=== PATIENT | female | born 1950 | race Caucasian/White ===

== ENCOUNTER 2018-02-02 16:10 | Inpatient (IN) ==
--- NOTE | 2018-02-02 19:43 | ED ---
HPI General Chief complaint: Abdominal Pain Stated complaint: dr saxena/ jenna pain Time Seen by Provider: 02/02/18 19:33 History of Present Illness HPI narrative: This is a 67-year-old female who sent by Dr. Bowen for admission. She has a history of right lower extremity DVT, on Xarelto. For the past 2 weeks she has been experiencing pain in her left lower quadrant which is sharp, constant, notes some vaginal bleeding and clots as well. Today she has an appointment with Dr. Harris and was sent here for further evaluation. 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 She is denying any fevers, chills, dysuria, nausea, vomiting,, constipation, chest pain, shortness of breath. Primary care physician is Dr. Hendricks. No other complaints. Related Data Home Medications Medication Instructions Recorded Confirmed atenolol 50 mg PO DAILY 01/15/18 02/02/18 citalopram 40 mg PO DAILY 01/15/18 02/02/18 furosemide 40 mg PO DAILY 01/15/18 02/02/18 rivaroxaban [Xarelto] 20 mg PO DAILY 01/15/18 02/02/18 calcium carbonate-vitamin D3 1 tab PO BID 02/02/18 02/02/18 [Calcium 500 + D] Allergies Allergy/AdvReac Type Severity Reaction Status Date / Time No Known Allergies Allergy Verified 02/02/18 16:29 Review of Systems ROS: all other systems reviewed are negative PMFSH Social History Social History Substance History: No History of Abuse Second Hand Smoke Exposure: No Smoking Status: Never smoker How Often Do You Have a Drink Containing Alcohol: Never Recent Travel in [facility] within the Last 8 Weeks: No Recent Out of Country Travel within the Last 8 Weeks: No Immunization History Tetanus Immunization: Unsure Exam Narrative Exam Narrative: GENERAL: Well-developed well-nourished female no acute distress SKIN: Warm and dry. HEAD: Atraumatic. Normocephalic. EYES: Pupils equal and round. No scleral icterus. No injection or drainage. ENT: No nasal bleeding or discharge. Mucous membranes pink and moist. NECK: Trachea midline. No JVD. CARDIOVASCULAR: Regular rate and rhythm. No murmur appreciated. RESPIRATORY: No accessory muscle use. Clear to auscultation. Breath sounds equal bilaterally. GASTROINTESTINAL: Abdomen soft, non-tender, nondistended. Hepatic and splenic margins not palpable. MUSCULOSKELETAL: No obvious deformities. Right lower extremity nonpitting edema , generalized tenderness to palpation to the right calf and thigh. Distal pulses intact. NEUROLOGICAL: Awake and alert. No obvious cranial nerve deficits. Motor grossly within normal limits. Normal speech. PSYCHIATRIC: Appropriate mood and affect; insight and judgment normal. Course Initial Documented Vital Signs Temperature 99.6 F 02/02/18 16:20 Pulse Rate 75 02/02/18 16:20 Blood Pressure 121/56 L 02/02/18 16:20 Pulse Oximetry 96 02/02/18 16:20 Last Documented Vital Signs Temperature 99.6 F 02/02/18 16:20 Pulse Rate 74 02/02/18 19:30 Respiratory Rate 18 02/02/18 19:30 Blood Pressure 159/106 H 02/02/18 19:30 Pulse Oximetry 96 02/02/18 19:30 Medical Decision Making JENNIFER Attestation JENNIFRE supervised visit: Yes Attestation: I was present with the advanced practitioner during the management of this patient. I discussed the case with the advanced practitioner and agree with the findings and plan as documented in their note except as noted below. 67yF sent in by oncologist for copious vaginal bleeding. 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 Harris's office for vaginal bleeding. I spoke with Dr. Harris prior to the patient's arrival; he says that the tumor has been growing aggressively and sent her in for evaluation by HEALTH CENTER ASSISTANT-onc and emergent initiation of chemotherapy. The patient's only complaint presently is feeling "weak". Will obtain labs and discuss case with hospitalist. [facility] Narrative Medical decision making narrative: This is a 67-year-old female who was sent by oncologist Dr. Harris for admission. She had a PET/CT performed at [place] on January 27 which reveals "extremely hypermetabolic greater than 12 cm right pelvic mass which demonstrates some central necrosis and encases the distal right ureter. Right periaortic and right pelvic adenopathy and markedly enlarged right inguinal masses extending into the proximal thigh all extremely hypermetabolic. There is evidence of direct compression upon the right femoral vein with associated marketed soft tissue swelling of the right thigh. There is one metabolic focus in the chest. Discussed with Dr. Harris who would like to be consulted during the patient's hospital stay and he also plans on consulting gynecology oncology. Patient is stable. Medical Screen Exam Complete: Yes Emergency Medical Condition: Yes Differential Diagnosis Differential Diagnosis: Malignancy, vaginal bleeding, hydronephrosis Lab Data Result diagrams: 02/02/18 20:00 02/02/18 20:00 Lab Results 02/02/18 02/02/18 02/02/18 Range/Units 20:00 20:00 20:00 WBC 8.4 (4.0-11.0) th/mm3 RBC 3.80 L (4.00-5.30) mil/mm3 Hgb 11.1 L (11.6-15.3) gm/dL Hct 34.3 L (35.0-46.0) % MCV 90.1 (80.0-100.0) fL MCH 29.3 (27.0-34.0) pg MCHC 32.5 (32.0-36.0) % RDW 13.5 (11.6-17.2) % Plt Count 318 (150-450) th/mm3 MPV 7.6 (7.0-11.0) fL Neut % (Auto) 68.1 (16.0-70.0) % Lymph % (Auto) 19.5 (9.0-44.0) % Mellette % (Auto) 10.2 H (0.0-8.0) % Eos % (Auto) 1.2 (0.0-4.0) % Baso % (Auto) 1.0 (0.0-2.0) % Neut # (Auto) 5.7 (1.8-7.7) th/mm3 Lymph # (Auto) 1.6 (1.0-4.8) th/mm3 Mellette # (Auto) 0.9 (0.0-0.9) th/mm3 Eos # (Auto) 0.1 (0.0-0.4) th/mm3 Baso # (Auto) 0.1 (0.0-0.2) th/mm3 WBC Differential . Differential Comment Auto diff final PT 10.9 (9.8-11.6) sec INR 1.1 Ratio APTT 26.8 (23.4-31.7) sec Sodium 140 (136-145) meq/L Potassium 3.4 L (3.5-5.1) meq/L Chloride 101 (98-107) meq/L Carbon Dioxide 28.4 (21.0-32.0) meq/L Anion Gap 11 (5-15) meq/L BUN 14 (7-18) mg/dL Creatinine 0.76 (0.50-1.00) mg/dL Estimated GFR 76 L (>89) mL/min Random Glucose 111 H (74-106) mg/dL Calcium 8.8 (8.5-10.1) mg/dL Magnesium 1.7 (1.5-2.5) mg/dL Total Bilirubin 0.3 (0.2-1.0) mg/dL AST 86 H (15-37) U/L ALT 36 (10-53) U/L Alkaline Phosphatase 63 (45-117) U/L Total Protein 8.8 H (6.4-8.2) g/dL Albumin 3.4 (3.4-5.0) g/dL Lipase 160 (73-393) U/L Blood Type Antibody Screen 02/02/18 Range/Units 20:00 WBC (4.0-11.0) th/mm3 RBC (4.00-5.30) mil/mm3 Hgb (11.6-15.3) gm/dL Hct (35.0-46.0) % MCV (80.0-100.0) fL MCH (27.0-34.0) pg MCHC (32.0-36.0) % RDW (11.6-17.2) % Plt Count (150-450) th/mm3 MPV (7.0-11.0) fL Neut % (Auto) (16.0-70.0) % Lymph % (Auto) (9.0-44.0) % Mellette % (Auto) (0.0-8.0) % Eos % (Auto) (0.0-4.0) % Baso % (Auto) (0.0-2.0) % Neut # (Auto) (1.8-7.7) th/mm3 Lymph # (Auto) (1.0-4.8) th/mm3 Mellette # (Auto) (0.0-0.9) th/mm3 Eos # (Auto) (0.0-0.4) th/mm3 Baso # (Auto) (0.0-0.2) th/mm3 WBC Differential Differential Comment PT (9.8-11.6) sec INR Ratio APTT (23.4-31.7) sec Sodium (136-145) meq/L Potassium (3.5-5.1) meq/L Chloride (98-107) meq/L Carbon Dioxide (21.0-32.0) meq/L Anion Gap (5-15) meq/L BUN (7-18) mg/dL Creatinine (0.50-1.00) mg/dL Estimated GFR (>89) mL/min Random Glucose (74-106) mg/dL Calcium (8.5-10.1) mg/dL Magnesium (1.5-2.5) mg/dL Total Bilirubin (0.2-1.0) mg/dL AST (15-37) U/L ALT (10-53) U/L Alkaline Phosphatase (45-117) U/L Total Protein (6.4-8.2) g/dL Albumin (3.4-5.0) g/dL Lipase (73-393) U/L Blood Type O Positive Antibody Screen Negative Discharge Plan Discharge Disposition Patient Disposition: 30 Still Patient Discharge Condition Condition: Stable Discharge Details Diagnosis: Pelvic mass in female Physicians Team ED Provider: Nasima Mckeon ED Midlevel Provider: Nicolas Camejo Primary Care Provider: Dave Hendricks V Rxs /Orders / Referrals /Forms Prescriptions: No Action furosemide 40 mg Tablet 40 mg PO DAILY RF: 0 citalopram 40 mg Tablet 40 mg PO DAILY RF: 0 atenolol 50 mg Tablet 50 mg PO DAILY RF: 0 rivaroxaban [Xarelto] 20 mg Tablet 20 mg PO DAILY RF: 0 calcium carbonate-vitamin D3 [Calcium 500 + D] 500 mg(1,250mg) -200 unit Tablet 1 tab PO BID RF: 0 Status ED Status: Admitted Patient
[2018-02-02 20:54] LABS: Baso # (Auto) 0.1 th/mm3 (0.0-0.2); Eos # (Auto) 0.1 th/mm3 (0.0-0.4); Eos % (Auto) 1.2 % (0.0-4.0); Hematocrit 34.3 % (35.0-46.0); Hemoglobin 11.1 gm/dL (11.6-15.3); Lymph # (Auto) 1.6 th/mm3 (1.0-4.8); Lymph % (Auto) 19.5 % (9.0-44.0); Mean Corpuscular HGB Conc 32.5 % (32.0-36.0); Mean Corpuscular Hemoglobin 29.3 pg (27.0-34.0); Mean Corpuscular Volume 90.1 fL (80.0-100.0); Mean Platelet Volume 7.6 fL (7.0-11.0); Mono # (Auto) 0.9 th/mm3 (0.0-0.9); Mono % (Auto) 10.2 % (0.0-8.0); Neut # (Auto) 5.7 th/mm3 (1.8-7.7); Neut % (Auto) 68.1 % (16.0-70.0); Platelet Count 318 th/mm3 (150-450); Red Cell Distribution Width 13.5 % (11.6-17.2); White Blood Count 8.4 th/mm3 (4.0-11.0)
[2018-02-02 21:02] LABS: Activated Partial Thrombo Time 26.8 sec (23.4-31.7); INR 1.1 Ratio; Prothrombin Time 10.9 sec (9.8-11.6)
[2018-02-02 21:14] LABS: Albumin 3.4 g/dL (3.4-5.0); Anion Gap 11 meq/L (5-15); Blood Urea Nitrogen 14 mg/dL (7-18); Calcium 8.8 mg/dL (8.5-10.1); Carbon Dioxide 28.4 meq/L (21.0-32.0); Chloride 101 meq/L (98-107); Glomerular Filtration Rate 76 mL/min (>89); Glucose,Random 111 mg/dL (74-106); Lipase 160 U/L (73-393); Magnesium 1.7 mg/dL (1.5-2.5); Potassium 3.4 meq/L (3.5-5.1); Sodium 140 meq/L (136-145)
[2018-02-02 21:15] LABS: Alanine Aminotransferase 36 U/L (10-53); Aspartate Aminotransferase 86 U/L (15-37)
[2018-02-02 21:18] LABS: Alkaline Phosphatase 63 U/L (45-117); Total Protein 8.8 g/dL (6.4-8.2)
[2018-02-02] MEDS ORDERED: Bisacodyl 10 MG Supp RECTAL PRN (21:42)
[2018-02-03] MEDS: Sod Chloride 0.9% Inj 1,000 ML IV.CONT SCH ×2 (00:10→20:15)
[2018-02-03] MEDS: Morphine Sulfate Inj 2 MG/ML Vial IV.PUSH PRN ×3 (00:30→20:35)
--- NOTE | 2018-02-03 04:37 | P.HPIM ---
History of Present Illness Service: [facility] Primary Care Physician: Dave Hendricks MD Chief Complaint: pelvic mass History of Present Illness: 67 y/o female with a history of a high grade neuroendocrine tumor recently diagnosed in December, HTN, and arthritis was sent to the ED for evaluation of a pelvic mass. Patient completed a pet scan outpatient that showed a pelvic mass and for the last 2 weeks she has been having vaginal bleeding and lower abdominal/pelvic pain. Dr. Harris recommended she come to the ER to see a SWIMMING COACH OR INSTRUCTOR so he can start chemo as soon as possible. She denies any chest pain, sob, fever or chills. Patient has a very optimistic attitude and has a good support system of her and sister at home. Inpatient Certification Inpatient Certification: I certify that the inpatient services were ordered in accordance with Medicare regulations governing the order. This includes certification that hospital inpatient services are reasonable and necessary and in the case of services not specified as inpatient-only under 42 CFR 419.22(n), that they are appropriately provided as inpatient services in accordance to with the 2-midnight benchmark under 43 CFR 412.3(e) Estimated Total Length of Stay (Days): 2 Plans for Post Hospital Care: Not yet determined Review of Systems ROS: all other systems reviewed are negative [facility] Medical History Medical History Arthritis (Acute) Neuroendocrine cancer (Acute) Osteoarthritis (Acute) Depression (Acute) Hypertension (Acute) Surgical History Surgical History H/O: hysterectomy (Acute) History of knee replacement (Acute) History of loop recorder (Acute) Family History Family History Mother Dementia Father CVA (cerebral vascular accident) Social History Social History Substance History: No History of Abuse Second Hand Smoke Exposure: No Smoking Status: Never smoker How Often Do You Have a Drink Containing Alcohol: Never Recent Travel in [facility] [[email or web address]] within the Last 8 Weeks: No Recent Out of Country Travel within the Last 8 Weeks: No Immunization History Tetanus Immunization: Unsure Medications and Allergies Allergies Allergy/AdvReac Type Severity Reaction Status Date / Time No Known Allergies Allergy Verified 02/02/18 16:29 Home Medications Medication Instructions Recorded Confirmed Type atenolol 50 mg PO DAILY 01/15/18 02/02/18 History citalopram 40 mg PO DAILY 01/15/18 02/02/18 History furosemide 40 mg PO DAILY 01/15/18 02/02/18 History rivaroxaban [Xarelto] 20 mg PO DAILY 01/15/18 02/02/18 History calcium carbonate-vitamin D3 1 tab PO BID 02/02/18 02/02/18 History [Calcium 500 + D] Active Medications: Active Medications Al Hydroxide/Mg Hydroxide (Milk Of Magnesia Liq) 30 ml PO Q12H PRN PRN Reason: Mild Constipation Atenolol (Tenormin) 50 mg PO DAILY BEATA Bisacodyl (Dulcolax Supp) 10 mg RECTAL DAILY PRN PRN Reason: SEVERE CONSITIPATION Citalopram Hydrobromide (Celexa) 40 mg PO DAILY BEATA Sodium Chloride (Ns Inj) 1,000 mls @ 45 mls/hr IV.CONT .[id number] BEATA Last Admin: 02/03/18 00:10 Dose: 45 mls/hr Lactulose (Lactulose Liq) 30 ml PO DAILY PRN PRN Reason: SEVERE CONSITIPATION Morphine Sulfate (Morphine Inj) 2 mg IV.PUSH Q3H PRN PRN Reason: pain 1 to 10 Last Admin: 02/03/18 00:30 Dose: 2 mg Ondansetron HCl (Zofran Inj) 4 mg IV.PUSH Q6H PRN PRN Reason: NAUSEA Last Admin: 02/03/18 00:30 Dose: 4 mg Sennosides (Senokot) 17.2 mg PO Q12H PRN PRN Reason: Moderate Constipation Sodium Chloride (Ns Flush) 2 ml IV.FLUSH PRN PRN PRN Reason: FLUSH AFTER USING IV ACCESS Physical Exam Vital signs: Last Vital Signs Temp 98.4 F 02/03/18 00:00 Pulse 76 02/03/18 00:00 Resp 18 02/03/18 00:00 BP 114/58 L 02/03/18 00:00 Pulse Ox 97 02/03/18 00:00 Intake & Output 01/31/18 02/01/18 02/02/18 02/03/18 06:59 06:59 06:59 06:59 Weight 111.13 kg Narrative: GENERAL: well nourished patient, in no acute distress SKIN: Warm and dry. HEAD: Atraumatic. Normocephalic. EYES: Pupils equal and round. No scleral icterus. No injection or drainage. ENT: No nasal bleeding or discharge. Mucous membranes pink and moist. NECK: Trachea midline. No JVD. CARDIOVASCULAR: Regular rate and rhythm. RESPIRATORY: No accessory muscle use. Clear to auscultation. Breath sounds equal bilaterally. GASTROINTESTINAL: Abdomen soft,transverse pelvic pain , nondistended. Hepatic and splenic margins not palpable. MUSCULOSKELETAL: Extremities without clubbing, cyanosis, or edema. No obvious deformities. NEUROLOGICAL: Awake and alert. No obvious cranial nerve deficits. Motor grossly within normal limits. Normal speech. Assessment and Plan Plan 67 y/o female with a history of a 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 Pelvic mass, likely metastatic, patient with neuroendocrine tumor Outpatient PET/CT performed at [place] on January 27 which reveals " extremely hypermetabolic greater than 12 cm right pelvic mass which demonstrates some central necrosis and encases the distal right ureter. -Consult to Oncology Dr. Harris -Pain management with IV morphine -NPO, IVF Hypertension, chronic -Resume home medications, monitor vitals DVT prophylaxis: SCDs H&P: Quality VTE Deep Vein Thrombosis/Pulmonary Embolism Present on Admission: No
[2018-02-03 05:05] LABS: Baso # (Auto) 0.1 th/mm3 (0.0-0.2); Baso % (Auto) 0.7 % (0.0-2.0); Eos % (Auto) 0.1 % (0.0-4.0); Hematocrit 31.3 % (35.0-46.0); Hemoglobin 10.5 gm/dL (11.6-15.3); Lymph # (Auto) 1.6 th/mm3 (1.0-4.8); Lymph % (Auto) 15.2 % (9.0-44.0); Mean Corpuscular HGB Conc 33.5 % (32.0-36.0); Mean Corpuscular Volume 89.7 fL (80.0-100.0); Mean Platelet Volume 7.6 fL (7.0-11.0); Mono # (Auto) 0.8 th/mm3 (0.0-0.9); Mono % (Auto) 7.8 % (0.0-8.0); Neut % (Auto) 76.2 % (16.0-70.0); Platelet Count 338 th/mm3 (150-450); Red Blood Count 3.49 mil/mm3 (4.00-5.30); Red Cell Distribution Width 13.6 % (11.6-17.2); White Blood Count 10.6 th/mm3 (4.0-11.0)
[2018-02-03 05:31] LABS: Albumin 3.3 g/dL (3.4-5.0); Anion Gap 12 meq/L (5-15); Aspartate Aminotransferase 77 U/L (15-37); Blood Urea Nitrogen 18 mg/dL (7-18); Calcium 8.7 mg/dL (8.5-10.1); Carbon Dioxide 26.6 meq/L (21.0-32.0); Chloride 104 meq/L (98-107); Glomerular Filtration Rate 61 mL/min (>89); Glucose,Random 176 mg/dL (74-106); Potassium 3.7 meq/L (3.5-5.1); Sodium 143 meq/L (136-145)
[2018-02-03 05:32] LABS: Alanine Aminotransferase 33 U/L (10-53)
[2018-02-03 05:35] LABS: Alkaline Phosphatase 56 U/L (45-117); Total Protein 8.4 g/dL (6.4-8.2)
--- NOTE | 2018-02-03 08:00 | P.CON ---
History of Present Illness Service: Hematology/oncology. Consult date: 02/03/18 Requesting Physician: Jose Jj Reason for Consult: High-grade neuroendocrine tumor, right lower extremity DVT Primary Care Provider: Dave Hendricks MD Chief Complaint: Vaginal bleeding, right leg swelling, pelvic pain. History of Present Illness: Ms. Soto is a very pleasant 67-year-old female whom I initially met in my outpatient clinic on 01/23/2018. She was referred to me for further workup and management of a high-grade neuroendocrine tumor. She initially presented to her primary care physician with a 2-month history of swelling in her right upper thigh and right lower extremity swelling. She was found to have a large right lower extremity deep venous thrombosis which was occlusive and multiple pathologically enlarged right inguinal lymph nodes when she underwent ultrasound Doppler studies. 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 After initial visit with me she underwent PET/CT imaging, PET/CT imaging was performed last week. She was found to have an extensive hypermetabolic involving the lower pelvis in the area of the uterus/cervix. She was found to have pathologically enlarged lymph nodes which were hypermetabolic in the right inguinal area as well as mediastinal hypermetabolic lymph nodes. The patient was seen by myself in my clinic on 02/02/2018 (yesterday), she reported symptoms of heavy vaginal bleeding, extensive pelvic pain, right leg swelling and progressive weakness. 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 Review of Systems Constitutional: Reports chills, Reports lack of energy, Reports weakness Eyes: Denies change in vision Ears, Nose, Mouth, and Throat: Denies change in voice, Denies headache(s), Denies nasal congestion Cardiovascular: Reports shortness of breath, Denies chest pain Respiratory: Denies cough, Denies coughing up blood Gastrointestinal: Reports abdominal pain, Denies black, tarry stools, Denies coffee ground vomit, Denies constipation, Denies cramping, Denies vomiting blood Genitourinary: Reports abnormal vaginal bleeding (Heavy menstrual bleeding.) Musculoskeletal: Reports back pain, Reports body aches, Denies abnormal walking Skin/Breast: Denies sores Neurologic: Denies abnormal hearing Psychiatric: Reports abnormal sleep pattern, Reports anxiety Endocrine: Denies cold intolerance Hematologic/Lymphatic: Reports easy bleeding Allergic/Immunologic: Denies GI upset with certain foods PMFSH - History History Provided By: Patient - Medical History Medical History: Medical History (Last Updated 02/03/18 @ 07:59 by Sim Harris MD) Arthritis History of needle biopsy Morbid obesity Neuroendocrine cancer Osteoarthritis Pelvic mass Right leg DVT Depression Hypertension - Surgical History Surgical History: Surgical History (Last Updated 02/03/18 @ 04:33 by HECTOR Haley) H/O: hysterectomy History of knee replacement History of loop recorder - Family History Family History: Family History (Last Reviewed 02/03/18 @ 07:59 by Sim Harris MD) Mother Dementia Father CVA (cerebral vascular accident) - Social History I have reviewed the patient's Social History: Yes - Tobacco History Second Hand Smoke Exposure: No Smoking Status: Never smoker - Alcohol History How Often Do You Have a Drink Containing Alcohol: Never - Substance Use History Substance History: No History of Abuse - Travel History Recent Travel in the [place] Within the Last 8 Weeks: No Recent Travel Out of the Country Within the Last 8 Weeks: No - Immunization History Tetanus Immunization: Unsure Medications and Allergies Active Medications: Active Medications Al Hydroxide/Mg Hydroxide (Milk Of Magnesia Liq) 30 ml PO Q12H PRN PRN Reason: Mild Constipation Atenolol (Tenormin) 50 mg PO DAILY BEATA Bisacodyl (Dulcolax Supp) 10 mg RECTAL DAILY PRN PRN Reason: SEVERE CONSITIPATION Citalopram Hydrobromide (Celexa) 40 mg PO DAILY BEATA Furosemide (Lasix) 40 mg PO DAILY BEATA Sodium Chloride (Ns Inj) 1,000 mls @ 45 mls/hr IV.CONT .[id number] BEATA Last Admin: 02/03/18 00:10 Dose: 45 mls/hr Lactulose (Lactulose Liq) 30 ml PO DAILY PRN PRN Reason: SEVERE CONSITIPATION Morphine Sulfate (Morphine Inj) 2 mg IV.PUSH Q3H PRN PRN Reason: pain 1 to 10 Last Admin: 02/03/18 00:30 Dose: 2 mg Ondansetron HCl (Zofran Inj) 4 mg IV.PUSH Q6H PRN PRN Reason: NAUSEA Last Admin: 02/03/18 00:30 Dose: 4 mg Sennosides (Senokot) 17.2 mg PO Q12H PRN PRN Reason: Moderate Constipation Sodium Chloride (Ns Flush) 2 ml IV.FLUSH PRN PRN PRN Reason: FLUSH AFTER USING IV ACCESS Allergies Allergy/AdvReac Type Severity Reaction Status Date / Time No Known Allergies Allergy Verified 02/02/18 16:29 Home Medications Medication Instructions Recorded Confirmed Type atenolol 50 mg PO DAILY 01/15/18 02/02/18 History citalopram 40 mg PO DAILY 01/15/18 02/02/18 History furosemide 40 mg PO DAILY 01/15/18 02/02/18 History rivaroxaban [Xarelto] 20 mg PO DAILY 01/15/18 02/02/18 History calcium carbonate-vitamin D3 1 tab PO BID 02/02/18 02/02/18 History [Calcium 500 + D] Physical Exam Vital signs: Vital Signs 02/02/18 16:20 02/02/18 19:30 02/02/18 21:42 Temperature 99.6 F Pulse Rate 75 74 71 Respiratory Rate 18 16 Blood Pressure 121/56 L 159/106 H 99/49 L Pulse Oximetry 96 96 95 02/02/18 22:00 02/02/18 22:27 02/02/18 23:22 Temperature Pulse Rate 69 68 66 Respiratory Rate 18 18 18 Blood Pressure 97/50 L 106/52 L 123/56 L Pulse Oximetry 98 98 99 02/02/18 23:23 02/03/18 00:00 02/03/18 04:00 Temperature 98.4 F 98.0 F Pulse Rate 76 83 Respiratory Rate 16 18 18 Blood Pressure 114/58 L 128/68 Pulse Oximetry 97 93 L Intake & Output 02/02/18 02/03/18 02/03/18 18:59 06:59 18:59 Weight 111.13 kg 111.3 kg Other: # Voids 2 Date of Last Bowel Movement 02/02/18 Weight On Admission 111.3 kg Narrative: Middle-aged/elderly lady, laying in bed, appears to be no acute distress, she has a pleasant disposition. She is of medium height and is morbidly obese. HEENT: Head atraumatic normocephalic, conjunctivae not pale sclera anicteric, EOMI, PERRLA. Oral exam: No pharyngeal erythema, no ulceration or thrush. Neck exam: No palpable pathologically enlarged cervical or supraclavicular adenopathy. Respiratory exam: Good air movement bilaterally not breath sounds. No rhonchi, rales or wheezes. Cardiovascular: Regular rate and rhythm, S1-S2 no obvious murmurs or gallops. Abdominal exam: Obese belly, soft, nontender, positive bowel sounds. Pathologically enlarged bulky right inguinal/right upper thigh lymphadenopathy. Extremities: Right lower extremity significantly larger in circumference when compared to the left lower extremity. This starts at the level of the upper thigh and goes all the way down to the ankles. There is no obvious tenderness. POST DOC FELLOWSHIP: No focal sensorimotor deficits. Skin exam: Nonfocal. Psychiatric: Alert and oriented x3, her mood is appropriate and her level of understanding is excellent. Assessment and Plan - Plan Ms. Soto is a 67-year-old lady who was initially referred to [facility] 2 weeks ago for evaluation of pathologically enlarged right inguinal lymph nodes associated with a large occlusive deep venous thrombus involving the right lower extremity. 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 PET/CT scan performed in the interim revealed hypermetabolic mass involving the pelvis with metastatic hypermetabolic lymph nodes in the right inguinal area as well as in the mediastinum. She had no evidence of parenchymal lung mass to suggest a lung primary. She has been a lifelong non-smoker but does have some secondhand tobacco smoke exposure. Additional problems include therapeutic anticoagulation for management of her extensive right lower extremity DVT and increasingly heavy vaginal bleeding. It should be noted that the patient underwent a hysterectomy and removal of one ovary in the . Constellation of findings are concerning for high-grade neuroendocrine tumor ( bordering on small cell carcinoma) the primary site is not clearly apparent but I suspect the primary site involves the pelvis, whether this is related to her remaining ovary or some other intrapelvic structure is not clear. What is clear based on her PET/CT scan is that she does have hypermetabolic metastatic disease to the right inguinal lymph nodes as well as to the mediastinal lymph nodes. She also has a significant right-sided hydro-nephrosis and hydroureter secondary to the pathologically enlarged lymph nodes within the pelvis and the pelvic mass itself. She has been hospitalized for additional inpatient workup and initiation of systemic therapy given the high proliferative index of her underlying high- grade neuroendocrine tumor. Recommendations: 1. I would like to establish central venous access with either PICC line or an infusion port. This will allow us to deliver inpatient systemic chemotherapy. Given her diagnosis of high-grade neuroendocrine tumor the most appropriate treatment at this time would be a combination of carboplatin and etoposide. 2. Transfer patient to the oncology unit. 3. Right lower extremity DVT: Hold off on anticoagulation at this time until she has central venous access; I would prefer a PICC at this time. She may resume anticoagulation once the PICC line has been placed. 4. Right-sided hydroureter: Her renal function at this time is within normal limits. Hopefully urgent inpatient systemic therapy will help relieve the hydroureter. If not she may require urology evaluation. 5. Vaginal bleeding: Secondary to the large pelvic mass and anticoagulation. She does have resultant anemia. I will initiate her on oral iron replacement therapy. She may require ultrasound of the pelvis or an MRI of the pelvis to further evaluate. She may also require a pelvic examination by our gynecologic service to further characterize the source of the bleeding. Continue ongoing care. Appreciate our hospitalist service assistance in management of this complicated patient.
[2018-02-03] MEDS: Atenolol 50 MG Tablet PO SCH (08:10)
[2018-02-03] MEDS: Furosemide 40 MG Tablet PO SCH (08:10)
--- NOTE | 2018-02-03 09:31 | P.PN ---
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 Harris asked her to come to ER. PLOW SHAKER consulted, recommended to start Chemotherapy as soon as possible, she has Depression. 02/03: seen in her bedroom, no complaint, no nausea, vomit or diarrhea, as per wood flooring specialist she has pathologically enlarged Right inguinal lymph nodes associated with a large occlusive deep venous thrombus involving the right lower extremity biopsy indicated high-grade neuroendocrine tumor which on immunohistochemical staining studies was concerning for [place] cell carcinoma. PET/CT scan performed in the interim revealed hypermetabolic mass involving the pelvis with metastatic hypermetabolic lymph nodes in the right inguinal area as well as in the mediastinum. Recommended PICC line placement or infusion Port, for inpatient Chemotherapy, Carboplatin and etoposide, transfer to oncology unit. hold anticoagulation for procedure, Physical Exam Vital signs: Vital Signs 02/02/18 16:20 02/02/18 19:30 02/02/18 21:42 Temperature 99.6 F Pulse Rate 75 74 71 Respiratory Rate 18 16 Blood Pressure 121/56 L 159/106 H 99/49 L Pulse Oximetry 96 96 95 02/02/18 22:00 02/02/18 22:27 02/02/18 23:22 Temperature Pulse Rate 69 68 66 Respiratory Rate 18 18 18 Blood Pressure 97/50 L 106/52 L 123/56 L Pulse Oximetry 98 98 99 02/02/18 23:23 02/03/18 00:00 02/03/18 04:00 Temperature 98.4 F 98.0 F Pulse Rate 76 83 Respiratory Rate 16 18 18 Blood Pressure 114/58 L 128/68 Pulse Oximetry 97 93 L 02/03/18 08:00 02/03/18 09:11 Temperature 98.2 F Pulse Rate 76 Respiratory Rate 16 16 Blood Pressure 127/74 Pulse Oximetry 98 Intake & Output 02/02/18 02/03/18 02/03/18 18:59 06:59 18:59 Weight 111.13 kg 111.3 kg Other: # Voids 2 Date of Last Bowel Movement 02/02/18 Weight On Admission 111.3 kg Narrative: GENERAL: Obese, in no acute distress SKIN: Warm and dry. HEAD: Atraumatic. Normocephalic. EYES: Pupils equal and round. No scleral icterus. No injection or drainage. ENT: No nasal bleeding or discharge. Mucous membranes pink and moist. NECK: Trachea midline. No JVD. CARDIOVASCULAR: Regular rate and rhythm. RESPIRATORY: No accessory muscle use. Clear to auscultation. GASTROINTESTINAL: Abdomen soft,transverse pelvic pain , nondistended. MUSCULOSKELETAL: Extremities without clubbing, cyanosis, or edema. NEUROLOGICAL: Awake and alert. No obvious cranial nerve deficits. Results - Labs CBC & Chem 7: 02/03/18 04:11 02/03/18 04:11 Laboratory Results - last 24 hr 02/02/18 02/02/18 02/02/18 20:00 20:00 20:00 WBC 8.4 RBC 3.80 L Hgb 11.1 L Hct 34.3 L MCV 90.1 MCH 29.3 MCHC 32.5 RDW 13.5 Plt Count 318 MPV 7.6 Neut % (Auto) 68.1 Lymph % (Auto) 19.5 Parke % (Auto) 10.2 H Eos % (Auto) 1.2 Baso % (Auto) 1.0 Neut # (Auto) 5.7 Lymph # (Auto) 1.6 [place]ke # (Auto) 0.9 Eos # (Auto) 0.1 Baso # (Auto) 0.1 WBC Differential . Differential Comment Auto diff final PT 10.9 INR 1.1 APTT 26.8 Sodium 140 Potassium 3.4 L Chloride 101 Carbon Dioxide 28.4 Anion Gap 11 BUN 14 Creatinine 0.76 Estimated GFR 76 L Random Glucose 111 H Calcium 8.8 Magnesium 1.7 Total Bilirubin 0.3 AST 86 H ALT 36 Alkaline Phosphatase 63 Total Protein 8.8 H Albumin 3.4 Lipase 160 Ur Collection Type Urine Color Urine Clarity Urine pH Ur Specific [place] Urine Protein Urine Glucose (UA) Urine Ketones Urine Occult Blood Urine Nitrate Urine Bilirubin Urine Ictotest Urine Urobilinogen Ur Leukocyte Esterase Urine RBC Urine WBC Urine WBC Clumps Ur Squamous Epith Cells Ur Transition Epith Cell Ur Renal Epithelial Cell Calcium Carbonate Cryst Calcium Oxalate Crystal Leucine Crystals Cystine Crystals Uric Acid Crystals Triple Phos Crystals Cholesterol Crystals Tyrosine Crystals Amorphous Sediment Urine Bacteria Hyaline Casts Granular Casts Fine Granular Casts Coarse Granular Casts Waxy Casts RBC Casts WBC Casts Urine Mucus Urine Trichomonas Urine Yeast Ur Yeast w Hyphae Urine Sperm Ur Oval Fat Bodies Micro UA Comment Ur Microscopic Review Urine Culture Comments Urine Collection Time Urine Comment Blood Type Antibody Screen 02/02/18 02/02/18 02/03/18 20:00 20:00 04:11 WBC 10.6 RBC 3.49 L Hgb 10.5 L Hct 31.3 L MCV 89.7 MCH 30.0 MCHC 33.5 RDW 13.6 Plt Count 338 MPV 7.6 Neut % (Auto) 76.2 H Lymph % (Auto) 15.2 [place] % (Auto) 7.8 Eos % (Auto) 0.1 Baso % (Auto) 0.7 Neut # (Auto) 8.0 H Lymph # (Auto) 1.6 [place] # (Auto) 0.8 Eos # (Auto) 0.0 Baso # (Auto) 0.1 WBC Differential . Differential Comment Auto diff final PT INR APTT Sodium Potassium Chloride Carbon Dioxide Anion Gap BUN Creatinine Estimated GFR Random Glucose Calcium Magnesium Total Bilirubin AST ALT Alkaline Phosphatase Total Protein Albumin Lipase Ur Collection Type Cancelled Urine Color Cancelled Urine Clarity Cancelled Urine pH Cancelled Ur Specific [place] Cancelled Urine Protein Cancelled Urine Glucose (UA) Cancelled Urine Ketones Cancelled Urine Occult Blood Cancelled Urine Nitrate Cancelled Urine Bilirubin Cancelled Urine Ictotest Cancelled Urine Urobilinogen Cancelled Ur Leukocyte Esterase Cancelled Urine RBC Cancelled Urine WBC Cancelled Urine WBC Clumps Cancelled Ur Squamous Epith Cells Cancelled Ur Transition Epith Cell Cancelled Ur Renal Epithelial Cell Cancelled Calcium Carbonate Cryst Cancelled Calcium Oxalate Crystal Cancelled Leucine Crystals Cancelled Cystine Crystals Cancelled Uric Acid Crystals Cancelled Triple Phos Crystals Cancelled Cholesterol Crystals Cancelled Tyrosine Crystals Cancelled Amorphous Sediment Cancelled Urine Bacteria Cancelled Hyaline Casts Cancelled Granular Casts Cancelled Fine Granular Casts Cancelled Coarse Granular Casts Cancelled Waxy Casts Cancelled RBC Casts Cancelled WBC Casts Cancelled Urine Mucus Cancelled Urine Trichomonas Cancelled Urine Yeast Cancelled Ur Yeast w Hyphae Cancelled Urine Sperm Cancelled Ur Oval Fat Bodies Cancelled Micro UA Comment Cancelled Ur Microscopic Review Cancelled Urine Culture Comments Cancelled Urine Collection Time Cancelled Urine Comment Cancelled Blood Type O Positive Antibody Screen Negative 02/03/18 04:11 WBC RBC Hgb Hct MCV MCH MCHC RDW Plt Count MPV Neut % (Auto) Lymph % (Auto) [place] % (Auto) Eos % (Auto) Baso % (Auto) Neut # (Auto) Lymph # (Auto) [place] # (Auto) Eos # (Auto) Baso # (Auto) WBC Differential Differential Comment PT INR APTT Sodium 143 Potassium 3.7 Chloride 104 Carbon Dioxide 26.6 Anion Gap 12 BUN 18 Creatinine 0.92 Estimated GFR 61 L Random Glucose 176 H Calcium 8.7 Magnesium Total Bilirubin 0.4 AST 77 H ALT 33 Alkaline Phosphatase 56 Total Protein 8.4 H Albumin 3.3 L Lipase Ur Collection Type Urine Color Urine Clarity Urine pH Ur Specific [place] Urine Protein Urine Glucose (UA) Urine Ketones Urine Occult Blood Urine Nitrate Urine Bilirubin Urine Ictotest Urine Urobilinogen Ur Leukocyte Esterase Urine RBC Urine WBC Urine WBC Clumps Ur Squamous Epith Cells Ur Transition Epith Cell Ur Renal Epithelial Cell Calcium Carbonate Cryst Calcium Oxalate Crystal Leucine Crystals Cystine Crystals Uric Acid Crystals Triple Phos Crystals Cholesterol Crystals Tyrosine Crystals Amorphous Sediment Urine Bacteria Hyaline Casts Granular Casts Fine Granular Casts Coarse Granular Casts Waxy Casts RBC Casts WBC Casts Urine Mucus Urine Trichomonas Urine Yeast Ur Yeast w [place]phae Urine Sperm Ur Oval Fat Bodies Micro UA Comment Ur Microscopic Review Urine Culture Comments Urine Collection Time Urine Comment Blood Type Antibody Screen - Procedures None Assessment and Plan - Plan 67 y/o female with a history of a 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 1. wood flooring specialist Notes: she has pathologically enlarged Right inguinal lymph nodes associated with a large occlusive deep venous thrombus involving the right lower extremity biopsy indicated high-grade neuroendocrine tumor which on immunohistochemical staining studies was concerning for [place] cell carcinoma. PET/CT scan performed in the interim revealed hypermetabolic mass involving the pelvis with metastatic hypermetabolic lymph nodes in the right inguinal area as well as in the mediastinum. Recommended PICC line placement or infusion Port for inpatient Chemotherapy with Carboplatin and etoposide transfer to oncology unit hold anticoagulation for procedure 2. Right-sided hydroureter Hopefully urgent inpatient systemic therapy will help relieve the hydroureter. If not she may require urology evaluation. 3. Vaginal bleeding: Secondary to the large pelvic mass and anticoagulation. She does have resultant anemia. 4. Hypertension, chronic -Resume home medications, monitor vitals 5. Obesity strongly recommended diet and exercise as outpatient. DVT prophylaxis: SCDs awaiting for probable procedure. Code Status: Full code. Discussed Condition With: Discussed with Patient and Nurse. Discharge Planning: once cleared by wood flooring specialist.
[2018-02-03] MEDS: Ferrous Sulfate 325 MG Tablet PO SCH ×2 (11:09→20:11)
--- NOTE | 2018-02-03 16:56 | P.CONOB ---
History of Present Illness Primary Care Physician: Dave Hendricks MD Chief Complaint: Vaginal bleeding, right leg swelling, pelvic pain. 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 ERECTING CRANE OPERATOR consult requested for 2 weeks of vaginal bleeding and lower abdominal/ pelvic pain. Patient states that she has been passing small clots since November, but noticed an increase in vaginal bleeding for the past 2 weeks. She states that the vaginal bleeding started after she was started on Xeralto. She also notes worsening pelvic pain with bleeding. Patient also complains of continued right lower extremity swelling and pain along the groin and upper thigh, which was the initial reason she why she sough medical evaluation in November and was diagnosed with NET. Patient states that she was sent to the ED by Dr. Harris for initiation of chemotherapy. PMHx: Neuroendocrine tumor, RLE DVT, HTN, arthtritis, uterine fibroids s/p hysterectomy OBYGYN hx: , miscarriage Surgical Hx: hysterectomy w/ unilateral oophorectomy on the for uterine fibroids Total bilateral knee replacements in 1998 & 2010 Loop recorder placement Bladder control device Review of Systems Constitutional: Denies chills, Denies fever(s) Cardiovascular: Denies chest pain Comments: RLE swelling and pain Respiratory: Denies shortness of breath Gastrointestinal: Reports abdominal pain, Reports cramping Genitourinary: Reports abnormal vaginal bleeding, Reports pelvic pain PMFSH - History History Provided By: Patient - Medical History Medical History: Medical History (Last Reviewed 02/03/18 @ 16:46 by Mel Burciaga DO, R1) Arthritis History of needle biopsy Morbid obesity Neuroendocrine cancer Osteoarthritis Pelvic mass Right leg DVT Depression Hypertension - Surgical History Surgical History: Surgical History (Last Reviewed 02/03/18 @ 16:46 by Mel Burciaga DO, R1) H/O: hysterectomy History of knee replacement History of loop recorder - Family History Family History: Family History (Last Reviewed 02/03/18 @ 16:46 by Mel Burciaga DO, R1) Mother Dementia Father CVA (cerebral vascular accident) - Tobacco History Second Hand Smoke Exposure: No Smoking Status: Never smoker - Alcohol History How Often Do You Have a Drink Containing Alcohol: Never - Substance Use History Substance History: No History of Abuse - Travel History Recent Travel in the [place] Within the Last 8 Weeks: No Recent Travel Out of the Country Within the Last 8 Weeks: No - Immunization History Tetanus Immunization: Unsure Medications and Allergies Allergies Allergy/AdvReac Type Severity Reaction Status Date / Time No Known Allergies Allergy Verified 02/02/18 16:29 Home Medications Medication Instructions Recorded Confirmed Type atenolol 50 mg PO DAILY 01/15/18 02/02/18 History citalopram 40 mg PO DAILY 01/15/18 02/02/18 History furosemide 40 mg PO DAILY 01/15/18 02/02/18 History rivaroxaban [Xarelto] 20 mg PO DAILY 01/15/18 02/02/18 History calcium carbonate-vitamin D3 1 tab PO BID 02/02/18 02/02/18 History [Calcium 500 + D] Active Medications: Active Medications Al Hydroxide/Mg Hydroxide (Milk Of Magnesia Liq) 30 ml PO Q12H PRN PRN Reason: Mild Constipation Atenolol (Tenormin) 50 mg PO DAILY [facility] Last Admin: 02/03/18 08:10 Dose: 50 mg Bisacodyl (Dulcolax Supp) 10 mg RECTAL DAILY PRN PRN Reason: SEVERE CONSITIPATION Citalopram Hydrobromide (Celexa) 40 mg PO DAILY [facility] Last Admin: 02/03/18 08:10 Dose: 40 mg Ferrous Sulfate (Ferosul) 325 mg PO BID [facility] Last Admin: 02/03/18 11:09 Dose: 325 mg Furosemide (Lasix) 40 mg PO DAILY [facility] Last Admin: 02/03/18 08:10 Dose: 40 mg Heparin Sodium (Porcine) (Heparin Central Flush) 0 unit IV.FLUSH PRN PRN PRN Reason: Flush PICC Line Heparin Sodium (Porcine) (Heparin Central Flush) 0 unit IV.FLUSH DAILY [facility] Sodium Chloride (Ns Inj) 1,000 mls @ 45 mls/hr IV.CONT .[id number] [facility] Last Admin: 02/03/18 00:10 Dose: 45 mls/hr Lactulose (Lactulose Liq) 30 ml PO DAILY PRN PRN Reason: SEVERE CONSITIPATION Morphine Sulfate (Morphine Inj) 2 mg IV.PUSH Q3H PRN PRN Reason: pain 1 to 10 Last Admin: 02/03/18 08:10 Dose: 2 mg Ondansetron HCl (Zofran Inj) 4 mg IV.PUSH Q6H PRN PRN Reason: NAUSEA Last Admin: 02/03/18 00:30 Dose: 4 mg Sennosides (Senokot) 17.2 mg PO Q12H PRN PRN Reason: Moderate Constipation Sodium Chloride (Ns Flush) 2 ml IV.FLUSH PRN PRN PRN Reason: FLUSH AFTER USING IV ACCESS Sodium Chloride (Ns Flush) 0 ml IV.FLUSH PRN PRN PRN Reason: Flush After Blood Draws Sodium Chloride (Ns Flush) 0 ml IV.FLUSH PRN PRN PRN Reason: FLUSH AFTER USING IV ACCESS Sodium Chloride (Ns Flush) 0 ml IV.FLUSH DAILY [facility] Exam Vital signs: Vital Signs 02/02/18 19:30 02/02/18 21:42 02/02/18 22:00 Temperature Pulse Rate 74 71 69 Respiratory Rate 18 16 18 Blood Pressure 159/106 H 99/49 L 97/50 L Pulse Oximetry 96 95 98 02/02/18 22:27 02/02/18 23:22 02/02/18 23:23 Temperature Pulse Rate 68 66 Respiratory Rate 18 18 16 Blood Pressure 106/52 L 123/56 L Pulse Oximetry 98 99 02/03/18 00:00 02/03/18 04:00 02/03/18 08:00 Temperature 98.4 F 98.0 F 98.2 F Pulse Rate 76 83 76 Respiratory Rate 18 18 16 Blood Pressure 114/58 L 128/68 127/74 Pulse Oximetry 97 93 L 98 02/03/18 09:11 02/03/18 12:00 Temperature 98.6 F Pulse Rate 69 Respiratory Rate 16 18 Blood Pressure 108/62 Pulse Oximetry 96 Intake & Output 02/02/18 02/03/18 02/03/18 18:59 06:59 18:59 Weight 111.13 kg 111.3 kg Other: # Voids 2 Date of Last Bowel Movement 02/02/18 02/02/18 Weight On Admission 111.3 kg Narrative: Pelvic Exam: Pelvic mass palpated at the edge of vaginal cuff Speculum exam: Normal external genitalia, without lesions. Normal vaginal mucosa consistent with post-menopausal female. Vaginal cuff fully visualized. Small amount of fluid coming out from vaginal cuff. Moderate amount of blood in the vaginal vault. No obvious mass noted within vaginal canal Results - Labs CBC & Chem 7: 02/03/18 04:11 02/03/18 04:11 Labs: Laboratory Results - last 24 hr 02/02/18 02/02/18 02/02/18 20:00 20:00 20:00 WBC 8.4 RBC 3.80 L Hgb 11.1 L Hct 34.3 L MCV 90.1 MCH 29.3 MCHC 32.5 RDW 13.5 Plt Count 318 MPV 7.6 Neut % (Auto) 68.1 Lymph % (Auto) 19.5 Ness % (Auto) 10.2 H Eos % (Auto) 1.2 Baso % (Auto) 1.0 Neut # (Auto) 5.7 Lymph # (Auto) 1.6 Ness # (Auto) 0.9 Eos # (Auto) 0.1 Baso # (Auto) 0.1 WBC Differential . Differential Comment Auto diff final PT 10.9 INR 1.1 APTT 26.8 Sodium 140 Potassium 3.4 L Chloride 101 Carbon Dioxide 28.4 Anion Gap 11 BUN 14 Creatinine 0.76 Estimated GFR 76 L Random Glucose 111 H Calcium 8.8 Magnesium 1.7 Total Bilirubin 0.3 AST 86 H ALT 36 Alkaline Phosphatase 63 Total Protein 8.8 H Albumin 3.4 Lipase 160 Ur Collection Type Urine Color Urine Clarity Urine pH Ur Specific [place] Urine Protein Urine Glucose (UA) Urine Ketones Urine Occult Blood Urine Nitrate Urine Bilirubin Urine Ictotest Urine Urobilinogen Ur Leukocyte Esterase Urine RBC Urine WBC Urine WBC Clumps Ur Squamous Epith Cells Ur Transition Epith Cell Ur Renal Epithelial Cell Calcium Carbonate Cryst Calcium Oxalate Crystal Leucine Crystals Cystine Crystals Uric Acid Crystals Triple Phos Crystals Cholesterol Crystals Tyrosine Crystals Amorphous Sediment Urine Bacteria Hyaline Casts Granular Casts Fine Granular Casts Coarse Granular Casts Waxy Casts RBC Casts WBC Casts Urine Mucus Urine Trichomonas Urine Yeast Ur Yeast w Hyphae Urine Sperm Ur Oval Fat Bodies Micro UA Comment Ur Microscopic Review Urine Culture Comments Urine Collection Time Urine Comment Blood Type Antibody Screen 02/02/18 02/02/18 02/03/18 20:00 20:00 04:11 WBC 10.6 RBC 3.49 L Hgb 10.5 L Hct 31.3 L MCV 89.7 MCH 30.0 MCHC 33.5 RDW 13.6 Plt Count 338 MPV 7.6 Neut % (Auto) 76.2 H Lymph % (Auto) 15.2 Ness % (Auto) 7.8 Eos % (Auto) 0.1 Baso % (Auto) 0.7 Neut # (Auto) 8.0 H Lymph # (Auto) 1.6 Ness # (Auto) 0.8 Eos # (Auto) 0.0 Baso # (Auto) 0.1 WBC Differential . Differential Comment Auto diff final PT INR APTT Sodium Potassium Chloride Carbon Dioxide Anion Gap BUN Creatinine Estimated GFR Random Glucose Calcium Magnesium Total Bilirubin AST ALT Alkaline Phosphatase Total Protein Albumin Lipase Ur Collection Type Cancelled Urine Color Cancelled Urine Clarity Cancelled Urine pH Cancelled Ur Specific [place] Cancelled Urine Protein Cancelled Urine Glucose (UA) Cancelled Urine Ketones Cancelled Urine Occult Blood Cancelled Urine Nitrate Cancelled Urine Bilirubin Cancelled Urine Ictotest Cancelled Urine Urobilinogen Cancelled Ur Leukocyte Esterase Cancelled Urine RBC Cancelled Urine WBC Cancelled Urine WBC Clumps Cancelled Ur Squamous Epith Cells Cancelled Ur Transition Epith Cell Cancelled Ur Renal Epithelial Cell Cancelled Calcium Carbonate Cryst Cancelled Calcium Oxalate Crystal Cancelled Leucine Crystals Cancelled Cystine Crystals Cancelled Uric Acid Crystals Cancelled Triple Phos Crystals Cancelled Cholesterol Crystals Cancelled Tyrosine Crystals Cancelled Amorphous Sediment Cancelled Urine Bacteria Cancelled Hyaline Casts Cancelled Granular Casts Cancelled Fine Granular Casts Cancelled Coarse Granular Casts Cancelled Waxy Casts Cancelled RBC Casts Cancelled WBC Casts Cancelled Urine Mucus Cancelled Urine Trichomonas Cancelled Urine Yeast Cancelled Ur Yeast w Hyphae Cancelled Urine Sperm Cancelled Ur Oval Fat Bodies Cancelled Micro UA Comment Cancelled Ur Microscopic Review Cancelled Urine Culture Comments Cancelled Urine Collection Time Cancelled Urine Comment Cancelled Blood Type O Positive Antibody Screen Negative 02/03/18 04:11 WBC RBC Hgb Hct MCV MCH MCHC RDW Plt Count MPV Neut % (Auto) Lymph % (Auto) Ness % (Auto) Eos % (Auto) Baso % (Auto) Neut # (Auto) Lymph # (Auto) Ness # (Auto) Eos # (Auto) Baso # (Auto) WBC Differential Differential Comment PT INR APTT Sodium 143 Potassium 3.7 Chloride 104 Carbon Dioxide 26.6 Anion Gap 12 BUN 18 Creatinine 0.92 Estimated GFR 61 L Random Glucose 176 H Calcium 8.7 Magnesium Total Bilirubin 0.4 AST 77 H ALT 33 Alkaline Phosphatase 56 Total Protein 8.4 H Albumin 3.3 L Lipase Ur Collection Type Urine Color Urine Clarity Urine pH Ur Specific [place] Urine Protein Urine Glucose (UA) Urine Ketones Urine Occult Blood Urine Nitrate Urine Bilirubin Urine Ictotest Urine Urobilinogen Ur Leukocyte Esterase Urine RBC Urine WBC Urine WBC Clumps Ur Squamous Epith Cells Ur Transition Epith Cell Ur Renal Epithelial Cell Calcium Carbonate Cryst Calcium Oxalate Crystal Leucine Crystals Cystine Crystals Uric Acid Crystals Triple Phos Crystals Cholesterol Crystals Tyrosine Crystals Amorphous Sediment Urine Bacteria Hyaline Casts Granular Casts Fine Granular Casts Coarse Granular Casts Waxy Casts RBC Casts WBC Casts Urine Mucus Urine Trichomonas Urine Yeast Ur Yeast w [place]phae Urine Sperm Ur Oval Fat Bodies Micro UA Comment Ur Microscopic Review Urine Culture Comments Urine Collection Time Urine Comment Blood Type Antibody Screen Assessment and Plan - Diagnosis (1) Vaginal bleeding Code(s): N93.9 - Abnormal uterine and vaginal bleeding, unspecified Status: Acute (2) Pelvic mass in female Code(s): R19.00 - Intra-abdominal and pelvic swelling, mass and lump, unspecified site Status: Acute - Plan 67 y/o F with recently diagnosed neuroedocrine tumor, evaluated for pelvic mass and abnormal vaginal bleeding, increasing over the past 2 weeks. -Cervical and pelvic exam performed at bedside -Agree with plan for chemotherapy for neuroendocrine tumor -No further gynecologic intervention required at this time -Follow up if additional input is needed - Attending Attestation The exam, history, and the medical decision-making described in the above note were completed with the assistance of the resident physician. I reviewed and agree with the findings presented. I attest that I had a [id number] encounter with the patient on the same day, and personally performed and documented my assessment and findings in the medical record.
[2018-02-03] MEDS: Allopurinol 300 MG Tablet PO SCH (20:11)
[2018-02-04 05:18] LABS: Uric Acid 7.4 mg/dl (2.6-6.0)
[2018-02-04] MEDS: Sod Chloride 0.9% Inj 1,000 ML IV.CONT SCH ×2 (09:39→20:17)
[2018-02-04] MEDS: Allopurinol 300 MG Tablet PO SCH (09:41)
[2018-02-04] MEDS: Atenolol 50 MG Tablet PO SCH (09:41)
[2018-02-04] MEDS: Furosemide 40 MG Tablet PO SCH (09:41)
[2018-02-04] MEDS: Ferrous Sulfate 325 MG Tablet PO SCH ×2 (09:41→20:16)
[2018-02-04] MEDS: Morphine Sulfate Inj 2 MG/ML Vial IV.PUSH PRN ×2 (09:42→17:32)
[2018-02-04] MEDS: Heparin Central Flush 100 UNIT/ML 5 ML Vial IV.FLUSH SCH (09:42)
--- NOTE | 2018-02-04 10:00 | P.PNONC ---
Subjective Interval history: Afebrile. Patient sitting on bedside commode, she the vaginal bleeding. She reports dizziness if she stands up too fast. She is pending chemo today. Objective Vital Signs/Intake & Output: Vital Signs 02/03/18 12:00 02/03/18 16:00 02/03/18 20:00 Temperature 98.6 F 98.5 F 98.3 F Pulse Rate 69 66 81 Respiratory Rate 18 16 14 Blood Pressure 108/62 111/56 L 124/63 Pulse Oximetry 96 95 94 L 02/04/18 00:00 02/04/18 04:00 Temperature 98.4 F 98.2 F Pulse Rate 76 80 Respiratory Rate 16 16 Blood Pressure 141/86 H 130/70 Pulse Oximetry 93 L 94 L Intake & Output 02/03/18 02/04/18 02/04/18 18:59 06:59 18:59 Intake Total 1220 / 1220 1000 / 1000 Output Total 480 / 480 Balance 740 / 740 1000 / 1000 Weight 112 kg Intake: IV 1000 / 1000 1000 / 1000 NS Inj 1,000 ML @ 45 mls/hr IV. 1000 / 1000 1000 / 1000 CONT .[id number] [facility] Rx#:[id number] Oral 220 / 220 Output: Urine 480 / 480 Other: Date of Last Bowel Movement 02/02/18 02/02/18 Result Diagrams: 02/03/18 04:11 02/03/18 04:11 Laboratory Results: Laboratory Results - last 24 hr 02/04/18 04:05 Uric Acid 7.4 H Lactate Dehydrogenase 797 H Medications: Active Medications Generic Name Dose Route Start Last Admin Trade Name Horaceq PRN Reason Stop Dose Admin Allopurinol 300 mg 02/03/18 18:30 02/04/18 09:41 Zyloprim PO 300 mg DAILY [facility] Administration Atenolol 50 mg 02/03/18 09:00 02/04/18 09:41 Tenormin PO 50 mg DAILY [facility] Administration Citalopram Hydrobromide 40 mg 02/03/18 09:00 02/04/18 09:41 Celexa PO 40 mg DAILY [facility] Administration Ferrous Sulfate 325 mg 02/03/18 09:00 02/04/18 09:41 Ferosul PO 325 mg BID [facility] Administration Furosemide 40 mg 02/03/18 09:00 02/04/18 09:41 Lasix PO 40 mg DAILY [facility] Administration Heparin Sodium (Porcine) 0 unit 02/04/18 09:00 02/04/18 09:42 Heparin Central Flush IV.FLUSH 200 unit DAILY [facility] Administration Sodium Chloride 1,000 mls @ 100 mls/hr 02/02/18 21:45 02/04/18 09:39 Ns Inj IV.CONT 100 mls/hr .Q10H [facility] Administration Morphine Sulfate 2 mg 02/03/18 00:02 02/04/18 09:42 Morphine Inj IV.PUSH 2 mg Q3H PRN Administration pain 1 to 10 Ondansetron HCl 4 mg 02/03/18 00:00 02/03/18 00:30 Zofran Inj IV.PUSH 4 mg Q6H PRN Administration NAUSEA Sodium Chloride 0 ml 02/04/18 09:00 02/04/18 09:43 Ns Flush IV.FLUSH 5 ml DAILY [facility] Administration Objective Remarks: GENERAL: Obese elderly female patient, in no acute distress. SKIN: Warm and dry. HEAD: Normocephalic. EYES: No scleral icterus. No injection or drainage. NECK: Supple, trachea midline. CARDIOVASCULAR: Regular rate and rhythm without murmurs. RESPIRATORY: Posterior breath sounds clear, equal bilaterally. No accessory muscle use. GASTROINTESTINAL: Abdomen large, soft, non-tender, nondistended. EXTREMITIES: No cyanosis, or edema. MUSCULOSKELETAL: Adequate muscle tone. NEUROLOGICAL: No obvious focal deficit. Awake, alert, and oriented x3. PSYCHIATRIC: Appropriate mood and affect; insight and judgment normal. Assessment/Plan - Plan Patient is a 67-year-old female recently diagnosed with high-grade neuroendocrine tumor and right lower extremity DVT. Patient was seen in the clinic on 02/02/2018 and reported symptoms of heavy vaginal bleeding, extensive pelvic pain right leg swelling and progressive weakness. She was referred to the emergency department. Recommendations: 1. High-grade neuroendocrine tumor. Patient to receive carboplatin and etoposide chemotherapy today. We will pre-hydrate with normal saline at 100 mL/ h. 2. Right lower extremity DVT, patient received PICC line yesterday, we will therefore resume her anticoagulant, Xarelto 20 mg daily. 3. Vaginal bleeding, gynecology consulted and did not recommend any procedures at this time. Patient denies heavy bleeding today, continue to monitor. - Attending Statement The exam, history, and the medical decision-making described in the above note were completed with the assistance of the mid-level provider. I reviewed and agree with the findings presented. I attest that I had a [id number] encounter with the patient on the same day, and personally performed and documented my assessment and findings in the medical record. Patient is complaining of vaginal bleeding but states that it is not that heavy today Complaining of shortness of breath on exertion She had a PICC line yesterday Palliative chemotherapy carboplatin I will and etoposide will start today Chemotherapy will be given for 3 days Xarelto will be resumed and we will monitor her vaginal bleeding. If the bleeding get worse then we will cut back or hold it Discussed with the patient regarding the above plan and she acknowledged it
[2018-02-04] MEDS ORDERED: Rivaroxaban 20 MG Tablet PO SCH (10:15)
--- NOTE | 2018-02-04 12:00 | P.PN ---
Subjective Interval history: Nursing denies any acute changes overnight except with the patient still bleeding vaginally. Otherwise patient vocalizes no new complaints. Physical Exam Vital signs: Vital Signs 02/03/18 16:00 02/03/18 20:00 02/04/18 00:00 Temperature 98.5 F 98.3 F 98.4 F Pulse Rate 66 81 76 Respiratory Rate 16 14 16 Blood Pressure 111/56 L 124/63 141/86 H Pulse Oximetry 95 94 L 93 L 02/04/18 04:00 02/04/18 08:30 02/04/18 11:46 Temperature 98.2 F 98.2 F 98.9 F Pulse Rate 80 85 83 Respiratory Rate 16 16 16 Blood Pressure 130/70 136/75 143/90 H Pulse Oximetry 94 L 95 96 Intake & Output 02/03/18 02/04/18 02/04/18 18:59 06:59 18:59 Intake Total 1220 / 1220 1000 / 1000 Output Total 480 / 480 Balance 740 / 740 1000 / 1000 Weight 112 kg Intake: IV 1000 / 1000 1000 / 1000 NS Inj 1,000 ML @ 45 mls/hr IV. 1000 / 1000 1000 / 1000 CONT .[id number] [facility] Rx#:[id number] Oral 220 / 220 Output: Urine 480 / 480 Other: Date of Last Bowel Movement 02/02/18 02/02/18 Narrative: Right leg is edematous and mildly red compared to the left Heart sounds regular rate and rhythm, no murmurs Clear lungs bilaterally Sitting up in bed, very faint paleness Results - Labs CBC & Chem 7: 02/05/18 04:15 02/05/18 04:15 Laboratory Results - last 24 hr 02/04/18 04:05 Uric Acid 7.4 H Lactate Dehydrogenase 797 H - Procedures None Assessment and Plan - Plan 67 y/o female with a history of a 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 If not she may require urology evaluation. Vaginal bleeding -Secondary to the large pelvic mass and anticoagulation. She does have resultant anemia. Gynecology has signed off recommending no additional inpatient workup. monitor h/h, transfuse as needed Hypertension, chronic - home medications -Obesity strongly recommended diet and exercise as outpatient. DVT prophylaxis: SCDs awaiting for probable procedure.
[2018-02-04] MEDS ORDERED: Granisetron 1 MG/ML Vial IV.PUSH ONE (15:30)
[2018-02-04] MEDS ORDERED: Dexamethasone Inj 20 MG in Sodium Chlor 0.9% Inj 50 ML IV.SIG ONE (15:30)
[2018-02-04] MEDS ORDERED: CARBOPLATIN IV.SIG ONE (16:00)
[2018-02-04] MEDS ORDERED: SODIUM CHLOR 0.9% IV.SIG ONE (16:00)
[2018-02-04] MEDS ORDERED: Etoposide Inj 200 MG in Sodium Chlor 0.9% Inj 500 ML IV.SIG SCH (16:30)
[2018-02-05] MEDS: Heparin Central Flush 100 UNIT/ML 5 ML Vial IV.FLUSH PRN (04:14)
[2018-02-05 05:19] LABS: Baso % (Auto) 0.3 % (0.0-2.0); Hematocrit 22.2 % (35.0-46.0); Hemoglobin 7.4 gm/dL (11.6-15.3); Lymph # (Auto) 0.7 th/mm3 (1.0-4.8); Lymph % (Auto) 5.7 % (9.0-44.0); Mean Corpuscular HGB Conc 33.5 % (32.0-36.0); Mean Corpuscular Hemoglobin 30.2 pg (27.0-34.0); Mean Corpuscular Volume 90.2 fL (80.0-100.0); Mean Platelet Volume 7.4 fL (7.0-11.0); Mono # (Auto) 0.9 th/mm3 (0.0-0.9); Neut # (Auto) 9.9 th/mm3 (1.8-7.7); Platelet Count 266 th/mm3 (150-450); Red Blood Count 2.46 mil/mm3 (4.00-5.30); Red Cell Distribution Width 13.9 % (11.6-17.2); White Blood Count 11.5 th/mm3 (4.0-11.0)
[2018-02-05 05:54] LABS: Alanine Aminotransferase 23 U/L (10-53); Albumin 2.9 g/dL (3.4-5.0); Alkaline Phosphatase 48 U/L (45-117); Anion Gap 12 meq/L (5-15); Aspartate Aminotransferase 57 U/L (15-37); Blood Urea Nitrogen 31 mg/dL (7-18); Calcium 7.6 mg/dL (8.5-10.1); Carbon Dioxide 22.7 meq/L (21.0-32.0); Chloride 106 meq/L (98-107); Glomerular Filtration Rate 54 mL/min (>89); Glucose,Random 195 mg/dL (74-106); Potassium 3.9 meq/L (3.5-5.1); Sodium 141 meq/L (136-145); Total Protein 7.3 g/dL (6.4-8.2)
[2018-02-05] MEDS: Sod Chloride 0.9% Inj 1,000 ML IV.CONT SCH ×2 (06:46→22:37)
--- NOTE | 2018-02-05 09:27 | P.PNONC ---
Subjective Interval history: Patient reports heavy vaginal bleeding, described as bright red with clots. She saturated 4-5 depends overnight and had to change her gown and sheets. She denies chest pain, shortness of breath or fatigue. Status post chemotherapy last night, tolerated well. Objective Vital Signs/Intake & Output: Vital Signs 02/04/18 11:46 02/04/18 17:27 02/04/18 20:12 Temperature 98.9 F 99 F 98.8 F Pulse Rate 83 82 80 Respiratory Rate 16 18 20 Blood Pressure 143/90 H 123/69 125/70 Pulse Oximetry 96 97 94 L 02/04/18 23:33 02/05/18 04:08 Temperature 98.7 F 98.4 F Pulse Rate 83 84 Respiratory Rate 17 18 Blood Pressure 145/80 H 151/76 H Pulse Oximetry 94 L 96 Intake & Output 02/04/18 02/05/18 02/05/18 18:59 06:59 18:59 Intake Total 2099 / 2100 4225 / 4225 Output Total 80 / 80 Balance 2099 / 2099 4145 / 4145 Weight 114 kg Intake: IV 1000 / 1000 2885 / 2885 NS Inj 1,000 ML @ 100 mls/hr IV 1000 / 1000 1999 / 1999 .CONT .Q10H [facility] Rx#:[id number] Paraplatin Inj 700 MG In NS Inj 320 / 320 250 ML @ 640 mls/hr IV.SIG ONCE ONE Rx#:[id number] Decadron Inj 20 MG In NS Inj 50 55 / 55 ML @ 220 mls/hr IV.SIG ONCE ONE Rx#:[id number] Vepesid Inj 200 MG In NS Inj 510 / 510 500 ML @ 510 mls/hr IV.SIG Q24H [facility] Rx#:[id number] Oral 1100 / 1100 1340 / 1340 Output: Urine 80 / 80 Other: # Voids 5 5 # Urine Diapers 2 Date of Last Bowel Movement 02/03/18 # Bowel Movements 0 0 Result Diagrams: 02/05/18 04:15 02/05/18 04:15 Laboratory Results: Laboratory Results - last 24 hr 02/05/18 02/05/18 04:15 04:15 WBC 11.5 H RBC 2.46 L Hgb 7.4 L Hct 22.2 L MCV 90.2 MCH 30.2 MCHC 33.5 RDW 13.9 Plt Count 266 MPV 7.4 Neut % (Auto) 86.0 H Lymph % (Auto) 5.7 L [place] % (Auto) 8.0 Eos % (Auto) 0.0 Baso % (Auto) 0.3 Neut # (Auto) 9.9 H Lymph # (Auto) 0.7 L [place] # (Auto) 0.9 Eos # (Auto) 0.0 Baso # (Auto) 0.0 WBC Differential . Differential Comment Auto diff final Sodium 141 Potassium 3.9 Chloride 106 Carbon Dioxide 22.7 Anion Gap 12 BUN 31 H Creatinine 1.03 H Estimated GFR 54 L Random Glucose 195 H Calcium 7.6 L Total Bilirubin 0.3 AST 57 H ALT 23 Alkaline Phosphatase 48 Total Protein 7.3 D Albumin 2.9 L Medications: Active Medications Generic Name Dose Route Start Last Admin Trade Name Freq PRN Reason Stop Dose Admin Allopurinol 300 mg 02/03/18 18:30 02/04/18 09:41 Zyloprim PO 300 mg DAILY [facility] Administration Atenolol 50 mg 02/03/18 09:00 02/04/18 09:41 Tenormin PO 50 mg DAILY [facility] Administration Citalopram Hydrobromide 40 mg 02/03/18 09:00 02/04/18 09:41 Celexa PO 40 mg DAILY [facility] Administration Ferrous Sulfate 325 mg 02/03/18 09:00 02/04/18 20:16 Ferosul PO 325 mg BID [facility] Administration Furosemide 40 mg 02/03/18 09:00 02/04/18 09:41 Lasix PO 40 mg DAILY [facility] Administration Heparin Sodium (Porcine) 0 unit 02/03/18 14:06 02/05/18 04:14 Heparin Central Flush IV.FLUSH 200 unit PRN PRN Administration Flush PICC Line Heparin Sodium (Porcine) 0 unit 02/04/18 09:00 02/04/18 09:42 Heparin Central Flush IV.FLUSH 200 unit DAILY [facility] Administration Sodium Chloride 1,000 mls @ 100 mls/hr 02/02/18 21:45 02/05/18 06:46 Ns Inj IV.CONT 100 mls/hr .Q10H [facility] Administration Morphine Sulfate 2 mg 02/03/18 00:02 02/04/18 17:32 Morphine Inj IV.PUSH 2 mg Q3H PRN Administration pain 1 to 10 Ondansetron HCl 4 mg 02/03/18 00:00 02/04/18 17:36 Zofran Inj IV.PUSH 4 mg Q6H PRN Administration NAUSEA Rivaroxaban 20 mg 02/04/18 10:15 02/04/18 17:32 Xarelto PO Not Given DAILY [facility]ATA Sodium Chloride 0 ml 02/04/18 09:00 02/04/18 09:43 Ns Flush IV.FLUSH 5 ml DAILY [facility] Administration Objective Remarks: GENERAL: Obese elderly female patient, in no acute distress. SKIN: Pale, warm and dry. HEAD: Normocephalic. EYES: No scleral icterus. No injection or drainage. NECK: Supple, trachea midline. CARDIOVASCULAR: Regular rate and rhythm without murmurs. RESPIRATORY: Posterior breath sounds clear, equal bilaterally. No accessory muscle use. GASTROINTESTINAL: Abdomen large, soft, non-tender, nondistended. EXTREMITIES: No cyanosis, or edema. MUSCULOSKELETAL: Adequate muscle tone. NEUROLOGICAL: No obvious focal deficit. Awake, alert, and oriented x3. PSYCHIATRIC: Appropriate mood and affect; insight and judgment normal. Assessment/Plan - Plan Patient is a 67-year-old female recently diagnosed with high-grade neuroendocrine tumor and right lower extremity DVT. Patient was seen in the clinic on 02/02/2018 and reported symptoms of heavy vaginal bleeding, extensive pelvic pain right leg swelling and progressive weakness. She was referred to the emergency department. Recommendations: 1. High-grade neuroendocrine tumor. Received carboplatin and etoposide chemotherapy last night, day 1 of 3, patient tolerated well. 2. Right lower extremity DVT, patient received PICC line yesterday, Xarelto currently on hold secondary to heavy vaginal bleeding. 3. Vaginal bleeding, continues, patient reports saturating 4-5 depends overnight. Hemoglobin dropped from 11.1-7.4, will transfuse 2 units PRBCs today. Continue to monitor bleeding, continue to hold anticoagulants. - Attending Statement The exam, history, and the medical decision-making described in the above note were completed with the assistance of the mid-level provider. I reviewed and agree with the findings presented. I attest that I had a [id number] encounter with the patient on the same day, and personally performed and documented my assessment and findings in the medical record. Patient is complaining of heavy vaginal bleeding. She already had hysterectomy several years ago. Vaginal bleeding is most likely from the tumor Hemoglobin dropped significantly Transfused 2 units of packed RBCs Patient tolerated the first dose of chemotherapy last night extremely well She will have second day of etoposide chemotherapy today Consider Amicar tomorrow if continues to have heavy bleeding Dr. Harris will follow in the morning
[2018-02-05] MEDS: Heparin Central Flush 100 UNIT/ML 5 ML Vial IV.FLUSH SCH (09:57)
[2018-02-05] MEDS ORDERED: Sodium Chlor 0.9% Inj 250 ML IV.SIG SCH (10:00)
--- NOTE | 2018-02-05 10:15 | P.PN ---
Subjective Interval history: Nursing denies any acute changes overnight. Patient herself still reports having vaginal bleeding. Says she had vaginal bleeding for about a week and a half per her , prior to this she did not have vaginal bleeding over the last few months. Physical Exam Vital signs: Vital Signs 02/04/18 11:46 02/04/18 17:27 02/04/18 20:12 Temperature 98.9 F 99 F 98.8 F Pulse Rate 83 82 80 Respiratory Rate 16 18 20 Blood Pressure 143/90 H 123/69 125/70 Pulse Oximetry 96 97 94 L 02/04/18 23:33 02/05/18 04:08 Temperature 98.7 F 98.4 F Pulse Rate 83 84 Respiratory Rate 17 18 Blood Pressure 145/80 H 151/76 H Pulse Oximetry 94 L 96 Intake & Output 02/04/18 02/05/18 02/05/18 18:59 06:59 18:59 Intake Total 2100 / 2100 4225 / 4225 Output Total 80 / 80 Balance 2100 / 2100 4145 / 4145 Weight 114 kg Intake: IV 1000 / 1000 2885 / 2885 NS Inj 1,000 ML @ 100 mls/hr IV 1000 / 1000 1999 / 1999 .CONT .Q10H [facility] Rx#:[id number] Paraplatin Inj 700 MG In NS Inj 320 / 320 250 ML @ 640 mls/hr IV.SIG ONCE ONE Rx#:[id number] Decadron Inj 20 MG In NS Inj 50 55 / 55 ML @ 220 mls/hr IV.SIG ONCE ONE Rx#:[id number] Vepesid Inj 200 MG In NS Inj 510 / 510 500 ML @ 510 mls/hr IV.SIG Q24H [facility] Rx#:[id number] Oral 1100 / 1100 1340 / 1340 Output: Urine 80 / 80 Other: # Voids 5 5 # Urine Diapers 2 Date of Last Bowel Movement 02/03/18 # Bowel Movements 0 0 Narrative: Heart sounds regular rate rhythm 4/6 ejection murmur Clear lungs bilaterally, unlabored breathing Right lower extremity still edematous and tender in comparison to the left - Urinary Catheter Management Indwelling Urethral Catheter Cath placed during this visit: yes Reason for continuing: Gross Hematuria Insertion date: 02/06/18 Insertion time: 22:38 Results - Labs CBC & Chem 7: 02/14/18 04:00 02/14/18 04:00 Laboratory Results - last 24 hr 02/05/18 02/05/18 04:15 04:15 WBC 11.5 H RBC 2.46 L Hgb 7.4 L Hct 22.2 L MCV 90.2 MCH 30.2 MCHC 33.5 RDW 13.9 Plt Count 266 MPV 7.4 Neut % (Auto) 86.0 H Lymph % (Auto) 5.7 L [place] % (Auto) 8.0 Eos % (Auto) 0.0 Baso % (Auto) 0.3 Neut # (Auto) 9.9 H Lymph # (Auto) 0.7 L [place] # (Auto) 0.9 Eos # (Auto) 0.0 Baso # (Auto) 0.0 WBC Differential . Differential Comment Auto diff final Sodium 141 Potassium 3.9 Chloride 106 Carbon Dioxide 22.7 Anion Gap 12 BUN 31 H Creatinine 1.03 H Estimated GFR 54 L Random Glucose 195 H Calcium 7.6 L Total Bilirubin 0.3 AST 57 H ALT 23 Alkaline Phosphatase 48 Total Protein 7.3 D Albumin 2.9 L - Procedures None Assessment and Plan - Plan 67 y/o female with a history of a 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 -Hematology following, transfusing -Undergoing transfusion per oncology, Right-sided hydroureter -Hopefully urgent inpatient systemic therapy will help relieve the hydroureter. If not she may require urology evaluation. Hypertension, chronic - home medications -Obesity strongly recommended diet and exercise as outpatient. anticoagulation per hematology
[2018-02-05] MEDS: Ferrous Sulfate 325 MG Tablet PO SCH ×2 (10:37→21:50)
[2018-02-05] MEDS: Allopurinol 300 MG Tablet PO SCH (10:37)
[2018-02-05] MEDS: Atenolol 50 MG Tablet PO SCH (10:37)
[2018-02-05] MEDS: Furosemide 40 MG Tablet PO SCH (10:37)
[2018-02-05] MEDS: Acetaminophen 325 MG Tablet PO PRN ×2 (14:36→20:13)
[2018-02-05] MEDS ORDERED: Dexamethasone Inj 10 MG in Sodium Chlor 0.9% Inj 50 ML IV.SIG SCH (16:00)
[2018-02-05] MEDS: Sodium Chlor 0.9% Inj 250 ML IV.SIG SCH (16:48)
[2018-02-05] MEDS ORDERED: Etoposide Inj 200 MG in Sodium Chlor 0.9% Inj 500 ML IV.SIG SCH (21:30)
[2018-02-05] MEDS: Dexamethasone Inj 10 MG in Sodium Chlor 0.9% Inj 50 ML IV.SIG SCH (22:29)
[2018-02-06] MEDS: Sod Chloride 0.9% Inj 1,000 ML IV.CONT SCH ×3 (00:50→21:15)
[2018-02-06 04:19] LABS: Hematocrit 22.8 % (35.0-46.0)
--- NOTE | 2018-02-06 07:44 | P.PNONC ---
Subjective Interval history: Patient seen and examined, vital signs, labs and medications reviewed. Events of the past 48 hours were also reviewed. Since I last saw the patient on 02/03/2018, she has received day 1 and day 2 of cycle 1 carboplatin and etoposide. Day 3 etoposide will be delivered later tonight. Patient reports tolerating systemic chemotherapy without difficulty, she does report some decrease in pelvic pressure and pain and pressure in her right upper thigh. She continues to have vaginal bleeding, she describes the bleeding as a moderately heavy menstrual period. The patient was also evaluated by the [employer] service who performed a speculum examination as well as pelvic exam. There was no mass noted within the vaginal canal though mass was palpable through the vaginal cuff. Objective Vital Signs/Intake & Output: Vital Signs 02/05/18 09:57 02/05/18 14:25 02/05/18 15:51 Temperature 98.4 F 98.4 F 97.9 F Pulse Rate 86 80 78 Respiratory Rate 16 16 16 Blood Pressure 131/80 125/68 107/62 Pulse Oximetry 99 96 96 02/05/18 16:11 02/05/18 19:37 02/05/18 20:21 Temperature 98.0 F 98.2 F 98.8 F Pulse Rate 86 85 81 Respiratory Rate 20 16 16 Blood Pressure 101/55 L 132/79 131/68 Pulse Oximetry 96 96 97 02/05/18 22:25 02/05/18 23:44 02/06/18 00:02 Temperature 98.4 F 98.6 F Pulse Rate 74 81 73 Respiratory Rate 16 16 Blood Pressure 122/65 120/71 Pulse Oximetry 96 94 L 02/06/18 00:50 02/06/18 03:52 02/06/18 04:37 Temperature 98.3 F Pulse Rate 76 74 Respiratory Rate 16 Blood Pressure 126/66 125/72 Pulse Oximetry 97 Intake & Output 02/05/18 02/06/18 02/06/18 18:59 06:59 18:59 Intake Total 1222 / 1222 1163 / 1163 Output Total 650 / 650 Balance 1222 / 1222 513 / 513 Weight 115.5 kg Intake: IV 1000 / 1000 713 / 713 NS Inj 1,000 ML @ 100 mls/hr IV 1000 / 1000 .CONT .Q10H [facility] Rx#:[id number] Decadron Inj 10 MG In NS Inj 50 53 / 53 ML @ 210 mls/hr IV.SIG Q24H [facility] Rx#:[id number] Vepesid Inj 200 MG In NS Inj 510 / 510 500 ML @ 510 mls/hr IV.SIG Q24H [facility] Rx#:[id number] NS Inj 250 ML @ KVO IV.SIG ONCE 150 / 150 [facility] Rx#:[id number] Oral 222 / 222 Other 50 / 50 Rbc As-3 Leukoreduced Unit 25 / 25 [id number] Rbc As-3 Leukoreduced Unit 25 / 25 [id number] Intake (Blood Product) Amt 0 / 0 400 / 400 Rbc As-3 Leukoreduced Unit 0 / 0 400 / 400 [id number] Rbc As-3 Leukoreduced Unit 0 / 0 [id number] Output: Urine 650 / 650 Other: # Voids 5 Date of Last Bowel Movement 02/03/18 02/03/18 Result Diagrams: 02/06/18 04:00 02/05/18 04:15 Laboratory Results: Laboratory Results - last 24 hr 02/05/18 02/06/18 10:43 04:00 Hgb 8.0 L Hct 22.8 L Blood Type O Positive Antibody Screen Negative MTS Gel Crossmatch See Detail Medications: Active Medications Generic Name Dose Route Start Last Admin Trade Name Freq PRN Reason Stop Dose Admin Al Hydroxide/Mg Hydroxide 30 ml 02/02/18 21:42 02/06/18 05:57 Milk Of Magnesia Liq PO 30 ml Q12H PRN Administration Mild Constipation Allopurinol 300 mg 02/03/18 18:30 02/05/18 10:37 Zyloprim PO 300 mg DAILY [facility] Administration Atenolol 50 mg 02/03/18 09:00 02/05/18 10:37 Tenormin PO 50 mg DAILY [facility] Administration Citalopram Hydrobromide 40 mg 02/03/18 09:00 02/05/18 10:37 Celexa PO 40 mg DAILY [facility] Administration Ferrous Sulfate 325 mg 02/03/18 09:00 02/05/18 21:50 Ferosul PO 325 mg BID [facility] Administration Furosemide 40 mg 02/03/18 09:00 02/05/18 10:37 Lasix PO 40 mg DAILY [facility] Administration Heparin Sodium (Porcine) 0 unit 02/03/18 14:06 02/05/18 04:14 Heparin Central Flush IV.FLUSH 200 unit PRN PRN Administration Flush PICC Line Heparin Sodium (Porcine) 0 unit 02/04/18 09:00 02/05/18 09:57 Heparin Central Flush IV.FLUSH Not Given DAILY [facility] Sodium Chloride 1,000 mls @ 100 mls/hr 02/02/18 21:45 02/06/18 00:50 Ns Inj IV.CONT Not Given .Q10H [facility] Sodium Chloride 250 mls @ 0 mls/hr 02/04/18 14:00 02/06/18 00:51 Ns Inj IV.SIG Infused ONCE [facility] Infusion KVO Dexamethasone Sodium Phosphate 52.5 mls @ 210 mls/hr 02/05/18 21:00 02/05/18 22:55 10 mg/ Sodium Chloride IV.SIG 02/06/18 21:14 Infused Q24H [facility] Infusion Morphine Sulfate 2 mg 02/03/18 00:02 02/04/18 17:32 Morphine Inj IV.PUSH 2 mg Q3H PRN Administration pain 1 to 10 Ondansetron HCl 4 mg 02/03/18 00:00 02/05/18 16:47 Zofran Inj IV.PUSH 4 mg Q6H PRN Administration NAUSEA Rivaroxaban 20 mg 02/04/18 10:15 02/04/18 17:32 Xarelto PO Not Given DAILY [facility] Sodium Chloride 0 ml 02/04/18 09:00 02/05/18 16:47 Ns Flush IV.FLUSH 2 ml DAILY [facility] Administration Objective Remarks: Middle-aged/elderly lady, laying in bed, appears to be no acute distress, she has a pleasant disposition. She is of medium height and is morbidly obese. HEENT: Head atraumatic normocephalic, conjunctivae not pale sclera anicteric, EOMI, PERRLA. Oral exam: No pharyngeal erythema, no ulceration or thrush. Neck exam: No palpable pathologically enlarged cervical or supraclavicular adenopathy. Respiratory exam: Good air movement bilaterally not breath sounds. No rhonchi, rales or wheezes. Cardiovascular: Regular rate and rhythm, S1-S2 no obvious murmurs or gallops. Abdominal exam: Obese belly, soft, nontender, positive bowel sounds. Pathologically enlarged bulky right inguinal/right upper thigh lymphadenopathy. Extremities: Right lower extremity significantly larger in circumference when compared to the left lower extremity. This starts at the level of the upper thigh and goes all the way down to the ankles. There is no obvious tenderness. ACADEMIC DEAN: No focal sensorimotor deficits. Skin exam: Nonfocal. Psychiatric: Alert and oriented x3, her mood is appropriate and her level of understanding is excellent. 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 Patient was seen in the clinic on 02/02/2018 and reported symptoms of heavy vaginal bleeding, extensive pelvic pain right leg swelling and progressive weakness. She has been initiated on palliative systemic therapy with carboplatin and etoposide (with dose modification). Recommendations: 1. High-grade neuroendocrine tumor. Cycle 1 day 1 was on 02/04/2018. Today is day 3. She is tolerating treatment without significant difficulties. 2. Right lower extremity DVT, patient received PICC line yesterday, Xarelto currently on hold secondary to heavy vaginal bleeding. 3. Anemia: Secondary to heavy vaginal bleeding: Now on ferrous sulfate 325 mg twice daily, status post 2 unit packed red blood cell transfusion earlier on 01/2018. Continue ongoing care. Repeat CMP today.
[2018-02-06] MEDS: Allopurinol 300 MG Tablet PO SCH (09:38)
[2018-02-06] MEDS: Atenolol 50 MG Tablet PO SCH (09:38)
[2018-02-06] MEDS: Furosemide 40 MG Tablet PO SCH (09:38)
[2018-02-06] MEDS: Ferrous Sulfate 325 MG Tablet PO SCH ×2 (09:38→21:15)
[2018-02-06] MEDS: Heparin Central Flush 100 UNIT/ML 5 ML Vial IV.FLUSH SCH (11:17)
[2018-02-06] MEDS: Morphine Sulfate Inj 2 MG/ML Vial IV.PUSH PRN (11:18)
--- NOTE | 2018-02-06 14:29 | P.PNIM ---
Subjective Interval history: The patient was complaining of some nausea. She said that she received nausea medication. She has not thrown up. No other acute concerns at this time. Family at the bedside. Physical Exam Vital signs: Vital Signs 02/05/18 15:51 02/05/18 16:11 02/05/18 19:37 Temperature 97.9 F 98.0 F 98.2 F Pulse Rate 78 86 85 Respiratory Rate 16 20 16 Blood Pressure 107/62 101/55 L 132/79 Pulse Oximetry 96 96 96 02/05/18 20:21 02/05/18 22:25 02/05/18 23:44 Temperature 98.8 F 98.4 F 98.6 F Pulse Rate 81 74 81 Respiratory Rate 16 16 16 Blood Pressure 131/68 122/65 120/71 Pulse Oximetry 97 96 94 L 02/06/18 00:02 02/06/18 00:50 02/06/18 03:52 Temperature 98.3 F Pulse Rate 73 76 Respiratory Rate 16 Blood Pressure 126/66 125/72 Pulse Oximetry 97 02/06/18 04:37 02/06/18 08:00 Temperature 98.2 F Pulse Rate 74 84 Respiratory Rate 20 Blood Pressure 109/58 L Pulse Oximetry 98 Intake & Output 02/05/18 02/06/18 02/06/18 18:59 06:59 18:59 Intake Total 1222 / 1222 1163 / 1163 1000 / 1000 Output Total 650 / 650 Balance 1222 / 1222 513 / 513 1000 / 1000 Weight 115.5 kg Intake: IV 1000 / 1000 713 / 713 1000 / 1000 NS Inj 1,000 ML @ 100 mls/hr IV 1000 / 1000 1000 / 1000 .CONT .Q10H [facility] Rx#:[id number] Decadron Inj 10 MG In NS Inj 50 53 / 53 ML @ 210 mls/hr IV.SIG Q24H [facility] Rx#:[id number] Vepesid Inj 200 MG In NS Inj 510 / 510 500 ML @ 510 mls/hr IV.SIG Q24H [facility] Rx#:[id number] NS Inj 250 ML @ KVO IV.SIG ONCE 150 / 150 [facility] Rx#:[id number] Oral 222 / 222 Other 50 / 50 Rbc As-3 Leukoreduced Unit / [id number] Rbc As-3 Leukoreduced Unit [id number] Intake (Blood Product) Amt 0 / 0 400 / 400 Rbc As-3 Leukoreduced Unit 0 / 0 400 / 400 [id number] Rbc As-3 Leukoreduced Unit 0 / 0 [id number] Output: Urine 650 / 650 Other: # Voids 5 Date of Last Bowel Movement 02/03/18 02/03/18 02/02/18 Narrative: GENERAL: In no acute distress. SKIN: Pale, warm and dry. HEAD: Normocephalic. EYES: No scleral icterus. No injection or drainage. NECK: Supple, trachea midline. CARDIOVASCULAR: Regular rate and rhythm without murmurs. RESPIRATORY: Posterior breath sounds clear. GASTROINTESTINAL: Abdomen large, soft, minimally tender, nondistended. EXTREMITIES: No cyanosis, or edema. MUSCULOSKELETAL: Adequate muscle tone. NEUROLOGICAL: No obvious focal deficit. Awake, alert, and oriented x3. PSYCHIATRIC: Appropriate mood and affect; insight and judgment normal. 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 -Hematology following, transfusing as needed. Right-sided hydroureter -Hopefully inpatient systemic therapy will help relieve the hydroureter. If not she may require urology evaluation. Hypertension Chronic. - home medications. Nausea S/t chemo. -antiemetics as needed. -ADAT. PPx: per hematology
[2018-02-06 20:30] LABS: Albumin 2.8 g/dL (3.4-5.0); Calcium 7.2 mg/dL (8.5-10.1); Carbon Dioxide 19.5 meq/L (21.0-32.0); Potassium 4.6 meq/L (3.5-5.1); Total Protein 6.7 g/dL (6.4-8.2)
[2018-02-06] MEDS ORDERED: Etoposide Inj 200 MG in Sodium Chlor 0.9% Inj 500 ML IV.SIG ONE (21:30)
[2018-02-06] MEDS ORDERED: Sod Chloride 0.9% Inj 1,000 ML IV.SIG ONE (21:42)
[2018-02-06] MEDS: Dexamethasone Inj 10 MG in Sodium Chlor 0.9% Inj 50 ML IV.SIG SCH (21:53)
[2018-02-06] MEDS ORDERED: Calcium Gluconate Inj 1 GM in Dextrose 5% in Water Inj 100 ML IV.SIG ONE ×2 (22:30)
[2018-02-07 00:32] LABS: Baso % (Auto) 0.3 % (0.0-2.0); Lymph # (Auto) 0.6 th/mm3 (1.0-4.8); Lymph % (Auto) 6.1 % (9.0-44.0); Mean Corpuscular HGB Conc 33.8 % (32.0-36.0); Mean Corpuscular Hemoglobin 30.4 pg (27.0-34.0); Mean Corpuscular Volume 90.1 fL (80.0-100.0); Mean Platelet Volume 7.4 fL (7.0-11.0); Mono # (Auto) 0.5 th/mm3 (0.0-0.9); Mono % (Auto) 5.2 % (0.0-8.0); Neut # (Auto) 9.4 th/mm3 (1.8-7.7); Neut % (Auto) 88.4 % (16.0-70.0); Platelet Count 216 th/mm3 (150-450); Red Blood Count 2.25 mil/mm3 (4.00-5.30); Red Cell Distribution Width 14.3 % (11.6-17.2); Reticulocyte Percent 3.2 % (0.4-3.0); White Blood Count 10.6 th/mm3 (4.0-11.0)
[2018-02-07 00:34] LABS: Hematocrit 20.3 % (35.0-46.0); Hemoglobin 6.8 gm/dL (11.6-15.3)
[2018-02-07 01:01] LABS: Activated Partial Thrombo Time 22.4 sec (23.4-31.7); INR 1.1 Ratio; Prothrombin Time 11.6 sec (9.8-11.6)
[2018-02-07 01:09] LABS: Platelet Estimate Normal (Normal); Platelet Morphology Normal (Normal)
[2018-02-07 01:10] LABS: Ovalocytes 1+
[2018-02-07] MEDS ORDERED: Acetaminophen 325 MG Tablet PO ONE ×2 (02:00→07:06)
--- NOTE | 2018-02-07 02:42 | CT ---
EXAM DATE: 02/07/2018 1:12 AM EST AGE/SEX: 67 years / Female INDICATIONS: Hydronephrosis with hematuria. History of right-sided pelvic and inguinal adenopathy. H igh-grade neuroendocrine carcinoma. CLINICAL DATA: This is the patient's initial encounter. Patient reports that signs and symptoms have been present for 1 day and indicates a pain score of 6/10. MEDICAL/SURGICAL HISTORY: Hypertension. Deep venous thrombosis. Hysterectomy. RADIATION DOSE: 23.43 CTDI (mGy) COMPARISON: [facility], PET/CT TUMOR, 01/27/2018. . TECHNIQUE: Multiple contiguous axial images were obtained through the abdomen. Images were obtained using multiple row detector helical technique. Using automated exposure control and adjustment of the mA and/or kV according to patient size, radiation dose was kept as low as reasonably achievable to o btain optimal diagnostic quality images. DICOM format image data is available electronically for rev iew and comparison. FINDINGS: Lower Lungs: The visualized lower lungs are clear. Liver: The liver has a homogeneous density without space-occupying lesion. There is no dilation of th e biliary tree. The gallbladder remains unremarkable. Spleen: Homogeneous density without enlargement. Pancreas: Unremarkable without mass or calcification. Kidneys: Normal in size and shape. There is new bilateral hydronephrosis right greater than left. Th ere is a stable small calcification in the central left kidney. There is mild dilatation of the right ureter down to the pelvic mass. Adrenal Glands: Unremarkable. Aorta: The aorta and proximal iliac vessels are grossly unremarkable without aneurysmal dilation. Bowel/Mesentery: No oral contrast was given limiting the sensitivity of the exam. The bowel loops are grossly unremarkable but are displaced by the large right-sided pelvic mass. The cecum and sigmoid c olon have a normal configuration. Abdominal Wall: Intact. Retroperitoneum: Extensive right pelvic adenopathy is again identified. This does not appear signifi cantly changed in size from the recent PET/CT. This extends along the right side of the bladder with loss of the fat plane between the bladder and the adenopathy. There is ill-defined subtle high densit y in this region which could represent invasion into the bladder wall. Mild right-sided retroperitone al adenopathy is noted beginning at the level of the kidneys. This is also not significantly changed. Bladder: A Nguyen catheter is now present in the lower portion of the bladder. The bladder is fairly well distended and contains a large area of hypodensity material in the lower and posterior portions measuring up to approximately 10.3 x 8 cm. Reproductive Organs: No abnormal masses or calcifications seen. Inguinal: Extensive right inguinal adenopathy is again noted with multiple large brittaney masses. These also do not appear significant changed. The largest of these measures up to at least 6.3 cm. There m ultiple dilated blood vessels in the subcutaneous fat along the anterior pelvis. Bony Structures: Unremarkable. CONCLUSION: 1. The bladder is fairly well distended with large area of higher seen most consistent with hemorrha ge. The large right-sided pelvic brittaney mass extends along the right side of the bladder with loss of the fat plane and ill-defined high density which is of concern for direct invasion into the bladder. 2. New bilateral hydronephrosis right greater than left. 3. Extensive right inguinal and right sided pelvic adenopathy without significant change from the re cent PET/CT. Electronically signed by: Noah Swan MD 02/07/2018 2:41 AM EST
[2018-02-07 06:03] LABS: Baso % (Auto) 0.1 % (0.0-2.0); Hematocrit 21.4 % (35.0-46.0); Hemoglobin 7.2 gm/dL (11.6-15.3); Lymph # (Auto) 0.6 th/mm3 (1.0-4.8); Lymph % (Auto) 6.2 % (9.0-44.0); Mean Corpuscular HGB Conc 33.8 % (32.0-36.0); Mean Corpuscular Hemoglobin 29.6 pg (27.0-34.0); Mean Corpuscular Volume 87.4 fL (80.0-100.0); Mean Platelet Volume 7.2 fL (7.0-11.0); Mono # (Auto) 0.3 th/mm3 (0.0-0.9); Mono % (Auto) 3.3 % (0.0-8.0); Neut # (Auto) 8.5 th/mm3 (1.8-7.7); Neut % (Auto) 90.4 % (16.0-70.0); Platelet Count 174 th/mm3 (150-450); Red Blood Count 2.45 mil/mm3 (4.00-5.30); Red Cell Distribution Width 15.1 % (11.6-17.2); White Blood Count 9.5 th/mm3 (4.0-11.0)
[2018-02-07] MEDS: Sod Chloride 0.9% Inj 1,000 ML IV.CONT SCH ×2 (06:22→09:34)
[2018-02-07 06:37] LABS: Calcium 6.9 mg/dL (8.5-10.1); Carbon Dioxide 19.9 meq/L (21.0-32.0); Magnesium 2.2 mg/dL (1.5-2.5); Potassium 4.2 meq/L (3.5-5.1); Uric Acid 7.4 mg/dl (2.6-6.0)
[2018-02-07 07:03] LABS: Total Protein 6.2 g/dL (6.4-8.2)
--- NOTE | 2018-02-07 07:11 | P.PNONC ---
Subjective Interval history: PT seen and examined, Nguyen catheter placed last night, gross hematuria noted. Patient's hemoglobin hematocrit also declined significantly yesterday down to 6.8 g/dL. She was transfused 1 unit packed red blood cells last night. She denies difficulty breathing, denies significant abdominal pain, she denies fevers or chills. She reports having some nausea but denies vomiting. She received her last dose of etoposide overnight. Urology consultation obtained, CT scan of abdomen pelvis without IV contrast performed last night. Significant abnormalities and blood work indicate worsening renal function with creatinine of over 2.6, BUN over 60. LDH over 1100 and uric acid at 7.4. Objective Vital Signs/Intake & Output: Vital Signs 02/06/18 08:00 02/06/18 12:00 02/06/18 15:35 Temperature 98.2 F 98.3 F Pulse Rate 67 78 Respiratory Rate 20 18 Blood Pressure 109/58 L 111/59 L Pulse Oximetry 98 98 02/06/18 16:00 02/06/18 18:15 02/06/18 20:16 Temperature 98.2 F Pulse Rate 76 78 73 Respiratory Rate 18 Blood Pressure 123/71 Pulse Oximetry 96 02/06/18 20:55 02/06/18 23:55 02/07/18 00:02 Temperature 98.2 F 98.1 F Pulse Rate 79 77 75 Respiratory Rate 18 Blood Pressure 123/76 140/60 Pulse Oximetry 96 96 02/07/18 01:30 02/07/18 02:07 02/07/18 04:23 Temperature 98.5 F 98.1 F Pulse Rate 80 72 69 Respiratory Rate 18 18 Blood Pressure 136/76 105/58 L Pulse Oximetry 96 94 L 02/07/18 04:39 Temperature 97.7 F Pulse Rate 72 Respiratory Rate 20 Blood Pressure 124/68 Pulse Oximetry 97 Intake & Output 02/06/18 02/07/18 02/07/18 18:59 06:59 18:59 Intake Total 1000 / 1000 2275 / 2275 Output Total 850 / 850 Balance 1000 / 1000 1425 / 1425 Weight 119.5 kg Intake: IV 1000 / 1000 1510 / 1510 NS Inj 1,000 ML @ 100 mls/hr IV 1000 / 1000 1000 / 1000 .CONT .Q10H [facility] Rx#:[id number] Calcium Gluconate Inj 1 GM In 110 / 110 D5W Inj 100 ML @ 110 mls/hr IV. SIG ONCE ONE Rx#:[id number] NS Inj 1,000 ML @ 250 mls/hr IV 400 / 400 .SIG BOLUS ONE Rx#:[id number] Oral 740 / 740 Other Rbc As-3 Leukoreduced Unit [id number] Intake (Blood Product) Amt 0 / 0 Rbc As-3 Leukoreduced Unit 0 / 0 [id number] Output: Urine Amount (Catheter) 850 / 850 Indwelling Urethral Catheter 850 / 850 Other: # Incontinent Voids 1 # Urine Diapers 5 Date of Last Bowel Movement 02/02/18 02/02/18 Result Diagrams: 02/07/18 05:30 02/07/18 05:30 Laboratory Results: Laboratory Results - last 24 hr 02/05/18 02/06/18 02/06/18 10:43 18:00 18:00 WBC RBC Hgb Hct MCV MCH MCHC RDW Plt Count MPV Prelim Diff (Auto) Neut % (Auto) Lymph % (Auto) [place] % (Auto) Eos % (Auto) Baso % (Auto) Neut # (Auto) Lymph # (Auto) [place] # (Auto) Eos # (Auto) Baso # (Auto) WBC Differential Diff Scan Differential Comment Platelet Estimate Platelet Morphology Ovalocytes Retic Count Absolute Retic Haptoglobin PT INR APTT Fibrinogen Sodium 137 Potassium 4.6 Chloride 105 Carbon Dioxide 19.5 L Anion Gap 13 BUN 61 H Creatinine 2.69 H Estimated GFR 18 L Random Glucose 139 H Uric Acid Calcium 7.2 L* Prot Corrected Calcium 7.4 L* Magnesium Total Bilirubin 0.3 AST 100 H ALT 25 Alkaline Phosphatase 44 L Lactate Dehydrogenase 1198 H Total Protein 6.7 D Albumin 2.8 L MTS Gel Crossmatch See Detail Blood Bank Comment 02/06/18 02/07/18 02/07/18 18:00 00:05 00:05 WBC 10.6 RBC 2.25 L Hgb 6.8 L* Hct 20.3 L* MCV 90.1 MCH 30.4 MCHC 33.8 RDW 14.3 Plt Count 216 MPV 7.4 Prelim Diff (Auto) Slide review pending Neut % (Auto) 88.4 H Lymph % (Auto) 6.1 L [place] % (Auto) 5.2 Eos % (Auto) 0.0 Baso % (Auto) 0.3 Neut # (Auto) 9.4 H Lymph # (Auto) 0.6 L [place] # (Auto) 0.5 Eos # (Auto) 0.0 Baso # (Auto) 0.0 WBC Differential . Diff Scan Auto diff confirmed Differential Comment . Platelet Estimate Normal Platelet Morphology Normal Ovalocytes 1+ H Retic Count 3.2 H Absolute Retic 72.4 Haptoglobin 252 H PT INR APTT Fibrinogen Sodium Potassium Chloride Carbon Dioxide Anion Gap BUN Creatinine Estimated GFR Random Glucose Uric Acid Calcium Prot Corrected Calcium Magnesium 2.3 Total Bilirubin AST ALT Alkaline Phosphatase Lactate Dehydrogenase Total Protein Albumin MTS Gel Crossmatch Blood Bank Comment 02/07/18 02/07/18 02/07/18 00:05 00:31 05:30 WBC 9.5 RBC 2.45 L Hgb 7.2 L Hct 21.4 L MCV 87.4 MCH 29.6 MCHC 33.8 RDW 15.1 Plt Count 174 MPV 7.2 Prelim Diff (Auto) Neut % (Auto) 90.4 H Lymph % (Auto) 6.2 L [place] % (Auto) 3.3 Eos % (Auto) 0.0 Baso % (Auto) 0.1 Neut # (Auto) 8.5 H Lymph # (Auto) 0.6 L [place] # (Auto) 0.3 Eos # (Auto) 0.0 Baso # (Auto) 0.0 WBC Differential . Diff Scan Differential Comment Auto diff final Platelet Estimate Platelet Morphology Ovalocytes Retic Count Absolute Retic Haptoglobin PT 11.6 INR 1.1 APTT 22.4 L Fibrinogen 102 L Sodium Potassium Chloride Carbon Dioxide Anion Gap BUN Creatinine Estimated GFR Random Glucose Uric Acid Calcium Prot Corrected Calcium Magnesium Total Bilirubin AST ALT Alkaline Phosphatase Lactate Dehydrogenase Total Protein Albumin MTS Gel Crossmatch See Detail Blood Bank Comment Not Reportable 02/07/18 05:30 WBC RBC Hgb Hct MCV MCH MCHC RDW Plt Count MPV Prelim Diff (Auto) Neut % (Auto) Lymph % (Auto) [place] % (Auto) Eos % (Auto) Baso % (Auto) Neut # (Auto) Lymph # (Auto) [place] # (Auto) Eos # (Auto) Baso # (Auto) WBC Differential Diff Scan Differential Comment Platelet Estimate Platelet Morphology Ovalocytes Retic Count Absolute Retic Haptoglobin PT INR APTT Fibrinogen Sodium 139 Potassium 4.2 Chloride 106 Carbon Dioxide 19.9 L Anion Gap 13 BUN 63 H Creatinine 2.37 H Estimated GFR 21 L Random Glucose 130 H Uric Acid 7.4 H Calcium 6.9 L* Prot Corrected Calcium Magnesium 2.2 Total Bilirubin AST ALT Alkaline Phosphatase Lactate Dehydrogenase Total Protein Albumin MTS Gel Crossmatch Blood Bank Comment Imaging Studies: Impressions Abdomen/Pelvis CT 02/07/18 00:00 CONCLUSION: 1. The bladder is fairly well distended with large area of higher seen most consistent with hemorrhage. The large right-sided pelvic brittaney mass extends along the right side of the bladder with loss of the fat plane and ill-defined high density which is of concern for direct invasion into the bladder. 2. New bilateral hydronephrosis right greater than left. 3. Extensive right inguinal and right sided pelvic adenopathy without significant change from the recent PET/CT. Medications: Active Medications Generic Name Dose Route Start Last Admin Trade Name Freq PRN Reason Stop Dose Admin Al Hydroxide/Mg Hydroxide 30 ml 02/02/18 21:42 02/06/18 05:57 Milk Of Magnesia Liq PO 30 ml Q12H PRN Administration Mild Constipation Allopurinol 300 mg 02/03/18 18:30 02/06/18 09:38 Zyloprim PO 300 mg DAILY [facility] Administration Atenolol 50 mg 02/03/18 09:00 02/06/18 09:38 Tenormin PO 50 mg DAILY [facility] Administration Citalopram Hydrobromide 40 mg 02/03/18 09:00 02/06/18 09:38 Celexa PO 40 mg DAILY [facility] Administration Ferrous Sulfate 325 mg 02/03/18 09:00 02/06/18 21:15 Ferosul PO 325 mg BID [facility] Administration Furosemide 40 mg 02/03/18 09:00 02/06/18 09:38 Lasix PO 40 mg DAILY [facility] Administration Heparin Sodium (Porcine) 0 unit 02/03/18 14:06 02/05/18 04:14 Heparin Central Flush IV.FLUSH 200 unit PRN PRN Administration Flush PICC Line Heparin Sodium (Porcine) 0 unit 02/04/18 09:00 02/06/18 11:17 Heparin Central Flush IV.FLUSH Not Given DAILY [facility] Sodium Chloride 1,000 mls @ 125 mls/hr 02/02/18 21:45 02/07/18 06:22 Ns Inj IV.CONT Not Given .Q8H [facility] Sodium Chloride 250 mls @ 0 mls/hr 02/04/18 14:00 02/06/18 00:51 Ns Inj IV.SIG Infused ONCE [facility] Infusion KVO Morphine Sulfate 2 mg 02/03/18 00:02 02/06/18 11:18 Morphine Inj IV.PUSH 2 mg Q3H PRN Administration pain 1 to 10 Ondansetron HCl 4 mg 02/03/18 00:00 02/06/18 18:11 Zofran Inj IV.PUSH 4 mg Q6H PRN Administration NAUSEA Rivaroxaban 20 mg 02/04/18 10:15 02/04/18 17:32 Xarelto PO Not Given DAILY [facility] Sodium Chloride 0 ml 02/04/18 09:00 02/06/18 11:18 Ns Flush IV.FLUSH 10 ml DAILY [facility] Administration Objective Remarks: Middle-aged/elderly lady, laying in bed, appears to be no acute distress, she has a pleasant disposition. She is of medium height and is morbidly obese. HEENT: Head atraumatic normocephalic, conjunctivae not pale sclera anicteric, EOMI, PERRLA. Oral exam: No pharyngeal erythema, no ulceration or thrush. Neck exam: No palpable pathologically enlarged cervical or supraclavicular adenopathy. Respiratory exam: Good air movement bilaterally not breath sounds. No rhonchi, rales or wheezes. Cardiovascular: Regular rate and rhythm, S1-S2 no obvious murmurs or gallops. Abdominal exam: Obese belly, soft, nontender, positive bowel sounds. Pathologically enlarged bulky right inguinal/right upper thigh lymphadenopathy. Extremities: Right lower extremity significantly larger in circumference when compared to the left lower extremity. This starts at the level of the upper thigh and goes all the way down to the ankles. There is no obvious tenderness. 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 Skin exam: Nonfocal. Psychiatric: Alert and oriented x3, her mood is appropriate and her level of understanding is excellent. 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 Patient was seen in the clinic on 02/02/2018 and reported symptoms of heavy vaginal bleeding, extensive pelvic pain right leg swelling and progressive weakness. She has been initiated on palliative systemic therapy with carboplatin and etoposide (with dose modification). Recommendations: 1. High-grade neuroendocrine tumor. Cycle 1 day 1 was on 02/04/2018. Chemotherapy infusion completed on the night of 02/06/2018. 2. Right lower extremity DVT, patient received PICC line yesterday, Xarelto currently on hold secondary to gross hematuria. 3. Anemia: Secondary to gross hematuria, supportive transfusions have been ordered. She is on ferrous sulfate. 4. Acute renal failure: Likely secondary to combination of tumor lysis syndrome and obstructive uropathy. Urology and nephrology have been asked to see the patient. 5. Patient is on allopurinol. Continue ongoing care.
[2018-02-07] MEDS: Furosemide 40 MG Tablet PO SCH (07:59)
[2018-02-07] MEDS: Ferrous Sulfate 325 MG Tablet PO SCH ×2 (07:59→21:23)
[2018-02-07] MEDS: Allopurinol 300 MG Tablet PO SCH (07:59)
[2018-02-07] MEDS: Morphine Sulfate Inj 2 MG/ML Vial IV.PUSH PRN ×2 (07:59→16:58)
[2018-02-07] MEDS: Atenolol 50 MG Tablet PO SCH (07:59)
[2018-02-07] MEDS: Heparin Central Flush 100 UNIT/ML 5 ML Vial IV.FLUSH SCH (08:00)
[2018-02-07 08:06] LABS: Calcium-Albumin Corrected 7.4 mg/dL (8.5-10.1)
--- NOTE | 2018-02-07 10:57 | P.CONNP ---
<Idalia Rodriguez - Last Filed: 02/07/18 10:32> History of Present Illness Service: Nephrology Consult date: 02/07/18 Requesting Physician: Sim Harris Reason for Consult: SEBASTIAN Primary Care Provider: Dave Hendricks MD Chief Complaint: Vaginal bleeding, right leg swelling, pelvic pain. History of Present Illness: The patient is a 67 yo [place] female who presented to the ED on 02/03 as per her oncologist, Dr. Harris, for evaluation of vaginal bleeding, known pelvic mass, and pain. According to records, she was recently diagnosed with pelvic mass after undergoing evaluation with her PCP for right thigh swelling and pain. She was diagnosed with DVT and further evaluation led to a PET/CT scan revealing a 12 cm right pelvic mass encasing the right ureter. Was referred to Dr. Harris where she met him for the first time on 01/23, but advised to come in for admission on 02/03 given worsening symptoms. On 02/03 she had PICC line placed and on 02/04 was started on Carboplatin and Etoposide x3 days. Received blood transfusion on 02/05 d/t worsening anemia related to ongoing vaginal bleeding. We have been consulted for acute renal failure. Admitting SCr was 0.76 that has worsened to 2.37 at time of consult. No previously known CKD, Had an apparent known right sided hydronephrosis that was detected on outpatient CT scan, but CT Ab/Pelvis done 02/07 shows progression of hydronephrosis now bilateral with dilatation of the right ureter to pelvic mass and concern for mass invasion into bladder wall. Nguyen catheter was placed today. Awaiting urological consultation. Denies any home NSAID use predating admission. Controlled HTN for some time. No urological hx. Was taking Lasix 40mg daily at home since October, started by her PCP. No known cardiac hx including CHF. Review of Systems Gastrointestinal: Reports abdominal pain, Reports nausea, Denies constipation, Denies loose stools, Denies vomiting Genitourinary: Reports abnormal vaginal bleeding, Reports pelvic pain PMFSH - History History Provided By: Patient - Medical History Medical History: Medical History (Last Reviewed 02/06/18 @ 07:48 by Margot Liriano) History of needle biopsy Morbid obesity Pelvic mass Right leg DVT Arthritis Depression Hypertension Neuroendocrine cancer Osteoarthritis - Surgical History Surgical History: Surgical History (Last Reviewed 02/06/18 @ 07:48 by Margot Liriano) H/O: hysterectomy History of knee replacement History of loop recorder - Family History Family History: Family History (Last Reviewed 02/03/18 @ 16:46 by Mel Burciaga DO, R1) Mother Dementia Father CVA (cerebral vascular accident) - Tobacco History Second Hand Smoke Exposure: No Smoking Status: Never smoker - Alcohol History How Often Do You Have a Drink Containing Alcohol: Never - Substance Use History Substance History: No History of Abuse - Travel History Recent Travel in the [place] Within the Last 8 Weeks: No Recent Travel Out of the Country Within the Last 8 Weeks: No - Immunization History Tetanus Immunization: Unsure Medications and Allergies Allergies Allergy/AdvReac Type Severity Reaction Status Date / Time No Known Allergies Allergy Verified 02/02/18 16:29 Home Medications Medication Instructions Recorded Confirmed Type atenolol 50 mg PO DAILY 01/15/18 02/02/18 History citalopram 40 mg PO DAILY 01/15/18 02/02/18 History furosemide 40 mg PO DAILY 01/15/18 02/02/18 History rivaroxaban [Xarelto] 20 mg PO DAILY 01/15/18 02/02/18 History calcium carbonate-vitamin D3 1 tab PO BID 02/02/18 02/02/18 History [Calcium 500 + D] Active Medications: Active Medications Al Hydroxide/Mg Hydroxide (Milk Of [place]) 30 ml PO Q12H PRN PRN Reason: Mild Constipation Last Admin: 02/06/18 05:57 Dose: 30 ml Allopurinol (Zyloprim) 300 mg PO DAILY [facility] Last Admin: 02/07/18 07:59 Dose: 300 mg Atenolol (Tenormin) 50 mg PO DAILY [facility] Last Admin: 02/07/18 07:59 Dose: 50 mg Bisacodyl (Dulcolax Supp) 10 mg RECTAL DAILY PRN PRN Reason: SEVERE CONSITIPATION Citalopram Hydrobromide (Celexa) 40 mg PO DAILY [facility] Last Admin: 02/07/18 07:59 Dose: 40 mg Ferrous Sulfate (Ferosul) 325 mg PO BID [facility] Last Admin: 02/07/18 07:59 Dose: 325 mg Furosemide (Lasix) 40 mg PO DAILY [facility] Last Admin: 02/07/18 07:59 Dose: 40 mg Heparin Sodium (Porcine) (Heparin Central Flush) 0 unit IV.FLUSH PRN PRN PRN Reason: Flush PICC Line Last Admin: 02/05/18 04:14 Dose: 200 unit Heparin Sodium (Porcine) (Heparin Central Flush) 0 unit IV.FLUSH DAILY [facility] Last Admin: 02/07/18 08:00 Dose: 500 unit Sodium Chloride (Ns Inj) 1,000 mls @ 125 mls/hr IV.CONT .Q8H [facility] Last Admin: 02/07/18 09:34 Dose: 125 mls/hr Sodium Chloride (Ns Inj) 250 mls @ 0 mls/hr IV.SIG ONCE [facility] Last Infusion: 02/06/18 00:51 Dose: Infused Lactulose (Lactulose Liq) 30 ml PO DAILY PRN PRN Reason: SEVERE CONSITIPATION Morphine Sulfate (Morphine Inj) 2 mg IV.PUSH Q3H PRN PRN Reason: pain 1 to 10 Last Admin: 02/07/18 07:59 Dose: 2 mg Ondansetron HCl (Zofran Inj) 4 mg IV.PUSH Q6H PRN PRN Reason: NAUSEA Last Admin: 02/07/18 08:00 Dose: 4 mg Rivaroxaban (Xarelto) 20 mg PO DAILY [facility] Last Admin: 02/04/18 17:32 Dose: Not Given Sennosides (Senokot) 17.2 mg PO Q12H PRN PRN Reason: Moderate Constipation Sodium Chloride (Ns Flush) 0 ml IV.FLUSH PRN PRN PRN Reason: FLUSH AFTER USING IV ACCESS Sodium Chloride (Ns Flush) 0 ml IV.FLUSH DAILY [facility] Last Admin: 02/07/18 08:00 Dose: 10 ml Exam Vital signs: Vital Signs 02/06/18 12:00 02/06/18 15:35 02/06/18 16:00 Temperature 98.3 F Pulse Rate 78 76 Respiratory Rate 18 Blood Pressure 111/59 L Pulse Oximetry 98 02/06/18 18:15 02/06/18 20:16 02/06/18 20:55 Temperature 98.2 F 98.2 F Pulse Rate 78 73 79 Respiratory Rate 18 Blood Pressure 123/71 123/76 Pulse Oximetry 96 96 02/06/18 23:55 02/07/18 00:02 02/07/18 01:30 Temperature 98.1 F 98.5 F Pulse Rate 77 75 80 Respiratory Rate 18 18 Blood Pressure 140/60 136/76 Pulse Oximetry 96 96 02/07/18 02:07 02/07/18 04:23 02/07/18 04:39 Temperature 98.1 F 97.7 F Pulse Rate 72 69 72 Respiratory Rate 18 20 Blood Pressure 105/58 L 124/68 Pulse Oximetry 94 L 97 02/07/18 07:40 02/07/18 09:46 Temperature 97.8 F 98.2 F Pulse Rate 76 76 Respiratory Rate 18 18 Blood Pressure 126/73 118/77 Pulse Oximetry 96 97 Intake & Output 02/06/18 02/07/18 02/07/18 18:59 06:59 18:59 Intake Total 1000 / 1000 2275 / 2275 1000 / 1000 Output Total 850 / 850 Balance 1000 / 1000 1425 / 1425 1000 / 1000 Weight 119.5 kg Intake: IV 1000 / 1000 1510 / 1510 1000 / 1000 NS Inj 1,000 ML @ 125 mls/hr IV 1000 / 1000 1000 / 1000 1000 / 1000 .CONT .Q8H [facility] Rx#:[id number] Calcium Gluconate Inj 1 GM In 110 / 110 D5W Inj 100 ML @ 110 mls/hr IV. SIG ONCE ONE Rx#:[id number] NS Inj 1,000 ML @ 250 mls/hr IV 400 / 400 .SIG BOLUS ONE Rx#:[id number] Oral 740 / 740 Other 25 / 25 Rbc As-3 Leukoreduced Unit 25 / 25 [id number] Intake (Blood Product) Amt 0 / 0 0 / 0 Rbc As-3 Leukoreduced Unit 0 / 0 [id number] Rbc As-3 Leukoreduced Unit 0 / 0 [id number] Output: Urine Amount (Catheter) 850 / 850 Indwelling Urethral Catheter 850 / 850 Other: # Incontinent Voids 1 # Urine Diapers 5 Date of Last Bowel Movement 02/02/18 02/02/18 # Bowel Movements 0 - Constitutional no acute distress - Routine HEENT Exam Head: Present: normocephalic, atraumatic - Routine Neck Exam Present: supple - Routine Respiratory Exam Present: CTA bilaterally - Routine Cardiovascular Exam Present: RRR, S1, S2, murmur - Routine Extremities Exam Present: edema (right leg with 1-2+ pitting edema to thigh. Trace edema present in LLE) - Routine Neurological Exam Present: alert, oriented X3 Results - Lab Results 02/07/18 05:30 02/07/18 05:30 Most recent lab results Calcium 6.9 mg/dL (8.5-10.1) L* 02/07/18 05:30 Magnesium 2.2 mg/dL (1.5-2.5) 02/07/18 05:30 Assessment and Plan - Assessment (1) Acute renal failure (ARF) Code(s): N17.9 - Acute kidney failure, unspecified Status: Acute Plan: The patient has several risk factors that may be contributing to renal failure including obstructive uropathy with now bilateral hydronephrosis, potential prerenal azotemia related to poor oral intake, renal injury from carboplatin, as well as the potential for tumor lysis syndrome with initiation of chemotherapy. Potassium is normal. Will check phosphate level. Continue on Allopurinol. Continue on IVF with goal UOP to be 80-100mL/hr Await urology consultation as she bilateral hydro. Nguyen has been placed, but will likely need further intervention. Will check additional serology to rule out other causes of ARF. Medications should be adjusted for the patient's renal decline. Avoid nephrotoxic agents such as iodnated contrast dyes and NSAIDs. (2) Bilateral hydronephrosis Code(s): N13.30 - Unspecified hydronephrosis Status: Acute Plan: Urology has been consulted. (3) Anemia Code(s): D64.9 - Anemia, unspecified Status: Acute Plan: Related to blood loss. Mgmt as per heme/onco (4) Hypertension Code(s): I10 - Essential (primary) hypertension Status: Acute Plan: BP stable. Continue on outpatient regimen. (5) Pelvic mass in female Code(s): R19.00 - Intra-abdominal and pelvic swelling, mass and lump, unspecified site Status: Acute Plan: Mgmt as per oncology. [employer] consult reviewed. Pt not a surgical candidate. (6) Vaginal bleeding Code(s): N93.9 - Abnormal uterine and vaginal bleeding, unspecified Status: Acute - Plan Related to tumor. <Damion Baker - Last Filed: 02/07/18 15:00> History of Present Illness Primary Care Provider: Dave Hendricks MD [facility] - Medical History Medical History: Medical History (Last Reviewed 02/06/18 @ 07:48 by Margot Liriano) History of needle biopsy Morbid obesity Pelvic mass Right leg DVT Arthritis Depression Hypertension Neuroendocrine cancer Osteoarthritis - Surgical History Surgical History: Surgical History (Last Reviewed 02/06/18 @ 07:48 by Margot Liriano) H/O: hysterectomy History of knee replacement History of loop recorder - Family History Family History: Family History (Last Reviewed 02/03/18 @ 16:46 by Mel Burciaga DO, R1) Mother Dementia Father CVA (cerebral vascular accident) Medications and Allergies Active Medications: Active Medications Al Hydroxide/Mg Hydroxide (Milk Of Magnesia Liq) 30 ml PO Q12H PRN PRN Reason: Mild Constipation Last Admin: 02/06/18 05:57 Dose: 30 ml Allopurinol (Zyloprim) 300 mg PO DAILY [facility] Last Admin: 02/07/18 07:59 Dose: 300 mg Atenolol (Tenormin) 50 mg PO DAILY [facility] Last Admin: 02/07/18 07:59 Dose: 50 mg Bisacodyl (Dulcolax Supp) 10 mg RECTAL DAILY PRN PRN Reason: SEVERE CONSITIPATION Citalopram Hydrobromide (Celexa) 40 mg PO DAILY [facility] Last Admin: 02/07/18 07:59 Dose: 40 mg Ferrous Sulfate (Ferosul) 325 mg PO BID [facility] Last Admin: 02/07/18 07:59 Dose: 325 mg Heparin Sodium (Porcine) (Heparin Central Flush) 0 unit IV.FLUSH PRN PRN PRN Reason: Flush PICC Line Last Admin: 02/05/18 04:14 Dose: 200 unit Heparin Sodium (Porcine) (Heparin Central Flush) 0 unit IV.FLUSH DAILY [facility] Last Admin: 02/07/18 08:00 Dose: 500 unit Sodium Chloride (Ns Inj) 250 mls @ 0 mls/hr IV.SIG ONCE [facility] Last Infusion: 02/06/18 00:51 Dose: Infused Sodium Bicarbonate 75 meq/ (Sodium Chloride) 1,000 mls @ 125 mls/hr IV.CONT .Q8H [facility] Last Admin: 02/07/18 14:50 Dose: 125 mls/hr Lactulose (Lactulose Liq) 30 ml PO DAILY PRN PRN Reason: SEVERE CONSITIPATION Morphine Sulfate (Morphine Inj) 2 mg IV.PUSH Q3H PRN PRN Reason: pain 1 to 10 Last Admin: 02/07/18 07:59 Dose: 2 mg Ondansetron HCl (Zofran Inj) 4 mg IV.PUSH Q6H PRN PRN Reason: NAUSEA Last Admin: 02/07/18 08:00 Dose: 4 mg Rivaroxaban (Xarelto) 20 mg PO DAILY [facility] Last Admin: 02/04/18 17:32 Dose: Not Given Sennosides (Senokot) 17.2 mg PO Q12H PRN PRN Reason: Moderate Constipation Sodium Chloride (Ns Flush) 0 ml IV.FLUSH PRN PRN PRN Reason: FLUSH AFTER USING IV ACCESS Sodium Chloride (Ns Flush) 0 ml IV.FLUSH DAILY [facility] Last Admin: 02/07/18 08:00 Dose: 10 ml Exam Vital signs: Vital Signs 02/06/18 15:35 02/06/18 16:00 02/06/18 18:15 Temperature 98.2 F Pulse Rate 76 78 Respiratory Rate 18 18 Blood Pressure 123/71 Pulse Oximetry 96 02/06/18 20:16 02/06/18 20:55 02/06/18 23:55 Temperature 98.2 F 98.1 F Pulse Rate 73 79 77 Respiratory Rate 18 Blood Pressure 123/76 140/60 Pulse Oximetry 96 96 02/07/18 00:02 02/07/18 01:30 02/07/18 02:07 Temperature 98.5 F 98.1 F Pulse Rate 75 80 72 Respiratory Rate 18 18 Blood Pressure 136/76 105/58 L Pulse Oximetry 96 94 L 02/07/18 04:23 02/07/18 04:39 02/07/18 07:40 Temperature 97.7 F 97.8 F Pulse Rate 69 72 76 Respiratory Rate 20 18 Blood Pressure 124/68 126/73 Pulse Oximetry 97 96 02/07/18 08:00 02/07/18 09:46 02/07/18 11:24 Temperature 98.2 F Pulse Rate 68 76 77 Respiratory Rate 18 Blood Pressure 118/77 Pulse Oximetry 97 02/07/18 14:54 Temperature 98.4 F Pulse Rate 100 H Respiratory Rate 18 Blood Pressure 144/83 H Pulse Oximetry 97 Intake & Output 02/06/18 02/07/18 02/07/18 18:59 06:59 18:59 Intake Total 1000 / 1000 2275 / 2275 1375 / 1375 Output Total 850 / 850 Balance 1000 / 1000 1425 / 1425 1375 / 1375 Weight 119.5 kg Intake: IV 1000 / 1000 1510 / 1510 1375 / 1375 NS Inj 1,000 ML @ 125 mls/hr IV 1000 / 1000 1000 / 1000 1375 / 1375 .CONT .Q8H [facility] Rx#:[id number] Calcium Gluconate Inj 1 GM In 110 / 110 D5W Inj 100 ML @ 110 mls/hr IV. SIG ONCE ONE Rx#:[id number] NS Inj 1,000 ML @ 250 mls/hr IV 400 / 400 .SIG BOLUS ONE Rx#:[id number] Oral 740 / 740 Other Rbc As-3 Leukoreduced Unit [id number] Intake (Blood Product) Amt 0 / 0 0 / 0 Rbc As-3 Leukoreduced Unit 0 / 0 [id number] Rbc As-3 Leukoreduced Unit 0 / 0 [id number] Output: Urine Amount (Catheter) 850 / 850 Indwelling Urethral Catheter 850 / 850 Other: # Incontinent Voids 1 # Urine Diapers 5 Date of Last Bowel Movement 02/02/18 02/02/18 02/02/18 # Bowel Movements 0 Results - Lab Results 02/07/18 12:54 02/07/18 05:30 Most recent lab results Calcium 6.9 mg/dL (8.5-10.1) L* 02/07/18 05:30 Phosphorus 7.2 mg/dL (2.5-4.9) H 02/07/18 12:54 Magnesium 2.2 mg/dL (1.5-2.5) 02/07/18 05:30 Assessment and Plan - Assessment (1) Acute renal failure (ARF) Code(s): N17.9 - Acute kidney failure, unspecified Status: Acute (2) Bilateral hydronephrosis Code(s): N13.30 - Unspecified hydronephrosis Status: Acute (3) Anemia Code(s): D64.9 - Anemia, unspecified Status: Acute (4) Hypertension Code(s): I10 - Essential (primary) hypertension Status: Acute (5) Pelvic mass in female Code(s): R19.00 - Intra-abdominal and pelvic swelling, mass and lump, unspecified site Status: Acute (6) Vaginal bleeding Code(s): N93.9 - Abnormal uterine and vaginal bleeding, unspecified Status: Acute - Attending Attestation Currently the primary etiology of the patient's acute renal insufficiency appears to be obstructive uropathy. Await urology consultation and recommendations. Patient may need nephrostomy tubes. The exam, history, and the medical decision-making described in the above note were completed with the assistance of the MARGARITA. I reviewed and agree with the findings presented. I attest that I had a [id number] encounter with the patient on the same day, and personally performed and documented my assessment and findings in the medical record.
--- NOTE | 2018-02-07 11:31 | US ---
EXAM DATE: 02/07/2018 11:18 AM EST AGE/SEX: 67 years / Female INDICATIONS: Double creatinine. CLINICAL DATA: This is the patient's initial encounter. Patient reports that signs and symptoms have been present for 1 day and indicates a pain score of 5/10. MEDICAL/SURGICAL HISTORY: . Hypertension. Deep venous thrombosis. AV block. Lower extremity yo ma. . Hysterectomy. Bilateral knee replacements. Bladder stimulator. Cardiac recorder. COMPARISON: [facility] – [place], CT ABDOMEN & PELVIS W/O CONTRAST, 02/07/2018. . MEASUREMENTS: Right Kidney:__12.6 x 5.8 x 7.7 cm Left Kidney:__12.1 x 5.8 x 7.1 cm FINDINGS: Moderate bilateral hydronephrosis is noted. Echogenic material is noted within the urinary bladder co nsistent with probable blood clot. Right lower quadrant mass is not fully dilated on this ultrasound and is better seen on the recent CT of the pelvis. CONCLUSION: 1. Moderate bilateral hydronephrosis. 2. Extensive echogenic material within the urinary bladder consistent with probable blood clot. 3. Right lower quadrant mass is not fully dilated on this ultrasound and is better seen on the recen t CT of the pelvis. Electronically signed by: Kadeem Min MD 02/07/2018 11:29 AM EST
[2018-02-07 13:42] LABS: Hemoglobin 8.2 gm/dL (11.6-15.3)
[2018-02-07 14:04] LABS: Phosphorus 7.2 mg/dL (2.5-4.9)
[2018-02-07 14:30] LABS: Hepatitits B Surface Antigen Nonreactive (Nonreactive)
[2018-02-07] MEDS: Sodium Bicarbonate 8.4% Inj 75 MEQ in Sodium Chloride 0.45 % Inj 925 ML IV.CONT SCH ×2 (14:50→22:58)
--- NOTE | 2018-02-07 14:50 | P.CONURO ---
History of Present Illness Service: Urology Consult date: 02/07/18 Requesting Physician: Sarah Iniguez Reason for Consult: Hydronephrosis R>L. Hematuria Primary Care Provider: Dave Hendricks MD Chief Complaint: Vaginal bleeding, right leg swelling, pelvic pain. History of Present Illness: Ms. Soto is a very pleasant 67-year-old female who is under care of oncologist Dr Harris due to recently diagnosed high-grade neuroendocrine tumor. She initially presented to her primary care physician with a 2-month history of swelling in her right upper thigh and right lower extremity swelling. She was found to have a large right lower extremity deep venous thrombosis which was occlusive and multiple pathologically enlarged right inguinal lymph nodes when she underwent ultrasound Doppler studies. Furthermore image guided biopsy was performed in She underwent PET/CT imaging and found to have an extensive hypermetabolic involving the lower pelvis in the area of the uterus/cervix. She was found to have pathologically enlarged lymph nodes which were hypermetabolic in the right inguinal area as well as mediastinal hypermetabolic lymph nodes. She was seen by Dr Harris on 02/02/2018 (yesterday), she reported symptoms of heavy vaginal bleeding, extensive pelvic pain, right leg swelling and progressive weakness. 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 Also diagnosed with IRINA with Cr >2. Taylor was placed yesterday and hematuria noted. She also was transfused earlier due to Hg of 6.8. Urology consulted. Her taylor is in place draining dark red urine. Cr is 2.3, Hgb is stable at 8.2. no fever Review of Systems All other systems reviewed negative except as stated in HPI PMFSH - History History Provided By: Patient - Medical History Medical History: Medical History (Last Reviewed 02/06/18 @ 07:48 by Margot Liriano) History of needle biopsy Morbid obesity Pelvic mass Right leg DVT Arthritis Depression Hypertension Neuroendocrine cancer Osteoarthritis - Surgical History Surgical History: Surgical History (Last Reviewed 02/06/18 @ 07:48 by Margot Liriano) H/O: hysterectomy History of knee replacement History of loop recorder - Family History Family History: Family History (Last Reviewed 02/03/18 @ 16:46 by Mel Burciaga DO, R1) Mother Dementia Father CVA (cerebral vascular accident) - Tobacco History Second Hand Smoke Exposure: No Smoking Status: Never smoker - Alcohol History How Often Do You Have a Drink Containing Alcohol: Never - Substance Use History Substance History: No History of Abuse - Travel History Recent Travel in the [place] Within the Last 8 Weeks: No Recent Travel Out of the Country Within the Last 8 Weeks: No - Immunization History Tetanus Immunization: Unsure Medications and Allergies Active Medications: Active Medications Al Hydroxide/Mg Hydroxide (Milk Of Magnesia Liq) 30 ml PO Q12H PRN PRN Reason: Mild Constipation Last Admin: 02/06/18 05:57 Dose: 30 ml Allopurinol (Zyloprim) 300 mg PO DAILY [facility] Last Admin: 02/07/18 07:59 Dose: 300 mg Atenolol (Tenormin) 50 mg PO DAILY [facility] Last Admin: 02/07/18 07:59 Dose: 50 mg Bisacodyl (Dulcolax Supp) 10 mg RECTAL DAILY PRN PRN Reason: SEVERE CONSITIPATION Citalopram Hydrobromide (Celexa) 40 mg PO DAILY [facility] Last Admin: 02/07/18 07:59 Dose: 40 mg Ferrous Sulfate (Ferosul) 325 mg PO BID [facility] Last Admin: 02/07/18 07:59 Dose: 325 mg Heparin Sodium (Porcine) (Heparin Central Flush) 0 unit IV.FLUSH PRN PRN PRN Reason: Flush PICC Line Last Admin: 02/05/18 04:14 Dose: 200 unit Heparin Sodium (Porcine) (Heparin Central Flush) 0 unit IV.FLUSH DAILY [facility] Last Admin: 02/07/18 08:00 Dose: 500 unit Sodium Chloride (Ns Inj) 250 mls @ 0 mls/hr IV.SIG ONCE [facility] Last Infusion: 02/06/18 00:51 Dose: Infused Sodium Bicarbonate 75 meq/ (Sodium Chloride) 1,000 mls @ 125 mls/hr IV.CONT .Q8H [facility] Lactulose (Lactulose Liq) 30 ml PO DAILY PRN PRN Reason: SEVERE CONSITIPATION Morphine Sulfate (Morphine Inj) 2 mg IV.PUSH Q3H PRN PRN Reason: pain 1 to 10 Last Admin: 02/07/18 07:59 Dose: 2 mg Ondansetron HCl (Zofran Inj) 4 mg IV.PUSH Q6H PRN PRN Reason: NAUSEA Last Admin: 02/07/18 08:00 Dose: 4 mg Rivaroxaban (Xarelto) 20 mg PO DAILY [facility] Last Admin: 02/04/18 17:32 Dose: Not Given Sennosides (Senokot) 17.2 mg PO Q12H PRN PRN Reason: Moderate Constipation Sodium Chloride (Ns Flush) 0 ml IV.FLUSH PRN PRN PRN Reason: FLUSH AFTER USING IV ACCESS Sodium Chloride (Ns Flush) 0 ml IV.FLUSH DAILY [facility] Last Admin: 02/07/18 08:00 Dose: 10 ml Allergies Allergy/AdvReac Type Severity Reaction Status Date / Time No Known Allergies Allergy Verified 02/02/18 16:29 Home Medications Medication Instructions Recorded Confirmed Type atenolol 50 mg PO DAILY 01/15/18 02/02/18 History citalopram 40 mg PO DAILY 01/15/18 02/02/18 History furosemide 40 mg PO DAILY 01/15/18 02/02/18 History rivaroxaban [Xarelto] 20 mg PO DAILY 01/15/18 02/02/18 History calcium carbonate-vitamin D3 1 tab PO BID 02/02/18 02/02/18 History [Calcium 500 + D] Physical Exam Vital Signs - 24 hr 02/06/18 15:35 02/06/18 16:00 02/06/18 18:15 Temperature 98.2 F Pulse Rate 76 78 Respiratory Rate 18 18 Blood Pressure 123/71 Pulse Oximetry 96 02/06/18 20:16 02/06/18 20:55 02/06/18 23:55 Temperature 98.2 F 98.1 F Pulse Rate 73 79 77 Respiratory Rate 18 Blood Pressure 123/76 140/60 Pulse Oximetry 96 96 02/07/18 00:02 02/07/18 01:30 02/07/18 02:07 Temperature 98.5 F 98.1 F Pulse Rate 75 80 72 Respiratory Rate 18 18 Blood Pressure 136/76 105/58 L Pulse Oximetry 96 94 L 02/07/18 04:23 02/07/18 04:39 02/07/18 07:40 Temperature 97.7 F 97.8 F Pulse Rate 69 72 76 Respiratory Rate 20 18 Blood Pressure 124/68 126/73 Pulse Oximetry 97 96 02/07/18 08:00 02/07/18 09:46 02/07/18 11:24 Temperature 98.2 F Pulse Rate 68 76 77 Respiratory Rate 18 Blood Pressure 118/77 Pulse Oximetry 97 Physical Exam: GENERAL: This is a well-nourished, well-developed patient, in no apparent distress. SKIN: No rashes, ecchymoses or lesions.. HEAD: Atraumatic. Normocephalic. No temporal or scalp tenderness. CARDIOVASCULAR: Regular rate and rhythm without murmurs, gallops, or rubs. RESPIRATORY: Clear to auscultation. Breath sounds equal bilate GENITOURINARY: Taylor is in place No CVAT NEUROLOGICAL: Awake and alert. Laboratory Results - last 24 hr 02/05/18 02/06/18 02/06/18 10:43 18:00 18:00 WBC RBC Hgb Hct MCV MCH MCHC RDW Plt Count MPV Prelim Diff (Auto) Neut % (Auto) Lymph % (Auto) [place] % (Auto) Eos % (Auto) Baso % (Auto) Neut # (Auto) Lymph # (Auto) [place] # (Auto) Eos # (Auto) Baso # (Auto) WBC Differential Diff Scan Differential Comment Platelet Estimate Platelet Morphology Ovalocytes Retic Count Absolute Retic Haptoglobin PT INR APTT Fibrinogen Sodium 137 Potassium 4.6 Chloride 105 Carbon Dioxide 19.5 L Anion Gap 13 BUN 61 H Creatinine 2.69 H Estimated GFR 18 L Random Glucose 139 H Uric Acid Calcium 7.2 L* Prot Corrected Calcium 7.4 L* Phosphorus Magnesium Total Bilirubin 0.3 AST 100 H ALT 25 Alkaline Phosphatase 44 L Lactate Dehydrogenase 1198 H Total Protein 6.7 D Albumin 2.8 L Complement C3 Complement C4 Hep Bs Antigen MTS Gel Crossmatch See Detail Blood Bank Comment 02/06/18 02/07/18 02/07/18 18:00 00:05 00:05 WBC 10.6 RBC 2.25 L Hgb 6.8 L* Hct 20.3 L* MCV 90.1 MCH 30.4 MCHC 33.8 RDW 14.3 Plt Count 216 MPV 7.4 Prelim Diff (Auto) Slide review pending Neut % (Auto) 88.4 H Lymph % (Auto) 6.1 L [place] % (Auto) 5.2 Eos % (Auto) 0.0 Baso % (Auto) 0.3 Neut # (Auto) 9.4 H Lymph # (Auto) 0.6 L [place] # (Auto) 0.5 Eos # (Auto) 0.0 Baso # (Auto) 0.0 WBC Differential . Diff Scan Auto diff confirmed Differential Comment . Platelet Estimate Normal Platelet Morphology Normal Ovalocytes 1+ H Retic Count 3.2 H Absolute Retic 72.4 Haptoglobin 252 H PT INR APTT Fibrinogen Sodium Potassium Chloride Carbon Dioxide Anion Gap BUN Creatinine Estimated GFR Random Glucose Uric Acid Calcium Prot Corrected Calcium Phosphorus Magnesium 2.3 Total Bilirubin AST ALT Alkaline Phosphatase Lactate Dehydrogenase Total Protein Albumin Complement C3 Complement C4 Hep Bs Antigen MTS Gel Crossmatch Blood Bank Comment 02/07/18 02/07/18 02/07/18 00:05 00:31 05:30 WBC 9.5 RBC 2.45 L Hgb 7.2 L Hct 21.4 L MCV 87.4 MCH 29.6 MCHC 33.8 RDW 15.1 Plt Count 174 MPV 7.2 Prelim Diff (Auto) Neut % (Auto) 90.4 H Lymph % (Auto) 6.2 L [place] % (Auto) 3.3 Eos % (Auto) 0.0 Baso % (Auto) 0.1 Neut # (Auto) 8.5 H Lymph # (Auto) 0.6 L [place] # (Auto) 0.3 Eos # (Auto) 0.0 Baso # (Auto) 0.0 WBC Differential . Diff Scan Differential Comment Auto diff final Platelet Estimate Platelet Morphology Ovalocytes Retic Count Absolute Retic Haptoglobin PT 11.6 INR 1.1 APTT 22.4 L Fibrinogen 102 L Sodium Potassium Chloride Carbon Dioxide Anion Gap BUN Creatinine Estimated GFR Random Glucose Uric Acid Calcium Prot Corrected Calcium Phosphorus Magnesium Total Bilirubin AST ALT Alkaline Phosphatase Lactate Dehydrogenase Total Protein Albumin Complement C3 Complement C4 Hep Bs Antigen MTS Gel Crossmatch See Detail Blood Bank Comment Not Reportable 02/07/18 02/07/18 02/07/18 05:30 07:17 12:54 WBC RBC Hgb 8.2 L Hct 23.0 L MCV MCH MCHC RDW Plt Count MPV Prelim Diff (Auto) Neut % (Auto) Lymph % (Auto) [place] % (Auto) Eos % (Auto) Baso % (Auto) Neut # (Auto) Lymph # (Auto) [place] # (Auto) Eos # (Auto) Baso # (Auto) WBC Differential Diff Scan Differential Comment Platelet Estimate Platelet Morphology Ovalocytes Retic Count Absolute Retic Haptoglobin PT INR APTT Fibrinogen Sodium 139 Potassium 4.2 Chloride 106 Carbon Dioxide 19.9 L Anion Gap 13 BUN 63 H Creatinine 2.37 H Estimated GFR 21 L Random Glucose 130 H Uric Acid 7.4 H Calcium 6.9 L* Prot Corrected Calcium 7.4 L* Phosphorus Magnesium 2.2 Total Bilirubin AST ALT Alkaline Phosphatase Lactate Dehydrogenase Total Protein 6.2 L Albumin Complement C3 Complement C4 Hep Bs Antigen MTS Gel Crossmatch See Detail Blood Bank Comment 02/07/18 02/07/18 12:54 12:54 WBC RBC Hgb Hct MCV MCH MCHC RDW Plt Count MPV Prelim Diff (Auto) Neut % (Auto) Lymph % (Auto) [place] % (Auto) Eos % (Auto) Baso % (Auto) Neut # (Auto) Lymph # (Auto) [place] # (Auto) Eos # (Auto) Baso # (Auto) WBC Differential Diff Scan Differential Comment Platelet Estimate Platelet Morphology Ovalocytes Retic Count Absolute Retic Haptoglobin PT INR APTT Fibrinogen Sodium Potassium Chloride Carbon Dioxide Anion Gap BUN Creatinine Estimated GFR Random Glucose Uric Acid Calcium Prot Corrected Calcium Phosphorus 7.2 H Magnesium Total Bilirubin AST ALT Alkaline Phosphatase Lactate Dehydrogenase Total Protein Albumin Complement C3 100 Complement C4 25 Hep Bs Antigen Nonreactive MTS Gel Crossmatch Blood Bank Comment Result Diagrams: 02/07/18 12:54 02/07/18 05:30 Imaging: ITS Impressions Abdomen/Bladder Ultrasound 02/07/18 00:00 CONCLUSION: 1. Moderate bilateral hydronephrosis. 2. Extensive echogenic material within the urinary bladder consistent with probable blood clot. 3. Right lower quadrant mass is not fully dilated on this ultrasound and is better seen on the recent CT of the pelvis. Abdomen/Pelvis CT 02/07/18 00:00 CONCLUSION: 1. The bladder is fairly well distended with large area of higher seen most consistent with hemorrhage. The large right-sided pelvic brittaney mass extends along the right side of the bladder with loss of the fat plane and ill-defined high density which is of concern for direct invasion into the bladder. 2. New bilateral hydronephrosis right greater than left. 3. Extensive right inguinal and right sided pelvic adenopathy without significant change from the recent PET/CT. Assessment and Plan - Plan 67y.o F with newly diagnosed metastatic neuroendocrine tumor Has R.L hydro due to her pelvic mass and large lymphadenopathy + hematuria. Possibility of mass invading bladder is not excluded She is on chemo now - Continue care as per primary and oncology teams - No acute intervention needed - She wioll benefit from Rt nephrostomy placement by IR. It might be internalized later with the stent - Irrigate bladder manually, if difficult start CBI Monitor labs and transfuse prn - Follow up with Dr Crump in 2-3days after discharge for cystoscopy Discussed Condition With: Discussed with Dr Crump attending and pt's nurse
[2018-02-07 14:54] LABS: Hepatitis A IgM Antibody Nonreactive (Nonreactive)
--- NOTE | 2018-02-07 14:58 | P.PNIM ---
Subjective Interval history: The patient was resting in bed. She did endorse some abdominal discomfort. She says she spoke with the kidney doctor earlier. No other acute complaints at this time. Physical Exam Vital signs: Vital Signs 02/06/18 15:35 02/06/18 16:00 02/06/18 18:15 Temperature 98.2 F Pulse Rate 76 78 Respiratory Rate 18 18 Blood Pressure 123/71 Pulse Oximetry 96 02/06/18 20:16 02/06/18 20:55 02/06/18 23:55 Temperature 98.2 F 98.1 F Pulse Rate 73 79 77 Respiratory Rate 18 Blood Pressure 123/76 140/60 Pulse Oximetry 96 96 02/07/18 00:02 02/07/18 01:30 02/07/18 02:07 Temperature 98.5 F 98.1 F Pulse Rate 75 80 72 Respiratory Rate 18 18 Blood Pressure 136/76 105/58 L Pulse Oximetry 96 94 L 02/07/18 04:23 02/07/18 04:39 02/07/18 07:40 Temperature 97.7 F 97.8 F Pulse Rate 69 72 76 Respiratory Rate 20 18 Blood Pressure 124/68 126/73 Pulse Oximetry 97 96 02/07/18 08:00 02/07/18 09:46 02/07/18 11:24 Temperature 98.2 F Pulse Rate 68 76 77 Respiratory Rate 18 Blood Pressure 118/77 Pulse Oximetry 97 Intake & Output 02/06/18 02/07/18 02/07/18 18:59 06:59 18:59 Intake Total 1000 / 1000 2275 / 2275 1375 / 1375 Output Total 850 / 850 Balance 1000 / 1000 1425 / 1425 1375 / 1375 Weight 119.5 kg Intake: IV 1000 / 1000 1510 / 1510 1375 / 1375 NS Inj 1,000 ML @ 125 mls/hr IV 1000 / 1000 1000 / 1000 1375 / 1375 .CONT .Q8H BEATA Rx#:[id number] Calcium Gluconate Inj 1 GM In 110 / 110 D5W Inj 100 ML @ 110 mls/hr IV. SIG ONCE ONE Rx#:[id number] NS Inj 1,000 ML @ 250 mls/hr IV 400 / 400 .SIG BOLUS ONE Rx#:[id number] Oral 740 / 740 Other Rbc As-3 Leukoreduced Unit [id number] Intake (Blood Product) Amt 0 / 0 0 / 0 Rbc As-3 Leukoreduced Unit 0 / 0 [id number] Rbc As-3 Leukoreduced Unit 0 / 0 [id number] Output: Urine Amount (Catheter) 850 / 850 Indwelling Urethral Catheter 850 / 850 Other: # Incontinent Voids 1 # Urine Diapers 5 Date of Last Bowel Movement 02/02/18 02/02/18 02/02/18 # Bowel Movements 0 Narrative: GENERAL: In no acute distress. SKIN: Pale, warm and dry. HEAD: Normocephalic. EYES: No scleral icterus. No injection or drainage. NECK: Supple, trachea midline. CARDIOVASCULAR: Regular rate and rhythm without murmurs. RESPIRATORY: Posterior breath sounds clear. GASTROINTESTINAL: Abdomen large, soft, minimally tender, nondistended. EXTREMITIES: No cyanosis, or edema. MUSCULOSKELETAL: Adequate muscle tone. NEUROLOGICAL: No obvious focal deficit. Awake, alert, and oriented x3. PSYCHIATRIC: Appropriate mood and affect; insight and judgment normal. - Urinary Catheter Management Indwelling Urethral Catheter Cath placed during this visit: yes Reason for continuing: Other continuation reason Insertion date: 02/06/18 Insertion time: 22:38 Results - Labs CBC & Chem 7: 02/07/18 12:54 02/07/18 05:30 Laboratory Results - last 24 hr 02/05/18 02/06/18 02/06/18 10:43 18:00 18:00 WBC RBC Hgb Hct MCV MCH MCHC RDW Plt Count MPV Prelim Diff (Auto) Neut % (Auto) Lymph % (Auto) [place] % (Auto) Eos % (Auto) Baso % (Auto) Neut # (Auto) Lymph # (Auto) [place] # (Auto) Eos # (Auto) Baso # (Auto) WBC Differential Diff Scan Differential Comment Platelet Estimate Platelet Morphology Ovalocytes Retic Count Absolute Retic Haptoglobin PT INR APTT Fibrinogen Sodium 137 Potassium 4.6 Chloride 105 Carbon Dioxide 19.5 L Anion Gap 13 BUN 61 H Creatinine 2.69 H Estimated GFR 18 L Random Glucose 139 H Uric Acid Calcium 7.2 L* Prot Corrected Calcium 7.4 L* Phosphorus Magnesium Total Bilirubin 0.3 AST 100 H ALT 25 Alkaline Phosphatase 44 L Lactate Dehydrogenase 1198 H Total Protein 6.7 D Albumin 2.8 L Complement C3 Complement C4 Hep Bs Antigen MTS Gel Crossmatch See Detail Blood Bank Comment 02/06/18 02/07/18 02/07/18 18:00 00:05 00:05 WBC 10.6 RBC 2.25 L Hgb 6.8 L* Hct 20.3 L* MCV 90.1 MCH 30.4 MCHC 33.8 RDW 14.3 Plt Count 216 MPV 7.4 Prelim Diff (Auto) Slide review pending Neut % (Auto) 88.4 H Lymph % (Auto) 6.1 L [place] % (Auto) 5.2 Eos % (Auto) 0.0 Baso % (Auto) 0.3 Neut # (Auto) 9.4 H Lymph # (Auto) 0.6 L [place] # (Auto) 0.5 Eos # (Auto) 0.0 Baso # (Auto) 0.0 WBC Differential . Diff Scan Auto diff confirmed Differential Comment . Platelet Estimate Normal Platelet Morphology Normal Ovalocytes 1+ H Retic Count 3.2 H Absolute Retic 72.4 Haptoglobin 252 H PT INR APTT Fibrinogen Sodium Potassium Chloride Carbon Dioxide Anion Gap BUN Creatinine Estimated GFR Random Glucose Uric Acid Calcium Prot Corrected Calcium Phosphorus Magnesium 2.3 Total Bilirubin AST ALT Alkaline Phosphatase Lactate Dehydrogenase Total Protein Albumin Complement C3 Complement C4 Hep Bs Antigen [place] Gel Crossmatch Blood Bank Comment 02/07/18 02/07/18 02/07/18 00:05 00:31 05:30 WBC 9.5 RBC 2.45 L Hgb 7.2 L Hct 21.4 L MCV 87.4 MCH 29.6 MCHC 33.8 RDW 15.1 Plt Count 174 MPV 7.2 Prelim Diff (Auto) Neut % (Auto) 90.4 H Lymph % (Auto) 6.2 L [place] % (Auto) 3.3 Eos % (Auto) 0.0 Baso % (Auto) 0.1 Neut # (Auto) 8.5 H Lymph # (Auto) 0.6 L [place] # (Auto) 0.3 Eos # (Auto) 0.0 Baso # (Auto) 0.0 WBC Differential . Diff Scan Differential Comment Auto diff final Platelet Estimate Platelet Morphology Ovalocytes Retic Count Absolute Retic Haptoglobin PT 11.6 INR 1.1 APTT 22.4 L Fibrinogen 102 L Sodium Potassium Chloride Carbon Dioxide Anion Gap BUN Creatinine Estimated GFR Random Glucose Uric Acid Calcium Prot Corrected Calcium Phosphorus Magnesium Total Bilirubin AST ALT Alkaline Phosphatase Lactate Dehydrogenase Total Protein Albumin Complement C3 Complement C4 Hep Bs Antigen MTS Gel Crossmatch See Detail Blood Bank Comment Not Reportable 02/07/18 02/07/18 02/07/18 05:30 07:17 12:54 WBC RBC Hgb 8.2 L Hct 23.0 L MCV MCH MCHC RDW Plt Count MPV Prelim Diff (Auto) Neut % (Auto) Lymph % (Auto) [place] % (Auto) Eos % (Auto) Baso % (Auto) Neut # (Auto) Lymph # (Auto) [place] # (Auto) Eos # (Auto) Baso # (Auto) WBC Differential Diff Scan Differential Comment Platelet Estimate Platelet Morphology Ovalocytes Retic Count Absolute Retic Haptoglobin PT INR APTT Fibrinogen Sodium 139 Potassium 4.2 Chloride 106 Carbon Dioxide 19.9 L Anion Gap 13 BUN 63 H Creatinine 2.37 H Estimated GFR 21 L Random Glucose 130 H Uric Acid 7.4 H Calcium 6.9 L* Prot Corrected Calcium 7.4 L* Phosphorus Magnesium 2.2 Total Bilirubin AST ALT Alkaline Phosphatase Lactate Dehydrogenase Total Protein 6.2 L Albumin Complement C3 Complement C4 Hep Bs Antigen MTS Gel Crossmatch See Detail Blood Bank Comment 02/07/18 02/07/18 12:54 12:54 WBC RBC Hgb Hct MCV MCH MCHC RDW Plt Count MPV Prelim Diff (Auto) Neut % (Auto) Lymph % (Auto) [place] % (Auto) Eos % (Auto) Baso % (Auto) Neut # (Auto) Lymph # (Auto) [place] # (Auto) Eos # (Auto) Baso # (Auto) WBC Differential Diff Scan Differential Comment Platelet Estimate Platelet Morphology Ovalocytes Retic Count Absolute Retic Haptoglobin PT INR APTT Fibrinogen Sodium Potassium Chloride Carbon Dioxide Anion Gap BUN Creatinine Estimated GFR Random Glucose Uric Acid Calcium Prot Corrected Calcium Phosphorus 7.2 H Magnesium Total Bilirubin AST ALT Alkaline Phosphatase Lactate Dehydrogenase Total Protein Albumin Complement C3 100 Complement C4 25 Hep Bs Antigen Nonreactive MTS Gel Crossmatch Blood Bank Comment - Imaging Impressions Abdomen/Bladder Ultrasound 02/07/18 00:00 CONCLUSION: 1. Moderate bilateral hydronephrosis. 2. Extensive echogenic material within the urinary bladder consistent with probable blood clot. 3. Right lower quadrant mass is not fully dilated on this ultrasound and is better seen on the recent CT of the pelvis. Abdomen/Pelvis CT 02/07/18 00:00 CONCLUSION: 1. The bladder is fairly well distended with large area of higher seen most consistent with hemorrhage. The large right-sided pelvic brittaney mass extends along the right side of the bladder with loss of the fat plane and ill-defined high density which is of concern for direct invasion into the bladder. 2. New bilateral hydronephrosis right greater than left. 3. Extensive right inguinal and right sided pelvic adenopathy without significant change from the recent PET/CT. - Procedures None Assessment and Plan - Plan 67 y/o female with a history of a 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 PET/CT scan concerning for hypermetabolic mass involving the pelvis with metastatic lymph nodes in the right inguinal area as well as mediastinum. PICC line placed for chemotherapy. Vaginal bleeding Per gynecology, since the pt has hx of hysterectomy this is likely 2/2 to the eroding pelvic mass that would not be amenable to any surgical intervention even with profuse bleeding. -Hematology following, transfusing as needed. Right-sided hydroureter CT abdomen: The bladder is fairly well distended with large area most consistent with hemorrhage; The large right-sided pelvic brittaney mass extends along the right side of the bladder with loss of the fat plane and ill-defined high density which is of concern for direct invasion into the bladder; New bilateral hydronephrosis right greater than left; Extensive right inguinal and right sided pelvic adenopathy without significant change from the recent PET/CT. -urology consult pending. Acute renal failure Likely s/t above. Nephrology consult appreciated. -IVFs. -follow BMP and avoid nephrotoxins. Hypertension Chronic. - home medications. Nausea S/t chemo. -antiemetics as needed. -ADAT. PPx: per hematology
[2018-02-08] MEDS: Sodium Bicarbonate 8.4% Inj 75 MEQ in Sodium Chloride 0.45 % Inj 925 ML IV.CONT SCH ×3 (04:17→16:55)
[2018-02-08 05:01] LABS: Baso % (Auto) 0.2 % (0.0-2.0); Eos % (Auto) 0.2 % (0.0-4.0); Hematocrit 23.3 % (35.0-46.0); Lymph # (Auto) 0.8 th/mm3 (1.0-4.8); Lymph % (Auto) 7.6 % (9.0-44.0); Mean Corpuscular HGB Conc 34.3 % (32.0-36.0); Mean Corpuscular Volume 87.4 fL (80.0-100.0); Mean Platelet Volume 7.4 fL (7.0-11.0); Mono # (Auto) 0.2 th/mm3 (0.0-0.9); Mono % (Auto) 1.6 % (0.0-8.0); Neut # (Auto) 9.4 th/mm3 (1.8-7.7); Neut % (Auto) 90.4 % (16.0-70.0); Platelet Count 170 th/mm3 (150-450); Red Blood Count 2.67 mil/mm3 (4.00-5.30); Red Cell Distribution Width 14.9 % (11.6-17.2); White Blood Count 10.4 th/mm3 (4.0-11.0)
[2018-02-08 05:30] LABS: Kappa Lambda Ratio 2.04 (1.57-3.93)
[2018-02-08 05:31] LABS: Total Protein,Urine Random 801.5 mg/dL (0-11.8)
[2018-02-08 05:38] LABS: Protein/Creatinine Ratio,Urine 14.57 (0.00-0.14)
[2018-02-08 06:05] LABS: % Iron Saturation 95.2 % (20-50); Albumin 2.7 g/dL (3.4-5.0); Calcium 6.9 mg/dL (8.5-10.1); Carbon Dioxide 21.6 meq/L (21.0-32.0); Kappa Lambda Ratio 1.95 (1.57-3.93); Potassium 4.2 meq/L (3.5-5.1)
--- NOTE | 2018-02-08 07:11 | P.PNONC ---
Subjective Interval history: Patient seen and examined, vital signs, labs and medications reviewed. Patient has progressive renal dysfunction. Creatinine is up to 2.8 today. She continues to have hematuria. Yesterday she was evaluated by the nephrology service and the urology service. Obstructive uropathy suspected, percutaneous nephrostomy tube on the right side is recommended. Subjectively; patient reports feeling tired, she continues to have nausea, she reports having difficulty breathing when she lays flat. She continues to have hematuria, Nguyen catheter now in place. Overnight the nurses did irrigate this. Objective Vital Signs/Intake & Output: Vital Signs 02/07/18 07:40 02/07/18 08:00 02/07/18 09:46 Temperature 97.8 F 98.2 F Pulse Rate 76 68 76 Respiratory Rate 18 18 Blood Pressure 126/73 118/77 Pulse Oximetry 96 97 02/07/18 11:24 02/07/18 14:54 02/07/18 16:00 Temperature 98.4 F Pulse Rate 77 100 H 77 Respiratory Rate 18 Blood Pressure 144/83 H Pulse Oximetry 97 02/07/18 20:01 02/07/18 20:50 02/07/18 23:00 Temperature 98.2 F 98.2 F Pulse Rate 74 78 75 Respiratory Rate 16 18 Blood Pressure 128/76 124/70 Pulse Oximetry 94 L 93 L 02/07/18 23:35 02/08/18 03:43 02/08/18 04:45 Temperature 98.1 F Pulse Rate 73 74 74 Respiratory Rate 18 Blood Pressure 121/67 Pulse Oximetry 97 Intake & Output 02/07/18 02/08/18 02/08/18 18:59 06:59 18:59 Intake Total 1375 / 1375 1999 / 1999 Output Total 800 / 800 Balance 1375 / 1375 1200 / 1200 Weight 119.3 kg Intake: IV 1375 / 1375 1999 / 1999 NS Inj 1,000 ML @ 125 mls/hr IV 1375 / 1375 .CONT .Q8H [facility] Rx#:[id number] Sodium Bicarbonate 8.4% Inj 75 1999 / 1999 MEQ In 1/2 Normal Saline Inj 925 ML @ 125 mls/hr IV.CONT . Q8H [facility] Rx#:[id number] Intake (Blood Product) Amt 0 / 0 Rbc As-3 Leukoreduced Unit 0 / 0 [id number] Output: Urine Amount (Catheter) 800 / 800 Indwelling Urethral Catheter 800 / 800 Other: Date of Last Bowel Movement 02/02/18 02/02/18 # Bowel Movements 0 Result Diagrams: 02/08/18 04:25 02/08/18 04:25 Laboratory Results: Laboratory Results - last 24 hr 02/07/18 02/07/18 02/07/18 05:30 07:17 12:54 WBC RBC Hgb 8.2 L Hct 23.0 L MCV MCH MCHC RDW Plt Count MPV Neut % (Auto) Lymph % (Auto) [place] % (Auto) Eos % (Auto) Baso % (Auto) Neut # (Auto) Lymph # (Auto) [place] # (Auto) Eos # (Auto) Baso # (Auto) WBC Differential Differential Comment Sodium Potassium Chloride Carbon Dioxide Anion Gap BUN Creatinine Estimated GFR Random Glucose Calcium Prot Corrected Calcium 7.4 L* Phosphorus Iron TIBC % Saturation Ferritin Total Protein 6.2 L Total Protein (PEP) Albumin Vitamin D 25-Hydroxy Ur Random Creatinine U Random Total Protein Protein/Creatinin Ratio IgG IgA IgM [place]/Lambda Ratio Complement C3 Complement C4 [place] Light Chain Anal Lambda Light Chain Anal Hepatitis A IgM Ab Hep Bs Antigen Hep B Core IgM Ab Hep C IgG Ab MTS Gel Crossmatch See Detail 02/07/18 02/07/18 02/08/18 12:54 12:54 04:25 WBC 10.4 RBC 2.67 L Hgb 8.0 L Hct 23.3 L MCV 87.4 MCH 30.0 MCHC 34.3 RDW 14.9 Plt Count 170 MPV 7.4 Neut % (Auto) 90.4 H Lymph % (Auto) 7.6 L [place] % (Auto) 1.6 Eos % (Auto) 0.2 Baso % (Auto) 0.2 Neut # (Auto) 9.4 H Lymph # (Auto) 0.8 L [place] # (Auto) 0.2 Eos # (Auto) 0.0 Baso # (Auto) 0.0 WBC Differential . Differential Comment Auto diff final Sodium Potassium Chloride Carbon Dioxide Anion Gap BUN Creatinine Estimated GFR Random Glucose Calcium Prot Corrected Calcium Phosphorus 7.2 H Iron TIBC % Saturation Ferritin Total Protein Total Protein (PEP) Albumin Vitamin D 25-Hydroxy Ur Random Creatinine U Random Total Protein Protein/Creatinin Ratio IgG IgA IgM [place]/Lambda Ratio Complement C3 100 Complement C4 25 [place] Light Chain Anal Lambda Light Chain Anal Hepatitis A IgM Ab Nonreactive Hep Bs Antigen Nonreactive Hep B Core IgM Ab Nonreactive Hep C IgG Ab Nonreactive MTS Gel Crossmatch 02/08/18 02/08/18 02/08/18 04:25 04:25 04:40 WBC RBC Hgb Hct MCV MCH MCHC RDW Plt Count MPV Neut % (Auto) Lymph % (Auto) [place] % (Auto) Eos % (Auto) Baso % (Auto) Neut # (Auto) Lymph # (Auto) [place] # (Auto) Eos # (Auto) Baso # (Auto) WBC Differential Differential Comment Sodium 138 Potassium 4.2 Chloride 105 Carbon Dioxide 21.6 Anion Gap 11 BUN 70 H Creatinine 2.87 H Estimated GFR 16 L Random Glucose 112 H Calcium 6.9 L* Prot Corrected Calcium Phosphorus 7.0 H Iron 272 H TIBC 286 % Saturation 95.2 H Ferritin 282 H Total Protein Total Protein (PEP) 6.4 Albumin 2.7 L Vitamin D 25-Hydroxy 34.7 Ur Random Creatinine 55 U Random Total Protein 801.5 H Protein/Creatinin Ratio 14.57 H IgG 1370 IgA 166 IgM 71 [place]/Lambda Ratio 1.95 2.04 Complement C3 Complement C4 [place] Light Chain Anal 339 347 Lambda Light Chain Anal 174 170 Hepatitis A IgM Ab Hep Bs Antigen Hep B Core IgM Ab Hep C IgG Ab MTS Gel Crossmatch Imaging Studies: Impressions Abdomen/Bladder Ultrasound 02/07/18 00:00 CONCLUSION: 1. Moderate bilateral hydronephrosis. 2. Extensive echogenic material within the urinary bladder consistent with probable blood clot. 3. Right lower quadrant mass is not fully dilated on this ultrasound and is better seen on the recent CT of the pelvis. Medications: Active Medications Generic Name Dose Route Start Last Admin Trade Name Freq PRN Reason Stop Dose Admin Al Hydroxide/Mg Hydroxide 30 ml 02/02/18 21:42 02/07/18 21:23 Milk Of Magnesia Liq PO 30 ml Q12H PRN Administration Mild Constipation Allopurinol 300 mg 02/03/18 18:30 02/07/18 07:59 Zyloprim PO 300 mg DAILY [facility] Administration Atenolol 50 mg 02/03/18 09:00 02/07/18 07:59 Tenormin PO 50 mg DAILY [facility] Administration Citalopram Hydrobromide 40 mg 02/03/18 09:00 02/07/18 07:59 Celexa PO 40 mg DAILY [facility] Administration Ferrous Sulfate 325 mg 02/03/18 09:00 02/07/18 21:23 Ferosul PO 325 mg BID [facility] Administration Heparin Sodium (Porcine) 0 unit 02/03/18 14:06 02/05/18 04:14 Heparin Central Flush IV.FLUSH 200 unit PRN PRN Administration Flush PICC Line Heparin Sodium (Porcine) 0 unit 02/04/18 09:00 02/07/18 08:00 Heparin Central Flush IV.FLUSH 500 unit DAILY [facility] Administration Sodium Chloride 250 mls @ 0 mls/hr 02/04/18 14:00 02/06/18 00:51 Ns Inj IV.SIG Infused ONCE [facility] Infusion KVO Sodium Bicarbonate 75 meq/ 1,000 mls @ 125 mls/hr 02/07/18 12:00 02/08/18 06: 29 Sodium Chloride IV.CONT 125 mls/hr .Q8H [facility] Administration Morphine Sulfate 2 mg 02/03/18 00:02 02/07/18 16:58 Morphine Inj IV.PUSH 2 mg Q3H PRN Administration pain 1 to 10 Ondansetron HCl 4 mg 02/03/18 00:00 02/07/18 16:58 Zofran Inj IV.PUSH 4 mg Q6H PRN Administration NAUSEA Rivaroxaban 20 mg 02/04/18 10:15 02/04/18 17:32 Xarelto PO Not Given DAILY [facility] Sodium Chloride 0 ml 02/04/18 09:00 02/07/18 08:00 Ns Flush IV.FLUSH 10 ml DAILY [facility] Administration Objective Remarks: Middle-aged/elderly lady, laying in bed, appears to be no acute distress, she has a pleasant disposition. She is of medium height and is morbidly obese. HEENT: Head atraumatic normocephalic, conjunctivae not pale sclera anicteric, EOMI, PERRLA. Oral exam: No pharyngeal erythema, no ulceration or thrush. Neck exam: No palpable pathologically enlarged cervical or supraclavicular adenopathy. Respiratory exam: Good air movement bilaterally not breath sounds. No rhonchi, rales or wheezes. Cardiovascular: Regular rate and rhythm, S1-S2 no obvious murmurs or gallops. Abdominal exam: Obese belly, soft, nontender, positive bowel sounds. Pathologically enlarged bulky right inguinal/right upper thigh lymphadenopathy. Extremities: Right lower extremity significantly larger in circumference when compared to the left lower extremity. This starts at the level of the upper thigh and goes all the way down to the ankles. There is no obvious tenderness. [employer] PUBL[employer]: No focal sensorimotor deficits. Skin exam: Nonfocal. Psychiatric: Alert and oriented x3, her mood is appropriate and her level of understanding is excellent. 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 Patient was seen in the clinic on 02/02/2018 and reported symptoms of heavy vaginal bleeding, extensive pelvic pain right leg swelling and progressive weakness. She has been initiated on palliative systemic therapy with carboplatin and etoposide (with dose modification). Recommendations: 1. High-grade neuroendocrine tumor. Cycle 1 day 1 was on 02/04/2018. Day 2 was delivered on 02/06/2028. Day 3 etoposide was held due to worsening renal dysfunction and hematuria. 2. Right lower extremity DVT, patient received PICC line yesterday, Xarelto currently on hold secondary to gross hematuria. 3. Anemia: Secondary to gross hematuria, supportive transfusions have been ordered. She is on ferrous sulfate. 4. Acute renal failure: Likely secondary to combination of tumor lysis syndrome and obstructive uropathy. Right side percutaneous nephrostomy tube has been ordered to be placed. 5. Patient is on allopurinol for TLS. Continue TLS labs; uric acid and LDH and magnesium. Appreciate nephrology and urology input. Continue ongoing care.
[2018-02-08 07:27] LABS: INR 1.1 Ratio; Prothrombin Time 11.4 sec (9.8-11.6)
[2018-02-08] MEDS: Ferrous Sulfate 325 MG Tablet PO SCH ×2 (08:16→20:35)
[2018-02-08] MEDS: Heparin Central Flush 100 UNIT/ML 5 ML Vial IV.FLUSH SCH (08:17)
[2018-02-08] MEDS: Allopurinol 300 MG Tablet PO SCH (08:17)
[2018-02-08] MEDS: Atenolol 50 MG Tablet PO SCH (08:17)
[2018-02-08] MEDS: Morphine Sulfate Inj 2 MG/ML Vial IV.PUSH PRN ×2 (09:42→20:35)
[2018-02-08] MEDS ORDERED: fentaNYL Citrate Inj 250 MCG/5 ML Ampul ONE (10:50)
[2018-02-08] MEDS ORDERED: Levofloxacin 500 mg Premix Inj 500 MG/100 ML PIGGYBACK IV.SIG ONE (10:50)
[2018-02-08] MEDS ORDERED: Iohexol 350 MG/ML 50 ML Vial (for Rad Diag) IVCONTRAST ONE (12:00)
--- NOTE | 2018-02-08 12:32 | P.RAD ---
Post Procedure Progress Note - Pre Procedure Diagnosis (1) Pelvic mass in female (2) Acute renal failure (ARF) (3) Bilateral hydronephrosis - Post Procedure Diagnosis (1) Pelvic mass in female (2) Acute renal failure (ARF) (3) Bilateral hydronephrosis - Procedure Information Procedure Date: 02/08/18 Supervising Radiologist: Cash Garcia Jr, MD Proceduralist/Assist: Ollie De Jesus Estimated blood loss (mL): 0 Anesthesia: Conscious Sedation - Plan of Activity Patient to Unit: ROPU Patient Condition: Good See PACS Report for procedural detail/treatment. Drainage Procedure Fluoroscopy Nephrostomy Placement [place] Tube Size: 8 Drainage: [place] drainage Fluid Description: Clear Findings: Placed 8F PCN via US and fluoro guidance. Tube in good position. Draining clear urine. Plan: R nephrostomy draining well. Consideration can be made to L PCN placement as well.
--- NOTE | 2018-02-08 12:40 | IR ---
EXAM DATE: 02/08/2018 12:24 PM EST AGE/SEX: 67 years / Female INDICATIONS: Patient presents with right side hydronephrosis in need of a right nephrostomy tube rom cement for drainage. Patient has a pelvic mass. CLINICAL DATA: This is the patient's initial encounter. Patient reports that signs and symptoms have been present for 2 days and indicates a pain score of 0/10. MEDICAL/SURGICAL HISTORY: Arthritis. Hypertension. Osteoarthritis, Depression, Neuroendocrine cancer, Deep venous thrombosis, Av block, Lower extremity edema. Hysterectomy. Cardiac recorder, Aaron dder stimulator, Bilateral knee replacements. COMPARISON: [facility] [place] & [place]ELVIS W/O CONTRAST, 02/07/2018.. . FLUORO TIME (min): 2.8 IMAGE SERIES: 8 SEDATION TIME (min): 40 CONTRAST (cc): 15 Omnipaque (iohexol) 350 MEDICATION(S): 2 mg midazolam (Versed) IV 125 mcg fentanyl (Sublimaze) IV DEVICE(S): 8 [place] nephrostomy catheter Expel Locking 25 cm . . PROCEDURE : 1. Ultrasound-guided puncture of the kidney. 2. Antegrade percutaneous pyelogram. 3. Percutaneous nephrostomy placement. 4. Conscious sedation with continuous EKG and oximetry monitoring. I reviewed the patient's prior imaging including a CT of the abdomen and pelvis February 07, 2018. Th e risks, benefits and alternatives to the procedure were explained and verbal and written consent was obtained. The site was prepped in sterile fashion. Full sterile technique was used, including cap, mask, sterile gloves and gown and a large sterile sheet. Hand hygiene and 2% chlorhexidine and/or b etadine/alcohol prep was utilized per protocol for cutaneous antisepsis. Sterile gel and sterile pr obe cover were utilized for ultrasound guidance. The skin and subcutaneous tissues were infiltrated with local anesthetic solution. With ultrasound and fluoroscopic guidance the right kidney was punctured and a percutaneous antegrade pyelogram was performed demonstrating a dilated collecting system. There is narrowing of the distal ureter within the pelvis. No opacification of the urinary bladder. Serial dilatation was performed a nd a prescribed nephrostomy tube was placed within the renal pelvis and sutured in place. Clear urine noted. Conscious sedation was performed with the prescribed dosages and duration as above in the presence of an independent trained radiology nurse to assist in the monitoring of the patient. EKG and oximetry remained stable throughout the procedure. The patient tolerated the procedure well and there were n o complications. The patient was sent to post anesthesia recovery in stable condition. CONCLUSION: 1. Uncomplicated right nephrostomy tube placement as above. Electronically signed by: Cash Garcia MD 02/08/2018 12:39 PM EST
--- NOTE | 2018-02-08 15:52 | P.PNIM ---
Subjective Interval history: The patient was resting in bed. She said she has not eaten anything but has ordered dinner. She said the procedure went well and she feels less distention in her stomach. She had no acute complaints. Discussed with nursing. Physical Exam Vital signs: Vital Signs 02/07/18 16:00 02/07/18 20:01 02/07/18 20:50 Temperature 98.2 F Pulse Rate 77 74 78 Respiratory Rate 16 Blood Pressure 128/76 Pulse Oximetry 94 L 02/07/18 23:00 02/07/18 23:35 02/08/18 03:43 Temperature 98.2 F Pulse Rate 75 73 74 Respiratory Rate 18 Blood Pressure 124/70 Pulse Oximetry 93 L 02/08/18 04:45 02/08/18 07:42 02/08/18 12:00 Temperature 98.1 F 98.2 F Pulse Rate 74 71 75 Respiratory Rate 18 18 18 Blood Pressure 121/67 124/64 143/59 H Pulse Oximetry 97 97 94 L 02/08/18 12:15 02/08/18 12:45 02/08/18 13:14 Temperature Pulse Rate 68 65 66 Respiratory Rate 18 18 18 Blood Pressure 126/64 119/54 L 90/56 L Pulse Oximetry 92 L 94 L 94 L 02/08/18 13:44 02/08/18 14:30 Temperature Pulse Rate 67 67 Respiratory Rate 18 18 Blood Pressure 118/64 108/57 L Pulse Oximetry 95 91 L Intake & Output 02/07/18 02/08/18 02/08/18 18:59 06:59 18:59 Intake Total 1375 / 1375 2000 / 2000 100 / 100 Output Total 800 / 800 1400 / 1400 Balance 1375 / 1375 1200 / 1200 -1300 / -1300 Weight 119.3 kg Intake: IV 1375 / 1375 2000 / 2000 100 / 100 NS Inj 1,000 ML @ 125 mls/hr IV 1375 / 1375 .CONT .Q8H [facility] Rx#:[id number] Sodium Bicarbonate 8.4% Inj 75 2000 / 2000 MEQ In 1/2 Normal Saline Inj 925 ML @ 125 mls/hr IV.CONT . Q8H [facility] Rx#:[id number] Levaquin 500 mg Premix Inj 500 100 / 100 mg In 100 ml @ 0 mls/hr IV.SIG .[facility] Rx#:[id number] Intake (Blood Product) Amt 0 / 0 Rbc As-3 Leukoreduced Unit 0 / 0 [id number] Output: Urine Amount (Catheter) 800 / 800 1400 / 1400 Indwelling Urethral Catheter 800 / 800 1400 / 1400 Other: Date of Last Bowel Movement 02/02/18 02/02/18 02/02/18 # Bowel Movements 0 Narrative: GENERAL: In no acute distress. SKIN: Pale, warm and dry. HEAD: Normocephalic. EYES: No scleral icterus. No injection or drainage. NECK: Supple, trachea midline. CARDIOVASCULAR: Regular rate and rhythm without murmurs. RESPIRATORY: Posterior breath sounds clear. GASTROINTESTINAL: Abdomen large, soft, minimally tender, nondistended. EXTREMITIES: No cyanosis, or edema. MUSCULOSKELETAL: Adequate muscle tone. NEUROLOGICAL: No obvious focal deficit. Awake, alert, and oriented x3. PSYCHIATRIC: Appropriate mood and affect; insight and judgment normal. - Urinary Catheter Management Indwelling Urethral Catheter Cath placed during this visit: yes Reason for continuing: Gross Hematuria Insertion date: 02/06/18 Insertion time: 22:38 Results - Labs CBC & Chem 7: 02/08/18 04:25 02/08/18 04:25 Laboratory Results - last 24 hr 02/08/18 02/08/18 02/08/18 04:25 04:25 04:25 WBC 10.4 RBC 2.67 L Hgb 8.0 L Hct 23.3 L MCV 87.4 MCH 30.0 MCHC 34.3 RDW 14.9 Plt Count 170 MPV 7.4 Neut % (Auto) 90.4 H Lymph % (Auto) 7.6 L [place] % (Auto) 1.6 Eos % (Auto) 0.2 Baso % (Auto) 0.2 Neut # (Auto) 9.4 H Lymph # (Auto) 0.8 L [place] # (Auto) 0.2 Eos # (Auto) 0.0 Baso # (Auto) 0.0 WBC Differential . Differential Comment Auto diff final PT INR Sodium 138 Potassium 4.2 Chloride 105 Carbon Dioxide 21.6 Anion Gap 11 BUN 70 H Creatinine 2.87 H Estimated GFR 16 L Random Glucose 112 H Calcium 6.9 L* Phosphorus 7.0 H Iron 272 H TIBC 286 % Saturation 95.2 H Ferritin 282 H Total Protein (PEP) 6.4 Albumin 2.7 L Vitamin D 25-Hydroxy 34.7 PTH Intact 420.4 H Ur Random Creatinine U Random Total Protein Protein/Creatinin Ratio IgG 1370 IgA 166 IgM 71 [place]/Lambda Ratio 1.95 [place] Light Chain Anal 339 Lambda Light Chain Anal 174 02/08/18 02/08/18 02/08/18 04:25 04:25 04:40 WBC RBC Hgb Hct MCV MCH MCHC RDW Plt Count MPV Neut % (Auto) Lymph % (Auto) [place] % (Auto) Eos % (Auto) Baso % (Auto) Neut # (Auto) Lymph # (Auto) [place] # (Auto) Eos # (Auto) Baso # (Auto) WBC Differential Differential Comment PT 11.4 INR 1.1 Sodium Potassium Chloride Carbon Dioxide Anion Gap BUN Creatinine Estimated GFR Random Glucose Calcium Phosphorus Iron TIBC % Saturation Ferritin Total Protein (PEP) Albumin Vitamin D 25-Hydroxy PTH Intact Ur Random Creatinine 55 U Random Total Protein 801.5 H Protein/Creatinin Ratio 14.57 H IgG IgA IgM [place]/Lambda Ratio 2.04 [place] Light Chain Anal 347 Lambda Light Chain Anal 170 - Imaging Impressions Nephrostomy 02/08/18 00:00 CONCLUSION: 1. Uncomplicated right nephrostomy tube placement as above. - Procedures None Assessment and Plan - Plan 67 y/o female with a history of a 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 Right lower extremity DVT -anticoagulation on hold s/t anemia/bleeding. Neuroendocrine tumor with right inguinal lymphadenopathy -Concerning for [place] cell carcinoma per oncology. PET/CT scan concerning for hypermetabolic mass involving the pelvis with metastatic lymph nodes in the right inguinal area as well as mediastinum. PICC line placed for chemotherapy. Vaginal bleeding Per gynecology, since the pt has hx of hysterectomy this is likely 2/2 to the eroding pelvic mass that would not be amenable to any surgical intervention even with profuse bleeding. -follow CBC and transfuse as needed. Right-sided hydroureter/Hematuria CT abdomen: The bladder is fairly well distended with large area most consistent with hemorrhage; The large right-sided pelvic brittaney mass extends along the right side of the bladder with loss of the fat plane and ill-defined high density which is of concern for direct invasion into the bladder; New bilateral hydronephrosis right greater than left; Extensive right inguinal and right sided pelvic adenopathy without significant change from the recent PET/ CT. Urology consult appreciated. S/p right nephrostomy by IR 02/08. -follow up with urology. -follow CBC and transfuse as needed. Acute renal failure Likely s/t above. Nephrology consult appreciated. -IVFs. -follow BMP and avoid nephrotoxins. Hypertension Has been hypotensive. -holding atenolol. -IVFs, transfuse as needed. Nausea S/t chemo. -antiemetics as needed. -ADAT. PPx: per hematology
--- NOTE | 2018-02-08 17:18 | P.PNNP ---
Subjective Interval history: The patient is a 67 yo [place] female who presented to the ED on 02/03 as per her oncologist, Dr. Harris, for evaluation of vaginal bleeding, known pelvic mass, and pain. According to records, she was recently diagnosed with pelvic mass after undergoing evaluation with her PCP for right thigh swelling and pain. She was diagnosed with DVT and further evaluation led to a PET/CT scan revealing a 12 cm right pelvic mass encasing the right ureter. Was referred to Dr. Harris where she met him for the first time on 01/23, but advised to come in for admission on 02/03 given worsening symptoms. On 02/03 she had PICC line placed and on 02/04 was started on Carboplatin and Etoposide x3 days. Received blood transfusion on 02/05 d/t worsening anemia related to ongoing vaginal bleeding. We have been consulted for acute renal failure. Admitting SCr was 0.76 that has worsened to 2.37 at time of consult. No previously known CKD, Had an apparent known right sided hydronephrosis that was detected on outpatient CT scan, but CT Ab/Pelvis done 02/07 shows progression of hydronephrosis now bilateral with dilatation of the right ureter to pelvic mass and concern for mass invasion into bladder wall. Nguyen catheter was placed today. Awaiting urological consultation. Denies any home NSAID use predating admission. Controlled HTN for some time. No urological hx. Was taking Lasix 40mg daily at home since October, started by her PCP. No known cardiac hx including CHF. 02/08/18 Pt s/p R nephrostomy tube placement today. Great UOP from tube with some present in Nguyen as well. Pt reports that she is feeling much better and feeling of "bloatedness" improved. Physical Exam Vital signs: Vital Signs 02/07/18 20:01 02/07/18 20:50 02/07/18 23:00 Temperature 98.2 F 98.2 F Pulse Rate 74 78 75 Respiratory Rate 16 18 Blood Pressure 128/76 124/70 Pulse Oximetry 94 L 93 L 02/07/18 23:35 02/08/18 03:43 02/08/18 04:45 Temperature 98.1 F Pulse Rate 73 74 74 Respiratory Rate 18 Blood Pressure 121/67 Pulse Oximetry 97 02/08/18 07:42 02/08/18 12:00 02/08/18 12:15 Temperature 98.2 F Pulse Rate 71 75 68 Respiratory Rate 18 18 18 Blood Pressure 124/64 143/59 H 126/64 Pulse Oximetry 97 94 L 92 L 02/08/18 12:45 02/08/18 13:14 02/08/18 13:44 Temperature Pulse Rate 65 66 67 Respiratory Rate 18 18 18 Blood Pressure 119/54 L 90/56 L 118/64 Pulse Oximetry 94 L 94 L 95 02/08/18 14:30 Temperature Pulse Rate 67 Respiratory Rate 18 Blood Pressure 108/57 L Pulse Oximetry 91 L Intake & Output 02/07/18 02/08/18 02/08/18 18:59 06:59 18:59 Intake Total 1375 / 1375 2000 / 2000 1100 / 1100 Output Total 800 / 800 1400 / 1400 Balance 1375 / 1375 1200 / 1200 -300 / -300 Weight 119.3 kg Intake: IV 1375 / 1375 1999 / 1999 1100 / 1100 NS Inj 1,000 ML @ 125 mls/hr IV 1375 / 1375 .CONT .Q8H [facility] Rx#:[id number] Sodium Bicarbonate 8.4% Inj 75 1999 / 1999 1000 / 1000 MEQ In 1/2 Normal Saline Inj 925 ML @ 125 mls/hr IV.CONT . Q8H [facility] Rx#:[id number] Levaquin 500 mg Premix Inj 500 100 / 100 mg In 100 ml @ 0 mls/hr IV.SIG .STK-MED ONE Rx#:[id number] Intake (Blood Product) Amt 0 / 0 Rbc As-3 Leukoreduced Unit 0 / 0 [id number] Output: Urine Amount (Catheter) 800 / 800 1400 / 1400 Indwelling Urethral Catheter 800 / 800 1400 / 1400 Other: Date of Last Bowel Movement 02/02/18 02/02/18 02/02/18 # Bowel Movements 0 - Constitutional no acute distress - Routine HEENT Exam Head: Present: normocephalic - Routine Neck Exam Present: supple - Routine Respiratory Exam Present: CTA bilaterally - Routine Cardiovascular Exam Present: RRR, S1, S2, murmur - Routine Abdominal Exam Present: soft - Routine Extremities Exam Present: edema (RLE to thigh. Trace LLE) - Routine Skin Exam Present: intact - Routine Neurological Exam Present: alert, oriented X3 - Urinary Catheter Management Indwelling Urethral Catheter Cath placed during this visit: yes Reason for continuing: Gross Hematuria Insertion date: 02/06/18 Insertion time: 22:38 Assessment and Plan - Assessment (1) Acute renal failure (ARF) Code(s): N17.9 - Acute kidney failure, unspecified Status: Acute Plan: Primary consideration being obstructive uropathy with bilat hydro. Has had excellent UOP since PCNT. Repeat renal panel in the AM. Consideration to be given for placement of L tube placement if UOP declines or if renal function does not significantly improved. Continue on IVF for the present. Await results of additional screening labs. Medications should be adjusted for the patient's renal decline. Avoid nephrotoxic agents such as iodnated contrast dyes and NSAIDs. (2) Bilateral hydronephrosis Code(s): N13.30 - Unspecified hydronephrosis Status: Acute Plan: Urology has been consulted. s/p right PCNT 02/08 (3) Anemia Code(s): D64.9 - Anemia, unspecified Status: Acute Plan: Related to blood loss. Mgmt as per heme/onco (4) Hypertension Code(s): I10 - Essential (primary) hypertension Status: Acute Plan: Hypotensive today. Hold home regimen (5) Pelvic mass in female Code(s): R19.00 - Intra-abdominal and pelvic swelling, mass and lump, unspecified site Status: Acute Plan: Mgmt as per oncology. 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 Pt not a surgical candidate. (6) Vaginal bleeding Code(s): N93.9 - Abnormal uterine and vaginal bleeding, unspecified Status: Acute - Plan Related to tumor.
[2018-02-09] MEDS: Sodium Bicarbonate 8.4% Inj 75 MEQ in Sodium Chloride 0.45 % Inj 925 ML IV.CONT SCH ×4 (00:13→21:55)
[2018-02-09] MEDS: Morphine Sulfate Inj 2 MG/ML Vial IV.PUSH PRN ×2 (00:14→21:22)
[2018-02-09 06:15] LABS: Baso % (Auto) 0.1 % (0.0-2.0); Eos # (Auto) 0.1 th/mm3 (0.0-0.4); Eos % (Auto) 1.5 % (0.0-4.0); Lymph # (Auto) 0.9 th/mm3 (1.0-4.8); Lymph % (Auto) 13.3 % (9.0-44.0); Mean Corpuscular HGB Conc 33.6 % (32.0-36.0); Mean Corpuscular Hemoglobin 29.6 pg (27.0-34.0); Mean Platelet Volume 7.4 fL (7.0-11.0); Mono # (Auto) 0.1 th/mm3 (0.0-0.9); Mono % (Auto) 1.1 % (0.0-8.0); Neut # (Auto) 5.9 th/mm3 (1.8-7.7); Platelet Count 119 th/mm3 (150-450); Red Blood Count 2.33 mil/mm3 (4.00-5.30); Red Cell Distribution Width 14.9 % (11.6-17.2)
[2018-02-09 06:24] LABS: Hematocrit 20.5 % (35.0-46.0); Hemoglobin 6.9 gm/dL (11.6-15.3)
[2018-02-09 06:47] LABS: Albumin 2.4 g/dL (3.4-5.0); Calcium 7.1 mg/dL (8.5-10.1); Carbon Dioxide 26.5 meq/L (21.0-32.0); Phosphorus 3.1 mg/dL (2.5-4.9); Potassium 3.6 meq/L (3.5-5.1); Total Protein 5.9 g/dL (6.4-8.2); Uric Acid 6.4 mg/dl (2.6-6.0)
[2018-02-09 07:08] LABS: Calcium-Albumin Corrected 7.7 mg/dL (8.5-10.1)
[2018-02-09] MEDS ORDERED: Acetaminophen 325 MG Tablet PO ONE (08:13)
--- NOTE | 2018-02-09 08:39 | P.PNONC ---
Subjective Interval history: Patient seen and examined this morning, vital signs, labs, medications and procedure notes from yesterday reviewed. Subjectively; patient reports feeling improved today, her nausea is better, her abdominal pain and pressure is better and she feels that her right leg swelling is also improved. Yesterday she underwent percutaneous right sided nephrostomy tube placement, urine has been draining freely. Her renal function is significantly improved today when compared to yesterday. Objective Vital Signs/Intake & Output: Vital Signs 02/08/18 12:00 02/08/18 12:15 02/08/18 12:45 Temperature 98.2 F Pulse Rate 75 68 65 Respiratory Rate 18 18 18 Blood Pressure 143/59 H 126/64 119/54 L Pulse Oximetry 94 L 92 L 94 L 02/08/18 13:14 02/08/18 13:44 02/08/18 14:30 Temperature Pulse Rate 66 67 67 Respiratory Rate 18 18 18 Blood Pressure 90/56 L 118/64 108/57 L Pulse Oximetry 94 L 95 91 L 02/08/18 16:00 02/08/18 20:00 02/09/18 00:00 Temperature 97.7 F 98.4 F Pulse Rate 67 72 76 Respiratory Rate 18 18 Blood Pressure 123/64 112/64 Pulse Oximetry 96 96 02/09/18 00:08 02/09/18 04:00 02/09/18 07:00 Temperature 98.3 F 97.9 F Pulse Rate 80 64 68 Respiratory Rate 18 18 Blood Pressure 106/64 117/71 Pulse Oximetry 94 L 95 Intake & Output 02/08/18 02/09/18 02/09/18 18:59 06:59 18:59 Intake Total 2180 / 2180 1200 / 1200 750 / 750 Output Total 2600 / 2600 3290 / 3290 1600 / 1600 Balance -420 / -420 -2090 / -2090 -850 / -850 Weight 119 kg Intake: IV 1100 / 1100 1000 / 1000 Sodium Bicarbonate 8.4% Inj 75 1000 / 1000 1000 / 1000 MEQ In 1/2 Normal Saline Inj 925 ML @ 125 mls/hr IV.CONT . Q8H [facility] Rx#:[id number] Levaquin 500 mg Premix Inj 500 100 / 100 mg In 100 ml @ 0 mls/hr IV.SIG .STK-MED [facility] Rx#:[id number] Oral 1080 / 1080 200 / 200 750 / 750 Output: Urine 1600 / 1600 Urine Amount (Catheter) 1900 / 1900 1450 / 1450 Indwelling Urethral Catheter 1900 / 1900 1450 / 1450 Wound Drainage 700 / 700 1840 / 1840 Right Lower Back 700 / 700 1840 / 1840 Other: Date of Last Bowel Movement 02/02/18 02/02/18 Result Diagrams: 02/09/18 04:40 02/09/18 04:40 Laboratory Results: Laboratory Results - last 24 hr 02/09/18 02/09/18 04:40 04:40 WBC 7.0 RBC 2.33 L Hgb 6.9 L* Hct 20.5 L* MCV 88.0 MCH 29.6 MCHC 33.6 RDW 14.9 Plt Count 119 L MPV 7.4 Prelim Diff (Auto) Slide review pending Neut % (Auto) 84.0 H Lymph % (Auto) 13.3 [place] % (Auto) 1.1 Eos % (Auto) 1.5 Baso % (Auto) 0.1 Neut # (Auto) 5.9 Lymph # (Auto) 0.9 L [place] # (Auto) 0.1 Eos # (Auto) 0.1 Baso # (Auto) 0.0 WBC Differential . Diff Scan Auto diff confirmed Differential Comment . Sodium 143 Potassium 3.6 Chloride 108 H Carbon Dioxide 26.5 Anion Gap 9 BUN 38 H Creatinine 1.12 H Estimated GFR 49 L Random Glucose 88 Uric Acid 6.4 H Calcium 7.1 L* Prot Corrected Calcium 7.7 L Phosphorus 3.1 D Total Bilirubin 0.6 Direct Bilirubin 0.2 Indirect Bilirubin 0.4 AST 73 H ALT 42 Alkaline Phosphatase 44 L Lactate Dehydrogenase 893 H Total Protein 5.9 L Albumin 2.4 L Imaging Studies: Impressions Nephrostomy 02/08/18 00:00 CONCLUSION: 1. Uncomplicated right nephrostomy tube placement as above. Medications: Active Medications Generic Name Dose Route Start Last Admin Trade Name Freq PRN Reason Stop Dose Admin Al Hydroxide/Mg Hydroxide 30 ml 02/02/18 21:42 02/07/18 21:23 Milk Of Magnesia Liq PO 30 ml Q12H PRN Administration Mild Constipation Atenolol 50 mg 02/03/18 09:00 02/08/18 08:17 Tenormin PO 50 mg DAILY BEATA Administration Citalopram Hydrobromide 40 mg 02/03/18 09:00 02/08/18 08:17 Celexa PO 40 mg DAILY BEATA Administration Ferrous Sulfate 325 mg 02/03/18 09:00 02/08/18 20:35 Ferosul PO 325 mg BID BEATA Administration Heparin Sodium (Porcine) 0 unit 02/03/18 14:06 02/05/18 04:14 Heparin Central Flush IV.FLUSH 200 unit PRN PRN Administration Flush PICC Line Heparin Sodium (Porcine) 0 unit 02/04/18 09:00 02/08/18 08:17 Heparin Central Flush IV.FLUSH Not Given DAILY BEATA Sodium Chloride 250 mls @ 0 mls/hr 02/04/18 14:00 02/06/18 00:51 Ns Inj IV.SIG Infused ONCE BEATA Infusion KVO Sodium Bicarbonate 75 meq/ 1,000 mls @ 125 mls/hr 02/07/18 12:00 02/09/18 00: 13 Sodium Chloride IV.CONT 125 mls/hr .Q8H [facility] Administration Morphine Sulfate 2 mg 02/03/18 00:02 02/09/18 00:14 Morphine Inj IV.PUSH 2 mg Q3H PRN Administration pain 1 to 10 Ondansetron HCl 4 mg 02/03/18 00:00 02/08/18 09:42 Zofran Inj IV.PUSH 4 mg Q6H PRN Administration NAUSEA Rivaroxaban 20 mg 02/04/18 10:15 02/04/18 17:32 Xarelto PO Not Given DAILY BEATA Sodium Chloride 0 ml 02/04/18 09:00 02/08/18 08:18 Ns Flush IV.FLUSH 10 ml DAILY BEATA Administration Objective Remarks: Middle-aged/elderly lady, laying in bed, appears to be no acute distress, she has a pleasant disposition. She is of medium height and is morbidly obese. HEENT: Head atraumatic normocephalic, conjunctivae not pale sclera anicteric, EOMI, PERRLA. Oral exam: No pharyngeal erythema, no ulceration or thrush. Neck exam: No palpable pathologically enlarged cervical or supraclavicular adenopathy. Respiratory exam: Good air movement bilaterally not breath sounds. No rhonchi, rales or wheezes. Cardiovascular: Regular rate and rhythm, S1-S2 no obvious murmurs or gallops. Abdominal exam: Obese belly, soft, nontender, positive bowel sounds. Pathologically enlarged bulky right inguinal/right upper thigh lymphadenopathy. Interval placement of a right-sided percutaneous nephrostomy tube which is draining dark yellow urine. Hematuria and Nguyen catheter tubing and bag. Extremities: Right lower extremity significantly larger in circumference when compared to the left lower extremity. This starts at the level of the upper thigh and goes all the way down to the ankles. There is no obvious tenderness. Today I did reexamine her right inguinal lymph nodes which appear to be seen significantly decreased in size when compared to pretreatment examination. 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 Skin exam: Nonfocal. Psychiatric: Alert and oriented x3, her mood is appropriate and her level of understanding is excellent. 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 Patient was seen in the clinic on 02/02/2018 and reported symptoms of heavy vaginal bleeding, extensive pelvic pain right leg swelling and progressive weakness. She has been initiated on palliative systemic therapy with carboplatin and etoposide (with dose modification). Recommendations: 1. High-grade neuroendocrine tumor. Cycle 1 day 1 was on 02/04/2018. Day 2 was delivered on 02/06/2028. Day 3 etoposide was held due to worsening renal dysfunction and hematuria. 2. Right lower extremity DVT, Xarelto currently on hold secondary to gross hematuria. 3. Anemia: Secondary to gross hematuria, supportive transfusions have been ordered. She is on ferrous sulfate. Hemoglobin today was 6.9 g/dL, 1 unit packed red blood cells ordered. 4. Acute renal failure: Renal function improved following nephrostomy tube placement. 5. Patient is on allopurinol for TLS. Continue TLS labs; uric acid and LDH and magnesium. Appreciate nephrology and urology input. Continue ongoing care.
[2018-02-09] MEDS ORDERED: Allopurinol 100 MG Tablet PO SCH (09:00)
[2018-02-09] MEDS: Ferrous Sulfate 325 MG Tablet PO SCH ×2 (09:29→20:30)
[2018-02-09] MEDS: Heparin Central Flush 100 UNIT/ML 5 ML Vial IV.FLUSH SCH (09:39)
--- NOTE | 2018-02-09 14:55 | P.PNNP ---
Subjective Interval history: Sitting comfortably in a chair. No verbal complaints. Physical Exam Vital signs: Vital Signs 02/08/18 16:00 02/08/18 20:00 02/09/18 00:00 Temperature 97.7 F 98.4 F Pulse Rate 67 72 76 Respiratory Rate 18 18 Blood Pressure 123/64 112/64 Pulse Oximetry 96 96 02/09/18 00:08 02/09/18 04:00 02/09/18 07:00 Temperature 98.3 F 97.9 F Pulse Rate 80 64 68 Respiratory Rate 18 18 Blood Pressure 106/64 117/71 Pulse Oximetry 94 L 95 02/09/18 09:24 02/09/18 11:00 02/09/18 11:06 Temperature 99 F 99 F Pulse Rate 78 76 Respiratory Rate 18 18 Blood Pressure 103/74 116/64 Pulse Oximetry 96 95 02/09/18 12:14 Temperature 99.2 F Pulse Rate 74 Respiratory Rate 18 Blood Pressure 123/96 H Pulse Oximetry 93 L Intake & Output 02/08/18 02/09/18 02/09/18 18:59 06:59 18:59 Intake Total 2180 / 2180 1200 / 1200 1750 / 1750 Output Total 2600 / 2600 3290 / 3290 1600 / 1600 Balance -420 / -420 -2090 / -2090 150 / 150 Weight 119 kg Intake: IV 1100 / 1100 1000 / 1000 1000 / 1000 Sodium Bicarbonate 8.4% Inj 75 1000 / 1000 1000 / 1000 1000 / 1000 MEQ In 1/2 Normal Saline Inj 925 ML @ 125 mls/hr IV.CONT . Q8H [facility] Rx#:[id number] Levaquin 500 mg Premix Inj 500 100 / 100 mg In 100 ml @ 0 mls/hr IV.SIG .STK-MED ONE Rx#:[id number] Oral 1080 / 1080 200 / 200 750 / 750 Intake (Blood Product) Amt 0 / 0 Rbc As-3 Leukoreduced Unit 0 / 0 [id number] Output: Urine 1600 / 1600 Urine Amount (Catheter) 1900 / 1900 1450 / 1450 Indwelling Urethral Catheter 1900 / 1900 1450 / 1450 Wound Drainage 700 / 700 1840 / 1840 Right Lower Back 700 / 700 1840 / 1840 Other: Date of Last Bowel Movement 02/02/18 02/02/18 02/02/18 Narrative: GENERAL: In no acute distress. SKIN: Pale, warm and dry. HEAD: Normocephalic. EYES: No scleral icterus. No injection or drainage. NECK: No JVD elevation. CARDIOVASCULAR: Regular rate and rhythm without murmurs. RESPIRATORY: Posterior breath sounds clear. GASTROINTESTINAL: Abdomen large, soft, minimally tender, nondistended. EXTREMITIES: No cyanosis, or edema. NEUROLOGICAL: No obvious focal deficit. Awake, alert, . - Urinary Catheter Management Indwelling Urethral Catheter Cath placed during this visit: yes Reason for continuing: Gross Hematuria Insertion date: 02/06/18 Insertion time: 22:38 Assessment and Plan - Assessment (1) Acute renal failure (ARF) Code(s): N17.9 - Acute kidney failure, unspecified Status: Acute Plan: Patient's renal indices are improving nicely consistent with relief of obstructive uropathy. Will defer to urology and primary MD in regard to potential placement of second nephrostomy tube. Anticipate further improvement in renal indices. No new recommendations from my point of view. At this point in time will sign off. Please recall if required. Thanks. Medications should be adjusted for the patient's renal decline. Avoid nephrotoxic agents such as iodnated contrast dyes and NSAIDs. (2) Bilateral hydronephrosis Code(s): N13.30 - Unspecified hydronephrosis Status: Acute Plan: As above. (3) Anemia Code(s): D64.9 - Anemia, unspecified Status: Acute Plan: Related to blood loss. Mgmt as per heme/onco (4) Hypertension Code(s): I10 - Essential (primary) hypertension Status: Acute (5) Pelvic mass in female Code(s): R19.00 - Intra-abdominal and pelvic swelling, mass and lump, unspecified site Status: Acute Plan: Mgmt as per oncology. 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 Pt not a surgical candidate. (6) Vaginal bleeding Code(s): N93.9 - Abnormal uterine and vaginal bleeding, unspecified Status: Acute - Plan Related to tumor.
--- NOTE | 2018-02-09 15:52 | P.PNIM ---
Subjective Interval history: The patient was resting comfortably in bed. Her family was at the bedside. The patient denied any acute complaints. She was receiving blood. She said she was still constipated. She has been ambulatory. Physical Exam Vital signs: Vital Signs 02/08/18 16:00 02/08/18 20:00 02/09/18 00:00 Temperature 97.7 F 98.4 F Pulse Rate 67 72 76 Respiratory Rate 18 18 Blood Pressure 123/64 112/64 Pulse Oximetry 96 96 02/09/18 00:08 02/09/18 04:00 02/09/18 07:00 Temperature 98.3 F 97.9 F Pulse Rate 80 64 68 Respiratory Rate 18 18 Blood Pressure 106/64 117/71 Pulse Oximetry 94 L 95 02/09/18 09:24 02/09/18 11:00 02/09/18 11:06 Temperature 99 F 99 F Pulse Rate 78 76 Respiratory Rate 18 18 Blood Pressure 103/74 116/64 Pulse Oximetry 96 95 02/09/18 12:14 02/09/18 15:00 Temperature 99.2 F 98.6 F Pulse Rate 74 73 Respiratory Rate 18 18 Blood Pressure 123/96 H 134/68 Pulse Oximetry 93 L 96 Intake & Output 02/08/18 02/09/18 02/09/18 18:59 06:59 18:59 Intake Total 2180 / 2180 1200 / 1200 2150 / 2150 Output Total 2600 / 2600 3290 / 3290 1600 / 1600 Balance -420 / -420 -2090 / -2090 550 / 550 Weight 119 kg Intake: IV 1100 / 1100 1000 / 1000 1000 / 1000 Sodium Bicarbonate 8.4% Inj 75 1000 / 1000 1000 / 1000 1000 / 1000 MEQ In 1/2 Normal Saline Inj 925 ML @ 125 mls/hr IV.CONT . Q8H [facility] Rx#:[id number] Levaquin 500 mg Premix Inj 500 100 / 100 mg In 100 ml @ 0 mls/hr IV.SIG .STK-MED [facility] Rx#:[id number] Oral 1080 / 1080 200 / 200 750 / 750 Intake (Blood Product) Amt 400 / 400 Rbc As-3 Leukoreduced Unit 400 / 400 [id number] Output: Urine 1600 / 1600 Urine Amount (Catheter) 1900 / 1900 1450 / 1450 Indwelling Urethral Catheter 1900 / 1900 1450 / 1450 Wound Drainage 700 / 700 1840 / 1840 Right Lower Back 700 / 700 1840 / 1840 Other: Date of Last Bowel Movement 02/02/18 02/02/18 02/02/18 Narrative: GENERAL: In no acute distress. SKIN: Pale, warm and dry. HEAD: Normocephalic. EYES: No scleral icterus. No injection or drainage. NECK: No JVD elevation. CARDIOVASCULAR: Regular rate and rhythm without murmurs. RESPIRATORY: Posterior breath sounds clear. GASTROINTESTINAL: Abdomen soft, nontender, nondistended. EXTREMITIES: No cyanosis, or edema. NEUROLOGICAL: No obvious focal deficit. Awake, alert. - Urinary Catheter Management Indwelling Urethral Catheter Cath placed during this visit: yes Reason for continuing: Gross Hematuria Insertion date: 02/06/18 Insertion time: 22:38 Results - Labs CBC & Chem 7: 02/09/18 04:40 02/09/18 04:40 Laboratory Results - last 24 hr 02/07/18 02/09/18 02/09/18 07:17 04:40 04:40 WBC 7.0 RBC 2.33 L Hgb 6.9 L* Hct 20.5 L* MCV 88.0 MCH 29.6 MCHC 33.6 RDW 14.9 Plt Count 119 L MPV 7.4 Prelim Diff (Auto) Slide review pending Neut % (Auto) 84.0 H Lymph % (Auto) 13.3 [place] % (Auto) 1.1 Eos % (Auto) 1.5 Baso % (Auto) 0.1 Neut # (Auto) 5.9 Lymph # (Auto) 0.9 L [place] # (Auto) 0.1 Eos # (Auto) 0.1 Baso # (Auto) 0.0 WBC Differential . Diff Scan Auto diff confirmed Differential Comment . Sodium 143 Potassium 3.6 Chloride 108 H Carbon Dioxide 26.5 Anion Gap 9 BUN 38 H Creatinine 1.12 H Estimated GFR 49 L Random Glucose 88 Uric Acid 6.4 H Calcium 7.1 L* Prot Corrected Calcium 7.7 L Phosphorus 3.1 D Total Bilirubin 0.6 Direct Bilirubin 0.2 Indirect Bilirubin 0.4 AST 73 H ALT 42 Alkaline Phosphatase 44 L Lactate Dehydrogenase 893 H Total Protein 5.9 L Albumin 2.4 L Blood Type Antibody Screen MTS Gel Crossmatch See Detail 02/09/18 09:50 WBC RBC Hgb Hct MCV MCH MCHC RDW Plt Count MPV Prelim Diff (Auto) Neut % (Auto) Lymph % (Auto) Leon % (Auto) Eos % (Auto) Baso % (Auto) Neut # (Auto) Lymph # (Auto) Leon # (Auto) Eos # (Auto) Baso # (Auto) WBC Differential Diff Scan Differential Comment Sodium Potassium Chloride Carbon Dioxide Anion Gap BUN Creatinine Estimated GFR Random Glucose Uric Acid Calcium Prot Corrected Calcium Phosphorus Total Bilirubin Direct Bilirubin Indirect Bilirubin AST ALT Alkaline Phosphatase Lactate Dehydrogenase Total Protein Albumin Blood Type O Positive Antibody Screen Negative MTS Gel Crossmatch See Detail - Procedures None Assessment and Plan - Plan 67 y/o female with a history of a 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 Right lower extremity DVT Anticoagulation on hold s/t anemia/bleeding. -resume anticoagulation when able. 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 PET/CT scan concerning for hypermetabolic mass involving the pelvis with metastatic lymph nodes in the right inguinal area as well as mediastinum. -chemotherapy per oncology. Vaginal bleeding Per gynecology, since the pt has hx of hysterectomy this is likely 2/2 to the eroding pelvic mass that would not be amenable to any surgical intervention even with profuse bleeding. -follow CBC and transfuse as needed. Right-sided hydroureter/Hematuria CT abdomen: The bladder is fairly well distended with large area most consistent with hemorrhage; The large right-sided pelvic brittaney mass extends along the right side of the bladder with loss of the fat plane and ill-defined high density which is of concern for direct invasion into the bladder; New bilateral hydronephrosis right greater than left; Extensive right inguinal and right sided pelvic adenopathy without significant change from the recent PET/ CT. Urology consult appreciated. S/p right nephrostomy by IR 02/08. -follow up with urology. -follow CBC and transfuse as needed. Receiving transfusion 02/09. Acute renal failure Likely s/t above. Nephrology consult appreciated. Improved. -IVFs. -follow BMP and avoid nephrotoxins. -continue nephrostomy tube. Hypertension Has been normotensive. -holding atenolol. -IVFs, transfuse as needed. Nausea S/t chemo. Seems resolved. -antiemetics as needed. -ADAT. Constipation Ongoing. -increase bowel regimen. PPx: per hematology
[2018-02-10 05:10] LABS: Baso % (Auto) 0.2 % (0.0-2.0); Eos # (Auto) 0.1 th/mm3 (0.0-0.4); Eos % (Auto) 1.9 % (0.0-4.0); Hemoglobin 7.3 gm/dL (11.6-15.3); Lymph # (Auto) 1.1 th/mm3 (1.0-4.8); Lymph % (Auto) 16.8 % (9.0-44.0); Mean Corpuscular HGB Conc 34.9 % (32.0-36.0); Mean Corpuscular Hemoglobin 30.1 pg (27.0-34.0); Mean Corpuscular Volume 86.2 fL (80.0-100.0); Mean Platelet Volume 7.4 fL (7.0-11.0); Mono # (Auto) 0.1 th/mm3 (0.0-0.9); Mono % (Auto) 0.8 % (0.0-8.0); Neut # (Auto) 5.1 th/mm3 (1.8-7.7); Neut % (Auto) 80.3 % (16.0-70.0); Platelet Count 104 th/mm3 (150-450); Red Blood Count 2.43 mil/mm3 (4.00-5.30); Red Cell Distribution Width 14.9 % (11.6-17.2); White Blood Count 6.3 th/mm3 (4.0-11.0)
[2018-02-10 05:41] LABS: Albumin 2.4 g/dL (3.4-5.0); Carbon Dioxide 30.7 meq/L (21.0-32.0); Phosphorus 2.7 mg/dL (2.5-4.9); Potassium 3.5 meq/L (3.5-5.1)
[2018-02-10] MEDS: Sodium Bicarbonate 8.4% Inj 75 MEQ in Sodium Chloride 0.45 % Inj 925 ML IV.CONT SCH ×2 (05:46→20:06)
[2018-02-10 07:05] LABS: Calcium-Albumin Corrected 7.7 mg/dL (8.5-10.1); Total Protein 5.9 g/dL (6.4-8.2)
[2018-02-10 07:06] LABS: Calcium 7.1 mg/dL (8.5-10.1)
--- NOTE | 2018-02-10 08:06 | P.PNONC ---
Subjective Interval history: Patient seen and examined, vital signs, labs and medications reviewed. Patient reports feeling overall better, she reports spending about 6 hours in a bedside chair/recliner yesterday. She tells me she has been ambulating with assistance. She denies difficulty breathing or chest pain. She denies fevers, chills or night sweats. She continues to have a Nguyen catheter, she continues to produce grossly bloody urine. But no clots. Objective Vital Signs/Intake & Output: Vital Signs 02/09/18 09:24 02/09/18 11:00 02/09/18 11:06 Temperature 99 F 99 F Pulse Rate 78 76 Respiratory Rate 18 18 Blood Pressure 103/74 116/64 Pulse Oximetry 96 95 02/09/18 12:14 02/09/18 15:00 02/09/18 20:00 Temperature 99.2 F 98.6 F 98.4 F Pulse Rate 74 73 71 Respiratory Rate 18 18 18 Blood Pressure 123/96 H 134/68 136/68 Pulse Oximetry 93 L 96 94 L 02/10/18 00:00 02/10/18 04:00 Temperature 98.5 F 98.2 F Pulse Rate 76 72 Respiratory Rate 16 16 Blood Pressure 113/66 117/71 Pulse Oximetry 93 L 96 Intake & Output 02/09/18 02/10/18 02/10/18 18:59 06:59 18:59 Intake Total 4230 / 4230 1480 / 1480 Output Total 2850 / 2850 1355 / 1355 Balance 1380 / 1380 125 / 125 Weight 120.5 kg Intake: IV 1999 1000 / 1000 Sodium Bicarbonate 8.4% Inj 75 1999 1000 / 1000 MEQ In 1/2 Normal Saline Inj 925 ML @ 125 mls/hr IV.CONT . Q8H [facility] Rx#:[id number] Oral 1830 / 1830 480 / 480 Intake (Blood Product) Amt 400 / 400 Rbc As-3 Leukoreduced Unit 400 / 400 [id number] Output: Urine 1600 / 1600 Urine Amount (Catheter) 375 / 375 350 / 350 Indwelling Urethral Catheter 375 / 375 350 / 350 Urine Amount (Stoma) 875 / 875 1005 / 1005 Nephrostomy Tube Right 875 / 875 1005 / 1005 Other: Date of Last Bowel Movement 02/02/18 02/02/18 Result Diagrams: 02/10/18 04:00 02/10/18 04:00 Laboratory Results: Laboratory Results - last 24 hr 02/07/18 02/08/18 02/09/18 07:17 04:25 04:40 WBC RBC Hgb Hct MCV MCH MCHC RDW Plt Count MPV Neut % (Auto) Lymph % (Auto) Dixie % (Auto) Eos % (Auto) Baso % (Auto) Neut # (Auto) Lymph # (Auto) Dixie # (Auto) Eos # (Auto) Baso # (Auto) WBC Differential . Diff Scan Auto diff confirmed Differential Comment Sodium Potassium Chloride Carbon Dioxide Anion Gap BUN Creatinine Estimated GFR Random Glucose Calcium Prot Corrected Calcium Phosphorus Total Bilirubin Direct Bilirubin Indirect Bilirubin AST ALT Alkaline Phosphatase Lactate Dehydrogenase Total Protein Albumin Albumin (PEP) 3.24 L Albumin/Globulin Ratio 1.03 L Rpgeo-9-Efdevxmsq 0.29 Zppey-3-Lppkfydhy 0.83 Beta Globulins 0.75 Gamma Globulins 1.29 Blood Type Antibody Screen MTS Gel Crossmatch See Detail 02/09/18 02/10/18 02/10/18 09:50 04:00 04:00 WBC 6.3 RBC 2.43 L Hgb 7.3 L Hct 21.0 L MCV 86.2 MCH 30.1 MCHC 34.9 RDW 14.9 Plt Count 104 L MPV 7.4 Neut % (Auto) 80.3 H Lymph % (Auto) 16.8 Dixie % (Auto) 0.8 Eos % (Auto) 1.9 Baso % (Auto) 0.2 Neut # (Auto) 5.1 Lymph # (Auto) 1.1 Dixie # (Auto) 0.1 Eos # (Auto) 0.1 Baso # (Auto) 0.0 WBC Differential . Diff Scan Differential Comment Auto diff final Sodium 142 Potassium 3.5 Chloride 106 Carbon Dioxide 30.7 Anion Gap 5 BUN 22 H Creatinine 0.78 Estimated GFR 74 L Random Glucose 93 Calcium 7.1 L* Prot Corrected Calcium 7.7 L Phosphorus 2.7 Total Bilirubin 0.6 Direct Bilirubin 0.3 H Indirect Bilirubin 0.3 AST 71 H ALT 48 Alkaline Phosphatase 48 Lactate Dehydrogenase 859 H Total Protein 5.9 L Albumin 2.4 L Albumin (PEP) Albumin/Globulin Ratio Smwqh-6-Pxxehkgvg Eqnfb-4-Xvicdjbbs Beta Globulins Gamma Globulins Blood Type O Positive Antibody Screen Negative MTS Gel Crossmatch See Detail 02/10/18 04:00 WBC RBC Hgb Hct MCV MCH MCHC RDW Plt Count MPV Neut % (Auto) Lymph % (Auto) Dixie % (Auto) Eos % (Auto) Baso % (Auto) Neut # (Auto) Lymph # (Auto) Dixie # (Auto) Eos # (Auto) Baso # (Auto) WBC Differential Diff Scan Differential Comment Sodium Potassium Chloride Carbon Dioxide Anion Gap BUN Creatinine Estimated GFR Random Glucose Calcium Cancelled Prot Corrected Calcium Cancelled Phosphorus Total Bilirubin Direct Bilirubin Indirect Bilirubin AST ALT Alkaline Phosphatase Lactate Dehydrogenase Total Protein Cancelled Albumin Albumin (PEP) Albumin/Globulin Ratio Hkkxp-8-Ozegksajf Stklu-2-Fswffzkfd Beta Globulins Gamma Globulins Blood Type Antibody Screen MTS Gel Crossmatch Medications: Active Medications Generic Name Dose Route Start Last Admin Trade Name Freq PRN Reason Stop Dose Admin Al Hydroxide/Mg Hydroxide 30 ml 02/02/18 21:42 02/07/18 21:23 Milk Of Magnesia Liq PO 30 ml Q12H PRN Administration Mild Constipation Allopurinol 200 mg 02/09/18 09:00 02/09/18 09:29 Zyloprim PO 200 mg DAILY BEATA Administration Atenolol 50 mg 02/03/18 09:00 02/08/18 08:17 Tenormin PO 50 mg DAILY BEATA Administration Citalopram Hydrobromide 40 mg 02/03/18 09:00 02/09/18 09:29 Celexa PO 40 mg DAILY BEATA Administration Ferrous Sulfate 325 mg 02/03/18 09:00 02/09/18 20:30 Ferosul PO 325 mg BID BEATA Administration Heparin Sodium (Porcine) 0 unit 02/03/18 14:06 02/05/18 04:14 Heparin Central Flush IV.FLUSH 200 unit PRN PRN Administration Flush PICC Line Heparin Sodium (Porcine) 0 unit 02/04/18 09:00 02/09/18 09:39 Heparin Central Flush IV.FLUSH Not Given DAILY BEATA Sodium Chloride 250 mls @ 0 mls/hr 02/04/18 14:00 02/06/18 00:51 Ns Inj IV.SIG Infused ONCE BEATA Infusion KVO Sodium Bicarbonate 75 meq/ 1,000 mls @ 125 mls/hr 02/07/18 12:00 02/10/18 05: 46 Sodium Chloride IV.CONT 125 mls/hr .Q8H BEATA Administration Lactulose 30 ml 02/02/18 21:42 02/09/18 09:29 Lactulose Liq PO 30 ml DAILY PRN Administration SEVERE CONSITIPATION Morphine Sulfate 2 mg 02/03/18 00:02 02/09/18 21:22 Morphine Inj IV.PUSH 2 mg Q3H PRN Administration pain 1 to 10 Ondansetron HCl 4 mg 02/03/18 00:00 02/08/18 09:42 Zofran Inj IV.PUSH 4 mg Q6H PRN Administration NAUSEA Rivaroxaban 20 mg 02/04/18 10:15 02/04/18 17:32 Xarelto PO Not Given DAILY BEATA Sodium Chloride 0 ml 02/04/18 09:00 02/09/18 09:39 Ns Flush IV.FLUSH Not Given DAILY BEATA Objective Remarks: Middle-aged/elderly lady, laying in bed, appears to be no acute distress, she has a pleasant disposition. She is of medium height and is morbidly obese. HEENT: Head atraumatic normocephalic, conjunctivae not pale sclera anicteric, EOMI, PERRLA. Oral exam: No pharyngeal erythema, no ulceration or thrush. Neck exam: No palpable pathologically enlarged cervical or supraclavicular adenopathy. Respiratory exam: Good air movement bilaterally not breath sounds. No rhonchi, rales or wheezes. Cardiovascular: Regular rate and rhythm, S1-S2 no obvious murmurs or gallops. Abdominal exam: Obese belly, soft, nontender, positive bowel sounds. Pathologically enlarged bulky right inguinal/right upper thigh lymphadenopathy. Interval placement of a right-sided percutaneous nephrostomy tube which is draining dark yellow urine. Hematuria and Nguyen catheter tubing and bag. Extremities: Right lower extremity significantly larger in circumference when compared to the left lower extremity. This starts at the level of the upper thigh and goes all the way down to the ankles. There is no obvious tenderness. Today I did reexamine her right inguinal lymph nodes which appear to be seen significantly decreased in size when compared to pretreatment examination. RN PRACTITIONER: No focal sensorimotor deficits. Skin exam: Nonfocal. Psychiatric: Alert and oriented x3, her mood is appropriate and her level of understanding is excellent. 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 Patient was seen in the clinic on 02/02/2018 and reported symptoms of heavy vaginal bleeding, extensive pelvic pain right leg swelling and progressive weakness. She has been initiated on palliative systemic therapy with carboplatin and etoposide (with dose modification). Recommendations: 1. High-grade neuroendocrine tumor. Cycle 1 day 1 was on 02/04/2018. Day 2 was delivered on 02/06/2028. Day 3 etoposide was held due to worsening renal dysfunction and hematuria. The tumor appears to involve the pelvis and bladder, she may require palliative radiation to decrease bleeding. Inpatient urology intervention is unlikely given the assessment by the urology service. I have reviewed their notes, I have not heard back from the urology service despite attempting to contact them. It is my understanding that the patient has not yet been evaluated by the urology attending Dr. Gupta. 2. Right lower extremity DVT, Xarelto currently on hold secondary to gross hematuria. 3. Anemia: Secondary to gross hematuria, supportive transfusions have been ordered. She is on ferrous sulfate. Hemoglobin today was 6.9 g/dL, 1 unit packed red blood cells ordered. 4. Acute renal failure: Renal function improved following nephrostomy tube placement. 5. Patient is on allopurinol for TLS. Continue TLS labs; uric acid and LDH and magnesium. Appreciate nephrology and urology input. Continue ongoing care.
[2018-02-10] MEDS: Heparin Central Flush 100 UNIT/ML 5 ML Vial IV.FLUSH SCH (09:45)
[2018-02-10] MEDS: Allopurinol 300 MG Tablet PO SCH (13:27)
[2018-02-10] MEDS: Ferrous Sulfate 325 MG Tablet PO SCH ×2 (13:27→21:19)
[2018-02-10] MEDS ORDERED: Potassium Chloride 25 MEQ Effervescent Tablet PO ONE (15:15)
--- NOTE | 2018-02-10 17:22 | P.PNIM ---
Subjective Interval history: The patient said that she was no longer nauseous. She said that her brought her in food from an outside fast food restaurant and she tolerated her diet. No acute concerns at this time. Discussed with nursing. Physical Exam Vital signs: Vital Signs 02/09/18 20:00 02/10/18 00:00 02/10/18 04:00 Temperature 98.4 F 98.5 F 98.2 F Pulse Rate 71 76 72 Respiratory Rate 18 16 16 Blood Pressure 136/68 113/66 117/71 Pulse Oximetry 94 L 93 L 96 02/10/18 08:00 02/10/18 12:00 Temperature 98.5 F 98.3 F Pulse Rate 77 71 Respiratory Rate 18 18 Blood Pressure 116/54 L 139/70 Pulse Oximetry 96 100 Intake & Output 02/09/18 02/10/18 02/10/18 18:59 06:59 18:59 Intake Total 4230 / 4230 1480 / 1480 1000 / 1000 Output Total 2850 / 2850 1355 / 1355 Balance 1380 / 1380 125 / 125 1000 / 1000 Weight 120.5 kg Intake: IV 1999 / 1999 1000 / 1000 1000 / 1000 Sodium Bicarbonate 8.4% Inj 75 1999 / 2000 1000 / 1000 1000 / 1000 MEQ In 1/2 Normal Saline Inj 925 ML @ 125 mls/hr IV.CONT . Q8H [facility] Rx#:[id number] Oral 1830 / 1830 480 / 480 Intake (Blood Product) Amt 400 / 400 Rbc As-3 Leukoreduced Unit 400 / 400 [id number] Output: Urine 1600 / 1600 Urine Amount (Catheter) 375 / 375 350 / 350 Indwelling Urethral Catheter 375 / 375 350 / 350 Urine Amount (Stoma) 875 / 875 1005 / 1005 Nephrostomy Tube Right 875 / 875 1005 / 1005 Other: Date of Last Bowel Movement 02/02/18 02/02/18 02/02/18 Narrative: GENERAL: In no acute distress. SKIN: Pale, warm and dry. HEAD: Normocephalic. EYES: No scleral icterus. No injection or drainage. NECK: No JVD elevation. CARDIOVASCULAR: Regular rate and rhythm without murmurs. RESPIRATORY: Posterior breath sounds clear. GASTROINTESTINAL: Abdomen soft, nontender, nondistended. EXTREMITIES: No cyanosis, or edema. NEUROLOGICAL: No obvious focal deficit. Awake, alert. - Urinary Catheter Management Indwelling Urethral Catheter Cath placed during this visit: yes Reason for continuing: Gross Hematuria Insertion date: 02/06/18 Insertion time: 22:38 Results - Labs CBC & Chem 7: 02/10/18 04:00 02/10/18 04:00 Laboratory Results - last 24 hr 02/08/18 02/08/18 02/08/18 04:25 04:25 16:59 WBC RBC Hgb Hct MCV MCH MCHC RDW Plt Count MPV Neut % (Auto) Lymph % (Auto) Ward % (Auto) Eos % (Auto) Baso % (Auto) Neut # (Auto) Lymph # (Auto) Ward # (Auto) Eos # (Auto) Baso # (Auto) WBC Differential Differential Comment Sodium Potassium Chloride Carbon Dioxide Anion Gap BUN Creatinine Estimated GFR Random Glucose Calcium Prot Corrected Calcium Phosphorus Total Bilirubin Direct Bilirubin Indirect Bilirubin AST ALT Alkaline Phosphatase Lactate Dehydrogenase Total Protein Albumin Albumin (PEP) 3.24 L Albumin/Globulin Ratio 1.03 L Depyj-8-Nwosjyngx 0.29 Ajdzf-7-Bwcqcagou 0.83 Beta Globulins 0.75 Gamma Globulins 1.29 JANNETTE Interpretation Urine Immunofixation Anti-Proteinase 3 Less than 1.0 Anti-Myeloperoxidase Less than 1.0 02/10/18 02/10/18 02/10/18 04:00 04:00 04:00 WBC 6.3 RBC 2.43 L Hgb 7.3 L Hct 21.0 L MCV 86.2 MCH 30.1 MCHC 34.9 RDW 14.9 Plt Count 104 L MPV 7.4 Neut % (Auto) 80.3 H Lymph % (Auto) 16.8 Ward % (Auto) 0.8 Eos % (Auto) 1.9 Baso % (Auto) 0.2 Neut # (Auto) 5.1 Lymph # (Auto) 1.1 Ward # (Auto) 0.1 Eos # (Auto) 0.1 Baso # (Auto) 0.0 WBC Differential . Differential Comment Auto diff final Sodium 142 Potassium 3.5 Chloride 106 Carbon Dioxide 30.7 Anion Gap 5 BUN 22 H Creatinine 0.78 Estimated GFR 74 L Random Glucose 93 Calcium 7.1 L* Cancelled Prot Corrected Calcium 7.7 L Cancelled Phosphorus 2.7 Total Bilirubin 0.6 Direct Bilirubin 0.3 H Indirect Bilirubin 0.3 AST 71 H ALT 48 Alkaline Phosphatase 48 Lactate Dehydrogenase 859 H Total Protein 5.9 L Cancelled Albumin 2.4 L Albumin (PEP) Albumin/Globulin Ratio Jcwee-4-Nfvcfxzup Hpvvx-2-Tjqbwhnnr Beta Globulins Gamma Globulins JANNETTE Interpretation Urine Immunofixation Anti-Proteinase 3 Anti-Myeloperoxidase - Procedures None Assessment and Plan - Plan 67 y/o female with a history of a 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 Right lower extremity DVT Anticoagulation on hold s/t anemia/bleeding. -resume anticoagulation when able. 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 PET/CT scan concerning for hypermetabolic mass involving the pelvis with metastatic lymph nodes in the right inguinal area as well as mediastinum. -chemotherapy per oncology. Vaginal bleeding Per gynecology, since the pt has hx of hysterectomy this is likely 2/2 to the eroding pelvic mass that would not be amenable to any surgical intervention even with profuse bleeding. -follow CBC and transfuse as needed. Right-sided hydroureter/Hematuria CT abdomen: The bladder is fairly well distended with large area most consistent with hemorrhage; The large right-sided pelvic brittaney mass extends along the right side of the bladder with loss of the fat plane and ill-defined high density which is of concern for direct invasion into the bladder; New bilateral hydronephrosis right greater than left; Extensive right inguinal and right sided pelvic adenopathy without significant change from the recent PET/ CT. Urology consult appreciated. S/p right nephrostomy by IR 02/08. -follow up with urology. -follow CBC and transfuse as needed. Received transfusion 02/09. Acute renal failure Likely s/t above. Nephrology consult appreciated. Improved. -IVFs. -follow BMP and avoid nephrotoxins. -continue nephrostomy tube. Hypertension Has been normotensive. -holding atenolol. Resume if indicated. -IVFs, transfuse as needed. Nausea S/t chemo. Seems resolved. -antiemetics as needed. -ADAT. Constipation Ongoing. -increase bowel regimen. Suppository if needed. PPx: per hematology
[2018-02-11 04:11] LABS: Baso % (Auto) 0.2 % (0.0-2.0); Eos # (Auto) 0.1 th/mm3 (0.0-0.4); Eos % (Auto) 1.7 % (0.0-4.0); Lymph % (Auto) 19.7 % (9.0-44.0); Mean Corpuscular HGB Conc 34.7 % (32.0-36.0); Mean Corpuscular Hemoglobin 30.2 pg (27.0-34.0); Mean Platelet Volume 7.1 fL (7.0-11.0); Mono % (Auto) 0.8 % (0.0-8.0); Neut # (Auto) 3.9 th/mm3 (1.8-7.7); Neut % (Auto) 77.6 % (16.0-70.0); Platelet Count 85 th/mm3 (150-450); Red Cell Distribution Width 14.9 % (11.6-17.2); White Blood Count 5.1 th/mm3 (4.0-11.0)
[2018-02-11 04:17] LABS: Hemoglobin 6.9 gm/dL (11.6-15.3)
[2018-02-11 04:27] LABS: Calcium 7.3 mg/dL (8.5-10.1); Carbon Dioxide 30.6 meq/L (21.0-32.0); Phosphorus 2.5 mg/dL (2.5-4.9); Potassium 3.6 meq/L (3.5-5.1)
[2018-02-11 04:42] LABS: Calcium-Albumin Corrected 8.1 mg/dL (8.5-10.1); Total Protein 5.7 g/dL (6.4-8.2)
[2018-02-11] MEDS: Sodium Bicarbonate 8.4% Inj 75 MEQ in Sodium Chloride 0.45 % Inj 925 ML IV.CONT SCH ×3 (04:47→14:55)
[2018-02-11 05:45] LABS: Platelet Morphology Normal (Normal)
[2018-02-11] MEDS ORDERED: Acetaminophen 325 MG Tablet PO ONE (07:55)
[2018-02-11] MEDS ORDERED: Sodium Chlor 0.9% Inj 250 ML IV.SIG SCH (08:00)
--- NOTE | 2018-02-11 08:10 | P.PNONC ---
Subjective Interval history: T-max 99.8 last night Patient denies any acute pain. She reports she worked with physical therapy and sat in the recliner chair for several hours yesterday. Per RN- urology team has not been back to see patient Patient still having thor hematuria Objective Vital Signs/Intake & Output: Vital Signs 02/10/18 12:00 02/10/18 19:00 02/10/18 21:14 Temperature 98.3 F 99.8 F H Pulse Rate 71 83 92 H Respiratory Rate 18 18 Blood Pressure 139/70 182/71 H Pulse Oximetry 100 93 L 02/10/18 23:35 02/11/18 00:00 02/11/18 03:42 Temperature 98.7 F 98.5 F Pulse Rate 82 72 74 Respiratory Rate 18 18 Blood Pressure 149/79 H 155/74 H Pulse Oximetry 96 96 02/11/18 04:00 Temperature Pulse Rate 74 Respiratory Rate Blood Pressure Pulse Oximetry Intake & Output 02/10/18 02/11/18 02/11/18 18:59 06:59 18:59 Intake Total 1000 / 1000 1480 / 1480 Output Total 1950 / 1950 Balance 1000 / 1000 -470 / -470 Weight 266 lb 15.677 oz Intake: IV 1000 / 1000 1000 / 1000 Sodium Bicarbonate 8.4% Inj 75 1000 / 1000 1000 / 1000 MEQ In 1/2 Normal Saline Inj 925 ML @ 125 mls/hr IV.CONT . Q8H [facility] Rx#:[id number] Oral 480 / 480 Output: Urine Amount (Catheter) 550 / 550 Indwelling Urethral Catheter 550 / 550 Urine Amount (Stoma) 1400 / 1400 Nephrostomy Tube Right 1400 / 1400 Other: Date of Last Bowel Movement 02/02/18 02/10/18 Result Diagrams: 02/11/18 03:50 02/11/18 03:50 Laboratory Results: Laboratory Results - last 24 hr 02/08/18 02/08/18 02/08/18 04:25 04:25 16:59 WBC RBC Hgb Hct MCV MCH MCHC RDW Plt Count MPV Prelim Diff (Auto) Neut % (Auto) Lymph % (Auto) Floyd % (Auto) Eos % (Auto) Baso % (Auto) Neut # (Auto) Lymph # (Auto) Floyd # (Auto) Eos # (Auto) Baso # (Auto) WBC Differential Diff Scan Differential Comment Platelet Estimate Platelet Morphology Sodium Potassium Chloride Carbon Dioxide Anion Gap BUN Creatinine Estimated GFR Random Glucose Calcium Prot Corrected Calcium Phosphorus Lactate Dehydrogenase Total Protein JANNETTE Interpretation Urine Immunofixation Anti-Proteinase 3 Less than 1.0 Anti-Myeloperoxidase Less than 1.0 MTS Gel Crossmatch 02/11/18 02/11/18 02/11/18 03:50 03:50 07:24 WBC 5.1 RBC 2.30 L Hgb 6.9 L* Hct 20.0 L* MCV 87.0 MCH 30.2 MCHC 34.7 RDW 14.9 Plt Count 85 L MPV 7.1 Prelim Diff (Auto) Slide review pending Neut % (Auto) 77.6 H Lymph % (Auto) 19.7 Floyd % (Auto) 0.8 Eos % (Auto) 1.7 Baso % (Auto) 0.2 Neut # (Auto) 3.9 Lymph # (Auto) 1.0 Floyd # (Auto) 0.0 Eos # (Auto) 0.1 Baso # (Auto) 0.0 WBC Differential . Diff Scan Auto diff confirmed Differential Comment . Platelet Estimate Low L Platelet Morphology Normal Sodium 142 Potassium 3.6 Chloride 105 Carbon Dioxide 30.6 Anion Gap 6 BUN 16 Creatinine 0.78 Estimated GFR 74 L Random Glucose 104 Calcium 7.3 L* Prot Corrected Calcium 8.1 L Phosphorus 2.5 Lactate Dehydrogenase 743 H Total Protein 5.7 L JANNETTE Interpretation Urine Immunofixation Anti-Proteinase 3 Anti-Myeloperoxidase MTS Gel Crossmatch See Detail Medications: Active Medications Generic Name Dose Route Start Last Admin Trade Name Freq PRN Reason Stop Dose Admin Al Hydroxide/Mg Hydroxide 30 ml 02/02/18 21:42 02/07/18 21:23 Milk Of Magnesia Liq PO 30 ml Q12H PRN Administration Mild Constipation Allopurinol 300 mg 02/10/18 09:00 02/10/18 13:27 Zyloprim PO 300 mg DAILY BEATA Administration Atenolol 50 mg 02/03/18 09:00 02/08/18 08:17 Tenormin PO 50 mg DAILY BEATA Administration Citalopram Hydrobromide 40 mg 02/03/18 09:00 02/10/18 13:29 Celexa PO 40 mg DAILY BEATA Administration Ferrous Sulfate 325 mg 02/03/18 09:00 02/10/18 21:19 Ferosul PO 325 mg BID BEATA Administration Heparin Sodium (Porcine) 0 unit 02/03/18 14:06 02/05/18 04:14 Heparin Central Flush IV.FLUSH 200 unit PRN PRN Administration Flush PICC Line Heparin Sodium (Porcine) 0 unit 02/04/18 09:00 02/10/18 09:45 Heparin Central Flush IV.FLUSH Not Given DAILY BEATA Sodium Chloride 250 mls @ 0 mls/hr 02/04/18 14:00 02/06/18 00:51 Ns Inj IV.SIG Infused ONCE BEATA Infusion KVO Sodium Bicarbonate 75 meq/ 1,000 mls @ 125 mls/hr 02/07/18 12:00 02/11/18 04: 48 Sodium Chloride IV.CONT Not Given .Q8H BEATA Lactulose 30 ml 02/02/18 21:42 02/09/18 09:29 Lactulose Liq PO 30 ml DAILY PRN Administration SEVERE CONSITIPATION Morphine Sulfate 2 mg 02/03/18 00:02 02/09/18 21:22 Morphine Inj IV.PUSH 2 mg Q3H PRN Administration pain 1 to 10 Ondansetron HCl 4 mg 02/03/18 00:00 02/08/18 09:42 Zofran Inj IV.PUSH 4 mg Q6H PRN Administration NAUSEA Rivaroxaban 20 mg 02/04/18 10:15 02/04/18 17:32 Xarelto PO Not Given DAILY BEATA Sodium Chloride 0 ml 02/04/18 09:00 02/10/18 13:28 Ns Flush IV.FLUSH Not Given DAILY BEATA Objective Remarks: GENERAL: Obese older female resting in bed in no acute distress SKIN: Warm and dry. HEAD: Normocephalic. EYES: No scleral icterus. No injection or drainage. NECK: Supple, trachea midline. No JVD or lymphadenopathy. CARDIOVASCULAR: Regular rate and rhythm without murmurs. RESPIRATORY: Clear anteriorly. Breathing unlabored at rest. GASTROINTESTINAL: Abdomen soft, non-tender, nondistended. EXTREMITIES: SCD to left lower extremity. MUSCULOSKELETAL: Adequate muscle tone. NEUROLOGICAL: No obvious focal deficit. Awake, alert, and oriented x3. 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 Patient was seen in the clinic on 02/02/2018 and reported symptoms of heavy vaginal bleeding, extensive pelvic pain right leg swelling and progressive weakness. She has been initiated on palliative systemic therapy with carboplatin and etoposide (with dose modification). 1. High-grade neuroendocrine tumor. Cycle 1 day 1 was on 02/04/2018. Day 2 was delivered on 02/06/2028. Day 3 etoposide was held due to worsening renal dysfunction and hematuria. The tumor appears to involve the pelvis and bladder, she may require palliative radiation to decrease bleeding. 2. Right lower extremity DVT, Xarelto currently on hold secondary to gross hematuria. 3. Anemia: Secondary to gross hematuria, supportive transfusions have been ordered. She is on ferrous sulfate. Hemoglobin today was 6.9 g/dL, 1 unit packed red blood cells ordered. Plan to transfuse for hemoglobin less than 7. Monitor thrombocytopenia. 4. Acute renal failure: Renal function improved following nephrostomy tube placement. 5. Patient is on allopurinol for TLS. Continue TLS labs; uric acid and LDH and magnesium. - Attending Statement The exam, history, and the medical decision-making described in the above note were completed with the assistance of the mid-level provider. I reviewed and agree with the findings presented. I attest that I had a [id number]-[id number] encounter with the patient on the same day, and personally performed and documented my assessment and findings in the medical record. 67 yoF with high grade neuroendocrine of the bladder s/p chemotherapy admitted with local effects of disease. Urology team following. blood transfusion today.
[2018-02-11] MEDS: Allopurinol 300 MG Tablet PO SCH (08:11)
[2018-02-11] MEDS: Heparin Central Flush 100 UNIT/ML 5 ML Vial IV.FLUSH SCH (08:11)
[2018-02-11] MEDS: Ferrous Sulfate 325 MG Tablet PO SCH ×2 (08:11→20:12)
[2018-02-11] MEDS: Sodium Chlor 0.9% Inj 250 ML IV.SIG SCH (08:12)
[2018-02-11] MEDS: Acetaminophen 325 MG Tablet PO PRN (08:20)
--- NOTE | 2018-02-11 14:09 | P.PNIM ---
Subjective Interval history: The patient said that she had a bowel movement. She said that her family was bringing her to [facility] for lunch. She said her pain was controlled. She had a little discomfort at the site of the nephrostomy tube. No other acute complaints. Physical Exam Vital signs: Vital Signs 02/10/18 19:00 02/10/18 21:14 02/10/18 23:35 Temperature 99.8 F H 98.7 F Pulse Rate 83 92 H 82 Respiratory Rate 18 18 Blood Pressure 182/71 H 149/79 H Pulse Oximetry 93 L 96 02/11/18 00:00 02/11/18 03:42 02/11/18 04:00 Temperature 98.5 F Pulse Rate 72 74 74 Respiratory Rate 18 Blood Pressure 155/74 H Pulse Oximetry 96 02/11/18 08:00 02/11/18 08:49 02/11/18 12:00 Temperature 98.7 F Pulse Rate 69 73 72 Respiratory Rate 18 Blood Pressure 151/80 H Pulse Oximetry 94 L 02/11/18 12:18 Temperature 98.3 F Pulse Rate 78 Respiratory Rate 18 Blood Pressure 176/85 H Pulse Oximetry 96 Intake & Output 02/10/18 02/11/18 02/11/18 18:59 06:59 18:59 Intake Total 1000 / 1000 1480 / 1480 400 / 400 Output Total 1950 / 1950 Balance 1000 / 1000 -470 / -470 400 / 400 Weight 121.1 kg Intake: IV 1000 / 1000 1000 / 1000 Sodium Bicarbonate 8.4% Inj 75 1000 / 1000 1000 / 1000 MEQ In 1/2 Normal Saline Inj 925 ML @ 125 mls/hr IV.CONT . Q8H [facility] Rx#:[id number] Oral 480 / 480 Intake (Blood Product) Amt 400 / 400 Rbc As-3 Leukoreduced Unit 400 / 400 [id number] Rbc As-3 Leukoreduced Unit 0 / 0 [id number] Output: Urine Amount (Catheter) 550 / 550 Indwelling Urethral Catheter 550 / 550 Urine Amount (Stoma) 1400 / 1400 Nephrostomy Tube Right 1400 / 1400 Other: Date of Last Bowel Movement 02/02/18 02/10/18 02/10/18 Narrative: GENERAL: In no acute distress. SKIN: Pale, warm and dry. HEAD: Normocephalic. EYES: No scleral icterus. No injection or drainage. NECK: No JVD elevation. CARDIOVASCULAR: Regular rate and rhythm without murmurs. RESPIRATORY: Posterior breath sounds clear. GASTROINTESTINAL: Abdomen soft, nontender, nondistended. : Right nephrostomy with red urine. EXTREMITIES: No cyanosis, 2+ edema. NEUROLOGICAL: No obvious focal deficit. Awake, alert. - Urinary Catheter Management Indwelling Urethral Catheter Cath placed during this visit: yes Reason for continuing: Gross Hematuria Insertion date: 02/06/18 Insertion time: 22:38 Results - Labs CBC & Chem 7: 02/11/18 03:50 02/11/18 03:50 Laboratory Results - last 24 hr 02/08/18 02/08/18 02/11/18 04:25 16:59 03:50 WBC 5.1 RBC 2.30 L Hgb 6.9 L* Hct 20.0 L* MCV 87.0 MCH 30.2 MCHC 34.7 RDW 14.9 Plt Count 85 L MPV 7.1 Prelim Diff (Auto) Slide review pending Neut % (Auto) 77.6 H Lymph % (Auto) 19.7 [place] % (Auto) 0.8 Eos % (Auto) 1.7 Baso % (Auto) 0.2 Neut # (Auto) 3.9 Lymph # (Auto) 1.0 [place] # (Auto) 0.0 Eos # (Auto) 0.1 Baso # (Auto) 0.0 WBC Differential . Diff Scan Auto diff confirmed Differential Comment . Platelet Estimate Low L Platelet Morphology Normal Sodium Potassium Chloride Carbon Dioxide Anion Gap BUN Creatinine Estimated GFR Random Glucose Calcium Prot Corrected Calcium Phosphorus Lactate Dehydrogenase Total Protein JANNETTE Interpretation Urine Immunofixation MTS Gel Crossmatch 02/11/18 02/11/18 02/11/18 03:50 07:24 08:06 WBC RBC Hgb Hct MCV MCH MCHC RDW Plt Count MPV Prelim Diff (Auto) Neut % (Auto) Lymph % (Auto) [place] % (Auto) Eos % (Auto) Baso % (Auto) Neut # (Auto) Lymph # (Auto) [place] # (Auto) Eos # (Auto) Baso # (Auto) WBC Differential Diff Scan Differential Comment Platelet Estimate Platelet Morphology Sodium 142 Potassium 3.6 Chloride 105 Carbon Dioxide 30.6 Anion Gap 6 BUN 16 Creatinine 0.78 Estimated GFR 74 L Random Glucose 104 Calcium 7.3 L* Prot Corrected Calcium 8.1 L Phosphorus 2.5 Lactate Dehydrogenase 743 H Total Protein 5.7 L JANNETTE Interpretation Urine Immunofixation MTS Gel Crossmatch See Detail See Detail - Procedures None Assessment and Plan - Plan 67 y/o female with a history of a 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 Right lower extremity DVT Anticoagulation on hold s/t anemia/bleeding. -resume anticoagulation when able. Neuroendocrine tumor with right inguinal lymphadenopathy Concerning for [place] cell carcinoma per oncology. PET/CT scan concerning for hypermetabolic mass involving the pelvis with metastatic lymph nodes in the right inguinal area as well as mediastinum. -chemotherapy per oncology. Vaginal bleeding Per gynecology, since the pt has hx of hysterectomy this is likely 2/2 to the eroding pelvic mass that would not be amenable to any surgical intervention even with profuse bleeding. -follow CBC and transfuse as needed. Right-sided hydroureter/Hematuria CT abdomen: The bladder is fairly well distended with large area most consistent with hemorrhage; The large right-sided pelvic brittaney mass extends along the right side of the bladder with loss of the fat plane and ill-defined high density which is of concern for direct invasion into the bladder; New bilateral hydronephrosis right greater than left; Extensive right inguinal and right sided pelvic adenopathy without significant change from the recent PET/ CT. Urology consult appreciated. S/p right nephrostomy by IR 02/08. -follow up with urology. Will reconsult at this time. -follow CBC and transfuse as needed. Receiving additional transfusion 02/11. Acute renal failure Likely s/t above. Nephrology consult appreciated. Improved. -d/c IVFs. -follow BMP and avoid nephrotoxins. -continue nephrostomy tube. Hypertension Blood pressure has been increasing. -resume atenolol. -clonidine as needed. Nausea S/t chemo. Seems resolved. -antiemetics as needed. -ADAT. Constipation Ongoing. -increase bowel regimen. Suppository if needed. Resolved. PPx: per hematology
--- NOTE | 2018-02-11 15:00 | P.CONURO ---
History of Present Illness Service: Urology Consult date: 02/11/18 Reason for Consult: Hematuria Primary Care Provider: Dave Hendricks MD Chief Complaint: Vaginal bleeding, right leg swelling, pelvic pain. History of Present Illness: Patient with high grade neuroendocrine tumor that appears to be invading into the bladder. She currently has a taylor catheter as well as a new right nephrostomy tube due to right ureteral obstruction and hydronephrosis from the mass. She has persistent hematuria. Currently undergoing treatment with chemotherapy per oncology. Review of Systems All other systems reviewed negative except as stated in HPI PMFSH - History History Provided By: Patient - Medical History Medical History: Medical History (Last Reviewed 02/06/18 @ 07:48 by Margot Liriano) History of needle biopsy Morbid obesity Pelvic mass Right leg DVT Arthritis Depression Hypertension Neuroendocrine cancer Osteoarthritis - Surgical History Surgical History: Surgical History (Last Reviewed 02/06/18 @ 07:48 by Margot Liriano) H/O: hysterectomy History of knee replacement History of loop recorder - Family History Family History: Family History (Last Reviewed 02/03/18 @ 16:46 by Mel Burciaga DO, R1) Mother Dementia Father CVA (cerebral vascular accident) - Tobacco History Second Hand Smoke Exposure: No Smoking Status: Never smoker - Alcohol History How Often Do You Have a Drink Containing Alcohol: Never - Substance Use History Substance History: No History of Abuse - Travel History Recent Travel in the [place] Within the Last 8 Weeks: No Recent Travel Out of the Country Within the Last 8 Weeks: No - Immunization History Tetanus Immunization: Unsure Medications and Allergies Active Medications: Active Medications Acetaminophen (Tylenol) 650 mg PO Q4H PRN PRN Reason: SEE LABEL COMMENTS Last Admin: 02/11/18 08:20 Dose: 650 mg Al Hydroxide/Mg Hydroxide (Milk Of Magnesia Liq) 30 ml PO Q12H PRN PRN Reason: Mild Constipation Last Admin: 02/07/18 21:23 Dose: 30 ml Allopurinol (Zyloprim) 300 mg PO DAILY [facility] Last Admin: 02/11/18 08:11 Dose: 300 mg Atenolol (Tenormin) 50 mg PO DAILY [facility] Bisacodyl (Dulcolax Supp) 10 mg RECTAL DAILY PRN PRN Reason: SEVERE CONSITIPATION Citalopram Hydrobromide (Celexa) 40 mg PO DAILY [facility] Last Admin: 02/11/18 08:11 Dose: 40 mg Clonidine HCl (Catapres) 0.1 mg PO Q6H PRN PRN Reason: Sbp>170, Dbp>100 Diphenhydramine HCl (Benadryl) 25 mg PO Q4H PRN PRN Reason: SEE LABEL COMMENTS Ferrous Sulfate (Ferosul) 325 mg PO BID [facility] Last Admin: 02/11/18 08:11 Dose: 325 mg Heparin Sodium (Porcine) (Heparin Central Flush) 0 unit IV.FLUSH PRN PRN PRN Reason: Flush PICC Line Last Admin: 02/05/18 04:14 Dose: 200 unit Heparin Sodium (Porcine) (Heparin Central Flush) 0 unit IV.FLUSH DAILY [facility] Last Admin: 02/11/18 08:11 Dose: 500 unit Sodium Chloride (Ns Inj) 250 mls @ 0 mls/hr IV.SIG ONCE [facility] Last Admin: 02/11/18 08:12 Dose: 25 mls/hr Sodium Chloride (Ns Inj) 250 mls @ 15 mls/hr IV.SIG ONCE [facility] Stop: 02/12/18 00:39 Last Admin: 02/11/18 08:12 Dose: 15 mls/hr Lactulose (Lactulose Liq) 30 ml PO DAILY PRN PRN Reason: SEVERE CONSITIPATION Last Admin: 02/09/18 09:29 Dose: 30 ml Morphine Sulfate (Morphine Inj) 2 mg IV.PUSH Q3H PRN PRN Reason: pain 1 to 10 Last Admin: 02/09/18 21:22 Dose: 2 mg Ondansetron HCl (Zofran Inj) 4 mg IV.PUSH Q6H PRN PRN Reason: NAUSEA Last Admin: 02/08/18 09:42 Dose: 4 mg Rivaroxaban (Xarelto) 20 mg PO DAILY [facility] Last Admin: 02/04/18 17:32 Dose: Not Given Sennosides (Senokot) 17.2 mg PO Q12H PRN PRN Reason: Moderate Constipation Sodium Chloride (Ns Flush) 0 ml IV.FLUSH PRN PRN PRN Reason: FLUSH AFTER USING IV ACCESS Sodium Chloride (Ns Flush) 0 ml IV.FLUSH DAILY [facility] Last Admin: 02/11/18 08:11 Dose: 10 ml Allergies Allergy/AdvReac Type Severity Reaction Status Date / Time No Known Allergies Allergy Verified 02/02/18 16:29 Home Medications Medication Instructions Recorded Confirmed Type atenolol 50 mg PO DAILY 01/15/18 02/02/18 History citalopram 40 mg PO DAILY 01/15/18 02/02/18 History furosemide 40 mg PO DAILY 01/15/18 02/02/18 History rivaroxaban [Xarelto] 20 mg PO DAILY 01/15/18 02/02/18 History calcium carbonate-vitamin D3 1 tab PO BID 02/02/18 02/02/18 History [Calcium 500 + D] Physical Exam Vital Signs - 24 hr 02/10/18 19:00 02/10/18 21:14 02/10/18 23:35 Temperature 99.8 F H 98.7 F Pulse Rate 83 92 H 82 Respiratory Rate 18 18 Blood Pressure 182/71 H 149/79 H Pulse Oximetry 93 L 96 02/11/18 00:00 02/11/18 03:42 02/11/18 04:00 Temperature 98.5 F Pulse Rate 72 74 74 Respiratory Rate 18 Blood Pressure 155/74 H Pulse Oximetry 96 02/11/18 08:00 02/11/18 08:49 02/11/18 08:55 Temperature 98.7 F 97.9 F Pulse Rate 69 73 78 Respiratory Rate 18 18 Blood Pressure 151/80 H 149/81 H Pulse Oximetry 94 L 96 02/11/18 12:00 02/11/18 12:18 02/11/18 12:36 Temperature 98.3 F 98.8 F Pulse Rate 72 78 76 Respiratory Rate 18 18 Blood Pressure 176/85 H 144/70 H Pulse Oximetry 96 96 Physical Exam: GENERAL: This is a well-nourished, well-developed patient, in no apparent distress. SKIN: No rashes, ecchymoses or lesions. Cool and dry. HEAD: Atraumatic. Normocephalic. EYES: Extraocular motions intact. No scleral icterus. No injection or drainage. ENT: Nose without bleeding, purulent drainage NECK: Trachea midline. No JVD or lymphadenopathy. CARDIOVASCULAR: Normal pulse. RESPIRATORY: Nonlabored GASTROINTESTINAL: Abdomen soft, non-tender, nondistended. GENITOURINARY: Taylor catheter in place, dark red urine. Right nephrostomy tube in place, light pnik MUSCULOSKELETAL: Extremities without clubbing, cyanosis, or edema. NEUROLOGICAL: Awake and alert. Motor and sensory grossly within normal limits. Normal speech. Lab results reviewed: Yes Laboratory Results - last 24 hr 02/08/18 02/08/18 02/11/18 04:25 16:59 03:50 WBC 5.1 RBC 2.30 L Hgb 6.9 L* Hct 20.0 L* MCV 87.0 MCH 30.2 MCHC 34.7 RDW 14.9 Plt Count 85 L MPV 7.1 Prelim Diff (Auto) Slide review pending Neut % (Auto) 77.6 H Lymph % (Auto) 19.7 [place] % (Auto) 0.8 Eos % (Auto) 1.7 Baso % (Auto) 0.2 Neut # (Auto) 3.9 Lymph # (Auto) 1.0 [place] # (Auto) 0.0 Eos # (Auto) 0.1 Baso # (Auto) 0.0 WBC Differential . Diff Scan Auto diff confirmed Differential Comment . Platelet Estimate Low L Platelet Morphology Normal Sodium Potassium Chloride Carbon Dioxide Anion Gap BUN Creatinine Estimated GFR Random Glucose Calcium Prot Corrected Calcium Phosphorus Lactate Dehydrogenase Total Protein JANNETTE Interpretation Urine Immunofixation MTS Gel Crossmatch 02/11/18 02/11/18 02/11/18 03:50 07:24 08:06 WBC RBC Hgb Hct MCV MCH MCHC RDW Plt Count MPV Prelim Diff (Auto) Neut % (Auto) Lymph % (Auto) [place] % (Auto) Eos % (Auto) Baso % (Auto) Neut # (Auto) Lymph # (Auto) [place] # (Auto) Eos # (Auto) Baso # (Auto) WBC Differential Diff Scan Differential Comment Platelet Estimate Platelet Morphology Sodium 142 Potassium 3.6 Chloride 105 Carbon Dioxide 30.6 Anion Gap 6 BUN 16 Creatinine 0.78 Estimated GFR 74 L Random Glucose 104 Calcium 7.3 L* Prot Corrected Calcium 8.1 L Phosphorus 2.5 Lactate Dehydrogenase 743 H Total Protein 5.7 L JANNETTE Interpretation Urine Immunofixation MTS Gel Crossmatch See Detail See Detail Result Diagrams: 02/12/18 04:12 02/11/18 03:50 Personally reviewed images: Yes Imaging: ITS Impressions Abdomen/Bladder Ultrasound 02/07/18 00:00 CONCLUSION: 1. Moderate bilateral hydronephrosis. 2. Extensive echogenic material within the urinary bladder consistent with probable blood clot. 3. Right lower quadrant mass is not fully dilated on this ultrasound and is better seen on the recent CT of the pelvis. Abdomen/Pelvis CT 02/07/18 00:00 CONCLUSION: 1. The bladder is fairly well distended with large area of higher seen most consistent with hemorrhage. The large right-sided pelvic brittaney mass extends along the right side of the bladder with loss of the fat plane and ill-defined high density which is of concern for direct invasion into the bladder. 2. New bilateral hydronephrosis right greater than left. 3. Extensive right inguinal and right sided pelvic adenopathy without significant change from the recent PET/CT. Nephrostomy 02/08/18 00:00 CONCLUSION: 1. Uncomplicated right nephrostomy tube placement as above. Assessment and Plan - Assessment (1) Pelvic mass in female Code(s): R19.00 - Intra-abdominal and pelvic swelling, mass and lump, unspecified site Status: Acute (2) Vaginal bleeding Code(s): N93.9 - Abnormal uterine and vaginal bleeding, unspecified Status: Acute (3) Bilateral hydronephrosis Code(s): N13.30 - Unspecified hydronephrosis Status: Acute - Plan -Reviewed images and overall clinical status -Patient has large pelvic mass invading into bladder, likely source of hematuria. Cystoscopy or any resection would be of no benefit as this is not originating from the bladder and would not control the bleeding, and could potentially worsen her symptoms. Palliative radiation is a reasonable option -In regards to her right nephrostomy tube, this is to remain in place as it is draining the right kidney and relieving the obstruction -Another option is to place a left nephrostomy tube to drain the other kidney. This would bypass urine from the bladder, and allow the bladder to clot off with the mass. All urine would be then diverted from the bladder to bilateral nephrostomy tubes. This is an option if there is concern with inadequate drainage of urine from the bladder. However it does not treat the mass or stop the bleeding. -Unfortunately, there is no other intervention Urology would be able to perform in order to alleviate her symptoms at this time -Please call with questions
[2018-02-11] MEDS: Atenolol 50 MG Tablet PO SCH (15:10)
[2018-02-12 04:47] LABS: Baso % (Auto) 0.8 % (0.0-2.0); Eos % (Auto) 1.7 % (0.0-4.0); Hemoglobin 8.8 gm/dL (11.6-15.3); Lymph # (Auto) 0.9 th/mm3 (1.0-4.8); Lymph % (Auto) 31.1 % (9.0-44.0); Mean Corpuscular HGB Conc 35.2 % (32.0-36.0); Mean Corpuscular Hemoglobin 30.6 pg (27.0-34.0); Mono % (Auto) 0.8 % (0.0-8.0); Neut % (Auto) 65.6 % (16.0-70.0); Platelet Count 69 th/mm3 (150-450); Red Blood Count 2.87 mil/mm3 (4.00-5.30); Red Cell Distribution Width 14.7 % (11.6-17.2)
[2018-02-12 06:22] LABS: Platelet Morphology Normal (Normal)
[2018-02-12] MEDS: Atenolol 50 MG Tablet PO SCH (08:21)
[2018-02-12] MEDS: Ferrous Sulfate 325 MG Tablet PO SCH ×2 (08:21→20:01)
[2018-02-12] MEDS: Allopurinol 300 MG Tablet PO SCH (08:21)
[2018-02-12] MEDS: Heparin Central Flush 100 UNIT/ML 5 ML Vial IV.FLUSH SCH (08:22)
--- NOTE | 2018-02-12 09:26 | P.PNIM ---
Subjective Interval history: The patient said that she spoke with the urologist. She was made aware that she might require an additional nephrostomy tube. She wants to know how to manage the tube when at home. She has been tolerating a diet. No acute complaints at this time. Physical Exam Vital signs: Vital Signs 02/11/18 12:00 02/11/18 12:18 02/11/18 12:36 Temperature 98.3 F 98.8 F Pulse Rate 72 78 76 Respiratory Rate 18 18 Blood Pressure 176/85 H 144/70 H Pulse Oximetry 96 96 02/11/18 16:00 02/11/18 17:38 02/11/18 20:00 Temperature 99.1 F 99.1 F 98.6 F Pulse Rate 83 77 87 Respiratory Rate 20 18 16 Blood Pressure 151/80 H 151/80 H 155/87 H Pulse Oximetry 96 96 95 02/12/18 00:00 02/12/18 04:00 02/12/18 08:00 Temperature 99.1 F 98.2 F 98.8 F Pulse Rate 70 69 69 Respiratory Rate 16 17 18 Blood Pressure 136/88 136/81 158/81 H Pulse Oximetry 97 98 94 L Intake & Output 02/11/18 02/12/18 02/12/18 18:59 06:59 18:59 Intake Total 2950 / 2950 480 / 480 Output Total 1800 / 1800 2500 / 2500 Balance 1150 / 1150 -2020 / -2019 Intake: IV 1000 / 1000 Sodium Bicarbonate 8.4% Inj 75 1000 / 1000 MEQ In 1/2 Normal Saline Inj 925 ML @ 125 mls/hr IV.CONT . Q8H [facility] Rx#:[id number] NS Inj 250 ML @ 15 mls/hr IV. 0 / 0 SIG ONCE [facility] Rx#:[id number] Oral 1150 / 1150 480 / 480 Intake (Blood Product) Amt 800 / 800 Rbc As-3 Leukoreduced Unit 400 / 400 [id number] Rbc As-3 Leukoreduced Unit 400 / 400 [id number] Output: Urine Amount (Catheter) 350 / 350 1000 / 1000 Indwelling Urethral Catheter 350 / 350 1000 / 1000 Urine Amount (Stoma) 1450 / 1450 1500 / 1500 Nephrostomy Tube Right 1450 / 1450 1500 / 1500 Other: Date of Last Bowel Movement 02/10/18 02/10/18 Narrative: GENERAL: In no acute distress. SKIN: Pale, warm and dry. HEAD: Normocephalic. EYES: No scleral icterus. No injection or drainage. NECK: No JVD elevation. CARDIOVASCULAR: Regular rate and rhythm without murmurs. RESPIRATORY: Posterior breath sounds clear. GASTROINTESTINAL: Abdomen soft, nontender, nondistended. : Right nephrostomy with red urine. EXTREMITIES: No cyanosis, 2+ edema. NEUROLOGICAL: No obvious focal deficit. Awake, alert. - Urinary Catheter Management Indwelling Urethral Catheter Cath placed during this visit: yes Reason for continuing: Gross Hematuria Insertion date: 02/06/18 Insertion time: 22:38 Results - Labs CBC & Chem 7: 02/12/18 04:12 02/11/18 03:50 Laboratory Results - last 24 hr 02/11/18 02/11/18 02/12/18 07:24 08:06 04:12 WBC 3.0 L RBC 2.87 L Hgb 8.8 L Hct 25.0 L MCV 87.0 MCH 30.6 MCHC 35.2 RDW 14.7 Plt Count 69 L MPV 7.0 Prelim Diff (Auto) Slide review pending Neut % (Auto) 65.6 Lymph % (Auto) 31.1 [place] % (Auto) 0.8 Eos % (Auto) 1.7 Baso % (Auto) 0.8 Neut # (Auto) 2.0 Lymph # (Auto) 0.9 L [place] # (Auto) 0.0 Eos # (Auto) 0.0 Baso # (Auto) 0.0 WBC Differential . Diff Scan Auto diff confirmed Differential Comment . 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 Right lower extremity DVT Anticoagulation on hold s/t anemia/bleeding. -resume anticoagulation when able. 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 PET/CT scan concerning for hypermetabolic mass involving the pelvis with metastatic lymph nodes in the right inguinal area as well as mediastinum. -chemotherapy per oncology. Vaginal bleeding Per gynecology, since the pt has hx of hysterectomy this is likely 2/2 to the eroding pelvic mass that would not be amenable to any surgical intervention even with profuse bleeding. -follow CBC and transfuse as needed. Right-sided hydroureter/Hematuria CT abdomen: The bladder is fairly well distended with large area most consistent with hemorrhage; The large right-sided pelvic brittaney mass extends along the right side of the bladder with loss of the fat plane and ill-defined high density which is of concern for direct invasion into the bladder; New bilateral hydronephrosis right greater than left; Extensive right inguinal and right sided pelvic adenopathy without significant change from the recent PET/ CT. Urology consult appreciated. S/p right nephrostomy by IR 02/08. -urology recommending second nephrostomy tube if Nguyen no longer draining adequately. -follow CBC and transfuse as needed. Receiving additional transfusion 02/11. Stable. Acute renal failure Likely s/t above. Nephrology consult appreciated. Improved. -d/c IVFs. -follow BMP and avoid nephrotoxins. -continue nephrostomy tube. Hypertension Blood pressure has been increasing. -resume atenolol. Improved. -clonidine as needed. Nausea S/t chemo. Seems resolved. -antiemetics as needed. -ADAT. Constipation Ongoing. -increase bowel regimen. Suppository if needed. Resolved. PPx: per hematology
--- NOTE | 2018-02-12 09:42 | P.PNONC ---
Subjective Interval history: Afebrile Patient resting in bed in no acute distress States she saw her urologist Dr. Crump this morning; she is not a candidate for any surgical procedure at this time. Hoping to get up and sit in the chair this morning No other acute complaints No bleeding other than the hematuria Objective Vital Signs/Intake & Output: Vital Signs 02/11/18 12:00 02/11/18 12:18 02/11/18 12:36 Temperature 98.3 F 98.8 F Pulse Rate 72 78 76 Respiratory Rate 18 18 Blood Pressure 176/85 H 144/70 H Pulse Oximetry 96 96 02/11/18 16:00 02/11/18 17:38 02/11/18 20:00 Temperature 99.1 F 99.1 F 98.6 F Pulse Rate 83 77 87 Respiratory Rate 20 18 16 Blood Pressure 151/80 H 151/80 H 155/87 H Pulse Oximetry 96 96 95 02/12/18 00:00 02/12/18 04:00 02/12/18 08:00 Temperature 99.1 F 98.2 F 98.8 F Pulse Rate 70 69 69 Respiratory Rate 16 17 18 Blood Pressure 136/88 136/81 158/81 H Pulse Oximetry 97 98 94 L Intake & Output 02/11/18 02/12/18 02/12/18 18:59 06:59 18:59 Intake Total 2950 / 2950 480 / 480 Output Total 1800 / 1800 2500 / 2500 Balance 1150 / 1150 -2019 / Intake: IV 1000 / 1000 Sodium Bicarbonate 8.4% Inj 75 1000 / 1000 MEQ In 1/2 Normal Saline Inj 925 ML @ 125 mls/hr IV.CONT . Q8H BEATA Rx#:[id number] NS Inj 250 ML @ 15 mls/hr IV. 0 / 0 SIG ONCE BEATA Rx#:[id number] Oral 1150 / 1150 480 / 480 Intake (Blood Product) Amt 800 / 800 Rbc As-3 Leukoreduced Unit 400 / 400 [id number] Rbc As-3 Leukoreduced Unit 400 / 400 [id number] Output: Urine Amount (Catheter) 350 / 350 1000 / 1000 Indwelling Urethral Catheter 350 / 350 1000 / 1000 Urine Amount (Stoma) 1450 / 1450 1500 / 1500 Nephrostomy Tube Right 1450 / 1450 1500 / 1500 Other: Date of Last Bowel Movement 02/10/18 02/10/18 02/10/18 Result Diagrams: 02/12/18 04:12 02/11/18 03:50 Laboratory Results: Laboratory Results - last 24 hr 02/11/18 02/11/18 02/12/18 07:24 08:06 04:12 WBC 3.0 L RBC 2.87 L Hgb 8.8 L Hct 25.0 L MCV 87.0 MCH 30.6 MCHC 35.2 RDW 14.7 Plt Count 69 L MPV 7.0 Prelim Diff (Auto) Slide review pending Neut % (Auto) 65.6 Lymph % (Auto) 31.1 [place] % (Auto) 0.8 Eos % (Auto) 1.7 Baso % (Auto) 0.8 Neut # (Auto) 2.0 Lymph # (Auto) 0.9 L [place] # (Auto) 0.0 Eos # (Auto) 0.0 Baso # (Auto) 0.0 WBC Differential . Diff Scan Auto diff confirmed Differential Comment . Platelet Estimate Low L Platelet Morphology Normal MTS Gel Crossmatch See Detail See Detail Medications: Active Medications Generic Name Dose Route Start Last Admin Trade Name Freq PRN Reason Stop Dose Admin Acetaminophen 650 mg 02/11/18 07:21 02/11/18 08:20 Tylenol PO 650 mg Q4H PRN Administration SEE LABEL COMMENTS Al Hydroxide/Mg Hydroxide 30 ml 02/02/18 21:42 02/07/18 21:23 Milk Of Magnesia Liq PO 30 ml Q12H PRN Administration Mild Constipation Allopurinol 300 mg 02/10/18 09:00 02/12/18 08:21 Zyloprim PO 300 mg DAILY BEATA Administration Atenolol 50 mg 02/11/18 15:00 02/12/18 08:21 Tenormin PO 50 mg DAILY BEATA Administration Citalopram Hydrobromide 40 mg 02/03/18 09:00 02/12/18 08:21 Celexa PO 40 mg DAILY BEATA Administration Ferrous Sulfate 325 mg 02/03/18 09:00 02/12/18 08:21 Ferosul PO 325 mg BID BEATA Administration Heparin Sodium (Porcine) 0 unit 02/03/18 14:06 02/05/18 04:14 Heparin Central Flush IV.FLUSH 200 unit PRN PRN Administration Flush PICC Line Heparin Sodium (Porcine) 0 unit 02/04/18 09:00 02/12/18 08:22 Heparin Central Flush IV.FLUSH 500 unit DAILY BEATA Administration Sodium Chloride 250 mls @ 0 mls/hr 02/04/18 14:00 02/11/18 15:00 Ns Inj IV.SIG Infused ONCE BEATA Infusion KVO Lactulose 30 ml 02/02/18 21:42 02/09/18 09:29 Lactulose Liq PO 30 ml DAILY PRN Administration SEVERE CONSITIPATION Morphine Sulfate 2 mg 02/03/18 00:02 02/09/18 21:22 Morphine Inj IV.PUSH 2 mg Q3H PRN Administration pain 1 to 10 Ondansetron HCl 4 mg 02/03/18 00:00 02/08/18 09:42 Zofran Inj IV.PUSH 4 mg Q6H PRN Administration NAUSEA Rivaroxaban 20 mg 02/04/18 10:15 02/04/18 17:32 Xarelto PO Not Given DAILY BEATA Sodium Chloride 0 ml 02/04/18 09:00 02/12/18 08:21 Ns Flush IV.FLUSH 10 ml DAILY BEATA Administration Objective Remarks: GENERAL: Obese older female resting in bed in no acute distress SKIN: Warm and dry. HEAD: Normocephalic. EYES: No scleral icterus. No injection or drainage. NECK: Supple, trachea midline. No JVD or lymphadenopathy. CARDIOVASCULAR: Regular rate and rhythm without murmurs. RESPIRATORY: Clear anteriorly. Breathing unlabored at rest. GASTROINTESTINAL: Abdomen soft, non-tender, nondistended. : Nguyen catheter with hematuria. Right nephrostomy with venkatesh urine drainage EXTREMITIES: SCD to left lower extremity. MUSCULOSKELETAL: Adequate muscle tone. NEUROLOGICAL: No obvious focal deficit. Awake, alert, and oriented x3. 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 Patient was seen in the clinic on 02/02/2018 and reported symptoms of heavy vaginal bleeding, extensive pelvic pain right leg swelling and progressive weakness. She has been initiated on palliative systemic therapy with carboplatin and etoposide (with dose modification). 1. Patient received day 1 and day 2 of carbo/OPERATIONS LEADER-16 on February 04 and . Day 3 was held due to worsening renal dysfunction and hematuria. The patient subsequently received a nephrostomy tube with resolution of the renal dysfunction. Urology has come to evaluate the patient and they do not feel she is a candidate for any surgical intervention. 2. We will continue to hold the Xarelto for her right lower extremity DVT secondary to the hematuria and thrombocytopenia due to chemotherapy. 3. Anticipate we can consult radiation oncology tomorrow to evaluate the patient for possible palliative radiation to decrease bleeding. 4. Monitor CBC, CMP, Mag and Uric acid - Attending Statement The exam, history, and the medical decision-making described in the above note were completed with the assistance of the mid-level provider. I reviewed and agree with the findings presented. I attest that I had a [id number] encounter with the patient on the same day, and personally performed and documented my assessment and findings in the medical record. 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 Pelvic symtpoms. Urology following, no urologic intervention; consideration of palliative XRT.
[2018-02-13 05:32] LABS: Baso % (Auto) 2.1 % (0.0-2.0); Eos % (Auto) 1.7 % (0.0-4.0); Hematocrit 25.4 % (35.0-46.0); Hemoglobin 8.6 gm/dL (11.6-15.3); Lymph # (Auto) 0.8 th/mm3 (1.0-4.8); Mean Corpuscular HGB Conc 33.8 % (32.0-36.0); Mean Corpuscular Hemoglobin 29.9 pg (27.0-34.0); Mean Corpuscular Volume 88.4 fL (80.0-100.0); Mean Platelet Volume 7.2 fL (7.0-11.0); Mono % (Auto) 2.1 % (0.0-8.0); Neut % (Auto) 36.1 % (16.0-70.0); Platelet Count 55 th/mm3 (150-450); Red Blood Count 2.88 mil/mm3 (4.00-5.30); Red Cell Distribution Width 14.6 % (11.6-17.2); White Blood Count 1.4 th/mm3 (4.0-11.0)
[2018-02-13 05:38] LABS: Neut # (Auto) 0.5 th/mm3 (1.8-7.7)
[2018-02-13 05:49] LABS: Anion Gap 7 meq/L (5-15); Blood Urea Nitrogen 13 mg/dL (7-18); Calcium 7.9 mg/dL (8.5-10.1); Carbon Dioxide 28.2 meq/L (21.0-32.0); Chloride 106 meq/L (98-107); Glomerular Filtration Rate Greater Than 89 mL/min (>89); Glucose,Random 87 mg/dL (74-106); Lactate Dehydrogenase 665 U/L (84-246); Magnesium 1.5 mg/dL (1.5-2.5); Phosphorus 3.4 mg/dL (2.5-4.9); Potassium 4.1 meq/L (3.5-5.1); Sodium 141 meq/L (136-145)
--- NOTE | 2018-02-13 07:59 | P.PNONC ---
Subjective Interval history: Patient seen and examined, vital signs, labs and medications reviewed. Over weekend events reviewed, quantitative consultant notes reviewed. Subjectively; patient denies acute complaints, she reports decreased swelling and burning sensation in her pelvis and in the right upper thigh. She continues to have hematuria Via Nguyen catheter. She denies fevers or chills, denies difficulty breathing. She tells me she is eating better, her nausea is decreased and she did have one bowel movement over the weekend. She tells me she is tries to spend at least 2-3 hours out of bed every day, she walked around the room with physical therapy over the weekend also. Objective Vital Signs/Intake & Output: Vital Signs 02/12/18 08:00 02/12/18 12:00 02/12/18 16:00 Temperature 98.8 F 98.7 F 97.8 F Pulse Rate 69 69 72 Respiratory Rate 18 18 18 Blood Pressure 158/81 H 162/78 H 157/84 H Pulse Oximetry 94 L 96 97 02/12/18 20:00 02/13/18 00:00 02/13/18 04:00 Temperature 98.6 F 98.4 F 97.9 F Pulse Rate 74 80 68 Respiratory Rate 16 16 16 Blood Pressure 146/93 H 144/89 H 147/77 H Pulse Oximetry 97 100 97 Intake & Output 02/12/18 02/13/18 02/13/18 18:59 06:59 18:59 Intake Total 1040 / 1040 Output Total 1800 / 1800 3175 / 3175 Balance -760 / -760 -3175 / -3175 Intake: Oral 1040 / 1040 Output: Urine Amount (Catheter) 250 / 250 1100 / 1100 Indwelling Urethral Catheter 250 / 250 1100 / 1100 Urine Amount (Stoma) 1550 / 1550 2074 Nephrostomy Tube Right 1550 / 1550 2074 Other: Bladder Irrigation Fluid - Amount Instilled Indwelling Urethral Catheter 200 Date of Last Bowel Movement 02/10/18 02/10/18 Result Diagrams: 02/13/18 04:39 02/13/18 04:39 Laboratory Results: Laboratory Results - last 24 hr 02/13/18 02/13/18 04:39 04:39 WBC 1.4 L RBC 2.88 L Hgb 8.6 L Hct 25.4 L MCV 88.4 MCH 29.9 MCHC 33.8 RDW 14.6 Plt Count 55 L MPV 7.2 Prelim Diff (Auto) Slide review pending Neut % (Auto) 36.1 Lymph % (Auto) 58.0 H [place] % (Auto) 2.1 Eos % (Auto) 1.7 Baso % (Auto) 2.1 H Neut # (Auto) 0.5 L* Lymph # (Auto) 0.8 L [place] # (Auto) 0.0 Eos # (Auto) 0.0 Baso # (Auto) 0.0 Differential Comment . Sodium 141 Potassium 4.1 Chloride 106 Carbon Dioxide 28.2 Anion Gap 7 BUN 13 Creatinine 0.57 Estimated GFR Greater than 89 Random Glucose 87 Calcium 7.9 L Phosphorus 3.4 Magnesium 1.5 Lactate Dehydrogenase 665 H Medications: Active Medications Generic Name Dose Route Start Last Admin Trade Name Freq PRN Reason Stop Dose Admin Acetaminophen 650 mg 02/11/18 07:21 02/11/18 08:20 Tylenol PO 650 mg Q4H PRN Administration SEE LABEL COMMENTS Al Hydroxide/Mg Hydroxide 30 ml 02/02/18 21:42 02/07/18 21:23 Milk Of Magnesia Liq PO 30 ml Q12H PRN Administration Mild Constipation Allopurinol 300 mg 02/10/18 09:00 02/12/18 08:21 Zyloprim PO 300 mg DAILY BEATA Administration Atenolol 50 mg 02/11/18 15:00 02/12/18 08:21 Tenormin PO 50 mg DAILY BEATA Administration Citalopram Hydrobromide 40 mg 02/03/18 09:00 02/12/18 08:21 Celexa PO 40 mg DAILY BEATA Administration Ferrous Sulfate 325 mg 02/03/18 09:00 02/12/18 20:01 Ferosul PO 325 mg BID BEATA Administration Heparin Sodium (Porcine) 0 unit 02/03/18 14:06 02/05/18 04:14 Heparin Central Flush IV.FLUSH 200 unit PRN PRN Administration Flush PICC Line Heparin Sodium (Porcine) 0 unit 02/04/18 09:00 02/12/18 08:22 Heparin Central Flush IV.FLUSH 500 unit DAILY BEATA Administration Sodium Chloride 250 mls @ 0 mls/hr 02/04/18 14:00 02/11/18 15:00 Ns Inj IV.SIG Infused ONCE BEATA Infusion KVO Lactulose 30 ml 02/02/18 21:42 02/09/18 09:29 Lactulose Liq PO 30 ml DAILY PRN Administration SEVERE CONSITIPATION Morphine Sulfate 2 mg 02/03/18 00:02 02/09/18 21:22 Morphine Inj IV.PUSH 2 mg Q3H PRN Administration pain 1 to 10 Ondansetron HCl 4 mg 02/03/18 00:00 02/08/18 09:42 Zofran Inj IV.PUSH 4 mg Q6H PRN Administration NAUSEA Rivaroxaban 20 mg 02/04/18 10:15 02/04/18 17:32 Xarelto PO Not Given DAILY BEATA Sodium Chloride 0 ml 02/04/18 09:00 02/12/18 08:21 Ns Flush IV.FLUSH 10 ml DAILY BEATA Administration Objective Remarks: Middle-aged/elderly lady, laying in bed, appears to be no acute distress, she has a pleasant disposition. She is of medium height and is morbidly obese. HEENT: Head atraumatic normocephalic, conjunctivae not pale sclera anicteric, EOMI, PERRLA. Oral exam: No pharyngeal erythema, no ulceration or thrush. Neck exam: No palpable pathologically enlarged cervical or supraclavicular adenopathy. Respiratory exam: Good air movement bilaterally not breath sounds. No rhonchi, rales or wheezes. Cardiovascular: Regular rate and rhythm, S1-S2 no obvious murmurs or gallops. Abdominal exam: Obese belly, soft, nontender, positive bowel sounds. Pathologically enlarged bulky right inguinal/right upper thigh lymphadenopathy. Interval placement of a right-sided percutaneous nephrostomy tube which is draining dark yellow urine. Hematuria and Nguyen catheter tubing and bag. Extremities: Right lower extremity significantly larger in circumference when compared to the left lower extremity. This starts at the level of the upper thigh and goes all the way down to the ankles. There is no obvious tenderness. Today I did reexamine her right inguinal lymph nodes which appear to be seen significantly decreased in size when compared to pretreatment examination. 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 Skin exam: Nonfocal. Psychiatric: Alert and oriented x3, her mood is appropriate and her level of understanding is excellent. 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 Patient was seen in the clinic on 02/02/2018 and reported symptoms of heavy vaginal bleeding, extensive pelvic pain right leg swelling and progressive weakness. She has been initiated on palliative systemic therapy with carboplatin and etoposide (with dose modification). 1. Patient received day 1 and day 2 of carbo/CLINIC CHARGE NURSE-16 on February 04 and . Day 3 was held due to worsening renal dysfunction and hematuria. The patient subsequently received a nephrostomy tube with resolution of the renal dysfunction. 2. We will continue to hold the Xarelto for her right lower extremity DVT secondary to the hematuria and thrombocytopenia due to chemotherapy. 3. Radiation oncology to evaluate patient for palliative radiation for management of hematuria. 4. Monitor CBC, CMP, Mag and Uric acid. 5. Chemotherapy related neutropenia: Initiate Neupogen injections.
[2018-02-13] MEDS: Ferrous Sulfate 325 MG Tablet PO SCH ×2 (09:46→20:20)
[2018-02-13] MEDS: Atenolol 50 MG Tablet PO SCH (09:46)
[2018-02-13] MEDS: Allopurinol 300 MG Tablet PO SCH (09:46)
[2018-02-13] MEDS: Heparin Central Flush 100 UNIT/ML 5 ML Vial IV.FLUSH SCH (09:47)
[2018-02-13 12:03] LABS: Eosinophils 1 % (0-4); Lymphocytes 61 % (9-44)
[2018-02-13] MEDS: Filgrastim Inj 300 MCG/ML Vial SQ SCH (13:03)
--- NOTE | 2018-02-13 15:16 | P.PNIM ---
Subjective Interval history: The patient was resting comfortably. She said that she tolerated her diet. Her pain was controlled. She had no acute complaints. Discussed with nursing. Physical Exam Vital signs: Vital Signs 02/12/18 16:00 02/12/18 20:00 02/13/18 00:00 Temperature 97.8 F 98.6 F 98.4 F Pulse Rate 72 74 80 Respiratory Rate 18 16 16 Blood Pressure 157/84 H 146/93 H 144/89 H Pulse Oximetry 97 97 100 02/13/18 04:00 02/13/18 08:00 02/13/18 09:35 Temperature 97.9 F 98.7 F Pulse Rate 68 74 75 Respiratory Rate 16 16 Blood Pressure 147/77 H 149/77 H Pulse Oximetry 97 97 02/13/18 13:01 Temperature 98.3 F Pulse Rate 72 Respiratory Rate 16 Blood Pressure 130/72 Pulse Oximetry 96 Intake & Output 02/12/18 02/13/18 02/13/18 18:59 06:59 18:59 Intake Total 1040 / 1040 Output Total 1800 / 1800 3175 / 3175 1150 / 1150 Balance -760 / -760 -3175 / -3175 -1150 / -1150 Intake: Oral 1040 / 1040 Output: Urine 1150 / 1150 Urine Amount (Catheter) 250 / 250 1100 / 1100 Indwelling Urethral Catheter 250 / 250 1100 / 1100 Urine Amount (Stoma) 1550 / 1550 2074 Nephrostomy Tube Right 1550 / 1550 2074 Other: Bladder Irrigation Fluid - Amount Instilled Indwelling Urethral Catheter 200 Date of Last Bowel Movement 02/10/18 02/10/18 02/10/18 Narrative: GENERAL: In no acute distress. SKIN: Warm and dry. HEAD: Normocephalic. EYES: No scleral icterus. No injection or drainage. NECK: No JVD elevation. CARDIOVASCULAR: Regular rate and rhythm without murmurs. RESPIRATORY: Posterior breath sounds clear. GASTROINTESTINAL: Abdomen soft, nontender, nondistended. : Right nephrostomy with red urine. EXTREMITIES: No cyanosis, 2+ edema. NEUROLOGICAL: No obvious focal deficit. Awake, alert. - Urinary Catheter Management Indwelling Urethral Catheter Cath placed during this visit: yes Reason for continuing: Gross Hematuria Insertion date: 02/06/18 Insertion time: 22:38 Results - Labs CBC & Chem 7: 02/13/18 04:39 02/13/18 04:39 Laboratory Results - last 24 hr 02/08/18 02/13/18 02/13/18 04:25 04:39 04:39 WBC 1.4 L RBC 2.88 L Hgb 8.6 L Hct 25.4 L MCV 88.4 MCH 29.9 MCHC 33.8 RDW 14.6 Plt Count 55 L MPV 7.2 Prelim Diff (Auto) Slide review pending Neut % (Auto) 36.1 Lymph % (Auto) 58.0 H [place] % (Auto) 2.1 Eos % (Auto) 1.7 Baso % (Auto) 2.1 H Neut # (Auto) 0.5 L* Lymph # (Auto) 0.8 L [place] # (Auto) 0.0 Eos # (Auto) 0.0 Baso # (Auto) 0.0 WBC Differential Manual diff final Seg Neuts % (Manual) 34 Band Neuts % (Manual) 1 Lymphocytes % (Manual) 61 H Eosinophils % (Manual) 1 Basophils % (Manual) 3 H Abs Neuts (Manual) 0.5 L* Differential Comment . Platelet Estimate Low L Platelet Morphology Enlarged H Sodium 141 Potassium 4.1 Chloride 106 Carbon Dioxide 28.2 Anion Gap 7 BUN 13 Creatinine 0.57 Estimated GFR Greater than 89 Random Glucose 87 Calcium 7.9 L Phosphorus 3.4 Magnesium 1.5 Lactate Dehydrogenase 665 H PEP Pathologist Comment - Procedures None Assessment and Plan - Plan 67 y/o female with a history of a 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 Right lower extremity DVT Anticoagulation on hold s/t anemia/bleeding. -resume anticoagulation when able. Neuroendocrine tumor with right inguinal lymphadenopathy Concerning for [place] cell carcinoma per oncology. PET/CT scan concerning for hypermetabolic mass involving the pelvis with metastatic lymph nodes in the right inguinal area as well as mediastinum. -chemotherapy per oncology. Vaginal bleeding Per gynecology, since the pt has hx of hysterectomy this is likely 2/2 to the eroding pelvic mass that would not be amenable to any surgical intervention even with profuse bleeding. -follow CBC and transfuse as needed. Right-sided hydroureter/Hematuria CT abdomen: The bladder is fairly well distended with large area most consistent with hemorrhage; The large right-sided pelvic brittaney mass extends along the right side of the bladder with loss of the fat plane and ill-defined high density which is of concern for direct invasion into the bladder; New bilateral hydronephrosis right greater than left; Extensive right inguinal and right sided pelvic adenopathy without significant change from the recent PET/ CT. Urology consult appreciated. S/p right nephrostomy by IR 02/08. -urology recommending second nephrostomy tube if Nguyen no longer draining adequately. -follow CBC and transfuse as needed. Received additional transfusion 02/11. Stable. -Awaiting radiation oncology consult. Acute renal failure Likely s/t above. Nephrology consult appreciated. Improved. -d/c IVFs. -follow BMP and avoid nephrotoxins. -continue nephrostomy tube. Hypertension Blood pressure has been increasing. -resume atenolol. Improved. -clonidine as needed. Nausea S/t chemo. Seems resolved. -antiemetics as needed. -ADAT. Constipation Ongoing. -increase bowel regimen. PPx: per hematology Discharge Planning: Await radiation oncology consultation. Need oncology clearance.
--- NOTE | 2018-02-13 18:30 | P.CON ---
History of Present Illness Service: radiation oncology Consult date: 02/13/18 Primary Care Provider: Dave Hendricks MD Chief Complaint: Vaginal bleeding, right leg swelling, pelvic pain. History of Present Illness: Metastatic neurodendocrine cancer. Pelvic mass. Hydronephrosis and DVT> PMFSH - History History Provided By: Patient - Medical History Medical History: Medical History (Last Reviewed 02/06/18 @ 07:48 by Margot Liriano) History of needle biopsy Morbid obesity Pelvic mass Right leg DVT Arthritis Depression Hypertension Neuroendocrine cancer Osteoarthritis - Surgical History Surgical History: Surgical History (Last Reviewed 02/06/18 @ 07:48 by Margot Liriano) H/O: hysterectomy History of knee replacement History of loop recorder - Family History Family History: Family History (Last Reviewed 02/03/18 @ 16:46 by Mel Burciaga DO, R1) Mother Dementia Father CVA (cerebral vascular accident) - Tobacco History Second Hand Smoke Exposure: No Smoking Status: Never smoker - Alcohol History How Often Do You Have a Drink Containing Alcohol: Never - Substance Use History Substance History: No History of Abuse - Travel History Recent Travel in the [facility] Within the Last 8 Weeks: No Recent Travel Out of the Country Within the Last 8 Weeks: No - Immunization History Tetanus Immunization: Unsure Medications and Allergies Active Medications: Active Medications Acetaminophen (Tylenol) 650 mg PO Q4H PRN PRN Reason: SEE LABEL COMMENTS Last Admin: 02/11/18 08:20 Dose: 650 mg Al Hydroxide/Mg Hydroxide (Milk Of Magnpretty Liq) 30 ml PO Q12H PRN PRN Reason: Mild Constipation Last Admin: 02/07/18 21:23 Dose: 30 ml Allopurinol (Zyloprim) 300 mg PO DAILY [facility] TO [facility] Last Admin: 02/13/18 09:46 Dose: 300 mg Atenolol (Tenormin) 50 mg PO DAILY [facility]ENDING [facility] TO [facility] Last Admin: 02/13/18 09:46 Dose: 50 mg Bisacodyl (Dulcolax Supp) 10 mg RECTAL DAILY PRN PRN Reason: SEVERE CONSITIPATION Citalopram Hydrobromide (Celexa) 40 mg PO DAILY PENDING S[facility] TO [facility] Last Admin: 02/13/18 09:46 Dose: 40 mg Clonidine HCl (Catapres) 0.1 mg PO Q6H PRN PRN Reason: Sbp>170, Dbp>100 Diphenhydramine HCl (Benadryl) 25 mg PO Q4H PRN PRN Reason: SEE LABEL COMMENTS Ferrous Sulfate (Ferosul) 325 mg PO BID PENDING SALE TO [facility] Last Admin: 02/13/18 09:46 Dose: 325 mg Filgrastim (Neupogen Inj) 300 mcg SQ DAILY@1400 PEND[facility] S[facility] TO [facility] Last Admin: 02/13/18 13:03 Dose: 300 mcg Heparin Sodium (Porcine) (Heparin Central Flush) 0 unit IV.FLUSH PRN PRN PRN Reason: Flush PICC Line Last Admin: 02/05/18 04:14 Dose: 200 unit Heparin Sodium (Porcine) (Heparin Central Flush) 0 unit IV.FLUSH DAILY [facility] TO [facility] Last Admin: 02/13/18 09:47 Dose: 200 unit Sodium Chloride (Ns Inj) 250 mls @ 0 mls/hr IV.SIG ONCE [facility] TO [facility] Last Infusion: 02/11/18 15:00 Dose: Infused Lactulose (Lactulose Liq) 30 ml PO DAILY PRN PRN Reason: SEVERE CONSITIPATION Last Admin: 02/09/18 09:29 Dose: 30 ml Morphine Sulfate (Morphine Inj) 2 mg IV.PUSH Q3H PRN PRN Reason: pain 1 to 10 Last Admin: 02/09/18 21:22 Dose: 2 mg Ondansetron HCl (Zofran Inj) 4 mg IV.PUSH Q6H PRN PRN Reason: NAUSEA Last Admin: 02/08/18 09:42 Dose: 4 mg Rivaroxaban (Xarelto) 20 mg PO DAILY [facility] Last Admin: 02/04/18 17:32 Dose: Not Given Sennosides (Senokot) 17.2 mg PO Q12H PRN PRN Reason: Moderate Constipation Sodium Chloride (Ns Flush) 0 ml IV.FLUSH PRN PRN PRN Reason: FLUSH AFTER USING IV ACCESS Sodium Chloride (Ns Flush) 0 ml IV.FLUSH DAILY [facility] TO [facility] Last Admin: 02/13/18 09:47 Dose: 5 ml Allergies Allergy/AdvReac Type Severity Reaction Status Date / Time No Known Allergies Allergy Verified 02/02/18 16:29 Home Medications Medication Instructions Recorded Confirmed Type atenolol 50 mg PO DAILY 01/15/18 02/02/18 History citalopram 40 mg PO DAILY 01/15/18 02/02/18 History furosemide 40 mg PO DAILY 01/15/18 02/02/18 History rivaroxaban [Xarelto] 20 mg PO DAILY 01/15/18 02/02/18 History calcium carbonate-vitamin D3 1 tab PO BID 02/02/18 02/02/18 History [Calcium 500 + D] Physical Exam Vital signs: Vital Signs 02/12/18 20:00 02/13/18 00:00 02/13/18 04:00 Temperature 98.6 F 98.4 F 97.9 F Pulse Rate 74 80 68 Respiratory Rate 16 16 16 Blood Pressure 146/93 H 144/89 H 147/77 H Pulse Oximetry 97 100 97 02/13/18 08:00 02/13/18 09:35 02/13/18 13:01 Temperature 98.7 F 98.3 F Pulse Rate 74 75 72 Respiratory Rate 16 16 Blood Pressure 149/77 H 130/72 Pulse Oximetry 97 96 02/13/18 16:00 02/13/18 16:36 Temperature 98.6 F Pulse Rate 72 95 H Respiratory Rate 16 Blood Pressure 127/75 Pulse Oximetry 97 Intake & Output 02/12/18 02/13/18 02/13/18 18:59 06:59 18:59 Intake Total 1040 / 1040 Output Total 1800 / 1800 3175 / 3175 1150 / 1150 Balance -760 / -760 -3175 / -3175 -1150 / -1150 Intake: Oral 1040 / 1040 Output: Urine 1150 / 1150 Urine Amount (Catheter) 250 / 250 1100 / 1100 Indwelling Urethral Catheter 250 / 250 1100 / 1100 Urine Amount (Stoma) 1550 / 1550 2074 207 Nephrostomy Tube Right 1550 / 1550 2074 Other: Bladder Irrigation Fluid - Amount Instilled Indwelling Urethral Catheter 200 Date of Last Bowel Movement 02/10/18 02/10/18 02/10/18 - Urinary Catheter Management Indwelling Urethral Catheter Cath placed during this visit: yes Reason for continuing: Gross Hematuria Insertion date: 02/06/18 Insertion time: 22:38 Results - Labs CBC & Chem 7: 02/13/18 04:39 02/13/18 04:39 Labs: Laboratory Results - last 24 hr 02/08/18 02/13/18 02/13/18 04:25 04:39 04:39 WBC 1.4 L RBC 2.88 L Hgb 8.6 L Hct 25.4 L MCV 88.4 MCH 29.9 MCHC 33.8 RDW 14.6 Plt Count 55 L MPV 7.2 Prelim Diff (Auto) Slide review pending Neut % (Auto) 36.1 Lymph % (Auto) 58.0 H [place] % (Auto) 2.1 Eos % (Auto) 1.7 Baso % (Auto) 2.1 H Neut # (Auto) 0.5 L* Lymph # (Auto) 0.8 L [place] # (Auto) 0.0 Eos # (Auto) 0.0 Baso # (Auto) 0.0 WBC Differential Manual diff final Seg Neuts % (Manual) 34 Band Neuts % (Manual) 1 Lymphocytes % (Manual) 61 H Eosinophils % (Manual) 1 Basophils % (Manual) 3 H Abs Neuts (Manual) 0.5 L* Differential Comment . Platelet Estimate Low L Platelet Morphology Enlarged H Sodium 141 Potassium 4.1 Chloride 106 Carbon Dioxide 28.2 Anion Gap 7 BUN 13 Creatinine 0.57 Estimated GFR Greater than 89 Random Glucose 87 Calcium 7.9 L Phosphorus 3.4 Magnesium 1.5 Lactate Dehydrogenase 665 H PEP Pathologist Comment Assessment and Plan - Plan We discuss palliative xrt. I will discuss further with Dr. Harris. 15 minutes encounter and review of PET/cT
[2018-02-13] MEDS: Acetaminophen 325 MG Tablet PO PRN (23:57)
--- NOTE | 2018-02-14 01:24 | XR ---
EXAM DATE: 02/14/2018 1:12 AM EST AGE/SEX: 67 years / Female INDICATIONS: Pneumonia. CLINICAL DATA: This is the patient's initial encounter. Patient reports that signs and symptoms have been present for 1 day and indicates a pain score of 0/10. MEDICAL/SURGICAL HISTORY: . Arthritis. Hypertension. Osteoarthritis, Depression, Neuroendocrine cancer, Deep venous thrombosis, Av block, Lower extremity edema. . Hysterectomy. Cardiac recorder, Bladder stimulator, Bilateral knee replacements. COMPARISON: C, CHEST 1V SINGLE AP, 01/15/2018. . FINDINGS: Single AP view the chest. Right-sided PICC line in place with the tip in the distal SVC. The lungs ar e clear. Cardiomediastinal silhouette within normal limits. No evidence of pleural effusion or hemith orax. CONCLUSION: Right-sided PICC line in place. Tip in the distal SVC. No acute cardiopulmonary disease identified. Electronically signed by: Beau Swift MD 02/14/2018 1:23 AM EST
[2018-02-14 01:45] LABS: Bacteria,Urine Rare /hpf; Bilirubin,Urine Negative (Negative); Clarity,Urine Clear (Clear); Color,Urine Yellow (Yellw/Straw); Glucose,Urine (UA) Negative (Negative); Leukocyte Esterase,Urine Trace (Negative); Mucus,Urine Few /lpf (Occasional); Nitrite,Urine Negative (Negative); Urobilinogen,Urine 4 or Greater mg/dL (Less than 2)
[2018-02-14 05:49] LABS: Hematocrit 25.2 % (35.0-46.0); Hemoglobin 8.6 gm/dL (11.6-15.3); Mean Corpuscular Hemoglobin 29.9 pg (27.0-34.0); Mean Platelet Volume 7.6 fL (7.0-11.0); Platelet Count 46 th/mm3 (150-450); Red Blood Count 2.86 mil/mm3 (4.00-5.30); Red Cell Distribution Width 14.3 % (11.6-17.2); White Blood Count 0.9 th/mm3 (4.0-11.0)
[2018-02-14 06:09] LABS: Anion Gap 7 meq/L (5-15); Blood Urea Nitrogen 13 mg/dL (7-18); Calcium 8.2 mg/dL (8.5-10.1); Carbon Dioxide 28.6 meq/L (21.0-32.0); Chloride 105 meq/L (98-107); Glomerular Filtration Rate Greater Than 89 mL/min (>89); Glucose,Random 102 mg/dL (74-106); Magnesium 1.5 mg/dL (1.5-2.5); Phosphorus 3.9 mg/dL (2.5-4.9); Potassium 3.9 meq/L (3.5-5.1); Sodium 141 meq/L (136-145); Uric Acid 1.9 mg/dl (2.6-6.0)
--- NOTE | 2018-02-14 07:45 | P.PNONC ---
Subjective Interval history: Patient seen and examined, vital signs, labs and medications reviewed. [employer] notes reviewed from yesterday; radiation oncology evaluation reviewed. Overnight patient had a temperature of 100.9 F. She denies localizing symptoms. Blood and urine cultures were obtained. And she was initiated on cefepime at 2 g IV every 8 hours. Earlier this morning I started her on vancomycin 1 g IV every 12 hours. Subjectively; patient reports feeling well, she does have some fatigue but still spent for 5 hours out of bed yesterday. She denies having any pain and in fact reports near complete resolution of pelvic pain and pressure. She tells me her nausea has resolved, she has been eating better. Her right leg feels like it is less swollen also. Objective Vital Signs/Intake & Output: Vital Signs 02/13/18 08:00 02/13/18 09:35 02/13/18 13:01 Temperature 98.7 F 98.3 F Pulse Rate 74 75 72 Respiratory Rate 16 16 Blood Pressure 149/77 H 130/72 Pulse Oximetry 97 96 02/13/18 16:00 02/13/18 16:36 02/13/18 20:00 Temperature 98.6 F 99.5 F Pulse Rate 72 95 H 74 Respiratory Rate 16 16 Blood Pressure 127/75 133/75 Pulse Oximetry 97 97 02/14/18 00:00 02/14/18 04:00 Temperature 100.9 F H 99.0 F Pulse Rate 75 73 Respiratory Rate 16 16 Blood Pressure 142/81 H 128/75 Pulse Oximetry 96 97 Intake & Output 02/13/18 02/14/18 02/14/18 18:59 06:59 18:59 Intake Total 720 / 720 100 / 100 Output Total 2525 / 2525 3500 / 3500 Balance -1805 / -1805 -3400 / -3400 Weight 120 kg Intake: IV 100 / 100 Maxipime Inj 2,000 MG In NS Inj 100 / 100 100 ML @ 200 mls/hr IV.SIG Q8H [facility] Rx#:[id number] Oral 720 / 720 Output: Urine 1150 / 1150 1000 / 1000 Urine Amount (Catheter) 1000 / 1000 Indwelling Urethral Catheter 1000 / 1000 Urine Amount (Stoma) 1375 / 1375 1500 / 1500 Nephrostomy Tube Right 1375 / 1375 1500 / 1500 Other: Bladder Irrigation Fluid - Amount Instilled Indwelling Urethral Catheter 100 Date of Last Bowel Movement 02/10/18 02/10/18 Result Diagrams: 02/14/18 04:00 02/14/18 04:00 Laboratory Results: Laboratory Results - last 24 hr 02/08/18 02/13/18 02/14/18 04:25 04:39 01:30 WBC RBC Hgb Hct MCV MCH MCHC RDW Plt Count MPV Prelim Diff (Auto) WBC Differential Manual diff final Seg Neuts % (Manual) 34 Band Neuts % (Manual) 1 Lymphocytes % (Manual) 61 H Eosinophils % (Manual) 1 Basophils % (Manual) 3 H Abs Neuts (Manual) 0.5 L* Differential Comment Platelet Estimate Low L Platelet Morphology Enlarged H Sodium Potassium Chloride Carbon Dioxide Anion Gap BUN Creatinine Estimated GFR Random Glucose Uric Acid Calcium Phosphorus Magnesium PEP Pathologist Comment Urine Color Yellow Urine Clarity Clear Urine pH 7.0 Ur Specific [place] 1.010 Urine Protein 100 H Urine Glucose (UA) Negative Urine Ketones Negative Urine Occult Blood Large H Urine Nitrate Negative Urine Bilirubin Negative Urine Urobilinogen 4 or greater Ur Leukocyte Esterase Trace H Urine RBC Urine WBC 4 Urine Bacteria Rare H Urine Mucus Few H Micro UA Comment Culture indicated Ur Microscopic Review Not Reportable Urine Culture Comments Culture indicated 02/14/18 02/14/18 04:00 04:00 WBC 0.9 L RBC 2.86 L Hgb 8.6 L Hct 25.2 L MCV 88.0 MCH 29.9 MCHC 34.0 RDW 14.3 Plt Count 46 L MPV 7.6 Prelim Diff (Auto) Manual diff required WBC Differential Seg Neuts % (Manual) Band Neuts % (Manual) Lymphocytes % (Manual) Eosinophils % (Manual) Basophils % (Manual) Abs Neuts (Manual) Differential Comment . Platelet Estimate Platelet Morphology Sodium 141 Potassium 3.9 Chloride 105 Carbon Dioxide 28.6 Anion Gap 7 BUN 13 Creatinine 0.60 Estimated GFR Greater than 89 Random Glucose 102 Uric Acid 1.9 L D Calcium 8.2 L Phosphorus 3.9 Magnesium 1.5 PEP Pathologist Comment Urine Color Urine Clarity Urine pH Ur Specific [place] Urine Protein Urine Glucose (UA) Urine Ketones Urine Occult Blood Urine Nitrate Urine Bilirubin Urine Urobilinogen Ur Leukocyte Esterase Urine RBC Urine WBC Urine Bacteria Urine Mucus Micro UA Comment Ur Microscopic Review Urine Culture Comments Imaging Studies: Impressions Chest X-Ray 02/14/18 00:00 CONCLUSION: Right-sided PICC line in place. Tip in the distal SVC. No acute cardiopulmonary disease identified. Medications: Active Medications Generic Name Dose Route Start Last Admin Trade Name Freq PRN Reason Stop Dose Admin Al Hydroxide/Mg Hydroxide 30 ml 02/02/18 21:42 02/07/18 21:23 Milk Of Magnesia Liq PO 30 ml Q12H PRN Administration Mild Constipation Allopurinol 300 mg 02/10/18 09:00 02/13/18 09:46 Zyloprim PO 300 mg DAILY BEATA Administration Atenolol 50 mg 02/11/18 15:00 02/13/18 09:46 Tenormin PO 50 mg DAILY BEATA Administration Citalopram Hydrobromide 40 mg 02/03/18 09:00 02/13/18 09:46 Celexa PO 40 mg DAILY BEATA Administration Ferrous Sulfate 325 mg 02/03/18 09:00 02/13/18 20:20 Ferosul PO 325 mg BID BEATA Administration Filgrastim 300 mcg 02/13/18 14:00 02/13/18 13:03 Neupogen Inj SQ 300 mcg DAILY@1400 BEATA Administration Heparin Sodium (Porcine) 0 unit 02/03/18 14:06 02/05/18 04:14 Heparin Central Flush IV.FLUSH 200 unit PRN PRN Administration Flush PICC Line Heparin Sodium (Porcine) 0 unit 02/04/18 09:00 02/13/18 09:47 Heparin Central Flush IV.FLUSH 200 unit DAILY BEATA Administration Sodium Chloride 250 mls @ 0 mls/hr 02/04/18 14:00 02/11/18 15:00 Ns Inj IV.SIG Infused ONCE BEATA Infusion KVO Cefepime HCl 2,000 mg/ Sodium 100 mls @ 200 mls/hr 02/14/18 01:00 02/14/18 02 :14 Chloride IV.SIG Infused Q8H [facility] Infusion Lactulose 30 ml 02/02/18 21:42 02/09/18 09:29 Lactulose Liq PO 30 ml DAILY PRN Administration SEVERE CONSITIPATION Morphine Sulfate 2 mg 02/03/18 00:02 02/09/18 21:22 Morphine Inj IV.PUSH 2 mg Q3H PRN Administration pain 1 to 10 Ondansetron HCl 4 mg 02/03/18 00:00 02/08/18 09:42 Zofran Inj IV.PUSH 4 mg Q6H PRN Administration NAUSEA Rivaroxaban 20 mg 02/04/18 10:15 02/04/18 17:32 Xarelto PO Not Given DAILY BEATA Sodium Chloride 0 ml 02/04/18 09:00 02/13/18 09:47 Ns Flush IV.FLUSH 5 ml DAILY BEATA Administration Objective Remarks: Middle-aged/elderly lady, laying in bed, appears to be no acute distress, she has a pleasant disposition. She is of medium height and is morbidly obese. HEENT: Head atraumatic normocephalic, conjunctivae not pale sclera anicteric, EOMI, PERRLA. Oral exam: No pharyngeal erythema, no ulceration or thrush. Neck exam: No palpable pathologically enlarged cervical or supraclavicular adenopathy. Respiratory exam: Good air movement bilaterally not breath sounds. No rhonchi, rales or wheezes. Cardiovascular: Regular rate and rhythm, S1-S2 no obvious murmurs or gallops. Abdominal exam: Obese belly, soft, nontender, positive bowel sounds. Pathologically enlarged bulky right inguinal/right upper thigh lymphadenopathy. Interval placement of a right-sided percutaneous nephrostomy tube which is draining dark yellow urine. Hematuria and Nguyen catheter tubing and bag. Extremities: Right lower extremity significantly larger in circumference when compared to the left lower extremity. This starts at the level of the upper thigh and goes all the way down to the ankles. There is no obvious tenderness. Today I did reexamine her right inguinal lymph nodes which appear to be seen significantly decreased in size when compared to pretreatment examination. [employer]ER: No focal sensorimotor deficits. Skin exam: Nonfocal. Psychiatric: Alert and oriented x3, her mood is appropriate and her level of understanding is excellent. 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 Patient was seen in the clinic on 02/02/2018 and reported symptoms of heavy vaginal bleeding, extensive pelvic pain right leg swelling and progressive weakness. She has been initiated on palliative systemic therapy with carboplatin and etoposide (with dose modification). 1. Patient received day 1 and day 2 of carbo/HOOP MAKER MACHINE-16 on February 04 and . Day 3 was held due to worsening renal dysfunction and hematuria. The patient subsequently received a nephrostomy tube with resolution of the renal dysfunction. 2. We will continue to hold the Xarelto for her right lower extremity DVT secondary to the hematuria and thrombocytopenia due to chemotherapy. 3. Radiation oncology to evaluate patient for palliative radiation for management of hematuria, patient was seen yesterday her scans were reviewed. I will discussed the case with Dr. borges later today. 4. Monitor CBC, CMP, Mag and Uric acid. 5. Chemotherapy related neutropenia: Initiate Neupogen injections were started on 02/13/2018. 6. Febrile neutropenia: Single episode of temperature of 100.9 F overnight. Now on vancomycin and cefepime, blood and urine cultures drawn. Potential source of infection include PICC line, percutaneous nephrostomy tube and Nguyen catheter. It may be reasonable to discontinue her Nguyen catheter if she is not requiring irrigation. But if she is requiring irrigation to evacuate clots within the bladder I would advise maintaining her Nguyen catheter for the time being. Continue ongoing care.
[2018-02-14 08:47] LABS: Eosinophils 1 % (0-4); Lymphocytes 77 % (9-44); Monocytes 1 % (0-8)
[2018-02-14] MEDS: Allopurinol 300 MG Tablet PO SCH (11:26)
[2018-02-14] MEDS: Ferrous Sulfate 325 MG Tablet PO SCH ×2 (11:26→20:08)
[2018-02-14] MEDS: Vancomycin Inj 1,000 MG in Sodium Chlor 0.9% Inj 250 ML IV.SIG SCH ×2 (11:27→20:07)
--- NOTE | 2018-02-14 14:12 | P.PN ---
Subjective Interval history: Follow-up chemotherapy related neutropenia/hematuria February 14, 2018-patient seen and examined, T-max 100.9 at midnight however currently afebrile. Still with gross hematuria in Nguyen. Physical Exam Vital signs: Vital Signs 02/13/18 16:00 02/13/18 16:36 02/13/18 20:00 Temperature 98.6 F 99.5 F Pulse Rate 72 95 H 74 Respiratory Rate 16 16 Blood Pressure 127/75 133/75 Pulse Oximetry 97 97 02/14/18 00:00 02/14/18 04:00 02/14/18 08:32 Temperature 100.9 F H 99.0 F 98.1 F Pulse Rate 75 73 76 Respiratory Rate 16 16 16 Blood Pressure 142/81 H 128/75 150/66 H Pulse Oximetry 96 97 97 Intake & Output 02/13/18 02/14/18 02/14/18 18:59 06:59 18:59 Intake Total 720 / 720 100 / 100 Output Total 2525 / 2525 3500 / 3500 Balance -1805 / -1805 -3400 / -3400 Weight 120 kg Intake: IV 100 / 100 Maxipime Inj 2,000 MG In NS Inj 100 / 100 100 ML @ 200 mls/hr IV.SIG Q8H [facility] Rx#:[id number] Oral 720 / 720 Output: Urine 1150 / 1150 1000 / 1000 Urine Amount (Catheter) 1000 / 1000 Indwelling Urethral Catheter 1000 / 1000 Urine Amount (Stoma) 1375 / 1375 1500 / 1500 Nephrostomy Tube Right 1375 / 1375 1500 / 1500 Other: Bladder Irrigation Fluid - Amount Instilled Indwelling Urethral Catheter 100 Date of Last Bowel Movement 02/10/18 02/10/18 02/10/18 Narrative: GENERAL: NAD SKIN: Warm and dry. HEAD: Atraumatic. Normocephalic. EYES: Pupils equal and round. No scleral icterus. No injection or drainage. ENT: No nasal bleeding or discharge. Mucous membranes pink and moist. NECK: Trachea midline. No JVD. CARDIOVASCULAR: Regular rate and rhythm. RESPIRATORY: No accessory muscle use. Clear to auscultation. Breath sounds equal bilaterally. GASTROINTESTINAL: Abdomen soft, non-tender, nondistended. Hepatic and splenic margins not palpable. percutaneous nephrostomy tube in place MUSCULOSKELETAL: Extremities without clubbing, cyanosis, or edema. No obvious deformities. NEUROLOGICAL: Awake and alert. No obvious cranial nerve deficits. Motor grossly within normal limits. Five out of 5 muscle strength in the arms and legs. Normal speech. PSYCHIATRIC: Appropriate mood and affect; insight and judgment normal. - Urinary Catheter Management Indwelling Urethral Catheter Cath placed during this visit: yes Reason for continuing: Gross Hematuria Insertion date: 02/06/18 Insertion time: 22:38 Results - Labs CBC & Chem 7: 02/14/18 04:00 02/14/18 04:00 Laboratory Results - last 24 hr 02/14/18 02/14/18 02/14/18 01:30 04:00 04:00 WBC 0.9 L RBC 2.86 L Hgb 8.6 L Hct 25.2 L MCV 88.0 MCH 29.9 MCHC 34.0 RDW 14.3 Plt Count 46 L MPV 7.6 Prelim Diff (Auto) Manual diff required WBC Differential Manual diff final Seg Neuts % (Manual) 16 Band Neuts % (Manual) 4 Lymphocytes % (Manual) 77 H Monocytes % (Manual) 1 Eosinophils % (Manual) 1 Basophils % (Manual) 1 Abs Neuts (Manual) 0.2 L* Differential Comment . Platelet Estimate Low L Platelet Morphology Enlarged H Sodium 141 Potassium 3.9 Chloride 105 Carbon Dioxide 28.6 Anion Gap 7 BUN 13 Creatinine 0.60 Estimated GFR Greater than 89 Random Glucose 102 Uric Acid 1.9 L D Calcium 8.2 L Phosphorus 3.9 Magnesium 1.5 Urine Color Yellow Urine Clarity Clear Urine pH 7.[address] 1.010 Urine Protein 100 H Urine Glucose (UA) Negative Urine Ketones Negative Urine Occult Blood Large H Urine Nitrate Negative Urine Bilirubin Negative Urine Urobilinogen 4 or greater Ur Leukocyte Esterase Trace H Urine RBC Urine WBC 4 Urine Bacteria Rare H Urine Mucus Few H Micro UA Comment Culture indicated Ur Microscopic Review Not Reportable Urine Culture Comments Culture indicated - Imaging Impressions Chest X-Ray 02/14/18 00:00 CONCLUSION: Right-sided PICC line in place. Tip in the distal SVC. No acute cardiopulmonary disease identified. - Procedures None Assessment and Plan - Plan 67-year-old female with Chemotherapy related neutropenia -Currently on Neupogen which was started yesterday February 13, 2018 -Appreciate input from oncology Febrile episode Currently on cefepime and vancomycin Continue to monitor culture Right lower extremity DVT Anticoagulation on hold s/t anemia/bleeding. -resume anticoagulation when able. Neuroendocrine tumor with right inguinal lymphadenopathy Concerning for [place] cell carcinoma per oncology. PET/CT scan concerning for hypermetabolic mass involving the pelvis with metastatic lymph nodes in the right inguinal area as well as mediastinum. -chemotherapy per oncology. Vaginal bleeding Per gynecology, since the pt has hx of hysterectomy this is likely 2/2 to the eroding pelvic mass that would not be amenable to any surgical intervention even with profuse bleeding. -follow CBC and transfuse as needed. Right-sided hydroureter/Hematuria - S/p right nephrostomy by IR 02/08. -urology recommending second nephrostomy tube if Nguyen no longer draining adequately. -follow CBC and transfuse as needed. Received additional transfusion 02/11. -Radiation oncology to evaluate patient for palliative radiation for management of hematuria Acute renal failure Likely s/t above. Nephrology consult appreciated. Improved. -d/c IVFs. -follow BMP and avoid nephrotoxins. -continue nephrostomy tube. Hypertension -Can you atenolol -clonidine as needed. Nausea S/t chemo. Seems resolved. -antiemetics as needed. -ADAT. PPx: Bilateral SCDs
[2018-02-14] MEDS: Filgrastim Inj 300 MCG/ML Vial SQ SCH (14:18)
[2018-02-14] MEDS: Atenolol 50 MG Tablet PO SCH (14:19)
[2018-02-14] MEDS: Heparin Central Flush 100 UNIT/ML 5 ML Vial IV.FLUSH SCH (16:05)
[2018-02-14] MEDS: Heparin Central Flush 100 UNIT/ML 5 ML Vial IV.FLUSH PRN (21:45)
[2018-02-15] MEDS: Heparin Central Flush 100 UNIT/ML 5 ML Vial IV.FLUSH PRN ×2 (05:19→22:31)
--- NOTE | 2018-02-15 07:29 | P.PNONC ---
Subjective Interval history: Patient seen and examined, vital signs, labs and medications reviewed. Overnight events reviewed as well. CBC this morning was not drawn, I therefore ordered daily CBCs with differential. Patient reports she did not experience fevers yesterday, she spent some time out of bed and ambulated to the restroom. She tells me she had a large bowel movement yesterday and feels her abdomen is relieved. Patient continues to experience right lower extremity edema which she reports fluctuates with ambulation. Also, patient reports noticing clear yellow urine overnight in the Nguyen catheter tubing. This morning the urine is harsha color again with strands of blood clots. Objective Vital Signs/Intake & Output: Vital Signs 02/14/18 08:32 02/14/18 12:00 02/14/18 16:00 Temperature 98.1 F 98.5 F 98.4 F Pulse Rate 76 78 72 Respiratory Rate 16 16 18 Blood Pressure 150/66 H 141/74 H 132/78 Pulse Oximetry 97 96 98 02/14/18 20:00 02/15/18 00:00 02/15/18 04:00 Temperature 99 F 98.6 F 98.2 F Pulse Rate 73 73 75 Respiratory Rate 18 16 16 Blood Pressure 137/73 140/72 127/79 Pulse Oximetry 98 100 100 Intake & Output 02/14/18 02/15/18 02/15/18 18:59 06:59 18:59 Intake Total 1310 / 1310 450 / 450 Output Total 3700 / 3700 2850 / 2850 Balance -2390 / -2390 -2400 / -2400 Weight 119.9 kg Intake: IV 350 / 350 450 / 450 Maxipime Inj 2,000 MG In NS Inj 100 / 100 200 / 200 100 ML @ 200 mls/hr IV.SIG Q8H BEATA Rx#:[id number] Vancomycin Inj 1,000 MG In NS 250 / 250 250 / 250 Inj 250 ML @ 250 mls/hr IV.SIG Q12H BEATA Rx#:[id number] Oral 960 / 960 Bladder Irrigation Fluid - 0 / 0 Amount Retained Indwelling Urethral Catheter 0 / 0 Output: Urine 1000 / 1000 Urine Amount (Catheter) 1999 250 / 250 Indwelling Urethral Catheter 1999 250 / 250 Urine Amount (Stoma) 1700 / 1700 1600 / 1600 Nephrostomy Tube Right 1700 / 1700 1600 / 1600 Other: Bladder Irrigation Fluid - Amount Instilled Indwelling Urethral Catheter 100 Bladder Irrigation Fluid - Amount Drained Indwelling Urethral Catheter 300 Date of Last Bowel Movement 02/10/18 02/14/18 Result Diagrams: 02/14/18 04:00 02/14/18 04:00 Laboratory Results: Laboratory Results - last 24 hr 02/14/18 04:00 WBC Differential Manual diff final Seg Neuts % (Manual) 16 Band Neuts % (Manual) 4 Lymphocytes % (Manual) 77 H Monocytes % (Manual) 1 Eosinophils % (Manual) 1 Basophils % (Manual) 1 Abs Neuts (Manual) 0.2 L* Platelet Estimate Low L Platelet Morphology Enlarged H Medications: Active Medications Generic Name Dose Route Start Last Admin Trade Name Freq PRN Reason Stop Dose Admin Al Hydroxide/Mg Hydroxide 30 ml 02/02/18 21:42 02/07/18 21:23 Milk Of Magnesia Liq PO 30 ml Q12H PRN Administration Mild Constipation Allopurinol 300 mg 02/10/18 09:00 02/14/18 11:26 Zyloprim PO 300 mg DAILY BEATA Administration Atenolol 50 mg 02/11/18 15:00 02/14/18 14:19 Tenormin PO 50 mg DAILY BEATA Administration Citalopram Hydrobromide 40 mg 02/03/18 09:00 02/14/18 11:26 Celexa PO 40 mg DAILY BEATA Administration Ferrous Sulfate 325 mg 02/03/18 09:00 02/14/18 20:08 Ferosul PO 325 mg BID BEATA Administration Filgrastim 300 mcg 02/13/18 14:00 02/14/18 14:18 Neupogen Inj SQ 300 mcg DAILY@1400 BEATA Administration Heparin Sodium (Porcine) 0 unit 02/03/18 14:06 02/15/18 05:19 Heparin Central Flush IV.FLUSH 200 unit PRN PRN Administration Flush PICC Line Heparin Sodium (Porcine) 0 unit 02/04/18 09:00 02/14/18 16:05 Heparin Central Flush IV.FLUSH 2 unit DAILY BEATA Administration Sodium Chloride 250 mls @ 0 mls/hr 02/04/18 14:00 02/11/18 15:00 Ns Inj IV.SIG Infused ONCE BEATA Infusion KVO Vancomycin HCl 1,000 mg/ 250 mls @ 250 mls/hr 02/14/18 08:00 02/14/18 21:11 Sodium Chloride IV.SIG Infused Q12H BEATA Infusion Cefepime HCl 2,000 mg/ Sodium 100 mls @ 200 mls/hr 02/15/18 04:00 02/15/18 04 :55 Chloride IV.SIG Infused Q8H BEATA Infusion Lactulose 30 ml 02/02/18 21:42 02/09/18 09:29 Lactulose Liq PO 30 ml DAILY PRN Administration SEVERE CONSITIPATION Morphine Sulfate 2 mg 02/03/18 00:02 02/09/18 21:22 Morphine Inj IV.PUSH 2 mg Q3H PRN Administration pain 1 to 10 Ondansetron HCl 4 mg 02/03/18 00:00 02/08/18 09:42 Zofran Inj IV.PUSH 4 mg Q6H PRN Administration NAUSEA Rivaroxaban 20 mg 02/04/18 10:15 02/04/18 17:32 Xarelto PO Not Given DAILY BEATA Sodium Chloride 0 ml 02/04/18 09:00 02/14/18 11:27 Ns Flush IV.FLUSH 5 ml DAILY BEATA Administration Objective Remarks: Middle-aged/elderly lady, laying in bed, appears to be no acute distress, she has a pleasant disposition. She is of medium height and is morbidly obese. HEENT: Head atraumatic normocephalic, conjunctivae not pale sclera anicteric, EOMI, PERRLA. Oral exam: No pharyngeal erythema, no ulceration or thrush. Neck exam: No palpable pathologically enlarged cervical or supraclavicular adenopathy. Respiratory exam: Good air movement bilaterally not breath sounds. No rhonchi, rales or wheezes. Cardiovascular: Regular rate and rhythm, S1-S2 no obvious murmurs or gallops. Abdominal exam: Obese belly, soft, nontender, positive bowel sounds. Pathologically enlarged bulky right inguinal/right upper thigh lymphadenopathy. Interval placement of a right-sided percutaneous nephrostomy tube which is draining dark yellow urine. Hematuria and Nguyen catheter tubing and bag, the color of the urine is more harsha in color and less bright red. Extremities: Right lower extremity significantly larger in circumference when compared to the left lower extremity. This starts at the level of the upper thigh and goes all the way down to the ankles. There is no obvious tenderness. Inguinal lymphadenopathy is no longer appreciable. WAFER MOUNTER: No focal sensorimotor deficits. Skin exam: Nonfocal. Psychiatric: Alert and oriented x3, her mood is appropriate and her level of understanding is excellent. 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 Patient was seen in the clinic on 02/02/2018 and reported symptoms of heavy vaginal bleeding, extensive pelvic pain right leg swelling and progressive weakness. She has been initiated on palliative systemic therapy with carboplatin and etoposide (with dose modification). 1. Patient received day 1 and day 2 of carbo/[employer]-16 on February 04 and . Day 3 was held due to worsening renal dysfunction and hematuria. The patient subsequently received a nephrostomy tube with resolution of the renal dysfunction. 2. We will continue to hold the Xarelto for her right lower extremity DVT secondary to the hematuria and thrombocytopenia due to chemotherapy. 3. Radiation oncology to evaluate patient for palliative radiation for management of hematuria, planning will be done while the patient is in the hospital, treatment will likely start in the outpatient setting. 4. Chemotherapy related neutropenia: Initiated on Neupogen injections on 2017. 5. Febrile neutropenia: Single episode of temperature of 100.9 F overnight. Now on vancomycin and cefepime, blood and urine cultures drawn. Potential source of infection include PICC line, percutaneous nephrostomy tube and Nguyen catheter. Blood and urine cultures remain negative. Antibiotics continue. 6. Acute renal failure: Secondary to obstructive uropathy, now resolved with placement of percutaneous nephrostomy tube. Disposition: Repeat CBC today to assess for WBC count recovery and platelet count recovery. Her counts have dropped secondary to chemotherapy related myelosuppression. And I anticipate improvement/recovery in the upcoming days. Hematuria: Secondary to either invasion of the bladder secondary to a a pelvic neuroendocrine tumor. Alternatively, hematuria may be secondary to a high- grade neuroendocrine tumor of the bladder which may be the primary site. Because she has metastatic disease she is not a candidate for aggressive surgical resection. She is therefore being evaluated for palliative radiation to help control hematuria. She is a good candidate for this and treatment would likely start in the outpatient setting as outlined above. Encourage ambulation. Continue ongoing care.
[2018-02-15] MEDS: Ferrous Sulfate 325 MG Tablet PO SCH ×2 (07:59→20:06)
[2018-02-15] MEDS: Heparin Central Flush 100 UNIT/ML 5 ML Vial IV.FLUSH SCH (07:59)
[2018-02-15] MEDS: Allopurinol 300 MG Tablet PO SCH (07:59)
[2018-02-15] MEDS: Atenolol 50 MG Tablet PO SCH (07:59)
[2018-02-15] MEDS: Vancomycin Inj 1,000 MG in Sodium Chlor 0.9% Inj 250 ML IV.SIG SCH ×2 (07:59→20:06)
--- NOTE | 2018-02-15 12:13 | P.PN ---
Subjective Interval history: Follow-up chemotherapy related neutropenia/hematuria February 14, 2018-patient seen and examined, T-max 100.9 at midnight however currently afebrile. Still with gross hematuria in Nguyen. February 15, 2018-patient seen and examined, currently afebrile. States she had a bowel movement last night and reports improvement of abdominal pain. Hematuria improving. Physical Exam Vital signs: Vital Signs 02/14/18 16:00 02/14/18 20:00 02/15/18 00:00 Temperature 98.4 F 99 F 98.6 F Pulse Rate 72 73 73 Respiratory Rate 18 18 16 Blood Pressure 132/78 137/73 140/72 Pulse Oximetry 98 98 100 02/15/18 04:00 02/15/18 07:57 02/15/18 08:00 Temperature 98.2 F 98.3 F Pulse Rate 75 122 H 66 Respiratory Rate 16 18 Blood Pressure 127/79 141/79 H Pulse Oximetry 100 100 02/15/18 11:22 02/15/18 11:59 Temperature 99 F Pulse Rate 68 71 Respiratory Rate 22 Blood Pressure 163/66 H Pulse Oximetry 94 L Intake & Output 02/14/18 02/15/18 02/15/18 18:59 06:59 18:59 Intake Total 1310 / 1310 450 / 450 250 / 250 Output Total 3700 / 3700 2850 / 2850 Balance -2390 / -2390 -2400 / -2400 250 / 250 Weight 119.9 kg Intake: IV 350 / 350 450 / 450 250 / 250 Maxipime Inj 2,000 MG In NS Inj 100 / 100 200 / 200 100 ML @ 200 mls/hr IV.SIG Q8H [facility] Rx#:[id number] Vancomycin Inj 1,000 MG In NS 250 / 250 250 / 250 250 / 250 Inj 250 ML @ 250 mls/hr IV.SIG Q12H BEATA Rx#:[id number] Oral 960 / 960 Bladder Irrigation Fluid - 0 / 0 Amount Retained Indwelling Urethral Catheter 0 / 0 Output: Urine 1000 / 1000 Urine Amount (Catheter) 1999 250 / 250 Indwelling Urethral Catheter 1999 250 / 250 Urine Amount (Stoma) 1700 / 1700 1600 / 1600 Nephrostomy Tube Right 1700 / 1700 1600 / 1600 Other: Bladder Irrigation Fluid - Amount Instilled Indwelling Urethral Catheter 100 Bladder Irrigation Fluid - Amount Drained Indwelling Urethral Catheter 300 Date of Last Bowel Movement 02/10/18 02/14/18 02/14/18 Narrative: GENERAL: NAD SKIN: Warm and dry. HEAD: Atraumatic. Normocephalic. EYES: Pupils equal and round. No scleral icterus. No injection or drainage. ENT: No nasal bleeding or discharge. Mucous membranes pink and moist. NECK: Trachea midline. No JVD. CARDIOVASCULAR: Regular rate and rhythm. RESPIRATORY: No accessory muscle use. Clear to auscultation. Breath sounds equal bilaterally. GASTROINTESTINAL: Abdomen soft, non-tender, nondistended. Hepatic and splenic margins not palpable. percutaneous nephrostomy tube in place MUSCULOSKELETAL: Extremities without clubbing, cyanosis, or edema. No obvious deformities. NEUROLOGICAL: Awake and alert. No obvious cranial nerve deficits. Motor grossly within normal limits. Five out of 5 muscle strength in the arms and legs. Normal speech. PSYCHIATRIC: Appropriate mood and affect; insight and judgment normal. - Urinary Catheter Management Indwelling Urethral Catheter Cath placed during this visit: yes Reason for continuing: Gross Hematuria Insertion date: 02/06/18 Insertion time: 22:38 Results - Labs CBC & Chem 7: 02/14/18 04:00 02/14/18 04:00 Laboratory Results - last 24 hr 02/14/18 01:30 Urine Color Yellow Urine Clarity Clear Urine pH 7.0 Ur Specific [place] 1.010 Urine Protein 100 H Urine Glucose (UA) Negative Urine Ketones Negative Urine Occult Blood Large H Urine Nitrate Negative Urine Bilirubin Negative Urine Urobilinogen 4 or greater Ur Leukocyte Esterase Trace H Urine RBC Urine WBC 4 Urine Bacteria Rare H Urine Mucus Few H Micro UA Comment Culture indicated Urine Culture Comments Culture indicated Microbiology 02/14/18 01:30 Clean Catch Urine Urine Culture - Preliminary Group D Enterococcus 02/13/18 00:05 Blood - Peripheral Aerobic Blood Culture - Preliminary No growth in 1 day 02/13/18 00:05 Blood - Peripheral Anaerobic Blood Culture - Preliminary No growth in 1 day 02/13/18 23:50 Blood - Line Aerobic Blood Culture - Preliminary No growth in 1 day 02/13/18 23:50 Blood - Line Anaerobic Blood Culture - Preliminary No growth in 1 day - Procedures None Assessment and Plan - Plan 67-year-old female with Chemotherapy related neutropenia -Currently on Neupogen which was started February 13, 2018 -Appreciate input from oncology Febrile episode Currently on cefepime and vancomycin Continue to monitor culture; which are NTD Right lower extremity DVT Anticoagulation on hold s/t anemia/bleeding. -resume anticoagulation when able. 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 PET/CT scan concerning for hypermetabolic mass involving the pelvis with metastatic lymph nodes in the right inguinal area as well as mediastinum. -chemotherapy per oncology. Vaginal bleeding Per gynecology, since the pt has hx of hysterectomy this is likely 2/2 to the eroding pelvic mass that would not be amenable to any surgical intervention even with profuse bleeding. -follow CBC and transfuse as needed. Right-sided hydroureter/Hematuria - S/p right nephrostomy by IR 02/08. -urology recommending second nephrostomy tube if Nguyen no longer draining adequately. -follow CBC and transfuse as needed. Received additional transfusion 02/11. -Appreciate input from Radiation oncology, who evaluating patient for palliative radiation for management of hematuria Acute renal failure Likely s/t above. Nephrology consult appreciated. Improved. -follow BMP and avoid nephrotoxins. -continue nephrostomy tube. Hypertension -Can you atenolol -clonidine as needed. Nausea S/t chemo. Seems resolved. -antiemetics as needed. -ADAT. PPx: Bilateral SCDs
[2018-02-15] MEDS: Filgrastim Inj 300 MCG/ML Vial SQ SCH (13:56)
[2018-02-15 22:41] LABS: Hematocrit 24.4 % (35.0-46.0); Hemoglobin 8.4 gm/dL (11.6-15.3); Mean Corpuscular HGB Conc 34.5 % (32.0-36.0); Mean Corpuscular Hemoglobin 30.1 pg (27.0-34.0); Mean Corpuscular Volume 87.2 fL (80.0-100.0); Mean Platelet Volume 8.4 fL (7.0-11.0); Platelet Count 29 th/mm3 (150-450); Red Cell Distribution Width 13.9 % (11.6-17.2); White Blood Count 0.9 th/mm3 (4.0-11.0)
[2018-02-15 23:38] LABS: Eosinophils 2 % (0-4); Lymphocytes 82 % (9-44); Monocytes 4 % (0-8)
[2018-02-15 23:43] LABS: Platelet Morphology Normal (Normal); Toxic Granulation 1+
[2018-02-16 05:25] LABS: Hematocrit 24.2 % (35.0-46.0); Hemoglobin 8.5 gm/dL (11.6-15.3); Mean Corpuscular HGB Conc 35.1 % (32.0-36.0); Mean Corpuscular Hemoglobin 30.2 pg (27.0-34.0); Mean Platelet Volume 8.1 fL (7.0-11.0); Platelet Count 28 th/mm3 (150-450); Red Blood Count 2.82 mil/mm3 (4.00-5.30); Red Cell Distribution Width 13.9 % (11.6-17.2); White Blood Count 0.7 th/mm3 (4.0-11.0)
[2018-02-16 07:35] LABS: Lymphocytes 82 % (9-44); Monocytes 7 % (0-8)
[2018-02-16 07:36] LABS: Platelet Morphology Normal (Normal); RBC Morphology Normal (Normal)
[2018-02-16] MEDS: Vancomycin Inj 1,000 MG in Sodium Chlor 0.9% Inj 250 ML IV.SIG SCH ×2 (08:28→19:56)
[2018-02-16] MEDS: Ferrous Sulfate 325 MG Tablet PO SCH ×2 (08:33→20:01)
[2018-02-16] MEDS: Heparin Central Flush 100 UNIT/ML 5 ML Vial IV.FLUSH SCH (08:33)
[2018-02-16] MEDS: Allopurinol 300 MG Tablet PO SCH (08:33)
[2018-02-16] MEDS: Atenolol 50 MG Tablet PO SCH (08:33)
--- NOTE | 2018-02-16 09:01 | P.PNONC ---
Subjective Interval history: Patient seen and examined, vital signs, labs and medications reviewed. No acute events were reported overnight. T-max was 99.8 F. Yesterday patient underwent radiation planning and simulation. She tells me she had some discomfort getting in and out of a wheelchair which was too small for her. She tells me the metal bars on the side compressed her outer thighs and this area has been hurting. She is asked that I requested a larger wheelchair if she needs transportation in the future. She denies overt bleeding, her urine remains harsha/red in color. The patient tells me she continues to get up out of bed with assistance and plans to get out of bed later today. Objective Vital Signs/Intake & Output: Vital Signs 02/15/18 11:22 02/15/18 11:59 02/15/18 16:00 Temperature 99 F 98.5 F Pulse Rate 68 71 77 Respiratory Rate 22 20 Blood Pressure 163/66 H 145/78 H Pulse Oximetry 94 L 97 02/15/18 20:00 02/16/18 00:00 02/16/18 04:00 Temperature 99.2 F 99.8 F H 99.6 F Pulse Rate 80 81 77 Respiratory Rate 20 18 18 Blood Pressure 155/76 H 146/76 H 130/79 Pulse Oximetry 97 97 97 02/16/18 07:15 02/16/18 08:00 Temperature 98.6 F Pulse Rate 71 66 Respiratory Rate 20 Blood Pressure 157/75 H Pulse Oximetry 98 Intake & Output 02/15/18 02/16/18 02/16/18 18:59 06:59 18:59 Intake Total 1390 / 1390 690 / 690 Output Total 2700 / 2700 3070 / 3070 Balance -1310 / -1310 -2380 / -2380 Weight 118.9 kg Intake: IV 350 / 350 450 / 450 Maxipime Inj 2,000 MG In NS Inj 100 / 100 200 / 200 100 ML @ 200 mls/hr IV.SIG Q8H [facility] Rx#:[id number] Vancomycin Inj 1,000 MG In NS 250 / 250 250 / 250 Inj 250 ML @ 250 mls/hr IV.SIG Q12H BEATA Rx#:[id number] Oral 1040 / 1040 240 / 240 Output: Urine Amount (Catheter) 1750 / 1750 1675 / 1675 Indwelling Urethral Catheter 1750 / 1750 1675 / 1675 Urine Amount (Stoma) 950 / 950 1395 / 1395 Nephrostomy Tube Right 950 / 950 1395 / 1395 Other: Bladder Irrigation Fluid - Amount Instilled Indwelling Urethral Catheter 60 Bladder Irrigation Fluid - Amount Drained Indwelling Urethral Catheter 60 Date of Last Bowel Movement 02/14/18 02/14/18 02/14/18 Result Diagrams: 02/16/18 04:40 02/14/18 04:00 Laboratory Results: Laboratory Results - last 24 hr 02/14/18 02/15/18 02/16/18 01:30 22:20 04:40 WBC 0.9 L 0.7 L RBC 2.80 L 2.82 L Hgb 8.4 L 8.5 L Hct 24.4 L 24.2 L MCV 87.2 86.0 MCH 30.1 30.2 MCHC 34.5 35.1 RDW 13.9 13.9 Plt Count 29 L D 28 L MPV 8.4 8.1 Prelim Diff (Auto) Manual diff required Manual diff required WBC Differential Manual diff final Manual diff final Seg Neuts % (Manual) 6 L 2 L Band Neuts % (Manual) 2 Lymphocytes % (Manual) 82 H 82 H Monocytes % (Manual) 4 7 Eosinophils % (Manual) 2 Basophils % (Manual) 4 H 9 H Abs Neuts (Manual) 0.1 L* 0.0 L* Differential Comment . . Toxic Granulation 1+ H Platelet Estimate Low L Low L Platelet Morphology Normal Normal RBC Morphology Normal Urine Color Yellow Urine Clarity Clear Urine pH 7.0 Ur Specific [place] 1.010 Urine Protein 100 H Urine Glucose (UA) Negative Urine Ketones Negative Urine Occult Blood Large H Urine Nitrate Negative Urine Bilirubin Negative Urine Urobilinogen 4 or greater Ur Leukocyte Esterase Trace H Urine RBC Urine WBC 4 Urine Bacteria Rare H Urine Mucus Few H Micro UA Comment Culture indicated Urine Culture Comments Culture indicated Culture Results: Microbiology 02/14/18 01:30 Urine Culture - Preliminary Clean Catch Urine Group D Enterococcus 02/13/18 00:05 Aerobic Blood Culture - Preliminary Blood - Peripheral No growth in 1 day Anaerobic Blood Culture - Preliminary No growth in 1 day 02/13/18 23:50 Aerobic Blood Culture - Preliminary Blood - Line No growth in 1 day Anaerobic Blood Culture - Preliminary No growth in 1 day Medications: Active Medications Generic Name Dose Route Start Last Admin Trade Name Freq PRN Reason Stop Dose Admin Al Hydroxide/Mg Hydroxide 30 ml 02/02/18 21:42 02/07/18 21:23 Milk Of Magnesia Liq PO 30 ml Q12H PRN Administration Mild Constipation Allopurinol 300 mg 02/10/18 09:00 02/16/18 08:33 Zyloprim PO 300 mg DAILY BEATA Administration Atenolol 50 mg 02/11/18 15:00 02/16/18 08:33 Tenormin PO 50 mg DAILY BEATA Administration Citalopram Hydrobromide 40 mg 02/03/18 09:00 02/16/18 08:33 Celexa PO 40 mg DAILY BEATA Administration Ferrous Sulfate 325 mg 02/03/18 09:00 02/16/18 08:33 Ferosul PO 325 mg BID BEATA Administration Filgrastim 300 mcg 02/13/18 14:00 02/15/18 13:56 Neupogen Inj SQ 300 mcg DAILY@1400 BEATA Administration Heparin Sodium (Porcine) 0 unit 02/03/18 14:06 02/15/18 22:31 Heparin Central Flush IV.FLUSH 200 unit PRN PRN Administration Flush PICC Line Heparin Sodium (Porcine) 0 unit 02/04/18 09:00 02/16/18 08:33 Heparin Central Flush IV.FLUSH 500 unit DAILY BEATA Administration Sodium Chloride 250 mls @ 0 mls/hr 02/04/18 14:00 02/11/18 15:00 Ns Inj IV.SIG Infused ONCE BEATA Infusion KVO Vancomycin HCl 1,000 mg/ 250 mls @ 250 mls/hr 02/14/18 08:00 02/16/18 08:28 Sodium Chloride IV.SIG 250 mls/hr Q12H BEATA Administration Cefepime HCl 2,000 mg/ Sodium 100 mls @ 200 mls/hr 02/15/18 04:00 02/16/18 04 :28 Chloride IV.SIG Infused Q8H BEATA Infusion Lactulose 30 ml 02/02/18 21:42 02/09/18 09:29 Lactulose Liq PO 30 ml DAILY PRN Administration SEVERE CONSITIPATION Morphine Sulfate 2 mg 02/03/18 00:02 02/09/18 21:22 Morphine Inj IV.PUSH 2 mg Q3H PRN Administration pain 1 to 10 Ondansetron HCl 4 mg 02/03/18 00:00 02/08/18 09:42 Zofran Inj IV.PUSH 4 mg Q6H PRN Administration NAUSEA Rivaroxaban 20 mg 02/04/18 10:15 02/04/18 17:32 Xarelto PO Not Given DAILY BEATA Sodium Chloride 0 ml 02/04/18 09:00 02/16/18 08:34 Ns Flush IV.FLUSH 10 ml DAILY BEATA Administration Objective Remarks: Middle-aged/elderly lady, laying in bed, appears to be no acute distress, she has a pleasant disposition. She is of medium height and is morbidly obese. HEENT: Head atraumatic normocephalic, conjunctivae not pale sclera anicteric, EOMI, PERRLA. Oral exam: No pharyngeal erythema, no ulceration or thrush. Neck exam: No palpable pathologically enlarged cervical or supraclavicular adenopathy. Respiratory exam: Good air movement bilaterally not breath sounds. No rhonchi, rales or wheezes. Cardiovascular: Regular rate and rhythm, S1-S2 no obvious murmurs or gallops. Abdominal exam: Obese belly, soft, nontender, positive bowel sounds. Pathologically enlarged bulky right inguinal/right upper thigh lymphadenopathy. Interval placement of a right-sided percutaneous nephrostomy tube which is draining dark yellow urine. Hematuria and Nguyen catheter tubing and bag, the color of the urine is more harsha in color and less bright red. Extremities: Right lower extremity significantly larger in circumference when compared to the left lower extremity. This starts at the level of the upper thigh and goes all the way down to the ankles. There is no obvious tenderness. Inguinal lymphadenopathy is no longer appreciable. BODY MAN: No focal sensorimotor deficits. Skin exam: Nonfocal. Psychiatric: Alert and oriented x3, her mood is appropriate and her level of understanding is excellent. 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 Patient was seen in the clinic on 02/02/2018 and reported symptoms of heavy vaginal bleeding, extensive pelvic pain right leg swelling and progressive weakness. She has been initiated on palliative systemic therapy with carboplatin and etoposide (with dose modification). 1. Patient received day 1 and day 2 of carbo/[employer]-16 on February 04 and . Day 3 was held due to worsening renal dysfunction and hematuria. The patient subsequently received a nephrostomy tube with resolution of the renal dysfunction. 2. Extensive right lower extremity deep venous thrombosis: We will continue to hold the Xarelto for her right lower extremity DVT secondary to the hematuria and thrombocytopenia due to chemotherapy. 3. Radiation oncology to evaluate patient for palliative radiation for management of hematuria, planning will be done while the patient is in the hospital, treatment will likely start in the outpatient setting. 4. Chemotherapy related myelosuppression: On supportive transfusions and growth factor support with Neupogen. 5. Febrile neutropenia: She remains afebrile over the past 72 hours. Continue empiric cefepime and vancomycin infusions. Blood cultures remain negative. Urine culture was positive for group D enterococcus; sensitivities are pending. 6. Acute renal failure: Secondary to obstructive uropathy, now resolved with placement of percutaneous nephrostomy tube. Disposition: Repeat CBC today to assess for WBC count recovery and platelet count recovery. Her counts have dropped secondary to chemotherapy related myelosuppression. And I anticipate improvement/recovery in the upcoming days. Hematuria: Secondary to either invasion of the bladder secondary to a a pelvic neuroendocrine tumor. Alternatively, hematuria may be secondary to a high- grade neuroendocrine tumor of the bladder which may be the primary site. Because she has metastatic disease she is not a candidate for aggressive surgical resection. She is therefore being evaluated for palliative radiation to help control hematuria. She is a good candidate for this and treatment would likely start in the outpatient setting as outlined above. Encourage ambulation. Continue ongoing care.
--- NOTE | 2018-02-16 10:03 | P.PN ---
Subjective Interval history: Follow-up chemotherapy related neutropenia/hematuria February 14, 2018-patient seen and examined, T-max 100.9 at midnight however currently afebrile. Still with gross hematuria in Nguyen. February 15, 2018-patient seen and examined, currently afebrile. States she had a bowel movement last night and reports improvement of abdominal pain. Hematuria improving. February 16, 2018-patient seen and examined, spiked fever overnight however currently afebrile. Nephrostomy tube with good output. Nguyen however with worsening hematuria. Patient had stimulation yesterday. Physical Exam Vital signs: Vital Signs 02/15/18 11:22 02/15/18 11:59 02/15/18 16:00 Temperature 99 F 98.5 F Pulse Rate 68 71 77 Respiratory Rate 22 20 Blood Pressure 163/66 H 145/78 H Pulse Oximetry 94 L 97 02/15/18 20:00 02/16/18 00:00 02/16/18 04:00 Temperature 99.2 F 99.8 F H 99.6 F Pulse Rate 80 81 77 Respiratory Rate 20 18 18 Blood Pressure 155/76 H 146/76 H 130/79 Pulse Oximetry 97 97 97 02/16/18 07:15 02/16/18 08:00 Temperature 98.6 F Pulse Rate 71 66 Respiratory Rate 20 Blood Pressure 157/75 H Pulse Oximetry 98 Intake & Output 02/15/18 02/16/18 02/16/18 18:59 06:59 18:59 Intake Total 1390 / 1390 690 / 690 Output Total 2700 / 2700 3070 / 3070 Balance -1310 / -1310 -2380 / -2380 Weight 118.9 kg Intake: IV 350 / 350 450 / 450 Maxipime Inj 2,000 MG In NS Inj 100 / 100 200 / 200 100 ML @ 200 mls/hr IV.SIG Q8H [facility] Rx#:[id number] Vancomycin Inj 1,000 MG In NS 250 / 250 250 / 250 Inj 250 ML @ 250 mls/hr IV.SIG Q12H [facility] Rx#:[id number] Oral 1040 / 1040 240 / 240 Output: Urine Amount (Catheter) 1750 / 1750 1675 / 1675 Indwelling Urethral Catheter 1750 / 1750 1675 / 1675 Urine Amount (Stoma) 950 / 950 1395 / 1395 Nephrostomy Tube Right 950 / 950 1395 / 1395 Other: Bladder Irrigation Fluid - Amount Instilled Indwelling Urethral Catheter 60 Bladder Irrigation Fluid - Amount Drained Indwelling Urethral Catheter 60 Date of Last Bowel Movement 02/14/18 02/14/18 02/14/18 Narrative: GENERAL: NAD SKIN: Warm and dry. HEAD: Atraumatic. Normocephalic. EYES: Pupils equal and round. No scleral icterus. No injection or drainage. ENT: No nasal bleeding or discharge. Mucous membranes pink and moist. NECK: Trachea midline. No JVD. CARDIOVASCULAR: Regular rate and rhythm. RESPIRATORY: No accessory muscle use. Clear to auscultation. Breath sounds equal bilaterally. GASTROINTESTINAL: Abdomen soft, non-tender, nondistended. Hepatic and splenic margins not palpable. percutaneous nephrostomy tube in place MUSCULOSKELETAL: Extremities without clubbing, cyanosis, or edema. No obvious deformities. NEUROLOGICAL: Awake and alert. No obvious cranial nerve deficits. Motor grossly within normal limits. Five out of 5 muscle strength in the arms and legs. Normal speech. PSYCHIATRIC: Appropriate mood and affect; insight and judgment normal. - Urinary Catheter Management Indwelling Urethral Catheter Cath placed during this visit: yes Reason for continuing: Gross Hematuria Insertion date: 02/06/18 Insertion time: 22:38 Results - Labs CBC & Chem 7: 02/16/18 04:40 02/14/18 04:00 Laboratory Results - last 24 hr 02/14/18 02/15/18 02/16/18 01:30 22:20 04:40 WBC 0.9 L 0.7 L RBC 2.80 L 2.82 L Hgb 8.4 L 8.5 L Hct 24.4 L 24.2 L MCV 87.2 86.0 MCH 30.1 30.2 MCHC 34.5 35.1 RDW 13.9 13.9 Plt Count 29 L D 28 L MPV 8.4 8.1 Prelim Diff (Auto) Manual diff required Manual diff required WBC Differential Manual diff final Manual diff final Seg Neuts % (Manual) 6 L 2 L Band Neuts % (Manual) 2 Lymphocytes % (Manual) 82 H 82 H Monocytes % (Manual) 4 7 Eosinophils % (Manual) 2 Basophils % (Manual) 4 H 9 H Abs Neuts (Manual) 0.1 L* 0.0 L* Differential Comment . . Toxic Granulation 1+ H Platelet Estimate Low L Low L Platelet Morphology Normal Normal RBC Morphology Normal Urine Color Yellow Urine Clarity Clear Urine pH 7.0 Ur Specific [place] 1.010 Urine Protein 100 H Urine Glucose (UA) Negative Urine Ketones Negative Urine Occult Blood Large H Urine Nitrate Negative Urine Bilirubin Negative Urine Urobilinogen 4 or greater Ur Leukocyte Esterase Trace H Urine RBC Urine WBC 4 Urine Bacteria Rare H Urine Mucus Few H Micro UA Comment Culture indicated Urine Culture Comments Culture indicated Microbiology 02/14/18 01:30 Clean Catch Urine Urine Culture - Preliminary Group D Enterococcus 02/13/18 00:05 Blood - Peripheral Aerobic Blood Culture - Preliminary No growth in 1 day 02/13/18 00:05 Blood - Peripheral Anaerobic Blood Culture - Preliminary No growth in 1 day 02/13/18 23:50 Blood - Line Aerobic Blood Culture - Preliminary No growth in 1 day 02/13/18 23:50 Blood - Line Anaerobic Blood Culture - Preliminary No growth in 1 day - Procedures None Assessment and Plan - Plan 67-year-old female with Chemotherapy related neutropenia -Currently on Neupogen which was started February 13, 2018 -Appreciate input from oncology Febrile episode Currently on cefepime and vancomycin Urine culture was positive for group D enterococcus; sensitivities are pending. Continue to monitor culture; which are NTD, will de-escalate antibiotics when final culture reports are known Right lower extremity DVT Anticoagulation on hold s/t anemia/bleeding. -resume anticoagulation when able. 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 PET/CT scan concerning for hypermetabolic mass involving the pelvis with metastatic lymph nodes in the right inguinal area as well as mediastinum. -chemotherapy per oncology. Vaginal bleeding Per gynecology, since the pt has hx of hysterectomy this is likely 2/2 to the eroding pelvic mass that would not be amenable to any surgical intervention even with profuse bleeding. -follow CBC and transfuse as needed. Right-sided hydroureter/Hematuria - S/p right nephrostomy by IR 02/08. -urology recommending second nephrostomy tube if Nguyen no longer draining adequately. -follow CBC and transfuse as needed. Received additional transfusion 02/11. -Appreciate input from Radiation oncology, who evaluating patient for palliative radiation for management of hematuria Acute renal failure Likely s/t above. Nephrology consult appreciated. Improved. -avoid nephrotoxins. -continue nephrostomy tube. Hypertension -Can you atenolol -clonidine as needed. Nausea S/t chemo. Seems resolved. -antiemetics as needed. -ADAT. PPx: Bilateral SCDs
[2018-02-16] MEDS: Filgrastim Inj 300 MCG/ML Vial SQ SCH (14:02)
[2018-02-17 05:41] LABS: Hemoglobin 8.7 gm/dL (11.6-15.3); Mean Corpuscular HGB Conc 34.6 % (32.0-36.0); Mean Corpuscular Volume 86.7 fL (80.0-100.0); Mean Platelet Volume 8.5 fL (7.0-11.0); Platelet Count 38 th/mm3 (150-450); Red Blood Count 2.89 mil/mm3 (4.00-5.30); Red Cell Distribution Width 14.1 % (11.6-17.2); White Blood Count 1.4 th/mm3 (4.0-11.0)
[2018-02-17 07:47] LABS: Blast Cells 1 % (0-0); Dohle Bodies Present; Lymphocytes 71 % (9-44); Metamyelocytes 1 % (0-1); Monocytes 13 % (0-8); Myelocytes 1 % (0-0); Platelet Morphology Normal (Normal); Promyelocyte 1 % (0-0); Toxic Granulation 2+
--- NOTE | 2018-02-17 07:55 | P.PNONC ---
Subjective Interval history: Patient was seen and examined this morning, she reports having had a good day yesterday. She walked with assistance to and from the nursing station. She had a good bowel movement yesterday. She reports the abdominal pain and pressure is improved. She continues to have a Nguyen catheter in place, the Nguyen catheter is draining blood-tinged urine with strands of blood clot. The color of the hematuria has certainly lightened. Temperature maximum over the past 24 hours was 99.7 F. The patient reports eating well. There were no acute cardiopulmonary events overnight. Objective Vital Signs/Intake & Output: Vital Signs 02/16/18 08:00 02/16/18 11:55 02/16/18 12:00 Temperature 98.6 F 98.7 F Pulse Rate 66 73 72 Respiratory Rate 20 18 Blood Pressure 157/75 H 134/63 Pulse Oximetry 98 98 02/16/18 15:01 02/16/18 16:00 02/16/18 20:00 Temperature 97.5 F L 98.7 F Pulse Rate 72 78 77 Respiratory Rate 18 16 Blood Pressure 131/62 123/74 Pulse Oximetry 96 97 02/17/18 00:00 02/17/18 04:00 Temperature 99.7 F H 98.5 F Pulse Rate 70 74 Respiratory Rate 15 16 Blood Pressure 135/71 126/74 Pulse Oximetry 98 97 Intake & Output 02/16/18 02/17/18 02/17/18 18:59 06:59 18:59 Intake Total 1430 / 1430 450 / 450 Output Total 1525 / 1525 2650 / 2650 Balance -95 / -95 -2200 / -2200 Intake: IV 350 / 350 450 / 450 Maxipime Inj 2,000 MG In NS Inj 100 / 100 200 / 200 100 ML @ 200 mls/hr IV.SIG Q8H [facility] Rx#:[id number] Vancomycin Inj 1,000 MG In NS 250 / 250 250 / 250 Inj 250 ML @ 250 mls/hr IV.SIG Q12H [facility] Rx#:[id number] Oral 1080 / 1080 Output: Urine Amount (Catheter) 600 / 600 1600 / 1600 Indwelling Urethral Catheter 600 / 600 1600 / 1600 Urine Amount (Stoma) 925 / 925 1050 / 1050 Nephrostomy Tube Right 925 / 925 1050 / 1050 Other: Bladder Irrigation Fluid - Amount Instilled Indwelling Urethral Catheter 100 Date of Last Bowel Movement 02/16/18 02/16/18 # Bowel Movements 2 Result Diagrams: 02/17/18 04:15 02/14/18 04:00 Laboratory Results: Laboratory Results - last 24 hr 02/17/18 04:15 WBC 1.4 L D RBC 2.89 L Hgb 8.7 L Hct 25.0 L MCV 86.7 MCH 30.0 MCHC 34.6 RDW 14.1 Plt Count 38 L D MPV 8.5 Prelim Diff (Auto) Manual diff required WBC Differential Manual diff final Seg Neuts % (Manual) 1 L Band Neuts % (Manual) 8 H Lymphocytes % (Manual) 71 H Monocytes % (Manual) 13 H Basophils % (Manual) 3 H Metamyelocytes % (Man) 1 Myelocytes % (Man) 1 H Promyelocytes % (Man) 1 H Blast Cells % (Manual) 1 H Abs Neuts (Manual) 0.2 L* Differential Comment . Toxic Granulation 2+ H Dohle Bodies Present H Platelet Estimate Low L Platelet Morphology Normal Culture Results: Microbiology 02/14/18 01:30 Urine Culture - Final Clean Catch Urine Enterococcus faecalis 02/13/18 00:05 Aerobic Blood Culture - Preliminary Blood - Peripheral No growth in 2 days Anaerobic Blood Culture - Preliminary No growth in 2 days 02/13/18 23:50 Aerobic Blood Culture - Preliminary Blood - Line No growth in 2 days Anaerobic Blood Culture - Preliminary No growth in 2 days Medications: Active Medications Generic Name Dose Route Start Last Admin Trade Name Freq PRN Reason Stop Dose Admin Al Hydroxide/Mg Hydroxide 30 ml 02/02/18 21:42 02/07/18 21:23 Milk Of Magnpretty Liq PO 30 ml Q12H PRN Administration Mild Constipation Allopurinol 300 mg 02/10/18 09:00 02/16/18 08:33 Zyloprim PO 300 mg DAILY [facility]ATA Administration Atenolol 50 mg 02/11/18 15:00 02/16/18 08:33 Tenormin PO 50 mg DAILY [facility]ATA Administration Citalopram Hydrobromide 40 mg 02/03/18 09:00 02/16/18 08:33 Celexa PO 40 mg DAILY [facility] Administration Ferrous Sulfate 325 mg 02/03/18 09:00 02/16/18 20:01 Ferosul PO 325 mg BID BEATA Administration Filgrastim 300 mcg 02/13/18 14:00 02/16/18 14:02 Neupogen Inj SQ 300 mcg DAILY@1400 [facility] Administration Heparin Sodium (Porcine) 0 unit 02/03/18 14:06 02/15/18 22:31 Heparin Central Flush IV.FLUSH 200 unit PRN PRN Administration Flush PICC Line Heparin Sodium (Porcine) 0 unit 02/04/18 09:00 02/16/18 08:33 Heparin Central Flush IV.FLUSH 500 unit DAILY [facility] Administration Sodium Chloride 250 mls @ 0 mls/hr 02/04/18 14:00 02/11/18 15:00 Ns Inj IV.SIG Infused ONCE [facility] Infusion KVO Vancomycin HCl 1,000 mg/ 250 mls @ 250 mls/hr 02/14/18 08:00 02/16/18 22:00 Sodium Chloride IV.SIG Infused Q12H [facility] Infusion Cefepime HCl 2,000 mg/ Sodium 100 mls @ 200 mls/hr 02/15/18 04:00 02/17/18 04 :43 Chloride IV.SIG Infused Q8H [facility] Infusion Lactulose 30 ml 02/02/18 21:42 02/09/18 09:29 Lactulose Liq PO 30 ml DAILY PRN Administration SEVERE CONSITIPATION Morphine Sulfate 2 mg 02/03/18 00:02 02/09/18 21:22 Morphine Inj IV.PUSH 2 mg Q3H PRN Administration pain 1 to 10 Ondansetron HCl 4 mg 02/03/18 00:00 02/08/18 09:42 Zofran Inj IV.PUSH 4 mg Q6H PRN Administration NAUSEA Rivaroxaban 20 mg 02/04/18 10:15 02/04/18 17:32 Xarelto PO Not Given DAILY [facility] Sodium Chloride 0 ml 02/04/18 09:00 02/16/18 08:34 Ns Flush IV.FLUSH 10 ml DAILY [facility] Administration Objective Remarks: Middle-aged/elderly lady, laying in bed, appears to be no acute distress, she has a pleasant disposition. She is of medium height and is morbidly obese. HEENT: Head atraumatic normocephalic, conjunctivae not pale sclera anicteric, EOMI, PERRLA. Oral exam: No pharyngeal erythema, no ulceration or thrush. Neck exam: No palpable pathologically enlarged cervical or supraclavicular adenopathy. Respiratory exam: Good air movement bilaterally not breath sounds. No rhonchi, rales or wheezes. Cardiovascular: Regular rate and rhythm, S1-S2 no obvious murmurs or gallops. Abdominal exam: Obese belly, soft, nontender, positive bowel sounds. Pathologically enlarged bulky right inguinal/right upper thigh lymphadenopathy. Interval placement of a right-sided percutaneous nephrostomy tube which is draining dark yellow urine. Hematuria and Nguyen catheter tubing and bag, the color of the urine is more harsha in color and less bright red. Extremities: Right lower extremity significantly larger in circumference when compared to the left lower extremity. This starts at the level of the upper thigh and goes all the way down to the ankles. There is no obvious tenderness. Inguinal lymphadenopathy is no longer appreciable. DRY PLASTERER: No focal sensorimotor deficits. Skin exam: Nonfocal. Psychiatric: Alert and oriented x3, her mood is appropriate and her level of understanding is excellent. 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 Patient was seen in the clinic on 02/02/2018 and reported symptoms of heavy vaginal bleeding, extensive pelvic pain right leg swelling and progressive weakness. She has been initiated on palliative systemic therapy with carboplatin and etoposide (with dose modification). 1. Patient received day 1 and day 2 of carbo/[employer]-16 on February 04 and . Day 3 was held due to worsening renal dysfunction and hematuria. The patient subsequently received a nephrostomy tube with resolution of the renal dysfunction. 2. Extensive right lower extremity deep venous thrombosis: We will continue to hold the Xarelto for her right lower extremity DVT secondary to the hematuria and thrombocytopenia due to chemotherapy. 3. Radiation oncology to evaluate patient for palliative radiation for management of hematuria, planning will be done while the patient is in the hospital, treatment will likely start in the outpatient setting. 4. Chemotherapy related myelosuppression: On supportive transfusions and growth factor support with Neupogen. Her WBC count has increased from 0.7 up to 1.4 over the past 24 hours. Continue daily CBC with differential. 5. Febrile neutropenia: She remains afebrile over the past 72 hours. Continue empiric cefepime and vancomycin infusions. Blood cultures remain negative. Urine culture was positive for group D enterococcus; sensitivities are pending. 6. Acute renal failure: Secondary to obstructive uropathy, now resolved with placement of percutaneous nephrostomy tube. CMP ordered for tomorrow morning. Consider internalization of the percutaneous nephrostomy tube prior to discharge home. 7. Ulcer along the hard palate: I will start her on nystatin swish and swallow. Disposition: Clinically the patient is stabilizing. I anticipate her WBC count and platelet counts will continue to improve as the chemotherapy related myelosuppression effect declines and her marrow recovers. Prior to discharge; we will need to address the percutaneous nephrostomy tube. It may be reasonable to have interventional radiology reevaluate her for possible internalization of the percutaneous nephrostomy tube. This in particular may be helpful while the patient undergoes pelvic radiation so as to maintain patency of the ureter.
[2018-02-17] MEDS: Atenolol 50 MG Tablet PO SCH (08:39)
[2018-02-17] MEDS: Allopurinol 300 MG Tablet PO SCH (08:39)
[2018-02-17] MEDS: Heparin Central Flush 100 UNIT/ML 5 ML Vial IV.FLUSH SCH (08:39)
[2018-02-17] MEDS: Ferrous Sulfate 325 MG Tablet PO SCH ×2 (08:39→20:01)
[2018-02-17] MEDS: Vancomycin Inj 1,000 MG in Sodium Chlor 0.9% Inj 250 ML IV.SIG SCH ×2 (08:40→20:02)
--- NOTE | 2018-02-17 10:02 | P.PN ---
Subjective Interval history: Follow-up chemotherapy related neutropenia/hematuria February 14, 2018-patient seen and examined, T-max 100.9 at midnight however currently afebrile. Still with gross hematuria in Nguyen. February 15, 2018-patient seen and examined, currently afebrile. States she had a bowel movement last night and reports improvement of abdominal pain. Hematuria improving. February 16, 2018-patient seen and examined, spiked fever overnight however currently afebrile. Nephrostomy tube with good output. Nguyen however with worsening hematuria. Patient had stimulation yesterday. February 17, 2018-patient seen and examined, T-max 99.7 at midnight however currently afebrile. Nguyen without any hematuria. Case discussed this morning with interventional radiologist Dr. Bourgeois regarding possible internalization of right nephrostomy tube Physical Exam Vital signs: Vital Signs 02/16/18 11:55 02/16/18 12:00 02/16/18 15:01 Temperature 98.7 F Pulse Rate 73 72 72 Respiratory Rate 18 Blood Pressure 134/63 Pulse Oximetry 98 02/16/18 16:00 02/16/18 20:00 02/17/18 00:00 Temperature 97.5 F L 98.7 F 99.7 F H Pulse Rate 78 77 70 Respiratory Rate 18 16 15 Blood Pressure 131/62 123/74 135/71 Pulse Oximetry 96 97 98 02/17/18 04:00 02/17/18 08:31 Temperature 98.5 F 99.3 F Pulse Rate 74 78 Respiratory Rate 16 16 Blood Pressure 126/74 123/54 L Pulse Oximetry 97 96 Intake & Output 02/16/18 02/17/18 02/17/18 18:59 06:59 18:59 Intake Total 1430 / 1430 450 / 450 Output Total 1525 / 1525 2650 / 2650 Balance -95 / -95 -2200 / -2200 Intake: IV 350 / 350 450 / 450 Maxipime Inj 2,000 MG In NS Inj 100 / 100 200 / 200 100 ML @ 200 mls/hr IV.SIG Q8H [facility] Rx#:[id number] Vancomycin Inj 1,000 MG In NS 250 / 250 250 / 250 Inj 250 ML @ 250 mls/hr IV.SIG Q12H [facility] Rx#:[id number] Oral 1080 / 1080 Output: Urine Amount (Catheter) 600 / 600 1600 / 1600 Indwelling Urethral Catheter 600 / 600 1600 / 1600 Urine Amount (Stoma) 925 / 925 1050 / 1050 Nephrostomy Tube Right 925 / 925 1050 / 1050 Other: Bladder Irrigation Fluid - Amount Instilled Indwelling Urethral Catheter 100 Date of Last Bowel Movement 02/16/18 02/16/18 # Bowel Movements 2 Narrative: GENERAL: NAD SKIN: Warm and dry. HEAD: Atraumatic. Normocephalic. EYES: Pupils equal and round. No scleral icterus. No injection or drainage. ENT: No nasal bleeding or discharge. Mucous membranes pink and moist. NECK: Trachea midline. No JVD. CARDIOVASCULAR: Regular rate and rhythm. RESPIRATORY: No accessory muscle use. Clear to auscultation. Breath sounds equal bilaterally. GASTROINTESTINAL: Abdomen soft, non-tender, nondistended. Hepatic and splenic margins not palpable. percutaneous nephrostomy tube in place MUSCULOSKELETAL: Extremities without clubbing, cyanosis, or edema. No obvious deformities. NEUROLOGICAL: Awake and alert. No obvious cranial nerve deficits. Motor grossly within normal limits. Five out of 5 muscle strength in the arms and legs. Normal speech. : Nguyen in place without hematuria PSYCHIATRIC: Appropriate mood and affect; insight and judgment normal. - Urinary Catheter Management Indwelling Urethral Catheter Cath placed during this visit: yes Reason for continuing: Gross Hematuria Insertion date: 02/06/18 Insertion time: 22:38 Results - Labs CBC & Chem 7: 02/17/18 04:15 02/14/18 04:00 Laboratory Results - last 24 hr 02/17/18 04:15 WBC 1.4 L D RBC 2.89 L Hgb 8.7 L Hct 25.0 L MCV 86.7 MCH 30.0 MCHC 34.6 RDW 14.1 Plt Count 38 L D MPV 8.5 Prelim Diff (Auto) Manual diff required WBC Differential Manual diff final Seg Neuts % (Manual) 1 L Band Neuts % (Manual) 8 H Lymphocytes % (Manual) 71 H Monocytes % (Manual) 13 H Basophils % (Manual) 3 H Metamyelocytes % (Man) 1 Myelocytes % (Man) 1 H Promyelocytes % (Man) 1 H Blast Cells % (Manual) 1 H Abs Neuts (Manual) 0.2 L* Differential Comment . Toxic Granulation 2+ H Dohle Bodies Present H Platelet Estimate Low L Platelet Morphology Normal Microbiology 02/14/18 01:30 Clean Catch Urine Urine Culture - Final Enterococcus faecalis 02/13/18 00:05 Blood - Peripheral Aerobic Blood Culture - Preliminary No growth in 2 days 02/13/18 00:05 Blood - Peripheral Anaerobic Blood Culture - Preliminary No growth in 2 days 02/13/18 23:50 Blood - Line Aerobic Blood Culture - Preliminary No growth in 2 days 02/13/18 23:50 Blood - Line Anaerobic Blood Culture - Preliminary No growth in 2 days - Procedures None Assessment and Plan - Plan 67-year-old female with Chemotherapy related neutropenia -Currently on Neupogen which was started February 13, 2018 -Appreciate input from oncology Febrile episode Currently on cefepime and vancomycin Urine culture was positive for group D enterococcus; sensitivities are pending. Continue to monitor culture; which are NTD, will de-escalate antibiotics when final culture reports are known Right lower extremity DVT Anticoagulation on hold s/t anemia/bleeding. -resume anticoagulation when able. 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 PET/CT scan concerning for hypermetabolic mass involving the pelvis with metastatic lymph nodes in the right inguinal area as well as mediastinum. -chemotherapy per oncology. Vaginal bleeding Per gynecology, since the pt has hx of hysterectomy this is likely 2/2 to the eroding pelvic mass that would not be amenable to any surgical intervention even with profuse bleeding. -follow CBC and transfuse as needed. Right-sided hydroureter/Hematuria - S/p right nephrostomy by IR 02/08. -urology recommending second nephrostomy tube if Nguyen no longer draining adequately. -follow CBC and transfuse as needed. Received additional transfusion 02/11. -Appreciate input from Radiation oncology, who evaluating patient for palliative radiation for management of hematuria -Case discussed with interventional radiologist today February 17, 2018 regarding possible internalization of nephrostomy tube however recommended this be evaluated by urology Acute renal failure Likely s/t above. Nephrology consult appreciated. Improved. -avoid nephrotoxins. -continue nephrostomy tube. Hypertension -Can you atenolol -clonidine as needed. Nausea S/t chemo. Seems resolved. -antiemetics as needed. -ADAT. PPx: Bilateral SCDs
[2018-02-17] MEDS: Filgrastim Inj 300 MCG/ML Vial SQ SCH (14:18)
[2018-02-18 07:46] LABS: Alanine Aminotransferase 20 U/L (10-53); Albumin 2.5 g/dL (3.4-5.0); Anion Gap 9 meq/L (5-15); Aspartate Aminotransferase 27 U/L (15-37); Blood Urea Nitrogen 8 mg/dL (7-18); Calcium 8.1 mg/dL (8.5-10.1); Carbon Dioxide 27.2 meq/L (21.0-32.0); Chloride 104 meq/L (98-107); Glomerular Filtration Rate Greater Than 89 mL/min (>89); Glucose,Random 91 mg/dL (74-106); Potassium 3.2 meq/L (3.5-5.1); Sodium 140 meq/L (136-145)
[2018-02-18 07:48] LABS: Hematocrit 25.4 % (35.0-46.0); Hemoglobin 8.9 gm/dL (11.6-15.3); Mean Corpuscular HGB Conc 34.9 % (32.0-36.0); Mean Corpuscular Hemoglobin 30.3 pg (27.0-34.0); Mean Corpuscular Volume 86.9 fL (80.0-100.0); Mean Platelet Volume 8.7 fL (7.0-11.0); Platelet Count 81 th/mm3 (150-450); Red Blood Count 2.92 mil/mm3 (4.00-5.30); Red Cell Distribution Width 14.2 % (11.6-17.2); White Blood Count 5.5 th/mm3 (4.0-11.0)
[2018-02-18 07:49] LABS: Alkaline Phosphatase 69 U/L (45-117); Total Protein 6.4 g/dL (6.4-8.2)
[2018-02-18] MEDS: Heparin Central Flush 100 UNIT/ML 5 ML Vial IV.FLUSH SCH (08:10)
[2018-02-18] MEDS: Allopurinol 300 MG Tablet PO SCH (08:11)
[2018-02-18] MEDS: Atenolol 50 MG Tablet PO SCH (08:12)
[2018-02-18] MEDS: Vancomycin Inj 1,000 MG in Sodium Chlor 0.9% Inj 250 ML IV.SIG SCH ×2 (08:15→22:08)
[2018-02-18] MEDS: Ferrous Sulfate 325 MG Tablet PO SCH ×2 (08:21→22:07)
--- NOTE | 2018-02-18 09:33 | P.PNONC ---
Subjective Interval history: Patient sitting up in bed, visiting with her . Urine and nephrostomy collection bags and Nguyen catheter bag clear, yellow. She denies any further bleeding. Patient denies any shortness of breath and reports her right leg is feeling stronger and is no longer painful. Objective Vital Signs/Intake & Output: Vital Signs 02/17/18 12:00 02/17/18 12:25 02/17/18 16:00 Temperature 99.1 F Pulse Rate 76 74 72 Respiratory Rate 16 Blood Pressure 112/63 Pulse Oximetry 95 02/17/18 18:06 02/17/18 20:00 02/18/18 00:00 Temperature 99 F 99.1 F 98.5 F Pulse Rate 83 79 70 Respiratory Rate 16 16 16 Blood Pressure 126/71 127/66 145/72 H Pulse Oximetry 97 97 02/18/18 04:00 02/18/18 07:52 Temperature 98.8 F 99 F Pulse Rate 80 74 Respiratory Rate 16 16 Blood Pressure 130/75 123/60 Pulse Oximetry 96 95 Intake & Output 02/17/18 02/18/18 02/18/18 18:59 06:59 18:59 Intake Total 1530 / 1530 930 / 930 Output Total 800 / 800 1725 / 1725 Balance 730 / 730 -795 / -795 Weight 109.5 kg Intake: IV 350 / 350 450 / 450 Maxipime Inj 2,000 MG In NS Inj 100 / 100 200 / 200 100 ML @ 200 mls/hr IV.SIG Q8H [facility] Rx#:[id number] Vancomycin Inj 1,000 MG In NS 250 / 250 250 / 250 Inj 250 ML @ 250 mls/hr IV.SIG Q12H [facility] Rx#:[id number] Oral 1180 / 1180 480 / 480 Output: Urine Amount (Catheter) 250 / 250 1075 / 1075 Indwelling Urethral Catheter 250 / 250 1075 / 1075 Urine Amount (Stoma) 550 / 550 650 / 650 Nephrostomy Tube Right 550 / 550 650 / 650 Other: Bladder Irrigation Fluid - Amount Instilled Indwelling Urethral Catheter 50 Bladder Irrigation Fluid - Amount Drained Indwelling Urethral Catheter 50 Date of Last Bowel Movement 02/16/18 Result Diagrams: 02/18/18 04:45 02/18/18 04:45 Laboratory Results: Laboratory Results - last 24 hr 02/18/18 02/18/18 04:45 04:45 WBC 5.5 RBC 2.92 L Hgb 8.9 L Hct 25.4 L MCV 86.9 MCH 30.3 MCHC 34.9 RDW 14.2 Plt Count 81 L D MPV 8.7 Prelim Diff (Auto) Manual diff required Differential Comment . Sodium 140 Potassium 3.2 L Chloride 104 Carbon Dioxide 27.2 Anion Gap 9 BUN 8 Creatinine 0.45 L Estimated GFR Greater than 89 Random Glucose 91 Calcium 8.1 L Total Bilirubin 0.4 AST 27 ALT 20 Alkaline Phosphatase 69 Total Protein 6.4 Albumin 2.5 L Culture Results: Microbiology 02/13/18 00:05 Aerobic Blood Culture - Preliminary Blood - Peripheral No growth in 3 days Anaerobic Blood Culture - Preliminary No growth in 3 days 02/13/18 23:50 Aerobic Blood Culture - Preliminary Blood - Line No growth in 3 days Anaerobic Blood Culture - Preliminary No growth in 3 days 02/14/18 01:30 Urine Culture - Final Clean Catch Urine Enterococcus faecalis Medications: Active Medications Generic Name Dose Route Start Last Admin Trade Name Freq PRN Reason Stop Dose Admin Al Hydroxide/Mg Hydroxide 30 ml 02/02/18 21:42 02/07/18 21:23 Milk Of Magnesia Liq PO 30 ml Q12H PRN Administration Mild Constipation Allopurinol 300 mg 02/10/18 09:00 02/18/18 08:11 Zyloprim PO 300 mg DAILY [facility] Administration Atenolol 50 mg 02/11/18 15:00 02/18/18 08:12 Tenormin PO 50 mg DAILY [facility] Administration Citalopram Hydrobromide 40 mg 02/03/18 09:00 02/18/18 08:11 Celexa PO 40 mg DAILY [facility] Administration Ferrous Sulfate 325 mg 02/03/18 09:00 02/18/18 08:21 Ferosul PO 325 mg BID [facility] Administration Filgrastim 300 mcg 02/13/18 14:00 02/17/18 14:18 Neupogen Inj SQ 300 mcg DAILY@1400 [facility] Administration Heparin Sodium (Porcine) 0 unit 02/03/18 14:06 02/15/18 22:31 Heparin Central Flush IV.FLUSH 200 unit PRN PRN Administration Flush PICC Line Heparin Sodium (Porcine) 0 unit 02/04/18 09:00 02/18/18 08:10 Heparin Central Flush IV.FLUSH 200 unit DAILY [facility] Administration Sodium Chloride 250 mls @ 0 mls/hr 02/04/18 14:00 02/11/18 15:00 Ns Inj IV.SIG Infused ONCE [facility] Infusion KVO Vancomycin HCl 1,000 mg/ 250 mls @ 250 mls/hr 02/14/18 08:00 02/18/18 08:15 Sodium Chloride IV.SIG 250 mls/hr Q12H [facility] Administration Cefepime HCl 2,000 mg/ Sodium 100 mls @ 200 mls/hr 02/15/18 04:00 02/18/18 05 :15 Chloride IV.SIG Infused Q8H [facility] Infusion Lactulose 30 ml 02/02/18 21:42 02/09/18 09:29 Lactulose Liq PO 30 ml DAILY PRN Administration SEVERE CONSITIPATION Morphine Sulfate 2 mg 02/03/18 00:02 02/09/18 21:22 Morphine Inj IV.PUSH 2 mg Q3H PRN Administration pain 1 to 10 Ondansetron HCl 4 mg 02/03/18 00:00 02/08/18 09:42 Zofran Inj IV.PUSH 4 mg Q6H PRN Administration NAUSEA Rivaroxaban 20 mg 02/04/18 10:15 02/04/18 17:32 Xarelto PO Not Given DAILY [facility] Sodium Chloride 0 ml 02/04/18 09:00 02/18/18 08:11 Ns Flush IV.FLUSH 5 ml DAILY [facility] Administration Objective Remarks: GENERAL: Well-nourished, well-developed obese female patient, in no acute distress. SKIN: Warm and dry. HEAD: Normocephalic. EYES: No scleral icterus. No injection or drainage. NECK: Supple, trachea midline. CARDIOVASCULAR: Regular rate and rhythm without murmurs. RESPIRATORY: Posterior breath sounds clear, equal bilaterally. No accessory muscle use. GASTROINTESTINAL: Abdomen soft, non-tender, nondistended. EXTREMITIES: No cyanosis, or edema. MUSCULOSKELETAL: Adequate muscle tone. NEUROLOGICAL: No obvious focal deficit. Awake, alert, and oriented x3. PSYCHIATRIC: Appropriate mood and affect; insight and judgment normal. 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 Patient was seen in the clinic on 02/02/2018 and reported symptoms of heavy vaginal bleeding, extensive pelvic pain right leg swelling and progressive weakness. She has been initiated on palliative systemic therapy with carboplatin and etoposide (with dose modification). 1. Patient received day 1 and day 2 of carbo/[employer]-16 on February 04 and . Day 3 was held due to worsening renal dysfunction and hematuria. The patient subsequently received a nephrostomy tube with resolution of the renal dysfunction. 2. Extensive right lower extremity deep venous thrombosis: Xarelto was held for her right lower extremity DVT secondary to the hematuria and thrombocytopenia due to chemotherapy. 3. Radiation oncology simulated patient for radiation therapy. Start date pending. 4. Chemotherapy related myelosuppression: On supportive transfusions and growth factor support with Neupogen. Improving. 5. Febrile neutropenia: resolved. Continue empiric cefepime and vancomycin infusions. Blood cultures remain negative. Urine culture was positive for group D enterococcus; sensitive to vancomycin. 6. Acute renal failure: Secondary to obstructive uropathy, now resolved with placement of percutaneous nephrostomy tube. Nephrostomy tubes draining clear yellow urine. Consider internalization of the percutaneous nephrostomy tube prior to discharge home. - Attending Statement The exam, history, and the medical decision-making described in the above note were completed with the assistance of the mid-level provider. I reviewed and agree with the findings presented. I attest that I had a [id number] encounter with the patient on the same day, and personally performed and documented my assessment and findings in the medical record. Bleeding has stopped. Spirits are good. The right leg remains swollen. It is difficult to know how much of this is due to the lymphadenopathy in the pelvis and how much is due to her previous DVT. Her platelets are finally coming up and this is the first day that she is not bleeding. She remains at risk of further DVT and pulmonary emboli. In the future may consider resuming anticoagulation, placement of an umbrella or some other approach to her venous thrombosis. Will repeat CBC and platelet count tomorrow. It appears that she will soon begin radiation to the pelvic tumor.
[2018-02-18 09:44] LABS: Metamyelocytes 2 % (0-1); Myelocytes 3 % (0-0); Promyelocyte 1 % (0-0); Tallied Nucleated RBC 2 (0-0)
[2018-02-18 09:45] LABS: Blast Cells 2 % (0-0); Lymphocytes 30 % (9-44); Monocytes 6 % (0-8); Toxic Granulation 2+
--- NOTE | 2018-02-18 10:18 | P.PN ---
Subjective Interval history: Follow-up chemotherapy related neutropenia February 18, 2018-patient seen and examined, no complaint of chest pain or shortness of breath. Good urine outputs. Nephrostomy tube and Nguyen with clear urine . WBC improving Physical Exam Vital signs: Vital Signs 02/17/18 12:00 02/17/18 12:25 02/17/18 16:00 Temperature 99.1 F Pulse Rate 76 74 72 Respiratory Rate 16 Blood Pressure 112/63 Pulse Oximetry 95 02/17/18 18:06 02/17/18 20:00 02/18/18 00:00 Temperature 99 F 99.1 F 98.5 F Pulse Rate 83 79 70 Respiratory Rate 16 16 16 Blood Pressure 126/71 127/66 145/72 H Pulse Oximetry 97 97 02/18/18 04:00 02/18/18 07:52 Temperature 98.8 F 99 F Pulse Rate 80 74 Respiratory Rate 16 16 Blood Pressure 130/75 123/60 Pulse Oximetry 96 95 Intake & Output 02/17/18 02/18/18 02/18/18 18:59 06:59 18:59 Intake Total 1530 / 1530 930 / 930 Output Total 800 / 800 1725 / 1725 Balance 730 / 730 -795 / -795 Weight 109.5 kg Intake: IV 350 / 350 450 / 450 Maxipime Inj 2,000 MG In NS Inj 100 / 100 200 / 200 100 ML @ 200 mls/hr IV.SIG Q8H [facility] Rx#:[id number] Vancomycin Inj 1,000 MG In NS 250 / 250 250 / 250 Inj 250 ML @ 250 mls/hr IV.SIG Q12H [facility] Rx#:[id number] Oral 1180 / 1180 480 / 480 Output: Urine Amount (Catheter) 250 / 250 1075 / 1075 Indwelling Urethral Catheter 250 / 250 1075 / 1075 Urine Amount (Stoma) 550 / 550 650 / 650 Nephrostomy Tube Right 550 / 550 650 / 650 Other: Bladder Irrigation Fluid - Amount Instilled Indwelling Urethral Catheter 50 Bladder Irrigation Fluid - Amount Drained Indwelling Urethral Catheter 50 Date of Last Bowel Movement 02/16/18 Narrative: GENERAL: NAD SKIN: Warm and dry. HEAD: Atraumatic. Normocephalic. EYES: Pupils equal and round. No scleral icterus. No injection or drainage. ENT: No nasal bleeding or discharge. Mucous membranes pink and moist. NECK: Trachea midline. No JVD. CARDIOVASCULAR: Regular rate and rhythm. RESPIRATORY: No accessory muscle use. Clear to auscultation. Breath sounds equal bilaterally. GASTROINTESTINAL: Abdomen soft, non-tender, nondistended. Hepatic and splenic margins not palpable. percutaneous nephrostomy tube in place MUSCULOSKELETAL: Extremities without clubbing, cyanosis, or edema. No obvious deformities. NEUROLOGICAL: Awake and alert. No obvious cranial nerve deficits. Motor grossly within normal limits. Five out of 5 muscle strength in the arms and legs. Normal speech. : Nguyen in with clear urine PSYCHIATRIC: Appropriate mood and affect; insight and judgment normal. - Urinary Catheter Management Indwelling Urethral Catheter Cath placed during this visit: yes Reason for continuing: Gross Hematuria Insertion date: 02/06/18 Insertion time: 22:38 Results - Labs CBC & Chem 7: 02/18/18 04:45 02/18/18 04:45 Laboratory Results - last 24 hr 02/18/18 02/18/18 04:45 04:45 WBC 5.5 RBC 2.92 L Hgb 8.9 L Hct 25.4 L MCV 86.9 MCH 30.3 MCHC 34.9 RDW 14.2 Plt Count 81 L D MPV 8.7 Prelim Diff (Auto) Manual diff required WBC Differential Manual diff final Seg Neuts % (Manual) 29 Band Neuts % (Manual) 27 H Lymphocytes % (Manual) 30 Monocytes % (Manual) 6 Metamyelocytes % (Man) 2 H Myelocytes % (Man) 3 H Promyelocytes % (Man) 1 H Blast Cells % (Manual) 2 H Abs Neuts (Manual) 3.4 Nucleated RBCs/100 WBC 2 H Differential Comment . Toxic Granulation 2+ H Platelet Estimate Low L Platelet Morphology Enlarged H Sodium 140 Potassium 3.2 L Chloride 104 Carbon Dioxide 27.2 Anion Gap 9 BUN 8 Creatinine 0.45 L Estimated GFR Greater than 89 Random Glucose 91 Calcium 8.1 L Total Bilirubin 0.4 AST 27 ALT 20 Alkaline Phosphatase 69 Total Protein 6.4 Albumin 2.5 L Microbiology 02/13/18 00:05 Blood - Peripheral Aerobic Blood Culture - Preliminary No growth in 3 days 02/13/18 00:05 Blood - Peripheral Anaerobic Blood Culture - Preliminary No growth in 3 days 02/13/18 23:50 Blood - Line Aerobic Blood Culture - Preliminary No growth in 3 days 02/13/18 23:50 Blood - Line Anaerobic Blood Culture - Preliminary No growth in 3 days - Procedures None Assessment and Plan - Plan 67-year-old female with Chemotherapy related neutropenia -Currently on Neupogen which was started February 13, 2018 -Appreciate input from oncology Urinary tract infection Currently on cefepime and vancomycin, urine culture positive for enterococcus faecalis therefore will switch to Macrobid Right lower extremity DVT Anticoagulation on hold s/t anemia/bleeding. -resume anticoagulation when able. 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 PET/CT scan concerning for hypermetabolic mass involving the pelvis with metastatic lymph nodes in the right inguinal area as well as mediastinum. -chemotherapy per oncology. Vaginal bleeding-resolved Per gynecology, since the pt has hx of hysterectomy this is likely 2/2 to the eroding pelvic mass that would not be amenable to any surgical intervention even with profuse bleeding. -follow CBC and transfuse as needed. Right-sided hydroureter/Hematuria - S/p right nephrostomy by IR 02/08. -urology recommending second nephrostomy tube if Nguyen no longer draining adequately. -follow CBC and transfuse as needed. Received additional transfusion 02/11. -Appreciate input from Radiation oncology, who evaluating patient for palliative radiation for management of hematuria -Case discussed with interventional radiologist February 17, 2018 regarding possible internalization of nephrostomy tube however recommended this be evaluated by urology Acute renal failure Likely s/t above. Nephrology consult appreciated. Improved. -avoid nephrotoxins. -continue nephrostomy tube. Hypertension -Continue atenolol -clonidine as needed. Nausea-resolved S/t chemo. Seems resolved. -antiemetics as needed. -ADAT. PPx: Bilateral SCDs
[2018-02-18] MEDS: Filgrastim Inj 300 MCG/ML Vial SQ SCH (14:50)
[2018-02-19 05:40] LABS: Hematocrit 26.7 % (35.0-46.0); Hemoglobin 8.9 gm/dL (11.6-15.3); Mean Corpuscular HGB Conc 33.5 % (32.0-36.0); Mean Corpuscular Hemoglobin 29.7 pg (27.0-34.0); Mean Corpuscular Volume 88.6 fL (80.0-100.0); Mean Platelet Volume 8.2 fL (7.0-11.0); Platelet Count 145 th/mm3 (150-450); Red Blood Count 3.01 mil/mm3 (4.00-5.30); Red Cell Distribution Width 14.4 % (11.6-17.2); White Blood Count 21.1 th/mm3 (4.0-11.0)
[2018-02-19 06:13] LABS: Albumin 2.4 g/dL (3.4-5.0); Anion Gap 6 meq/L (5-15); Aspartate Aminotransferase 32 U/L (15-37); Blood Urea Nitrogen 6 mg/dL (7-18); Calcium 8.3 mg/dL (8.5-10.1); Carbon Dioxide 26.9 meq/L (21.0-32.0); Chloride 105 meq/L (98-107); Glomerular Filtration Rate Greater Than 89 mL/min (>89); Glucose,Random 88 mg/dL (74-106); Potassium 3.4 meq/L (3.5-5.1); Sodium 138 meq/L (136-145)
[2018-02-19 06:16] LABS: Alanine Aminotransferase 19 U/L (10-53); Alkaline Phosphatase 102 U/L (45-117); Total Protein 6.5 g/dL (6.4-8.2)
--- NOTE | 2018-02-19 10:08 | P.PN ---
Subjective Interval history: Follow-up chemotherapy related neutropenia February 18, 2018-patient seen and examined, no complaint of chest pain or shortness of breath. Good urine outputs. Nephrostomy tube and Nguyen with clear urine . WBC improving February 19, 2018-patient seen and examined, WBC way up to 21.5. Patient states she is feeling better. Afebrile Physical Exam Vital signs: Vital Signs 02/18/18 12:00 02/18/18 12:14 02/18/18 16:00 Temperature 100.1 F H Pulse Rate 72 74 77 Respiratory Rate 16 Blood Pressure 117/86 Pulse Oximetry 96 02/18/18 16:04 02/18/18 20:00 02/19/18 00:00 Temperature 99 F 99.5 F Pulse Rate 77 81 86 Respiratory Rate 16 16 18 Blood Pressure 131/77 139/68 142/75 H Pulse Oximetry 96 96 95 02/19/18 04:00 Temperature Pulse Rate 80 Respiratory Rate 16 Blood Pressure 132/74 Pulse Oximetry 94 L Intake & Output 02/18/18 02/19/18 02/19/18 18:59 06:59 18:59 Intake Total 1430 / 1430 350 / 350 240 / 240 Output Total 1400 / 1400 1875 / 1875 Balance 30 / 30 350 / 350 -1635 / -1635 Weight 107.5 kg Intake: IV 350 / 350 350 / 350 Maxipime Inj 2,000 MG In NS Inj 100 / 100 100 / 100 100 ML @ 200 mls/hr IV.SIG Q8H [facility] Rx#:[id number] Vancomycin Inj 1,000 MG In NS 250 / 250 250 / 250 Inj 250 ML @ 250 mls/hr IV.SIG Q12H [facility] Rx#:[id number] Oral 1080 / 1080 240 / 240 Output: Urine Amount (Catheter) 700 / 700 925 / 925 Indwelling Urethral Catheter 700 / 700 925 / 925 Urine Amount (Stoma) 700 / 700 950 / 950 Nephrostomy Tube Right 700 / 700 950 / 950 Other: Bladder Irrigation Fluid - Amount Instilled Indwelling Urethral Catheter 0 Date of Last Bowel Movement 02/18/18 02/18/18 # Bowel Movements 1 Narrative: GENERAL: NAD SKIN: Warm and dry. HEAD: Atraumatic. Normocephalic. EYES: Pupils equal and round. No scleral icterus. No injection or drainage. ENT: No nasal bleeding or discharge. Mucous membranes pink and moist. NECK: Trachea midline. No JVD. CARDIOVASCULAR: Regular rate and rhythm. RESPIRATORY: No accessory muscle use. Clear to auscultation. Breath sounds equal bilaterally. GASTROINTESTINAL: Abdomen soft, non-tender, nondistended. Hepatic and splenic margins not palpable. percutaneous nephrostomy tube in place MUSCULOSKELETAL: Extremities without clubbing, cyanosis, or edema. No obvious deformities. NEUROLOGICAL: Awake and alert. No obvious cranial nerve deficits. Motor grossly within normal limits. Five out of 5 muscle strength in the arms and legs. Normal speech. : Nguyen in with clear urine PSYCHIATRIC: Appropriate mood and affect; insight and judgment normal. - Urinary Catheter Management Indwelling Urethral Catheter Cath placed during this visit: yes Reason for continuing: Gross Hematuria Insertion date: 02/06/18 Insertion time: 22:38 Results - Labs CBC & Chem 7: 02/19/18 04:01 02/19/18 04:01 Laboratory Results - last 24 hr 02/19/18 02/19/18 04:01 04:01 WBC 21.1 H D RBC 3.01 L Hgb 8.9 L Hct 26.7 L MCV 88.6 MCH 29.7 MCHC 33.5 RDW 14.4 Plt Count 145 L D MPV 8.2 Prelim Diff (Auto) Manual diff required Differential Comment . Sodium 138 Potassium 3.4 L Chloride 105 Carbon Dioxide 26.9 Anion Gap 6 BUN 6 L Creatinine 0.42 L Estimated GFR Greater than 89 Random Glucose 88 Calcium 8.3 L Total Bilirubin 0.4 AST 32 ALT 19 Alkaline Phosphatase 102 Total Protein 6.5 Albumin 2.4 L Microbiology 02/13/18 00:05 Blood - Peripheral Aerobic Blood Culture - Preliminary No growth in 4 days 02/13/18 00:05 Blood - Peripheral Anaerobic Blood Culture - Preliminary No growth in 4 days 02/13/18 23:50 Blood - Line Aerobic Blood Culture - Preliminary No growth in 4 days 02/13/18 23:50 Blood - Line Anaerobic Blood Culture - Preliminary No growth in 4 days - Procedures None Assessment and Plan - Plan 67-year-old female with Chemotherapy related neutropenia -Currently on Neupogen which was started February 13, 2018 -Appreciate input from oncology Urinary tract infection Currently on cefepime and vancomycin, urine culture positive for enterococcus faecalis therefore will switch to Macrobid Right lower extremity DVT Anticoagulation on hold s/t anemia/bleeding. -resume anticoagulation when able. 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 PET/CT scan concerning for hypermetabolic mass involving the pelvis with metastatic lymph nodes in the right inguinal area as well as mediastinum. -chemotherapy per oncology. Patient will likely soon begin radiation to the pelvic tumor. -WBC way up Vaginal bleeding-resolved Per gynecology, since the pt has hx of hysterectomy this is likely 2/2 to the eroding pelvic mass that would not be amenable to any surgical intervention even with profuse bleeding. -follow CBC and transfuse as needed. Right-sided hydroureter/Hematuria-hematuria resolved - S/p right nephrostomy by IR 02/08. -urology recommending second nephrostomy tube if Nguyen no longer draining adequately. -follow CBC and transfuse as needed. Received additional transfusion 02/11. -Appreciate input from Radiation oncology, who evaluating patient for palliative radiation for management of hematuria -Patient will likely soon begin radiation to the pelvic tumor. -Case discussed with interventional radiologist February 17, 2018 regarding possible internalization of nephrostomy tube however recommended this be evaluated by urology Acute renal failure Likely s/t above. Nephrology consult appreciated. Improved. -avoid nephrotoxins. -continue nephrostomy tube. Hypertension -Continue atenolol -clonidine as needed. Nausea-resolved S/t chemo. Seems resolved. -antiemetics as needed. -ADAT. PPx: Bilateral SCDs
[2018-02-19] MEDS: Vancomycin Inj 1,000 MG in Sodium Chlor 0.9% Inj 250 ML IV.SIG SCH ×2 (10:27→20:22)
--- NOTE | 2018-02-19 10:29 | P.PNONC ---
Subjective Interval history: Patient awake and alert, in no acute distress. She denies any further bleeding. No complaints at this time. Objective Vital Signs/Intake & Output: Vital Signs 02/18/18 12:00 02/18/18 12:14 02/18/18 16:00 Temperature 100.1 F H Pulse Rate 72 74 77 Respiratory Rate 16 Blood Pressure 117/86 Pulse Oximetry 96 02/18/18 16:04 02/18/18 20:00 02/19/18 00:00 Temperature 99 F 99.5 F Pulse Rate 77 81 86 Respiratory Rate 16 16 18 Blood Pressure 131/77 139/68 142/75 H Pulse Oximetry 96 96 95 02/19/18 04:00 Temperature Pulse Rate 80 Respiratory Rate 16 Blood Pressure 132/74 Pulse Oximetry 94 L Intake & Output 02/18/18 02/19/18 02/19/18 18:59 06:59 18:59 Intake Total 1430 / 1430 350 / 350 240 / 240 Output Total 1400 / 1400 1875 / 1875 Balance 30 / 30 350 / 350 -1635 / -1635 Weight 107.5 kg Intake: IV 350 / 350 350 / 350 Maxipime Inj 2,000 MG In NS Inj 100 / 100 100 / 100 100 ML @ 200 mls/hr IV.SIG Q8H [facility] Rx#:[id number] Vancomycin Inj 1,000 MG In NS 250 / 250 250 / 250 Inj 250 ML @ 250 mls/hr IV.SIG Q12H [facility] Rx#:[id number] Oral 1080 / 1080 240 / 240 Output: Urine Amount (Catheter) 700 / 700 925 / 925 Indwelling Urethral Catheter 700 / 700 925 / 925 Urine Amount (Stoma) 700 / 700 950 / 950 Nephrostomy Tube Right 700 / 700 950 / 950 Other: Bladder Irrigation Fluid - Amount Instilled Indwelling Urethral Catheter 0 Date of Last Bowel Movement 02/18/18 02/18/18 # Bowel Movements 1 Result Diagrams: 02/19/18 04:01 02/19/18 04:01 Laboratory Results: Laboratory Results - last 24 hr 02/19/18 02/19/18 04:01 04:01 WBC 21.1 H D RBC 3.01 L Hgb 8.9 L Hct 26.7 L MCV 88.6 MCH 29.7 MCHC 33.5 RDW 14.4 Plt Count 145 L D MPV 8.2 Prelim Diff (Auto) Manual diff required Differential Comment . Sodium 138 Potassium 3.4 L Chloride 105 Carbon Dioxide 26.9 Anion Gap 6 BUN 6 L Creatinine 0.42 L Estimated GFR Greater than 89 Random Glucose 88 Calcium 8.3 L Total Bilirubin 0.4 AST 32 ALT 19 Alkaline Phosphatase 102 Total Protein 6.5 Albumin 2.4 L Culture Results: Microbiology 02/13/18 00:05 Aerobic Blood Culture - Preliminary Blood - Peripheral No growth in 4 days Anaerobic Blood Culture - Preliminary No growth in 4 days 02/13/18 23:50 Aerobic Blood Culture - Preliminary Blood - Line No growth in 4 days Anaerobic Blood Culture - Preliminary No growth in 4 days 02/14/18 01:30 Urine Culture - Final Clean Catch Urine Enterococcus faecalis Medications: Active Medications Generic Name Dose Route Start Last Admin Trade Name Freq PRN Reason Stop Dose Admin Al Hydroxide/Mg Hydroxide 30 ml 02/02/18 21:42 02/07/18 21:23 Milk Of Magnesia Liq PO 30 ml Q12H PRN Administration Mild Constipation Allopurinol 300 mg 02/10/18 09:00 02/18/18 08:11 Zyloprim PO 300 mg DAILY [facility] Administration Atenolol 50 mg 02/11/18 15:00 02/18/18 08:12 Tenormin PO 50 mg DAILY [facility] Administration Citalopram Hydrobromide 40 mg 02/03/18 09:00 02/18/18 08:11 Celexa PO 40 mg DAILY [facility] Administration Ferrous Sulfate 325 mg 02/03/18 09:00 02/18/18 22:07 Ferosul PO 325 mg BID [facility] Administration Heparin Sodium (Porcine) 0 unit 02/03/18 14:06 02/15/18 22:31 Heparin Central Flush IV.FLUSH 200 unit PRN PRN Administration Flush PICC Line Heparin Sodium (Porcine) 0 unit 02/04/18 09:00 02/18/18 08:10 Heparin Central Flush IV.FLUSH 200 unit DAILY [facility] Administration Sodium Chloride 250 mls @ 0 mls/hr 02/04/18 14:00 02/11/18 15:00 Ns Inj IV.SIG Infused ONCE [facility] Infusion KVO Vancomycin HCl 1,000 mg/ 250 mls @ 250 mls/hr 02/14/18 08:00 02/18/18 23:20 Sodium Chloride IV.SIG Infused Q12H [facility] Infusion Cefepime HCl 2,000 mg/ Sodium 100 mls @ 200 mls/hr 02/15/18 04:00 02/19/18 03 :56 Chloride IV.SIG 200 mls/hr Q8H [facility] Administration Lactulose 30 ml 02/02/18 21:42 02/09/18 09:29 Lactulose Liq PO 30 ml DAILY PRN Administration SEVERE CONSITIPATION Morphine Sulfate 2 mg 02/03/18 00:02 02/09/18 21:22 Morphine Inj IV.PUSH 2 mg Q3H PRN Administration pain 1 to 10 Ondansetron HCl 4 mg 02/03/18 00:00 02/08/18 09:42 Zofran Inj IV.PUSH 4 mg Q6H PRN Administration NAUSEA Rivaroxaban 20 mg 02/04/18 10:15 02/04/18 17:32 Xarelto PO Not Given DAILY [facility] Sodium Chloride 0 ml 02/04/18 09:00 02/18/18 08:11 Ns Flush IV.FLUSH 5 ml DAILY [facility] Administration Objective Remarks: GENERAL: Well-nourished, well-developed obese female patient, in no acute distress. SKIN: Warm and dry. HEAD: Normocephalic. EYES: No scleral icterus. No injection or drainage. NECK: Supple, trachea midline. CARDIOVASCULAR: Regular rate and rhythm without murmurs. RESPIRATORY: Posterior breath sounds clear, equal bilaterally. Nonlabored at rest. GASTROINTESTINAL: Abdomen soft, non-tender, nondistended. EXTREMITIES: No cyanosis, +2 edema right leg. trace edema left leg MUSCULOSKELETAL: Adequate muscle tone. NEUROLOGICAL: No obvious focal deficit. Awake, alert, and oriented x3. PSYCHIATRIC: Appropriate mood and affect; insight and judgment normal. 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 Patient was seen in the clinic on 02/02/2018 and reported symptoms of heavy vaginal bleeding, extensive pelvic pain right leg swelling and progressive weakness. She has been initiated on palliative systemic therapy with carboplatin and etoposide (with dose modification). 1. Patient received day 1 and day 2 of carbo/GENERAL INTERN-16 on February 04 and . Day 3 was held due to worsening renal dysfunction and hematuria. The patient subsequently received a nephrostomy tube with resolution of the renal dysfunction. 2. Extensive right lower extremity deep venous thrombosis: Xarelto was held for her right lower extremity DVT secondary to the hematuria and thrombocytopenia due to chemotherapy. Bleeding has resolved and counts are now recovering, we will continue to hold anticoagulant for possible internalization of the percutaneous nephrostomy tubes. 3. Radiation oncology simulated patient for radiation therapy. Start date pending. 4. Chemotherapy related myelosuppression: On supportive transfusions and growth factor support with Neupogen. Improving. 5. Febrile neutropenia: resolved. Continue empiric cefepime and vancomycin infusions. Blood cultures remain negative. Urine culture was positive for group D enterococcus; sensitive to vancomycin. 6. Acute renal failure: Secondary to obstructive uropathy, now resolved with placement of percutaneous nephrostomy tube. Nephrostomy tubes and Nguyen draining clear yellow urine. Consider internalization of the percutaneous nephrostomy tube prior to discharge home. - Attending Statement The exam, history, and the medical decision-making described in the above note were completed with the assistance of the mid-level provider. I reviewed and agree with the findings presented. I attest that I had a [id number] encounter with the patient on the same day, and personally performed and documented my assessment and findings in the medical record. The patient is feeling better. She continues to have chronic swelling of the right leg. There has been no further bleeding. She is not anticoagulated and has had deep vein thrombosis involving the right leg. Will resume anticoagulation but at a lower dose which can be escalated if there is no bleeding. She will receive Lovenox 60 mg subcu today and then tomorrow Dr. Harris can make a decision regarding Xarelto, Lovenox or others form of anticoagulation. If possible it would be reasonable to try to internalize her stent. These decisions will be made this coming week. Situation discussed with her oncologist Dr. Harris this afternoon.
[2018-02-19 10:32] LABS: Eosinophils 1 % (0-4); Lymphocytes 10 % (9-44); Metamyelocytes 4 % (0-1); Monocytes 3 % (0-8); Myelocytes 5 % (0-0); Promyelocyte 2 % (0-0)
[2018-02-19 10:33] LABS: Platelet Estimate Normal (Normal); Platelet Morphology Normal (Normal); RBC Morphology Normal (Normal)
[2018-02-19] MEDS: Heparin Central Flush 100 UNIT/ML 5 ML Vial IV.FLUSH SCH (10:33)
[2018-02-19] MEDS: Ferrous Sulfate 325 MG Tablet PO SCH ×2 (10:34→20:22)
[2018-02-19] MEDS: Allopurinol 300 MG Tablet PO SCH (10:34)
[2018-02-19] MEDS: Atenolol 50 MG Tablet PO SCH (10:34)
[2018-02-19] MEDS ORDERED: Enoxaparin Inj 60 MG/0.6 ML Syringe SQ ONE (13:45)
[2018-02-20 06:04] LABS: Hematocrit 26.4 % (35.0-46.0); Hemoglobin 8.9 gm/dL (11.6-15.3); Mean Corpuscular HGB Conc 33.7 % (32.0-36.0); Mean Corpuscular Hemoglobin 29.8 pg (27.0-34.0); Mean Corpuscular Volume 88.4 fL (80.0-100.0); Mean Platelet Volume 7.9 fL (7.0-11.0); Platelet Count 227 th/mm3 (150-450); Red Blood Count 2.99 mil/mm3 (4.00-5.30); Red Cell Distribution Width 14.7 % (11.6-17.2); White Blood Count 32.1 th/mm3 (4.0-11.0)
--- NOTE | 2018-02-20 07:40 | P.PNONC ---
Subjective Interval history: Patient seen and examined, vital signs, labs and medications reviewed. Events over the past 48 hours also reviewed. Patient no longer experiencing hematuria, urine has completely cleared. Temperature maximum over the weekend was 100.5 F. Over the weekend patient's Neupogen injections have now been discontinued. She remains on empiric antibiotic coverage with vancomycin and cefepime. She did receive a single dose of Lovenox yesterday at 60 mg subcu x1, this did not aggravate the hematuria. Objective Vital Signs/Intake & Output: Vital Signs 02/19/18 08:00 02/19/18 12:00 02/19/18 16:00 Temperature 98.6 F 98.8 F 97.9 F Pulse Rate 80 75 108 H Respiratory Rate 16 18 Blood Pressure 124/72 122/66 94/62 L Pulse Oximetry 92 L 96 98 02/19/18 20:00 02/20/18 00:00 02/20/18 04:00 Temperature 100.5 F H 99.5 F 98.8 F Pulse Rate 79 78 77 Respiratory Rate 16 16 Blood Pressure 129/71 123/70 141/74 H Pulse Oximetry 94 L 93 L Intake & Output 02/19/18 02/20/18 02/20/18 18:59 06:59 18:59 Intake Total 440 / 440 600 / 600 Output Total 1875 / 1875 Balance -1435 / -1435 600 / 600 Weight 107.5 kg Intake: IV 200 / 200 600 / 600 Maxipime Inj 2,000 MG In NS Inj 200 / 200 100 / 100 100 ML @ 200 mls/hr IV.SIG Q8H [facility] Rx#:[id number] Vancomycin Inj 1,000 MG In NS 500 / 500 Inj 250 ML @ 250 mls/hr IV.SIG Q12H [facility] Rx#:[id number] Oral 240 / 240 Output: Urine Amount (Catheter) 925 / 925 Indwelling Urethral Catheter 925 / 925 Urine Amount (Stoma) 950 / 950 Nephrostomy Tube Right 950 / 950 Other: Date of Last Bowel Movement 02/18/18 02/18/18 Result Diagrams: 02/20/18 04:30 02/19/18 04:01 Laboratory Results: Laboratory Results - last 24 hr 02/19/18 02/20/18 04:01 04:30 WBC 32.1 H RBC 2.99 L Hgb 8.9 L Hct 26.4 L MCV 88.4 MCH 29.8 MCHC 33.7 RDW 14.7 Plt Count 227 D MPV 7.9 Prelim Diff (Auto) Manual diff required WBC Differential Manual diff final Seg Neuts % (Manual) 49 Band Neuts % (Manual) 26 H Lymphocytes % (Manual) 10 Monocytes % (Manual) 3 Eosinophils % (Manual) 1 Metamyelocytes % (Man) 4 H Myelocytes % (Man) 5 H Promyelocytes % (Man) 2 H Abs Neuts (Manual) 18.1 H Differential Comment . Platelet Estimate Normal Platelet Morphology Normal RBC Morphology Normal Culture Results: Microbiology 02/13/18 00:05 Aerobic Blood Culture - Final Blood - Peripheral No growth in 5 days Anaerobic Blood Culture - Final No growth in 5 days 02/13/18 23:50 Aerobic Blood Culture - Final Blood - Line No growth in 5 days Anaerobic Blood Culture - Final No growth in 5 days Medications: Active Medications Generic Name Dose Route Start Last Admin Trade Name Freq PRN Reason Stop Dose Admin Al Hydroxide/Mg Hydroxide 30 ml 02/02/18 21:42 02/07/18 21:23 Milk Of Magnesia Liq PO 30 ml Q12H PRN Administration Mild Constipation Atenolol 50 mg 02/11/18 15:00 02/19/18 10:34 Tenormin PO 50 mg DAILY [facility] Administration Citalopram Hydrobromide 40 mg 02/03/18 09:00 02/19/18 10:34 Celexa PO 40 mg DAILY [facility] Administration Ferrous Sulfate 325 mg 02/03/18 09:00 02/19/18 20:22 Ferosul PO 325 mg BID [facility] Administration Heparin Sodium (Porcine) 0 unit 02/03/18 14:06 02/15/18 22:31 Heparin Central Flush IV.FLUSH 200 unit PRN PRN Administration Flush PICC Line Heparin Sodium (Porcine) 0 unit 02/04/18 09:00 02/19/18 10:33 Heparin Central Flush IV.FLUSH 500 unit DAILY [facility] Administration Sodium Chloride 250 mls @ 0 mls/hr 02/04/18 14:00 02/11/18 15:00 Ns Inj IV.SIG Infused ONCE [facility] Infusion KVO Vancomycin HCl 1,000 mg/ 250 mls @ 250 mls/hr 02/14/18 08:00 02/19/18 22:02 Sodium Chloride IV.SIG Infused Q12H [facility] Infusion Cefepime HCl 2,000 mg/ Sodium 100 mls @ 200 mls/hr 02/15/18 04:00 02/20/18 04 :48 Chloride IV.SIG 200 mls/hr Q8H [facility] Administration Lactulose 30 ml 02/02/18 21:42 02/09/18 09:29 Lactulose Liq PO 30 ml DAILY PRN Administration SEVERE CONSITIPATION Morphine Sulfate 2 mg 02/03/18 00:02 02/09/18 21:22 Morphine Inj IV.PUSH 2 mg Q3H PRN Administration pain 1 to 10 Ondansetron HCl 4 mg 02/03/18 00:00 02/08/18 09:42 Zofran Inj IV.PUSH 4 mg Q6H PRN Administration NAUSEA Sodium Chloride 0 ml 02/04/18 09:00 02/19/18 10:34 Ns Flush IV.FLUSH 10 ml DAILY [facility] Administration Objective Remarks: Middle-aged/elderly lady, laying in bed, appears to be no acute distress, she has a pleasant disposition. She is of medium height and is morbidly obese. HEENT: Head atraumatic normocephalic, conjunctivae not pale sclera anicteric, EOMI, PERRLA. Oral exam: No pharyngeal erythema, no ulceration or thrush. Neck exam: No palpable pathologically enlarged cervical or supraclavicular adenopathy. Respiratory exam: Good air movement bilaterally not breath sounds. No rhonchi, rales or wheezes. Cardiovascular: Regular rate and rhythm, S1-S2 no obvious murmurs or gallops. Abdominal exam: Obese belly, soft, nontender, positive bowel sounds. Pathologically enlarged bulky right inguinal/right upper thigh lymphadenopathy. Interval placement of a right-sided percutaneous nephrostomy tube which is draining light yellow urine. Nguyen catheter remains in place, urine is clear in the tubing and in the back. No evidence of hematuria or blood clots. Extremities: Right lower extremity significantly larger in circumference when compared to the left lower extremity. This starts at the level of the upper thigh and goes all the way down to the ankles. There is no obvious tenderness. Inguinal lymphadenopathy is no longer appreciable. [employer]ER: No focal sensorimotor deficits. Skin exam: Nonfocal. Psychiatric: Alert and oriented x3, her mood is appropriate and her level of understanding is excellent. 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 Patient was seen in the clinic on 02/02/2018 and reported symptoms of heavy vaginal bleeding, extensive pelvic pain right leg swelling and progressive weakness. She has been initiated on palliative systemic therapy with carboplatin and etoposide (with dose modification). 1. Patient received day 1 and day 2 of carbo/[employer]-16 on February 04 and . Day 3 was held due to worsening renal dysfunction and hematuria. The patient subsequently received a nephrostomy tube with resolution of the renal dysfunction. 2. Extensive right lower extremity deep venous thrombosis: Xarelto was held for her right lower extremity DVT secondary to the hematuria and thrombocytopenia due to chemotherapy. Bleeding has resolved and counts are now recovering, we will continue to hold anticoagulant for possible internalization of the percutaneous nephrostomy tubes. 3. Radiation oncology simulated patient for radiation therapy. Start date pending. 4. Chemotherapy related myelosuppression: On supportive transfusions and growth factor support with Neupogen. Improving. 5. Febrile neutropenia: resolved. Continue empiric cefepime and vancomycin infusions. Blood cultures remain negative. Urine culture was positive for group D enterococcus; sensitive to vancomycin. 6. Acute renal failure: Secondary to obstructive uropathy, now resolved with placement of percutaneous nephrostomy tube. Nephrostomy tubes and Nguyen draining clear yellow urine. Disposition: Consider internalization of nephrostomy tube if this is required. Given the clearing of her hematuria and likely reduction in tumor bulk within the pelvis following chemotherapy infusion it may be reasonable to clamp her percutaneous nephrostomy tube and assess renal function and assess for recurrence of hydroureteronephrosis on the right side. If hydronephrosis recurs with clamping of the percutaneous nephrostomy tube she will require continuation of either percutaneous nephrostomy versus internalization of the nephrostomy with ureteric stent placement. If there is no evidence of recurrent hydroureteronephrosis on the right side she may be able to have the percutaneous nephrostomy tube discontinued altogether. At this time due to resolution of hematuria and normalization of renal function I do not think she requires her Nguyen catheter to remain in place.
[2018-02-20 09:26] LABS: Lymphocytes 7 % (9-44); Metamyelocytes 3 % (0-1); Monocytes 10 % (0-8); Myelocytes 6 % (0-0); Platelet Estimate Normal (Normal); Platelet Morphology Normal (Normal); Promyelocyte 1 % (0-0); Tallied Nucleated RBC 2 (0-0); Toxic Granulation 2+
[2018-02-20 09:27] LABS: Basophilic Stippling Moderate
[2018-02-20 09:29] LABS: Dimorphic RBC Present
[2018-02-20] MEDS: Atenolol 50 MG Tablet PO SCH (09:57)
[2018-02-20] MEDS: Ferrous Sulfate 325 MG Tablet PO SCH ×2 (09:57→20:00)
[2018-02-20] MEDS: Vancomycin Inj 1,000 MG in Sodium Chlor 0.9% Inj 250 ML IV.SIG SCH ×2 (09:59→20:00)
[2018-02-20] MEDS: Heparin Central Flush 100 UNIT/ML 5 ML Vial IV.FLUSH SCH (10:00)
--- NOTE | 2018-02-20 12:03 | P.PN ---
Subjective Interval history: Follow-up chemotherapy related neutropenia February 18, 2018-patient seen and examined, no complaint of chest pain or shortness of breath. Good urine outputs. Nephrostomy tube and Nguyen with clear urine . WBC improving February 19, 2018-patient seen and examined, WBC way up to 21.5. Patient states she is feeling better. Afebrile February 20, 2018-patient seen and examined, no complaint this morning. Feeling better. Afebrile. Physical Exam Vital signs: Vital Signs 02/19/18 16:00 02/19/18 20:00 02/20/18 00:00 Temperature 97.9 F 100.5 F H 99.5 F Pulse Rate 108 H 79 78 Respiratory Rate 18 16 18 Blood Pressure 94/62 L 129/71 123/70 Pulse Oximetry 98 94 L 02/20/18 04:00 02/20/18 08:00 Temperature 98.8 F 98.2 F Pulse Rate 77 74 Respiratory Rate 16 18 Blood Pressure 141/74 H 129/73 Pulse Oximetry 93 L 94 L Intake & Output 02/19/18 02/20/18 02/20/18 18:59 06:59 18:59 Intake Total 440 / 440 600 / 600 240 / 240 Output Total 1875 / 1875 1900 / 1900 Balance -1435 / -1435 600 / 600 -1660 / -1660 Weight 107.5 kg Intake: IV 200 / 200 600 / 600 Maxipime Inj 2,000 MG In NS Inj 200 / 200 100 / 100 100 ML @ 200 mls/hr IV.SIG Q8H [facility] Rx#:[id number] Vancomycin Inj 1,000 MG In NS 500 / 500 Inj 250 ML @ 250 mls/hr IV.SIG Q12H [facility] Rx#:[id number] Oral 240 / 240 240 / 240 Output: Urine Amount (Catheter) 925 / 925 1325 / 1325 Indwelling Urethral Catheter 925 / 925 1325 / 1325 Urine Amount (Stoma) 950 / 950 575 / 575 Nephrostomy Tube Right 950 / 950 575 / 575 Other: Date of Last Bowel Movement 02/18/18 02/18/18 Narrative: GENERAL: NAD SKIN: Warm and dry. HEAD: Atraumatic. Normocephalic. EYES: Pupils equal and round. No scleral icterus. No injection or drainage. ENT: No nasal bleeding or discharge. Mucous membranes pink and moist. NECK: Trachea midline. No JVD. CARDIOVASCULAR: Regular rate and rhythm. RESPIRATORY: No accessory muscle use. Clear to auscultation. Breath sounds equal bilaterally. GASTROINTESTINAL: Abdomen soft, non-tender, nondistended. Hepatic and splenic margins not palpable. percutaneous nephrostomy tube in place MUSCULOSKELETAL: Extremities without clubbing, cyanosis, or edema. No obvious deformities. NEUROLOGICAL: Awake and alert. No obvious cranial nerve deficits. Motor grossly within normal limits. Five out of 5 muscle strength in the arms and legs. Normal speech. : Nguyen in with clear urine PSYCHIATRIC: Appropriate mood and affect; insight and judgment normal. - Urinary Catheter Management Indwelling Urethral Catheter Cath placed during this visit: yes Reason for continuing: Gross Hematuria Insertion date: 02/06/18 Insertion time: 22:38 Results - Labs CBC & Chem 7: 02/20/18 04:30 02/19/18 04:01 Laboratory Results - last 24 hr 02/20/18 04:30 WBC 32.1 H RBC 2.99 L Hgb 8.9 L Hct 26.4 L MCV 88.4 MCH 29.8 MCHC 33.7 RDW 14.7 Plt Count 227 D MPV 7.9 Prelim Diff (Auto) Manual diff required WBC Differential Manual diff final Seg Neuts % (Manual) 58 Band Neuts % (Manual) 15 H Lymphocytes % (Manual) 7 L Monocytes % (Manual) 10 H Metamyelocytes % (Man) 3 H Myelocytes % (Man) 6 H Promyelocytes % (Man) 1 H Abs Neuts (Manual) 26.6 H Nucleated RBCs/100 WBC 2 H Differential Comment . Toxic Granulation 2+ H Platelet Estimate Normal Platelet Morphology Normal Dimorphic RBCs Present H Basophilic Stippling Moderate H Microbiology 02/13/18 00:05 Blood - Peripheral Aerobic Blood Culture - Final No growth in 5 days 02/13/18 00:05 Blood - Peripheral Anaerobic Blood Culture - Final No growth in 5 days 02/13/18 23:50 Blood - Line Aerobic Blood Culture - Final No growth in 5 days 02/13/18 23:50 Blood - Line Anaerobic Blood Culture - Final No growth in 5 days - Procedures None Assessment and Plan - Plan 67-year-old female with Chemotherapy related neutropenia -Currently on Neupogen which was started February 13, 2018 -Appreciate input from oncology Urinary tract infection Currently on cefepime and vancomycin, urine culture positive for enterococcus faecalis therefore will switch to Macrobid Right lower extremity DVT Anticoagulation on hold s/t anemia/bleeding. -resume anticoagulation when able. Neuroendocrine tumor with right inguinal lymphadenopathy Concerning for [place] cell carcinoma per oncology. PET/CT scan concerning for hypermetabolic mass involving the pelvis with metastatic lymph nodes in the right inguinal area as well as mediastinum. -chemotherapy per oncology. Patient will likely soon begin radiation to the pelvic tumor. Vaginal bleeding-resolved Per gynecology, since the pt has hx of hysterectomy this is likely 2/2 to the eroding pelvic mass that would not be amenable to any surgical intervention even with profuse bleeding. -follow CBC and transfuse as needed. Right-sided hydroureter/Hematuria-hematuria resolved - S/p right nephrostomy by IR 02/08. -urology recommending second nephrostomy tube if Nguyen no longer draining adequately. -follow CBC and transfuse as needed. Received additional transfusion 02/11. -Appreciate input from Radiation oncology, who evaluating patient for palliative radiation for management of hematuria -Patient will likely soon begin radiation to the pelvic tumor. -Case discussed with interventional radiologist February 17, 2018 regarding possible internalization of nephrostomy tube however recommended this be evaluated by urology Acute renal failure Likely s/t above. Nephrology consult appreciated. Improved. -avoid nephrotoxins. -continue nephrostomy tube. Hypertension -Continue atenolol -clonidine as needed. Nausea-resolved S/t chemo. Seems resolved. -antiemetics as needed. -ADAT. PPx: Bilateral SCDs
[2018-02-20] MEDS ORDERED: Iohexol 350 MG/ML 50 ML Vial (for Rad Diag) IVCONTRAST ONE (15:30)
[2018-02-21 06:26] LABS: Anion Gap 6 meq/L (5-15); Blood Urea Nitrogen 6 mg/dL (7-18); Calcium 8.2 mg/dL (8.5-10.1); Chloride 107 meq/L (98-107); Glomerular Filtration Rate Greater Than 89 mL/min (>89); Glucose,Random 90 mg/dL (74-106); Potassium 3.5 meq/L (3.5-5.1); Sodium 141 meq/L (136-145)
--- NOTE | 2018-02-21 07:49 | P.PNONC ---
Subjective Interval history: Patient seen and examined this AM. Her case was discussed in detail with the IR attending yesterday. She underwent an anterograde dye injection to assess flow from the kidney to the bladder, there was good flow. She reports feeling well this AM, no fevers, no bleeding, no chest pain, no ABD pain. Objective Vital Signs/Intake & Output: Vital Signs 02/20/18 08:00 02/20/18 12:00 02/20/18 17:50 Temperature 98.2 F 99 F 100 F H Pulse Rate 74 68 71 Respiratory Rate 18 18 18 Blood Pressure 129/73 117/73 123/57 L Pulse Oximetry 94 L 94 L 97 02/20/18 20:00 02/21/18 00:00 02/21/18 04:00 Temperature 98.6 F 98.3 F 98.5 F Pulse Rate 75 80 74 Respiratory Rate 16 15 16 Blood Pressure 125/65 136/68 142/77 H Pulse Oximetry 95 96 96 Intake & Output 02/20/18 02/21/18 02/21/18 18:59 06:59 18:59 Intake Total 1130 / 1130 450 / 450 Output Total 3000 / 3000 2950 / 2950 Balance -1870 / -1870 -2500 / -2500 Weight 104.5 kg Intake: IV 350 / 350 450 / 450 Maxipime Inj 2,000 MG In NS Inj 100 / 100 200 / 200 100 ML @ 200 mls/hr IV.SIG Q8H [facility] Rx#:[id number] Vancomycin Inj 1,000 MG In NS 250 / 250 250 / 250 Inj 250 ML @ 250 mls/hr IV.SIG Q12H BEATA Rx#:[id number] Oral 780 / 780 Output: Urine Amount (Catheter) 1900 / 1900 2550 / 2550 Indwelling Urethral Catheter 1900 / 1900 2550 / 2550 Urine Amount (Stoma) 1100 / 1100 400 / 400 Nephrostomy Tube Right 1100 / 1100 400 / 400 Other: Date of Last Bowel Movement 02/18/18 # Bowel Movements 1 Result Diagrams: 02/20/18 04:30 02/21/18 04:10 Laboratory Results: Laboratory Results - last 24 hr 02/20/18 02/21/18 04:30 04:10 WBC Differential Manual diff final Seg Neuts % (Manual) 58 Band Neuts % (Manual) 15 H Lymphocytes % (Manual) 7 L Monocytes % (Manual) 10 H Metamyelocytes % (Man) 3 H Myelocytes % (Man) 6 H Promyelocytes % (Man) 1 H Abs Neuts (Manual) 26.6 H Nucleated RBCs/100 WBC 2 H Toxic Granulation 2+ H Platelet Estimate Normal Platelet Morphology Normal Dimorphic RBCs Present H Basophilic Stippling Moderate H Sodium 141 Potassium 3.5 Chloride 107 Carbon Dioxide 28.0 Anion Gap 6 BUN 6 L Creatinine 0.43 L Estimated GFR Greater than 89 Random Glucose 90 Calcium 8.2 L Culture Results: Microbiology 02/13/18 00:05 Aerobic Blood Culture - Final Blood - Peripheral No growth in 5 days Anaerobic Blood Culture - Final No growth in 5 days 02/13/18 23:50 Aerobic Blood Culture - Final Blood - Line No growth in 5 days Anaerobic Blood Culture - Final No growth in 5 days Medications: Active Medications Generic Name Dose Route Start Last Admin Trade Name Freq PRN Reason Stop Dose Admin Al Hydroxide/Mg Hydroxide 30 ml 02/02/18 21:42 02/07/18 21:23 Milk Of Magnpretty Liq PO 30 ml Q12H PRN Administration Mild Constipation Atenolol 50 mg 02/11/18 15:00 02/20/18 09:57 Tenormin PO 50 mg DAILY BEATA Administration Citalopram Hydrobromide 40 mg 02/03/18 09:00 02/20/18 09:57 Celexa PO 40 mg DAILY BEATA Administration Ferrous Sulfate 325 mg 02/03/18 09:00 02/20/18 20:00 Ferosul PO 325 mg BID BEATA Administration Heparin Sodium (Porcine) 0 unit 02/03/18 14:06 02/15/18 22:31 Heparin Central Flush IV.FLUSH 200 unit PRN PRN Administration Flush PICC Line Heparin Sodium (Porcine) 0 unit 02/04/18 09:00 02/20/18 10:00 Heparin Central Flush IV.FLUSH 2 unit DAILY BEATA Administration Sodium Chloride 250 mls @ 0 mls/hr 02/04/18 14:00 02/11/18 15:00 Ns Inj IV.SIG Infused ONCE BEATA Infusion KVO Vancomycin HCl 1,000 mg/ 250 mls @ 250 mls/hr 02/14/18 08:00 02/20/18 22:48 Sodium Chloride IV.SIG Infused Q12H BEATA Infusion Cefepime HCl 2,000 mg/ Sodium 100 mls @ 200 mls/hr 02/15/18 04:00 02/21/18 05 :05 Chloride IV.SIG Infused Q8H BEATA Infusion Lactulose 30 ml 02/02/18 21:42 02/09/18 09:29 Lactulose Liq PO 30 ml DAILY PRN Administration SEVERE CONSITIPATION Morphine Sulfate 2 mg 02/03/18 00:02 02/09/18 21:22 Morphine Inj IV.PUSH 2 mg Q3H PRN Administration pain 1 to 10 Ondansetron HCl 4 mg 02/03/18 00:00 02/08/18 09:42 Zofran Inj IV.PUSH 4 mg Q6H PRN Administration NAUSEA Sodium Chloride 0 ml 02/03/18 14:06 02/20/18 18:00 Ns Flush IV.FLUSH 5 ml PRN PRN Administration FLUSH AFTER USING IV ACCESS Sodium Chloride 0 ml 02/04/18 09:00 02/20/18 18:00 Ns Flush IV.FLUSH 5 ml DAILY BEATA Administration Objective Remarks: Middle-aged/elderly lady, laying in bed, appears to be no acute distress, she has a pleasant disposition. She is of medium height and is morbidly obese. HEENT: Head atraumatic normocephalic, conjunctivae not pale sclera anicteric, EOMI, PERRLA. Oral exam: No pharyngeal erythema, no ulceration or thrush. Neck exam: No palpable pathologically enlarged cervical or supraclavicular adenopathy. Respiratory exam: Good air movement bilaterally not breath sounds. No rhonchi, rales or wheezes. Cardiovascular: Regular rate and rhythm, S1-S2 no obvious murmurs or gallops. Abdominal exam: Obese belly, soft, nontender, positive bowel sounds. Pathologically enlarged bulky right inguinal/right upper thigh lymphadenopathy. Interval placement of a right-sided percutaneous nephrostomy tube which is draining light yellow urine. Nguyen catheter remains in place, urine is clear in the tubing and in the back. No evidence of hematuria or blood clots. Extremities: Right lower extremity significantly larger in circumference when compared to the left lower extremity. This starts at the level of the upper thigh and goes all the way down to the ankles. There is no obvious tenderness. Inguinal lymphadenopathy is no longer appreciable. 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 Skin exam: Nonfocal. Psychiatric: Alert and oriented x3, her mood is appropriate and her level of understanding is excellent. 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 Patient was seen in the clinic on 02/02/2018 and reported symptoms of heavy vaginal bleeding, extensive pelvic pain right leg swelling and progressive weakness. She has been initiated on palliative systemic therapy with carboplatin and etoposide (with dose modification). 1. Patient received day 1 and day 2 of carbo/LOAD MANAGER-16 on February 04 and . Day 3 was held due to worsening renal dysfunction and hematuria. The patient subsequently received a nephrostomy tube with resolution of the renal dysfunction. 2. Extensive right lower extremity deep venous thrombosis: resume xarelto. 3. Radiation oncology simulated patient for radiation therapy. Start date pending. 4. Chemotherapy related myelosuppression: Resolved. 5. Febrile neutropenia: resolved. May d/c antibiotics at D/c. 6. Acute renal failure: Resolved. Disposition: Clear for D/c home from Onc stand point. She may go home with the Percutaneous nephrostomy tube clamped. She will be monitored in the out pt setting with re-eval of renal function. If her renal function remains stable, we will d/c the perc nephrostomy tube at that time. OK to resume out patient xarelto at 20 mg po daily at d/c (she has plenty of this med at home).
--- NOTE | 2018-02-21 09:11 | IR ---
EXAM DATE: 02/20/2018 3:44 PM EST AGE/SEX: 67 years / Female INDICATIONS: 67-year-old female with history of pelvic mass and resultant ureteral obstruction and h ydronephrosis. Patient is status post percutaneous nephrostomy catheter placement on 02/08/2018. She has since undergone radiation therapy with suspected significant improvement in the bulky pelvic mass . Antegrade nephrostogram has been requested to evaluate for possible catheter removal. CLINICAL DATA: This is the patient's subsequent encounter. Patient reports that signs and symptoms h ave been present for 2 weeks and indicates a pain score of 3/10. MEDICAL/SURGICAL HISTORY: Arthritis. Osteoporosis. Hypertension. Neuroendocrine cancer Hyst erectomy. Knee replacement COMPARISON: [facility], NEPHROSTOMY PERCUTANEOUS RT, 02/08/2018. . FLUORO TIME (min): 0.2 IMAGE SERIES: 4 CONTRAST (cc): 20 Omnipaque (iohexol) 350 DEVICE(S): . . PROCEDURE: 1. Antegrade pyelogram. The risks, benefits and alternatives to the procedure were explained and verbal and written consent w as obtained. Under sterile conditions and using aseptic technique with fluoroscopic guidance the pat ient's existing nephroureteral tube was accessed. Contrast was injected through the existing pectineus nephrostomy catheter and antegrade fossae was pe rformed. This demonstrates interval resolution of right-sided hydronephrosis with fairly brisk excret ion of contrast into the bladder. There is some tapering of the distal ureter at the UVJ. CONCLUSION: 1. Antegrade pyelogram demonstrates interval resolution of right-sided hydronephrosis with no eviden ce for significant ureteral obstruction although there is some residual tapering of the distal ureter . Therefore, catheter will be capped with intention of internal drainage challenge. If patient remain s asymptomatic for the remainder of the week, will consider catheter removal on Tuesday. Electronically signed by: Ramon Trinidad MD 02/21/2018 9:10 AM EST
--- NOTE | 2018-02-21 09:43 | P.PN ---
Subjective Interval history: Follow-up chemotherapy related neutropenia February 18, 2018-patient seen and examined, no complaint of chest pain or shortness of breath. Good urine outputs. Nephrostomy tube and Nguyen with clear urine . WBC improving February 19, 2018-patient seen and examined, WBC way up to 21.5. Patient states she is feeling better. Afebrile February 20, 2018-patient seen and examined, no complaint this morning. Feeling better. Afebrile. February 21, 2018-patient seen and examined, stable, afebrile, good urine output. Looking forward to go home today Physical Exam Vital signs: Vital Signs 02/20/18 12:00 02/20/18 17:50 02/20/18 20:00 Temperature 99 F 100 F H 98.6 F Pulse Rate 68 71 75 Respiratory Rate 18 18 16 Blood Pressure 117/73 123/57 L 125/65 Pulse Oximetry 94 L 97 95 02/21/18 00:00 02/21/18 04:00 Temperature 98.3 F 98.5 F Pulse Rate 80 74 Respiratory Rate 15 16 Blood Pressure 136/68 142/77 H Pulse Oximetry 96 96 Intake & Output 02/20/18 02/21/18 02/21/18 18:59 06:59 18:59 Intake Total 1130 / 1130 450 / 450 Output Total 3000 / 3000 2950 / 2950 Balance -1870 / -1870 -2500 / -2500 Weight 104.5 kg Intake: IV 350 / 350 450 / 450 Maxipime Inj 2,000 MG In NS Inj 100 / 100 200 / 200 100 ML @ 200 mls/hr IV.SIG Q8H [facility] Rx#:[id number] Vancomycin Inj 1,000 MG In NS 250 / 250 250 / 250 Inj 250 ML @ 250 mls/hr IV.SIG Q12H [facility] Rx#:[id number] Oral 780 / 780 Output: Urine Amount (Catheter) 1900 / 1900 2550 / 2550 Indwelling Urethral Catheter 1900 / 1900 2550 / 2550 Urine Amount (Stoma) 1100 / 1100 400 / 400 Nephrostomy Tube Right 1100 / 1100 400 / 400 Other: Date of Last Bowel Movement 02/18/18 # Bowel Movements 1 Narrative: GENERAL: NAD SKIN: Warm and dry. HEAD: Atraumatic. Normocephalic. EYES: Pupils equal and round. No scleral icterus. No injection or drainage. ENT: No nasal bleeding or discharge. Mucous membranes pink and moist. NECK: Trachea midline. No JVD. CARDIOVASCULAR: Regular rate and rhythm. RESPIRATORY: No accessory muscle use. Clear to auscultation. Breath sounds equal bilaterally. GASTROINTESTINAL: Abdomen soft, non-tender, nondistended. Hepatic and splenic margins not palpable. percutaneous nephrostomy tube in place MUSCULOSKELETAL: Extremities without clubbing, cyanosis, or edema. No obvious deformities. NEUROLOGICAL: Awake and alert. No obvious cranial nerve deficits. Motor grossly within normal limits. Five out of 5 muscle strength in the arms and legs. Normal speech. : Nguyen in with clear urine PSYCHIATRIC: Appropriate mood and affect; insight and judgment normal. - Urinary Catheter Management Indwelling Urethral Catheter Cath placed during this visit: yes Reason for continuing: Gross Hematuria Insertion date: 02/06/18 Insertion time: 22:38 Results - Labs CBC & Chem 7: 02/20/18 04:30 02/21/18 04:10 Laboratory Results - last 24 hr 02/21/18 04:10 Sodium 141 Potassium 3.5 Chloride 107 Carbon Dioxide 28.0 Anion Gap 6 BUN 6 L Creatinine 0.43 L Estimated GFR Greater than 89 Random Glucose 90 Calcium 8.2 L - Imaging Impressions Radiology Special Procedure 02/20/18 00:00 CONCLUSION: 1. Antegrade pyelogram demonstrates interval resolution of right-sided hydronephrosis with no evidence for significant ureteral obstruction although there is some residual tapering of the distal ureter. Therefore, catheter will be capped with intention of internal drainage challenge. If patient remains asymptomatic for the remainder of the week, will consider catheter removal on Tuesday. - Procedures None Assessment and Plan - Plan 67-year-old female with Chemotherapy related neutropenia -Currently on Neupogen which was started February 13, 2018 -Appreciate input from oncology Urinary tract infection Currently on cefepime and vancomycin, urine culture positive for enterococcus faecalis. Discontinue all antibiotic today February 21, 2018 prior to discharge home Right lower extremity DVT Anticoagulation on hold s/t anemia/bleeding. -resume anticoagulation today February 21, 2018. Neuroendocrine tumor with right inguinal lymphadenopathy Concerning for [place] cell carcinoma per oncology. PET/CT scan concerning for hypermetabolic mass involving the pelvis with metastatic lymph nodes in the right inguinal area as well as mediastinum. -chemotherapy per oncology. Patient will likely soon begin radiation to the pelvic tumor. Vaginal bleeding-resolved Per gynecology, since the pt has hx of hysterectomy this is likely 2/2 to the eroding pelvic mass that would not be amenable to any surgical intervention even with profuse bleeding. -follow CBC and transfuse as needed. Right-sided hydroureter/Hematuria-hematuria resolved - S/p right nephrostomy by IR 02/08. -urology recommending second nephrostomy tube if Nguyen no longer draining adequately. -follow CBC and transfuse as needed. Received additional transfusion 02/11. -Appreciate input from Radiation oncology, who evaluating patient for palliative radiation for management of hematuria -Patient will likely soon begin radiation to the pelvic tumor. -Case discussed with interventional radiologist February 17, 2018 regarding possible internalization of nephrostomy tube however recommended this be evaluated by urology -Nephrostomy tube has been clamped and patient will follow outpatient with urology. Acute renal failure Likely s/t above. Nephrology consult appreciated. Improved. -avoid nephrotoxins. -continue nephrostomy tube. Hypertension -Continue atenolol -clonidine as needed. Nausea-resolved S/t chemo. Seems resolved. -antiemetics as needed. -ADAT. PPx: Bilateral SCDs
--- NOTE | 2018-02-21 09:51 | P.DS ---
Date of admission: 02/02/18 21:41 Primary care physician: Dave Hendricks MD Brief History from admission: This is a 67 y/o female with a history of a high grade neuroendocrine tumor recently diagnosed in December, with pelvic mass seen on outpatient PET scan. 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 Patient states that she has been passing small clots since November, but noticed an increase in vaginal bleeding for the past 2 weeks. She states that the vaginal bleeding started after she was started on Xeralto. She also notes worsening pelvic pain with bleeding. Patient also complains of continued right lower extremity swelling and pain along the groin and upper thigh, which was the initial reason she why she sough medical evaluation in November and was diagnosed with NET. Patient states that she was sent to the ED by Dr. Harris for initiation of chemotherapy. DS: Summary Hospital Course: While in hospital, patient was treated for: Chemotherapy related neutropenia -She was treated with Neupogen which was started February 13, 2018 -Appreciate input from oncology Urinary tract infection Treated with cefepime and vancomycin, urine culture positive for enterococcus faecalis. Discontinue all antibiotic February 21, 2018 prior to discharge home Right lower extremity DVT Anticoagulation on hold s/t anemia/bleeding. -resume anticoagulation February 21, 2018. 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 PET/CT scan concerning for hypermetabolic mass involving the pelvis with metastatic lymph nodes in the right inguinal area as well as mediastinum. -chemotherapy per oncology. Patient will likely soon begin radiation to the pelvic tumor. Vaginal bleeding-resolved Per gynecology, since the pt has hx of hysterectomy this is likely 2/2 to the eroding pelvic mass that would not be amenable to any surgical intervention even with profuse bleeding. -CBC was monitored. Patient was transfuse accordingly Right-sided hydroureter/Hematuria-hematuria resolved - S/p right nephrostomy by IR 02/08. -urology recommending second nephrostomy tube if Nguyen no longer draining adequately. -follow CBC and transfuse as needed. Patient was transfused packed red blood cell accordingly -Appreciate input from Radiation oncology, who evaluating patient for palliative radiation for management of hematuria -Patient will likely soon begin radiation to the pelvic tumor. -Case discussed with interventional radiologist February 17, 2018 regarding possible internalization of nephrostomy tube however recommended this be evaluated by urology -Nephrostomy tube has been clamped and patient will follow outpatient with urology. Acute renal failure Likely s/t above. Nephrology consult appreciated. Improved. -avoid nephrotoxins. -continue nephrostomy tube. Hypertension -She was treated with atenolol -clonidine as needed. PPx: Bilateral SCDs - Time Spent with Patient Total time spent providing and/or coordinating discharge services: Less than 30 minutes - Quality: VTE Deep Vein Thrombosis/Pulmonary Embolism Present on Admission: No Exam Vital signs: Vital Signs 02/20/18 12:00 02/20/18 17:50 02/20/18 20:00 Temperature 99 F 100 F H 98.6 F Pulse Rate 68 71 75 Respiratory Rate 18 18 16 Blood Pressure 117/73 123/57 L 125/65 Pulse Oximetry 94 L 97 95 02/21/18 00:00 02/21/18 04:00 Temperature 98.3 F 98.5 F Pulse Rate 80 74 Respiratory Rate 15 16 Blood Pressure 136/68 142/77 H Pulse Oximetry 96 96 Intake & Output 02/20/18 02/21/18 02/21/18 18:59 06:59 18:59 Intake Total 1130 / 1130 450 / 450 Output Total 3000 / 3000 2950 / 2950 Balance -1870 / -1870 -2500 / -2500 Weight 104.5 kg Intake: IV 350 / 350 450 / 450 Maxipime Inj 2,000 MG In NS Inj 100 / 100 200 / 200 100 ML @ 200 mls/hr IV.SIG Q8H [facility]ATA Rx#:[id number] Vancomycin Inj 1,000 MG In NS 250 / 250 250 / 250 Inj 250 ML @ 250 mls/hr IV.SIG Q12H BEATA Rx#:[id number] Oral 780 / 780 Output: Urine Amount (Catheter) 1900 / 1900 2550 / 2550 Indwelling Urethral Catheter 1900 / 1900 2550 / 2550 Urine Amount (Stoma) 1100 / 1100 400 / 400 Nephrostomy Tube Right 1100 / 1100 400 / 400 Other: Date of Last Bowel Movement 02/18/18 # Bowel Movements 1 Narrative: GENERAL: NAD SKIN: Warm and dry. HEAD: Atraumatic. Normocephalic. EYES: Pupils equal and round. No scleral icterus. No injection or drainage. ENT: No nasal bleeding or discharge. Mucous membranes pink and moist. NECK: Trachea midline. No JVD. CARDIOVASCULAR: Regular rate and rhythm. RESPIRATORY: No accessory muscle use. Clear to auscultation. Breath sounds equal bilaterally. GASTROINTESTINAL: Abdomen soft, non-tender, nondistended. Hepatic and splenic margins not palpable. percutaneous nephrostomy tube in place MUSCULOSKELETAL: Extremities without clubbing, cyanosis, or edema. No obvious deformities. NEUROLOGICAL: Awake and alert. No obvious cranial nerve deficits. Motor grossly within normal limits. Five out of 5 muscle strength in the arms and legs. Normal speech. : Nguyen in with clear urine PSYCHIATRIC: Appropriate mood and affect; insight and judgment normal. Results Procedures completed during hospitalization: None Labs on day of discharge: Labs from last 24 hours 02/21/18 04:10 Sodium 141 Potassium 3.5 Chloride 107 Carbon Dioxide 28.0 Anion Gap 6 BUN 6 L Creatinine 0.43 L Estimated GFR Greater than 89 Random Glucose 90 Calcium 8.2 L - Impressions ITS Impressions Abdomen/Bladder Ultrasound 02/07/18 00:00 CONCLUSION: 1. Moderate bilateral hydronephrosis. 2. Extensive echogenic material within the urinary bladder consistent with probable blood clot. 3. Right lower quadrant mass is not fully dilated on this ultrasound and is better seen on the recent CT of the pelvis. Abdomen/Pelvis CT 02/07/18 00:00 CONCLUSION: 1. The bladder is fairly well distended with large area of higher seen most consistent with hemorrhage. The large right-sided pelvic brittaney mass extends along the right side of the bladder with loss of the fat plane and ill-defined high density which is of concern for direct invasion into the bladder. 2. New bilateral hydronephrosis right greater than left. 3. Extensive right inguinal and right sided pelvic adenopathy without significant change from the recent PET/CT. Nephrostomy 02/08/18 00:00 CONCLUSION: 1. Uncomplicated right nephrostomy tube placement as above. Chest X-Ray 02/14/18 00:00 CONCLUSION: Right-sided PICC line in place. Tip in the distal SVC. No acute cardiopulmonary disease identified. Radiology Special Procedure 02/20/18 00:00 CONCLUSION: 1. Antegrade pyelogram demonstrates interval resolution of right-sided hydronephrosis with no evidence for significant ureteral obstruction although there is some residual tapering of the distal ureter. Therefore, catheter will be capped with intention of internal drainage challenge. If patient remains asymptomatic for the remainder of the week, will consider catheter removal on Tuesday. Discharge Plan - Discharge Disposition Patient Disposition: Discharge Home - Discharge Condition Condition: Stable - Discharge Order Discharge Orders: Discharge Order (Routine); Ordered 02/21/18 Ordered By: Steven Montgomery - Physicians Team Primary Care Provider: Dave Hendricks V Attending Provider: Steven Montgomery Other Providers: Sim Harris MD ; Román Richards MD ; Vida Mcpherson ; Ignacio Crump MD ; Damion Baker MD ; Cornelio Whitten MD
[2018-02-21 10:09] VITALS: RESP 18; O2SAT 97
[2018-02-21 10:11] VITALS: PULSE 74
[2018-02-21] MEDS: Vancomycin Inj 1,000 MG in Sodium Chlor 0.9% Inj 250 ML IV.SIG SCH (10:16)
[2018-02-21] MEDS: Atenolol 50 MG Tablet PO SCH (10:17)
[2018-02-21] MEDS: Ferrous Sulfate 325 MG Tablet PO SCH (10:17)
[2018-02-21] MEDS: Heparin Central Flush 100 UNIT/ML 5 ML Vial IV.FLUSH SCH (10:18)
[2018-02-21 14:59] VITALS: BP 122/60; TEMP 99.9
--- NOTE | 2018-02-21 15:19 | P.DCO ---
- Home Health Nursing Order: Wound care and dressing changes, Nursing assessment with vital signs Instructions: Nephrostomy tube maintenance. Picc line flushing. Assess, and dressing changes. Educate patient on proper daily dressing changes and care. - Case Management Consult Case Management Consult-Home Health: Yes (for nephrostomy tube maintenance) - Certification I have seen patient Catherine Soto on 02/21/18. My clinical findings support the need for the requested home health care services because: The patient has external nephrostomy tube in place that will need to be monitored for infection and proper function, dressing changes. Limited mobility due to disease progression, Deconditioned with increased weakness I certify that my clinical findings support that this patient is homebound because: Unsafe to leave home unassisted
== END 2018-02-21 15:00 | disposition home health service (06) ==
LOC: NEPE 16:10 → NEDA 21:41 → N06 23:35 → HCIN 02-03 15:30
PROVIDERS: ADMIT Hospitalist; ATTEND Hospitalist
DX: N13.6 Pyonephrosis; C7A.8 Other malignant neuroendocrine tumors; C7B.8 Other secondary neuroendocrine tumors; Z68.41 Body mass index [BMI] 40.0-44.9, adult; Z90.721 Acquired absence of ovaries, unilateral; Z86.718 Personal history of other venous thrombosis and embolism; R59.0 Localized enlarged lymph nodes; T45.1X5A Adverse effect of antineoplastic and immunosuppressive drugs, initial encounter; E66.01 Morbid (severe) obesity due to excess calories; D70.1 Agranulocytosis secondary to cancer chemotherapy; Z81.8 Family history of other mental and behavioral disorders; N93.9 Abnormal uterine and vaginal bleeding, unspecified; N17.9 Acute kidney failure, unspecified; Z90.710 Acquired absence of both cervix and uterus; R19.03 Right lower quadrant abdominal swelling, mass and lump; D69.59 Other secondary thrombocytopenia; C4A.9 Merkel cell carcinoma, unspecified; I10 Essential (primary) hypertension; D64.89 Other specified anemias; F32.9 Major depressive disorder, single episode, unspecified; Z96.653 Presence of artificial knee joint, bilateral; Z79.899 Other long term (current) drug therapy; Z79.01 Long term (current) use of anticoagulants; M19.90 Unspecified osteoarthritis, unspecified site; Z82.3 Family history of stroke; K59.00 Constipation, unspecified; Z77.22 Contact with and (suspected) exposure to environmental tobacco smoke (acute) (chronic)